=== PATIENT | male | born 1950 | race Caucasian/White ===

== ENCOUNTER 2017-02-17 12:59 | Emergency (ER) | payer OTHER, MEDICARE ==
[~2017-02-17] VITALS: Ht 195.6 cm; Wt 158.8 kg
[~2017-02-17 12:59] MED LIST: AMLODIPINE BESYL5 M1 PO; ATIVAN0.5 MG PO; CILOSTAZOL100 M1 PO; DICLOFENAC SOD75 MG PO; FLOMAX(MONOGRA0.4 MG PO; FLOMAX0.4 M1 PO; LISINOPRIL10 MG PO; LISINOPRIL30 M1 PO; LISINOPRIL40 M1 PO; LORAZEPAM1 M1 PO; LOSARTAN POTASS50 M1 PO; METOPROLOL TART50 M1 PO; MULTIPLE VITAM1 EAC2 PO; NEURONTIN300 M1 PO; PREDNISONE20 M1 PO; VENLAFAXINE HC225 MG PO; VENLAFAXINE HY150 MG PO
--- NOTE | 2017-02-17 13:38 | ED GI/GU/ABDOMINAL COMPLAINT ---
History of Present Illness General Chief Complaint: General Adult Stated Complaint: ?KIDNEY STONE Source: patient Exam Limitations: no limitations Allergies Coded Allergies: Penicillins (Severe, TONGUE SWELLING 02/17/17) Reconcile Medications Cilostazol 100 MG TAB 1 TAB PO BID intermittent cluadication (Reported) Clotrimazole (Lotrimin AF) 1 % CREAM..G. 1 FRACISCO TOP BID TINEA CRURIS apply to affected area(s) Gabapentin (Neurontin) 300 MG CAP 1 CAP PO TID LEG PAIN (Reported) Lorazepam 1 MG TAB 1 TAB PO BID ANXIETY (Reported) Losartan Potassium 50 MG TABLET 50 MG PO DAILY HIGH BP Metoprolol Tartrate 50 MG TABLET 50 MG PO BID HIGH BP, HEART HEALTH Multivitamin (Multiple Vitamins) 1 TAB TAB 1 TAB PO DAILY supplement ( Reported) Prednisone 20 MG TABLET 2 TAB PO DAILY LUNG INFLAMMATION Tamsulosin HCl (Flomax) 0.4 MG CAP.ER.24H 1 CAP PO BID PROSTATE (Reported) VENLAFAXINE HCL (Venlafaxine HCl ER) [address] 1 TAB PO DAILY MENTAL HEALTH (Reported) Triage Note: PT C/O PAIN IN LEFT FLANK AND PAIN IN LEFT GROIN OFF AND ON SINCE YESTERDAY. TODAY UNABLE TO HAVE BM AND ONLY URINATING A LITTLE. DENIES BLOOD IN URINE Triage Nurses Notes Reviewed? yes Onset: Gradual Duration: getting worse Timing: recent history Quality/Severity: fullness, moderate Severity Numbers: 5 Location: scrotal, urethral Radiation: no radiation HPI: Patient is a 67-year-old male with a past medical history of hypertension who presents emergency room stating that the last day he has been complaining of worsening scant urination production when last 2 hours he's been unable to urinate. Patient does complain of suprapubic abdominal fullness and pain. Patient has never had similar symptoms in the past. Denies any nausea vomiting back pain Last bowel movement was today no blood no melena noted (GABBY DING) Vital Signs & Intake/Output Vital Signs & Intake/Output Vital Signs Date Time Temp Pulse Resp B/P Pulse O2 O2 Flow FiO2 Ox Delivery Rate 02/17 1715 158/96 02/17 1655 105 18 178/101 95 02/17 1544 99.3 95 20 158/96 96 Room Air 02/17 1330 96 Nasal 4.0L Cannula 02/17 1305 97.0 130 20 131/90 Past History Travel History Traveled to [place] past 21 day No Medical History Any Pertinent Medical History? see below for history Neurological: NONE EENT: NONE Cardiovascular: hypertension Respiratory: pneumonia Gastrointestinal: NONE Hepatic: NONE Renal: benign prost hyperplasia Musculoskeletal: NONE Psychiatric: anxiety Endocrine: NONE Blood Disorders: NONE Cancer(s): NONE PEST LOCATOR/Reproductive: NONE Other Medical Hx: OBESITY History of MRSA: No History of VRE: No History of CDIFF: No Surgical History Surgical History: non-contributory, varicocoele Psychosocial History Who do you live with Patient/Self Services at Home None What is your primary language Turkish Tobacco Use: Never used ETOH Use: denies use Illicit Drug Use: denies illicit drug use Family History Family History, If Any: SISTER (esophageal cancer). BROTHER (esophageal and colon cancer). FATHER (hypertension, ?esophageal aneurysm). Hx Contributory? No (GABBY DING) Review of Systems Review of Systems Constitutional: Reports: no symptoms. EENTM: Reports: no symptoms. Respiratory: Reports: no symptoms. Cardiovascular: Reports: no symptoms. GI: Reports: see HPI, abdominal pain. Genitourinary: Reports: see HPI. Musculoskeletal: Reports: no symptoms. Skin: Reports: no symptoms. Neurological/Psychological: Reports: no symptoms. Hematologic/Endocrine: Reports: no symptoms. Immunologic/Allergic: Reports: no symptoms. All Other Systems: Reviewed and Negative (GABBY DING) Physical Exam Physical Exam General Appearance: mild distress Gastrointestinal: normal bowel sounds, soft, MILD SUPRAPUBIC POINT TENDERNESS NO REBOUND TENDERNESS NO PERITONEAL SIGNS Skin: nOTED BILATERAL INGUINAL BEEFY ERYTHEMATOUS CONTINUOUS RASH Comments: HEENT: Normal EENT exam, Neck: Supple, no lymphadenopathy, normal range of motion without pain or tenderness Back: Nontender, no CVA tenderness. Cardiovascular: Regular rate and rhythms no murmurs rubs or gallops, normal JVP Respiratory: Chest nontender. No respiratory distress.breath sounds clear to auscultation bilaterally Extremity: No edema, no calf tenderness to palpation, normal and equal pulses. Neuro: Alert oriented x3, motor sensory normal, Psych: Mood and affect is normal, memory and judgment is normal. Core Measures ACS in differential dx? No Severe Sepsis Present: No Septic Shock Present: No (GABBY DING) Progress Differential Diagnosis: AAA, AMI, appendicitis, biliary colic, bowel obstruction , colon cancer, cholecystitis, diverticulitis, epididymitis, esophageal varices, gastritis, hepatitis, hernia, hemorrhoids, ischemic bowel, inflamm bowel dis, Marjorie-Jasmyne tear, orchitis, pancreatitis, prostatitis, peptic ulcer, PUD/GERD, perforated viscous, pyelonephritis, SBO, STD, testicular torsion, ureterolithiasis, urinary retention, urethritis, UTI/pyelo Diagnostic Imaging: Viewed by Me: CT Scan, Ultrasound. Radiology Impression: SEE COMMENTS Initial ED EKG: none Comments: PATIENT: GABBY SERRANO PRESENT AGE: 67 PATIENT ACCOUNT NO: [id number] : 50 LOCATION: ER ORDERING PHYSICIAN: GABBY BOLAÑOS SERVICE DATE: 02/17/17 EXAM TYPE: US - US-TESTICULAR EXAMINATION: US TESTICULAR CLINICAL INFORMATION: Testicular pain. Rule out testicular torsion. COMPARISON: None TECHNIQUE: High-resolution linear transducer grayscale, color Doppler and spectral Doppler evaluation of the scrotum was performed. FINDINGS: RIGHT TESTICLE: 4.9 x 2.7 x 3.0 cm with a volume of 28 mL. The testicle is normal in size, shape and echotexture. No focal intratesticular lesion. Normal symmetrical appearing intratesticular blood flow is documented. There is a 1.2 x 1.1 x 1.0 cm right epididymal head cyst. No evidence of varicocele or hydrocele. LEFT TESTICLE: 4.7 x 2.5 x 3.3 cm with a volume of 28 mL. The testicle is normal in size, shape and echotexture. No focal intratesticular lesion. Incidental note is made of small appendix of the testicle. Normal symmetrical appearing intratesticular blood flow is documented. There are 2 left epididymal head cysts measuring 0.8 cm and 0.4 cm. No varicocele. A small left hydrocele, probably physiologic. IMPRESSION: 1. No evidence of testicular torsion. Normal sonographic appearance of the testicles. 2. Bilateral epididymal head simple cysts. 3. Small left hydrocele is probably physiologic. 4. No varicocele. PATIENT: GABBY SERRANO PRESENT AGE: 67 PATIENT ACCOUNT NO: [id number] : 50 LOCATION: ER ORDERING PHYSICIAN: GABBY BOLAÑOS SERVICE DATE: 02/17/17134 EXAM TYPE: CAT - CT ABD & PELVIS W/O IV CONTRAS EXAMINATION: CT ABDOMEN AND PELVIS WITHOUT CONTRAST CLINICAL INFORMATION: Suprapubic pain. COMPARISON: None TECHNIQUE: Multidetector volumetric imaging was performed from the superior aspect of the liver through the pubic symphysis. Sagittal and coronal reformatted images were obtained on the technologist's workstation. DLP: 1908 mGy-cm FINDINGS: BURLAP BAG SEWER: Obese body habitus. LUNG BASES: Platelike atelectasis within the lingula. Right diaphragm is elevated and compressive atelectasis is present within the overlying middle lobe and lower lobe. The visualized ascending thoracic aorta is 4.3 cm transverse and 4.4 cm AP diameter at the level of the right pulmonary artery. LIVER, GALLBLADDER, AND BILIARY TREE: There is a small, 0.7 cm subcapsular hepatic cyst (image 20, series 2). Gallbladder is moderately distended and without evidence of cholelithiasis or wall edema. No intrahepatic or extrahepatic bile duct dilatation. PANCREAS: There is atrophy and partial fatty replacement of the pancreas. No pancreatic ductal dilatation. SPLEEN: Prominent spleen measures 14.5 cm craniocaudal dimension. ADRENAL GLANDS: Unremarkable. KIDNEYS AND URETERS: Mild bilateral renal cortical atrophy. No nephrolithiasis, hydronephrosis or perinephric edema. 2.8 x 3.5 cm cyst at the upper pole the right kidney has a simple appearance on these noncontrast images. The ureters are normal in caliber. BLADDER: Urinary bladder is decompressed by a Morejon catheter. GASTROINTESTINAL TRACT: Bowel loops are normal in size. Diverticulosis of the sigmoid colon without diverticulitis. No evidence of inflammation or obstruction along the gastrointestinal tract. No ascites or pneumoperitoneum. ABDOMINAL WALL: Small, fat-containing umbilical hernia measures 1.8 cm wide. There is a fat-containing left inguinal hernia; the hernia sac measures approximately 4.9 x 2.9 x 6.2 cm. LYMPH NODES: No pathologic sized lymph nodes within the abdomen or pelvis. VASCULAR: Mild atherosclerotic calcification of the abdominal aorta without aneurysm. PELVIC VISCERA: Large prostate gland measures 7 cm transverse, 6 cm AP and 7.8 cm craniocaudal. No pelvic free fluid. OSSEOUS STRUCTURES: There is bulky paraspinal osteophyte formation of the thoracolumbar spine. Multilevel disc degeneration of the thoracolumbar spine as manifest by disc space narrowing, osteophyte formation and vacuum disc phenomenon. Lumbar spinal canal stenosis is most pronounced at L3-L4. At L3-L4, there is disc bulge, facet arthropathy and ligamentum flavum hypertrophy resulting in multifactorial, at least moderate central canal stenosis, severe left foraminal stenosis and moderate right foraminal stenosis. Small bone islands of the left femoral neck. No suspicious osseous lesions. IMPRESSION: 1. Large prostate gland (7 x 6 x 7.8 cm) could cause a bladder outlet obstruction. The urinary bladder is completely decompressed by the Morejon catheter. There is no evidence of urolithiasis or urinary urinary tract obstruction. 2. Diverticulosis of sigmoid colon without diverticulitis. 3. Small, fat-containing umbilical hernia. Also, there is a fat-containing left inguinal hernia. 4. The visualized descending thoracic aorta is dilated (4.4 cm diameter). 5. Patient has a large body habitus. Splenomegaly is noted. 6. Multilevel disc degeneration of the thoracolumbar spine. Within the lumbar spine, spinal canal stenosis appears [id number] at L3-L4. (CLAUDIA BOLAÑOS,GABBY) Plan of Care: Orders Procedure Date/time Status Morejon, Insertion/Removal/Asses 02/17 1343 Active CULTURE,URINE 02/17 1343 Active COMPREHENSIVE METABOLIC PANEL 02/17 1343 Complete CBC WITHOUT DIFFERENTIAL 02/17 1343 Complete URINALYSIS 02/17 1306 Complete Laboratory Tests 02/17/17 1521: Anion Gap 10, Estimated GFR 55 L, BUN/Creatinine Ratio 11.5, Glucose 133 H, Calcium 9.7, Total Bilirubin 1.6 H, AST 26, ALT 33, Alkaline Phosphatase 64, Total Protein 6.5, Albumin 3.8, Globulin 2.7, Albumin/Globulin Ratio 1.4 02/17/17 1425: Urine Color KAREN, Urine Clarity CLEAR, Urine pH 8.0, Ur Specific [place] 1.020, Urine Protein 30 H, Urine Ketones 15 H, Urine Nitrite NEG, Urine Bilirubin NEG @ICTO, Urine Urobilinogen 4.0 H, Ur Leukocyte Esterase NEG, Ur Microscopic SEDIMENT EXAMINED, Urine RBC 25-50 H, Urine WBC RARE, Ur Epithelial Cells RARE, Urine Bacteria RARE H, Hyaline Casts 10-15 H, Urine Mucus RARE, Urine Hemoglobin MOD H, Urine Glucose NEG 02/17/17 1412: CBC w Diff NO MAN DIFF REQ, RBC 5.73, MCV 84.7, MCH 29.2, RDW 13.6, MPV 8.1, Gran % 85.1 H, Lymphocytes % 7.9 L, Monocytes % 6.8, Eosinophils % 0.1, Basophils % 0.1, Absolute Granulocytes 7.7 H, Absolute Lymphocytes 0.7 L, Absolute Monocytes 0.6, Absolute Eosinophils 0, Absolute Basophils 0, PUBS MCHC 34.5 Microbiology 02/17 1425 URINE ROUT: Urine Culture - RECD Nursing staff does note that after Morejon catheter was placed 5R cc of straw- colored urine was produced and patient has significant resolution of his abdominal suprapubic pain Patient currently resting comfortably and has nontender abdomen after exam. Patient had CT scan results concerns for enlarged prostate and most likely this is causing patient's urine retention. Patient was strongly advised to establish urologist Dr. ARGUETA for further evaluation treatment. Upon discharge patient looks well no apparent distress and will comply with discharge and shocks in's and had no questions. MOREJON leg bag was applied and patient was strongly advised to follow up with urology. Discussed patient with Dr. Donovan who agrees with disposition plan. (GABBY DNIG) Departure Departure Disposition: HOME OR SELF CARE Condition: Stable Clinical Impression Primary Impression: Urine retention Secondary Impressions: Enlarged prostate, Tinea cruris Referrals: RADHA ABURTO (PCP/Family) AMY RICHTER MD Additional Instructions: As discussed please continue to leave the Morejon catheter leg bag has been placed on you in the emergency room at all times. Tomorrow please follow-up and established urologist for further evaluation treatment. Begin the prescription of Lotrimin and apply to your inguinal region If symptoms worsen return to emergency room. Prescriptions are waiting at your pharmacy Departure Forms: Customer Survey General Discharge Information Prescriptions: Current Visit Scripts Clotrimazole (Lotrimin AF) 1 FRACISCO TOP BID #24 GM apply to affected area(s) (GABBY DING) PA/COTTONSEED MEAT PRESSER Co-Sign Statement Statement: ED Attending supervision documentation- [X] I saw and evaluated the patient. I have also reviewed all the pertinent lab results and diagnostic results. I agree with the findings and the plan of care as documented in the PA's/COTTONSEED MEAT PRESSER's documentation. [] I have reviewed the ED Record and agree with the PA's/COTTONSEED MEAT PRESSER's documentation. [] Additions or exceptions (if any) to the PAs/COTTONSEED MEAT PRESSER's note and plan are summarized below: [] ([place],CHIVO Etienne)
[2017-02-17 14:22] LABS: ABSOLUTE BASOPHIL COUNT 0 /CUMM (0.0-0.2); ABSOLUTE EOSINOPHIL COUNT 0 /CUMM (0.0-0.7); ABSOLUTE GRANULOCYTE CT 7.7 /CUMM (1.4-6.5); ABSOLUTE LYMPH COUNT 0.7 /CUMM (1.2-3.4); ABSOLUTE MONOCYTE COUNT 0.6 /CUMM (0.10-0.60); BASOPHIL % 0.1 % (0.0-2.0); EOSINOPHIL % 0.1 % (0-5); GRANULOCYTE % 85.1 % (42.2-75.2); HEMATOCRIT 48.5 % (42-52); MEAN CORPUSCULAR HGB 29.2 PG (27.0-31.0); MEAN CORPUSCULAR HGB CONC 34.5 G/DL (33.0-37.0); MEAN CORPUSCULAR VOLUME 84.7 FL (80.0-94.0); MEAN PLATELET VOLUME 8.1 FL (7.4-10.4); PLATELET COUNT 161 /CUMM (130-400); RBC DISTRIBUTION WIDTH 13.6 % (11.5-14.5); RED BLOOD CELL CT 5.73 /CUMM (4.70-6.10)
--- NOTE | 2017-02-17 15:10 | CT SCAN REPORT ---
EXAMINATION: CT ABDOMEN AND PELVIS WITHOUT CONTRAST CLINICAL INFORMATION: Suprapubic pain. COMPARISON: None TECHNIQUE: Multidetector volumetric imaging was performed from the superior aspect of the liver through the pubic symphysis. Sagittal and coronal reformatted images were obtained on the technologist's workstation. DLP: 1908 mGy-cm FINDINGS: LEARNING COORDINATOR: Obese body habitus. LUNG BASES: Platelike atelectasis within the lingula. Right diaphragm is elevated and compressive atelectasis is present within the overlying middle lobe and lower lobe. The visualized ascending thoracic aorta is 4.3 cm transverse and 4.4 cm AP diameter at the level of the right pulmonary artery. LIVER, GALLBLADDER, AND BILIARY TREE: There is a small, 0.7 cm subcapsular hepatic cyst (image 20, series 2). Gallbladder is moderately distended and without evidence of cholelithiasis or wall edema. No intrahepatic or extrahepatic bile duct dilatation. PANCREAS: There is atrophy and partial fatty replacement of the pancreas. No pancreatic ductal dilatation. SPLEEN: Prominent spleen measures 14.5 cm craniocaudal dimension. ADRENAL GLANDS: Unremarkable. KIDNEYS AND URETERS: Mild bilateral renal cortical atrophy. No nephrolithiasis, hydronephrosis or perinephric edema. 2.8 x 3.5 cm cyst at the upper pole the right kidney has a simple appearance on these noncontrast images. The ureters are normal in caliber. BLADDER: Urinary bladder is decompressed by a Shultz catheter. GASTROINTESTINAL TRACT: Bowel loops are normal in size. Diverticulosis of the sigmoid colon without diverticulitis. No evidence of inflammation or obstruction along the gastrointestinal tract. No ascites or pneumoperitoneum. ABDOMINAL WALL: Small, fat-containing umbilical hernia measures 1.8 cm wide. There is a fat-containing left inguinal hernia; the hernia sac measures approximately 4.9 x 2.9 x 6.2 cm. LYMPH NODES: No pathologic sized lymph nodes within the abdomen or pelvis. VASCULAR: Mild atherosclerotic calcification of the abdominal aorta without aneurysm. PELVIC VISCERA: Large prostate gland measures 7 cm transverse, 6 cm AP and 7.8 cm craniocaudal. No pelvic free fluid. OSSEOUS STRUCTURES: There is bulky paraspinal osteophyte formation of the thoracolumbar spine. Multilevel disc degeneration of the thoracolumbar spine as manifest by disc space narrowing, osteophyte formation and vacuum disc phenomenon. Lumbar spinal canal stenosis is most pronounced at L3-L4. At L3-L4, there is disc bulge, facet arthropathy and ligamentum flavum hypertrophy resulting in multifactorial, at least moderate central canal stenosis, severe left foraminal stenosis and moderate right foraminal stenosis. Small bone islands of the left femoral neck. No suspicious osseous lesions. IMPRESSION: 1. Large prostate gland (7 x 6 x 7.8 cm) could cause a bladder outlet obstruction. The urinary bladder is completely decompressed by the Shultz catheter. There is no evidence of urolithiasis or urinary urinary tract obstruction. 2. Diverticulosis of sigmoid colon without diverticulitis. 3. Small, fat-containing umbilical hernia. Also, there is a fat-containing left inguinal hernia. 4. The visualized descending thoracic aorta is dilated (4.4 cm diameter). 5. Patient has a large body habitus. Splenomegaly is noted. 6. Multilevel disc degeneration of the thoracolumbar spine. Within the lumbar spine, spinal canal stenosis appears [id number] at L3-L4.
--- NOTE | 2017-02-17 15:48 | ULTRASOUND REPORT ---
EXAMINATION: US TESTICULAR CLINICAL INFORMATION: Testicular pain. Rule out testicular torsion. COMPARISON: None TECHNIQUE: High-resolution linear transducer grayscale, color Doppler and spectral Doppler evaluation of the scrotum was performed. FINDINGS: RIGHT TESTICLE: 4.9 x 2.7 x 3.0 cm with a volume of 28 mL. The testicle is normal in size, shape and echotexture. No focal intratesticular lesion. Normal symmetrical appearing intratesticular blood flow is documented. There is a 1.2 x 1.1 x 1.0 cm right epididymal head cyst. No evidence of varicocele or hydrocele. LEFT TESTICLE: 4.7 x 2.5 x 3.3 cm with a volume of 28 mL. The testicle is normal in size, shape and echotexture. No focal intratesticular lesion. Incidental note is made of small appendix of the testicle. Normal symmetrical appearing intratesticular blood flow is documented. There are 2 left epididymal head cysts measuring 0.8 cm and 0.4 cm. No varicocele. A small left hydrocele, probably physiologic. IMPRESSION: 1. No evidence of testicular torsion. Normal sonographic appearance of the testicles. 2. Bilateral epididymal head simple cysts. 3. Small left hydrocele is probably physiologic. 4. No varicocele.
[2017-02-17] MEDS ORDERED: LOTRIMIN AF12 GM TOP (16:21)
[2017-02-17 17:15] VITALS: BP 158/96
== END 2017-02-17 17:37 ==
LOC: ERH 12:59
PROVIDERS: Physician Assistant
DX: R33.9 Retention of urine, unspecified (principal); N40.1 Benign prostatic hyperplasia with lower urinary tract symptoms; B35.6 Tinea cruris
CPT/HCPCS: 36415; 74176; 81001; 87086

== ENCOUNTER 2017-02-21 20:22 | Emergency (ER) | payer OTHER, MEDICARE ==
[~2017-02-21 20:22] MED LIST changes: +LOTRIMIN AF12 GM TOP
--- NOTE | 2017-02-21 21:06 | ED CARDIAC/CP/PALPITATIONS ---
History of Present Illness General Chief Complaint: Male Genitourinary Problems Stated Complaint: PROSTATE Source: patient, old records Exam Limitations: no limitations Vital Signs & Intake/Output Vital Signs & Intake/Output Vital Signs Date Time Temp Pulse Resp B/P Pulse O2 O2 Flow FiO2 Ox Delivery Rate 02/22 0229 98.2 65 18 130/69 96 02/22 0004 98.0 66 20 148/90 94 Room Air 02/21 2204 69 20 116/74 96 02/21 2040 97.2 120 26 99/62 93 Room Air ED Intake and Output 02/22 0000 02/21 1200 Intake Total Output Total 100 Balance -100 Output, Urine 100 Allergies Coded Allergies: Penicillins (Severe, TONGUE SWELLING 02/17/17) Reconcile Medications Cilostazol 100 MG TABLET 1 TAB PO BID INTERMITTENT CLAUDICATION (Reported) Ciprofloxacin HCl (Cipro) 250 MG TABLET 1 TAB PO BID URINE INFECTION Clotrimazole (Lotrimin AF) 1 % CREAM..G. 1 FRACISCO TOP BID TINEA CRURIS apply to affected area(s) Gabapentin (Neurontin) 300 MG CAPSULE 1 CAP PO TID NERVE PAIN (Reported) Lorazepam 1 MG TABLET 1 TAB PO TID PRN ANXIETY (Reported) Losartan Potassium 50 MG TABLET 50 MG PO DAILY HIGH BP Metoprolol Tartrate 50 MG TABLET 50 MG PO BID HIGH BP, HEART HEALTH Multivitamin (Multiple Vitamins) 1 EACH TABLET 1 TAB PO DAILY SUPPLEMENT ( Reported) Tamsulosin HCl (Flomax) 0.4 MG CAP.ER.24H 1 CAP PO BID PROSTATE (Reported) Venlafaxine HCl (Venlafaxine HCl ER) 225 MG TAB.ER.24 1 TAB PO DAILY MENTAL HEALTH (Reported) Triage Note: PER PT HAD CATHETER PLACED ON TUESDAY AND IT FELL OUT LOSING ALOT OF BLOOD AND FEELING SOB. PT REPORTS WAS TOLD IT WAS FROM ENLARGED PROSTATE Triage Nurses Notes Reviewed? yes HPI: Patient had a Shultz catheter placed over the weekend for urinary retention. Patient states that the catheter keeps moving in and out and he is now getting just blood in the Shultz bag. Patient feels a pressure sensation in his suprapubic area. The pressure sensation escalates and then started to decrease. Patient states when the pain does decrease that he notices that he has left- sided chest aching pain that radiates to left shoulder. The chest pain is constant and tell the pain in the suprapubic area escalates again and then he does not notice the chest pain. Patient is not sure how long the chest pain has been there. Patient denies any shortness of breath. There are no fevers or chills. Patient states the Shultz catheter is still draining. He pressure sensation in his suprapubic area escalates to as high as 10 out of 10 and then will decrease to 0 out of 10. There is no radiation of the pain. There are no aggravating or mitigating factors. The pain in his chest is 6 out of 10 and decreases when the pain in the suprapubic area increases. Past History Travel History Traveled to [place] past 21 day No Medical History Any Pertinent Medical History? see below for history Neurological: NONE EENT: NONE Cardiovascular: hypertension Respiratory: pneumonia Gastrointestinal: NONE Hepatic: NONE Renal: benign prost hyperplasia Musculoskeletal: NONE Psychiatric: anxiety Endocrine: NONE Blood Disorders: NONE Cancer(s): NONE RN HEMO DIALYSIS/Reproductive: NONE Other Medical Hx: OBESITY History of MRSA: No History of VRE: No History of CDIFF: No Surgical History Surgical History: non-contributory, varicocoele Psychosocial History Who do you live with Patient/Self Services at Home None What is your primary language Nigerian Tobacco Use: Current Daily Use Daily Tobacco Use Amount/Type: => 5 Cigarettes daily ETOH Use: denies use Illicit Drug Use: denies illicit drug use Family History Family History, If Any: SISTER (esophageal cancer). BROTHER (esophageal and colon cancer). FATHER (hypertension, ?esophageal aneurysm). Hx Contributory? No Review of Systems Review of Systems Constitutional: Reports: no symptoms. EENTM: Reports: no symptoms. Respiratory: Reports: no symptoms. Cardiovascular: Reports: see HPI, chest pain. GI: Reports: no symptoms. Genitourinary: Reports: see HPI, hematuria. Musculoskeletal: Reports: no symptoms. Skin: Reports: no symptoms. Neurological/Psychological: Reports: no symptoms. Hematologic/Endocrine: Reports: no symptoms. Immunologic/Allergic: Reports: no symptoms. All Other Systems: Reviewed and Negative Physical Exam Physical Exam General Appearance: well developed/nourished, alert, awake, anxious, mild distress Head: atraumatic, normal appearance Eyes: Bilateral: PERRL, EOMI. Ears, Nose, Throat: normal pharynx, normal ENT inspection, hearing grossly normal Neck: normal inspection, supple, full range of motion Respiratory: normal breath sounds, chest non-tender, no respiratory distress, lungs clear Cardiovascular: regular rate/rhythm, normal peripheral pulses Gastrointestinal: normal bowel sounds, soft, non-tender, no organomegaly Back: normal inspection, normal range of motion, NO CVA TENDERNESS Extremities: normal inspection, normal capillary refill, normal range of motion Neurologic/Psych: no motor/sensory deficits, awake, alert, oriented x 3, normal gait, normal mood/affect Skin: intact, normal color, warm/dry Lymphatic: no anterior cervical elmer Core Measures ACS in differential dx? Yes ASA ordered for poss ACS? No-ACS ruled out Severe Sepsis Present: No Septic Shock Present: No Progress Differential Diagnosis: AMI, cholecystitis, costochondritis, musculoskeletal pain, myocarditis, pericarditis, pneumonia, pneumothorax, UTI, URINARY RETENTION Plan of Care: Orders Procedure Date/time Status Shultz, Insertion/Removal/Asses 02/22 0334 Active TROPONIN LEVEL 02/22 226 Complete Telemetry/Size Worker 02/21 2106 Active TROPONIN LEVEL 02/21 2106 Complete COMPREHENSIVE METABOLIC PANEL 02/21 2106 Complete CBC WITHOUT DIFFERENTIAL 02/21 2106 Complete EKG 02/21 2106 Active URINALYSIS 02/21 2031 Complete Laboratory Tests 02/22/17 0230: Troponin I < 0.01 02/21/17 2205: Urine Color BLDY H, Urine Clarity TURBD H, Urine pH 8.0, Ur Specific Stites 1.015, Urine Protein >=300 H, Urine Ketones 40 H, Urine Nitrite POS H, Urine Bilirubin NEG, Urine Urobilinogen >=8.0 H, Ur Leukocyte Esterase LARGE H, Ur Microscopic SEDIMENT EXAMINED, Urine RBC PACKD H, Urine WBC 15-25 H, Urine Hemoglobin LARGE H, Urine Glucose 100 H 02/21/17 2147: Anion Gap 10, Estimated GFR > 60, BUN/Creatinine Ratio 16.0, Glucose 118 H, Calcium 9.4, Total Bilirubin 1.2, AST 21, ALT 31, Alkaline Phosphatase 59, Troponin I 0.02, Total Protein 6.4, Albumin 3.8, Globulin 2.6, Albumin/Globulin Ratio 1.5, CBC w Diff NO MAN DIFF REQ, RBC 5.16, MCV 86.0, MCH 28.7, RDW 13.4, MPV 8.5, Gran % 73.3, Lymphocytes % 16.0 L, Monocytes % 7.9, Eosinophils % 2.5, Basophils % 0.3, Absolute Granulocytes 3.9, Absolute Lymphocytes 0.9 L, Absolute Monocytes 0.4, Absolute Eosinophils 0.1, Absolute Basophils 0, PUBS MCHC 33.4 Diagnostic Imaging: Viewed by Me: Radiology Read. Discussed w/RAD: Radiology Read. CXR Impression: PATIENT: GABBY SERRANO PRESENT AGE: 67 PATIENT ACCOUNT NO: [id number] : 50 LOCATION: [facility] ORDERING PHYSICIAN: LEILA OSCAR MD SERVICE DATE: 02/21/17 EXAM TYPE: RAD - XRY- PORTABLE CHEST XRAY EXAMINATION: XR PORTABLE CHEST CLINICAL INFORMATION: Chest pain. COMPARISON: Chest x-ray done 04/12/2016 TECHNIQUE: Portable AP semierect portable view of the chest was obtained. FINDINGS: This exam is limited by the patient's body habitus. Lung volumes appear to be low on this lordotic projection. The visualized lungs are clear showing no active disease. IMPRESSION : No active disease. DICTATED BY: DEBBIE CONTEH MD DATE/TIME DICTATED:2225 INVESTIGATION OFFICER:SHARIF DATE/TIME TRANSCRIBED:02/21/172225 CONFIDENTIAL, DO NOT COPY WITHOUT APPROPRIATE AUTHORIZATION. <Electronically signed in Other Vendor System> SIGNED BY: DEBBIE CONTEH MD 02/21/172230 Initial ED EKG: NSR, RBBB, nonspecific ST T wave chg Prior EKG: unchanged Rhythm Strip: normal sinus rhythm Comments: Unable to flush Shultz. The Shultz was removed. Patient urinated approximately 200 mL of bloody urine. Patient wants to attempt to urinate again to see if the Shultz can stay out. Patient was unable to void again so the Shultz was reinserted and it is draining. It is bloody but there are no clots. Departure Departure Disposition: HOME OR SELF CARE Condition: Stable Clinical Impression Primary Impression: Chest pain, unspecified Secondary Impressions: Shultz catheter problem, UTI (urinary tract infection) Referrals: ELLIE LEE,RADHA WANG (PCP/Family) Additional Instructions: RETURN IF SYMPTOMS WORSEN OR FOR ANY CONCERNS Departure Forms: Customer Survey General Discharge Information Prescriptions: Current Visit Scripts Ciprofloxacin HCl (Cipro) 1 TAB PO BID #14 TAB Critical Care Note Critical Care Note Critical Care Time: non-applicable
[2017-02-21 21:56] LABS: ABSOLUTE BASOPHIL COUNT 0 /CUMM (0.0-0.2); ABSOLUTE EOSINOPHIL COUNT 0.1 /CUMM (0.0-0.7); ABSOLUTE GRANULOCYTE CT 3.9 /CUMM (1.4-6.5); ABSOLUTE LYMPH COUNT 0.9 /CUMM (1.2-3.4); ABSOLUTE MONOCYTE COUNT 0.4 /CUMM (0.10-0.60); BASOPHIL % 0.3 % (0.0-2.0); EOSINOPHIL % 2.5 % (0-5); GRANULOCYTE % 73.3 % (42.2-75.2); HEMATOCRIT 44.4 % (42-52); MEAN CORPUSCULAR HGB 28.7 PG (27.0-31.0); MEAN CORPUSCULAR HGB CONC 33.4 G/DL (33.0-37.0); MEAN PLATELET VOLUME 8.5 FL (7.4-10.4); PLATELET COUNT 175 /CUMM (130-400); RBC DISTRIBUTION WIDTH 13.4 % (11.5-14.5); RED BLOOD CELL CT 5.16 /CUMM (4.70-6.10); WHITE BLOOD CELL COUNT 5.4 /CUMM (4.8-10.8)
--- NOTE | 2017-02-21 22:31 | RADIOLOGY REPORT ---
EXAMINATION: XR PORTABLE CHEST CLINICAL INFORMATION: Chest pain. COMPARISON: Chest x-ray done 04/12/2016 TECHNIQUE: Portable AP semierect portable view of the chest was obtained. FINDINGS: This exam is limited by the patient's body habitus. Lung volumes appear to be low on this lordotic projection. The visualized lungs are clear showing no active disease. IMPRESSION: No active disease.
[2017-02-22] MEDS ORDERED: CIPRO250 M1 PO (03:12)
[2017-02-22 04:04] VITALS: BP 128/74
== END 2017-02-22 04:05 ==
LOC: ERH 20:22
PROVIDERS: Emergency Medicine
DX: N39.0 Urinary tract infection, site not specified (principal); R07.9 Chest pain, unspecified; T83.098A Other mechanical complication of other urinary catheter, initial encounter
CPT/HCPCS: 81001; 93005; 93010

== ENCOUNTER 2017-02-23 15:19 | Emergency (ER) | payer OTHER, MEDICARE ==
[~2017-02-23] VITALS: Ht 195.6 cm; Wt 158.8 kg
[~2017-02-23 15:19] MED LIST changes: +CIPRO250 M1 PO
[2017-02-23 16:09] LABS: ABSOLUTE BASOPHIL COUNT 0 /CUMM (0.0-0.2); ABSOLUTE EOSINOPHIL COUNT 0 /CUMM (0.0-0.7); ABSOLUTE GRANULOCYTE CT 6.3 /CUMM (1.4-6.5); ABSOLUTE LYMPH COUNT 0.7 /CUMM (1.2-3.4); ABSOLUTE MONOCYTE COUNT 0.6 /CUMM (0.10-0.60); BASOPHIL % 0.2 % (0.0-2.0); EOSINOPHIL % 0.5 % (0-5); GRANULOCYTE % 82.4 % (42.2-75.2); HEMATOCRIT 45.5 % (42-52); MEAN CORPUSCULAR HGB 28.7 PG (27.0-31.0); MEAN CORPUSCULAR HGB CONC 33.9 G/DL (33.0-37.0); MEAN CORPUSCULAR VOLUME 84.9 FL (80.0-94.0); MEAN PLATELET VOLUME 8.6 FL (7.4-10.4); PLATELET COUNT 150 /CUMM (130-400); RBC DISTRIBUTION WIDTH 13.7 % (11.5-14.5); RED BLOOD CELL CT 5.36 /CUMM (4.70-6.10); WHITE BLOOD CELL COUNT 7.7 /CUMM (4.8-10.8)
--- NOTE | 2017-02-23 18:14 | CT SCAN REPORT ---
EXAMINATION: CT ABDOMEN AND PELVIS WITHOUT CONTRAST CLINICAL INFORMATION: Lower abdominal pain. COMPARISON: Prior examinations most recent CT of the abdomen January 2017. TECHNIQUE: Multidetector volumetric imaging was performed from the superior aspect of the liver through the pubic symphysis. Sagittal and coronal reformatted images were obtained on the technologist's workstation. DLP: 1874 mGy-cm FINDINGS: LUNG BASES: Minimal bibasilar scarring or discoid atelectasis similar to prior. LIVER, GALLBLADDER, AND BILIARY TREE: Again noted is a small anterior subcapsular cyst seen on image 23/121, unchanged. The gallbladder is unremarkable with no evidence of radiopaque gallstones, gallbladder wall thickening, or obvious pericholecystic inflammatory changes. PANCREAS: Unremarkable. SPLEEN: Spleen intact. There are mild splenic varices present, unchanged. ADRENAL GLANDS: Unremarkable. KIDNEYS AND URETERS: There is slight fullness of the collecting systems bilaterally, new compared to prior. There are no stones. There is a 2.9 cm cyst in the posterior cortex of the upper pole of the right kidney, unchanged. BLADDER: The bladder is distended containing some air. A Shultz catheter is noted with the balloon within the prosthetic urethra. GASTROINTESTINAL TRACT: The appendix is normal. There is scattered diverticulosis in the descending and sigmoid colon without diverticulitis, overall unchanged. The small bowel is normal. The stomach is normal. ABDOMINAL WALL: There is a small fat-containing umbilical hernia, unchanged, measuring 1.5 cm transverse. LYMPH NODES: Normal. VASCULAR: There is mild arterial calcification throughout. PELVIC VISCERA: The prostate is enlarged but unchanged. As noted, the Shultz catheter appears to be within the prosthetic urethra location. OSSEOUS STRUCTURES: Multilevel spondylosis of the lumbosacral spine, unchanged. IMPRESSION: Shultz catheter noted with the distal end of the catheter and balloon within the prosthetic urethra. Therefore, this should be repositioned. The bladder is distended, possibly related to the malpositioned catheter. Diverticulosis without diverticulitis. Stable small umbilical hernia. A small cyst in the liver and stable cyst in the right kidney. Spondylosis of lumbosacral spine. Mild arterial calcification. This critical result was discussed with Dr. Aquiles Mesa at approximately 5:50 PM on 02/23/2017 and it was ascertained that the content and urgency of the report was understood at the time of direct communication.
--- NOTE | 2017-02-23 18:34 | ED GI/GU/ABDOMINAL COMPLAINT ---
History of Present Illness General Chief Complaint: Male Genitourinary Problems Stated Complaint: MOREJON CATHETER CAUSING PAIN Source: patient Exam Limitations: no limitations Vital Signs & Intake/Output Vital Signs & Intake/Output Vital Signs Date Time Temp Pulse Resp B/P Pulse O2 O2 Flow FiO2 Ox Delivery Rate 02/23 2003 96.5 69 20 141/79 95 Room Air 02/23 1804 98.9 84 20 178/79 96 Room Air 02/23 1710 98.9 100 20 159/77 96 Room Air 02/23 1608 98.7 98 20 198/104 94 Room Air 02/23 1525 96.9 104 18 174/117 98 Room Air Allergies Coded Allergies: Penicillins (Severe, TONGUE SWELLING 02/17/17) Reconcile Medications Cilostazol 100 MG TABLET 1 TAB PO BID INTERMITTENT CLAUDICATION (Reported) Ciprofloxacin HCl (Cipro) 250 MG TABLET 1 TAB PO BID URINE INFECTION Clotrimazole (Lotrimin AF) 1 % CREAM..G. 1 FRACISCO TOP BID TINEA CRURIS apply to affected area(s) Gabapentin (Neurontin) 300 MG CAPSULE 1 CAP PO TID NERVE PAIN (Reported) Lorazepam 1 MG TABLET 1 TAB PO TID PRN ANXIETY (Reported) Losartan Potassium 50 MG TABLET 50 MG PO DAILY HIGH BP Metoprolol Tartrate 50 MG TABLET 50 MG PO BID HIGH BP, HEART HEALTH Multivitamin (Multiple Vitamins) 1 EACH TABLET 1 TAB PO DAILY SUPPLEMENT ( Reported) Tamsulosin HCl (Flomax) 0.4 MG CAP.ER.24H 1 CAP PO BID PROSTATE (Reported) Venlafaxine HCl (Venlafaxine HCl ER) 225 MG TAB.ER.24 1 TAB PO DAILY MENTAL HEALTH (Reported) Triage Note: STATES HIS MOREJON CATHETER IS NOT DRAINING WELL. MOREJON WAS INSERTED ON 02/20. C/O GROIN AND LOWER ABDOMEN PAIN. Triage Nurses Notes Reviewed? yes Onset: Abrupt Duration: day(s):, constant Timing: recent history Quality/Severity: moderate, sharpness, severe Location: urethral Radiation: no radiation Activities at Onset: none No Modifying Factors: none HPI: 67-year-old male comes into emergency room with lower abdominal pain/suprapubic. Patient currently has a catheter in place. This is the patient's third visit back for catheter issues. Patient reports there has been some blood in the bag. He denies any fever chills vomiting. Decreases in bowel movement. Patient openly reported that sometimes he has some left-sided chest pain intermittently but currently not having any chest pain. Patient is here primarily for his abdomen pain. Denies any other associated symptoms. (SHANTEL REYNA) Past History Travel History Traveled to [place] past 21 day No Medical History Any Pertinent Medical History? 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 BROTHER (esophageal and colon cancer). FATHER (hypertension, ?esophageal aneurysm). Hx Contributory? No (SHANTEL REYNA) Review of Systems Review of Systems Constitutional: Reports: no symptoms. EENTM: Reports: no symptoms. Respiratory: Reports: no symptoms. Cardiovascular: Reports: see HPI. GI: Reports: see HPI. Genitourinary: Reports: see HPI. Musculoskeletal: Reports: no symptoms. Skin: Reports: no symptoms. Neurological/Psychological: Reports: no symptoms. Hematologic/Endocrine: Reports: no symptoms. Immunologic/Allergic: Reports: no symptoms. All Other Systems: Reviewed and Negative (SHANTEL REYNA) Physical Exam Physical Exam General Appearance: well developed/nourished, mild distress Head: atraumatic Eyes: Bilateral: normal appearance. Ears, Nose, Throat, Mouth: hearing grossly normal, moist mucous membrane Neck: normal inspection Respiratory: normal breath sounds, no respiratory distress Cardiovascular: regular rate/rhythm Gastrointestinal: soft Back: normal inspection, normal range of motion Extremities: normal range of motion Neurologic/Psych: awake, alert, oriented x 3, normal gait, normal mood/affect Skin: intact, normal color Core Measures ACS in differential dx? No Severe Sepsis Present: No Septic Shock Present: No (SHANTEL REYNA) Progress Differential Diagnosis: appendicitis, biliary colic, perforated viscous, pyelonephritis, STD, testicular torsion, ureterolithiasis, urinary retention, urethritis, UTI/pyelo, mi Plan of Care: Orders Procedure Date/time Status TROPONIN LEVEL 02/24 2000 Complete EKG 02/24 2000 Active TROPONIN LEVEL 02/23 155 Complete COMPREHENSIVE METABOLIC PANEL 02/23 155 Complete CBC WITHOUT DIFFERENTIAL 02/23 155 Complete EKG 02/23 1552 Active Laboratory Tests 02/23/17 2003: Troponin I 0.02 02/23/17 1600: Anion Gap 9, Estimated GFR > 60, BUN/Creatinine Ratio 13.3, Glucose 134 H, Calcium 9.1, Total Bilirubin 1.3, AST 18, ALT 29, Alkaline Phosphatase 65, Troponin I 0.02, Total Protein 6.3, Albumin 3.8, Globulin 2.5, Albumin/Globulin Ratio 1.5, CBC w Diff NO MAN DIFF REQ, RBC 5.36, MCV 84.9, MCH 28.7, RDW 13.7, MPV 8.6, Gran % 82.4 H, Lymphocytes % 8.5 L, Monocytes % 8.4, Eosinophils % 0.5, Basophils % 0.2, Absolute Granulocytes 6.3, Absolute Lymphocytes 0.7 L, Absolute Monocytes 0.6, Absolute Eosinophils 0, Absolute Basophils 0, PUBS MCHC 33.9 Diagnostic Imaging: Viewed by Me: CT Scan. Discussed w/RAD: CT Scan. Initial ED EKG: normal intervals, rate (98), RBBB, nonspecific ST T wave chg Hand-Off Endorsed To: JACK GONZALEZ DO ([facility]) Pending: EKG, labs Comments: SERVICE DATE: 02/23/17 EXAM TYPE: CAT - CT ABD & PELVIS W/O IV CONTRAS EXAMINATION: CT ABDOMEN AND PELVIS WITHOUT CONTRAST CLINICAL INFORMATION: Lower abdominal pain. COMPARISON: Prior examinations most recent CT of the abdomen January 2017. TECHNIQUE: Multidetector volumetric imaging was performed from the superior aspect of the liver through the pubic symphysis. Sagittal and coronal reformatted images were obtained on the technologist's workstation. DLP: 1874 mGy-cm FINDINGS: LUNG BASES: Minimal bibasilar scarring or discoid atelectasis similar to prior. LIVER, GALLBLADDER, AND BILIARY TREE: Again noted is a small anterior subcapsular cyst seen on image 23/121, unchanged. The gallbladder is unremarkable with no evidence of radiopaque gallstones, gallbladder wall thickening, or obvious pericholecystic inflammatory changes. PANCREAS: Unremarkable. SPLEEN: Spleen intact. There are mild splenic varices present, unchanged. ADRENAL GLANDS: Unremarkable. KIDNEYS AND URETERS: There is slight fullness of the collecting systems bilaterally, new compared to prior. There are no stones. There is a 2.9 cm cyst in the posterior cortex of the upper pole of the right kidney, unchanged. BLADDER: The bladder is distended containing some air. A Morejon catheter is noted with the balloon within the prosthetic urethra. GASTROINTESTINAL TRACT: The appendix is normal. There is scattered diverticulosis in the descending and sigmoid colon without diverticulitis, overall unchanged. The small bowel is normal. The stomach is normal. ABDOMINAL WALL: There is a small fat-containing umbilical hernia, unchanged, measuring 1.5 cm transverse. LYMPH NODES: Normal. VASCULAR: There is mild arterial calcification throughout. PELVIC VISCERA: The prostate is enlarged but unchanged. As noted, the Morejon catheter appears to be within the prosthetic urethra location. OSSEOUS STRUCTURES: Multilevel spondylosis of the lumbosacral spine, unchanged. IMPRESSION: Morejon catheter noted with the distal end of the catheter and balloon within the prosthetic urethra. Therefore, this should be repositioned. The bladder is distended, possibly related to the malpositioned catheter. Diverticulosis without diverticulitis. Stable small umbilical hernia. A small cyst in the liver and stable cyst in the right kidney. Spondylosis of lumbosacral spine. Mild arterial calcification. This critical result was discussed with Dr. Shantel Mesa at approximately 5:50 PM on 02/23/2017 and it was ascertained that the content and urgency of the report was understood at the time of direct communication. DICTATED BY: PATRICIA BARBOZA MD DATE/TIME DICTATED:02/23/171730 IMPLANT POLISHER:SHARIF DATE/TIME TRANSCRIBED:02/23/171730 (SHANTEL REYNA) Comments: 02/23/2017 8:59:13 PM patient signed out to me by Dr. Gonzalez at shift private branch exchange service advisor. Repeat troponin is unchanged and repeat EKG shows resolution of mild ST segment depressions in V2 and V3. Patient states he hasn't had chest pain in the weeks. The patient does have a history of right bundle branch pattern as commented on by Dr. Gustafson's consult in March of last year during a hospitalization for dyspnea. The patient presented with a complaint of a Morejon catheter dysfunction. Given the stable troponin, lack of chest pain recently and the patient's apparently unrelated chief complaint, I do not feel that the patient's EKG changes reflect an acute coronary syndrome. I feel he is stable for follow- up with a jewel bearing turner. In regards to the patient's Morejon catheter dysfunction he should follow up with a urologist. (SOUTH LEE,JACK Etienne) Departure Departure Condition: Stable Referrals: RADHA ABURTO (PCP/Family) Departure Forms: Customer Survey General Discharge Information Comments 02/23/2017 6:51:38 PM Patient does not have any primary cardiac complaints right now but has an abnormal EKG. Due to abnormal EKG patient will stay for a second EKG and second troponin. Patient signout to Dr. Gonzalez. Catheter is draining. Flushed multiple times. After catheter was readjusted over 1 L of fluid came out on patient had immediate relief. (SHANTEL REYNA) Departure Comments 8 PM The patient was signed out to Dr. Donovan at 8 PM. Pending repeat EKG and troponin. PA/SPANISH MOSS PICKER Co-Sign Statement Statement: ED Attending supervision documentation- [X] I saw and evaluated the patient. I have also reviewed all the pertinent lab results and diagnostic results. I agree with the findings and the plan of care as documented in the PA's/SPANISH MOSS PICKER's documentation. [] I have reviewed the ED Record and agree with the PA's/SPANISH MOSS PICKER's documentation. [] Additions or exceptions (if any) to the PAs/SPANISH MOSS PICKER's note and plan are summarized below: [] (JACK GONZALEZ DO) Departure Disposition: HOME OR SELF CARE Clinical Impression Primary Impression: Urine retention Secondary Impressions: Atypical chest pain Complication of Morejon catheter Qualifiers: Encounter type: initial encounter Qualified Code: T83.9XXA - Unspecified complication of genitourinary prosthetic device, implant and graft, initial encounter Additional Instructions: Follow-up with your urologist regarding your Morejon catheter issues. Follow-up with Dr. Gustafson, a jewel bearing turner, regarding your episodes of chest pain. Notify your primary care doctor of this emergency department visit and treatment plan. Return if any concerns or sudden worsening. Please note that there might be incidental findings in your evaluation that are unrelated to the current emergency department visit. Please notify your primary care doctor about this emergency department visit in order to obtain and review all of the testing performed so that these incidental findings can be monitored as needed. If you had an x-ray performed, please understand that some fractures may not be seen on the initial set of x-rays. If your symptoms persist you might need a repeat set of x-rays to check for such a fracture. If you had a laceration evaluated, please understand that foreign bodies such as glass or wood may not be visible to the naked eye or on plain x-rays. If the wound becomes red, swollen, increasingly more painful or if there is any drainage from the wound, please have it reevaluated by a physician for the possibility of a retained foreign body. Thank you for choosing the [facility] Emergency Department for your care. It was a pleasure to serve you today. Jack Donovan M.D. [facility] (SOUTH LEE,JACK Etienne)
[2017-02-23 21:30] VITALS: BP 144/83
== END 2017-02-23 21:31 ==
LOC: ERH 15:19
PROVIDERS: Physician Assistant Medical
DX: R33.9 Retention of urine, unspecified (principal); T83.098A Other mechanical complication of other urinary catheter, initial encounter; R07.89 Other chest pain
CPT/HCPCS: 74176; 93005; 93010; 96374

== ENCOUNTER 2017-02-25 15:34 | Emergency (ER) | payer OTHER, MEDICARE ==
[~2017-02-25] VITALS: Ht 195.6 cm; Wt 145.2 kg
[2017-02-25 15:42] VITALS: BP 153/98
--- NOTE | 2017-02-25 16:50 | ED GI/GU/ABDOMINAL COMPLAINT ---
History of Present Illness General Chief Complaint: Male Genitourinary Problems Stated Complaint: ?CLOGGED CATHETER, SEEN LAST PM NO RELIEF Source: patient, old records Exam Limitations: no limitations Vital Signs & Intake/Output Vital Signs & Intake/Output Vital Signs Date Time Temp Pulse Resp B/P Pulse O2 O2 Flow FiO2 Ox Delivery Rate 02/25 1542 95.7 69 20 153/98 94 Room Air Allergies Coded Allergies: Penicillins (Severe, TONGUE SWELLING 02/25/17) Reconcile Medications Cilostazol 100 MG TABLET 1 TAB PO BID INTERMITTENT CLAUDICATION (Reported) Ciprofloxacin HCl (Cipro) 250 MG TABLET 1 TAB PO BID URINE INFECTION Clotrimazole (Lotrimin AF) 1 % CREAM..G. 1 FRACISCO TOP BID TINEA CRURIS apply to affected area(s) Gabapentin (Neurontin) 300 MG CAPSULE 1 CAP PO TID NERVE PAIN (Reported) Lorazepam 1 MG TABLET 1 TAB PO TID PRN ANXIETY (Reported) Losartan Potassium 50 MG TABLET 50 MG PO DAILY HIGH BP Metoprolol Tartrate 50 MG TABLET 50 MG PO BID HIGH BP, HEART HEALTH Multivitamin (Multiple Vitamins) 1 EACH TABLET 1 TAB PO DAILY SUPPLEMENT ( Reported) Oxycodone HCl/Acetaminophen (Percocet 5-325 MG Tablet) 5 MG-325 MG TABLET 1 TAB PO BID PRN PAIN Tamsulosin HCl (Flomax) 0.4 MG CAP.ER.24H 1 CAP PO BID PROSTATE (Reported) Venlafaxine HCl (Venlafaxine HCl ER) 225 MG TAB.ER.24 1 TAB PO DAILY MENTAL HEALTH (Reported) Triage Note: TRIAGE: PT TO ER C/C PAIN TO BILATERAL GROIN AND PENIS. MOREJON HAS BEEN EMPTY SINCE EMPTYING THIS MORNING AROUND 8 AM. WAS SEEN HERE YESTERDAY FOR SAME AND HAD THE CATHETER FLUSHED. Triage Nurses Notes Reviewed? yes Onset: Gradual Duration: getting worse Timing: recent history Quality/Severity: fullness, moderate Severity Numbers: 5 Location: suprapubic Radiation: groin Prior Abdominal Problems: similar symptoms HPI: Patient is a 67-year-old male who presents emergency room with abdominal pain going pain and urine Morejon catheter discomfort. Patient was initially evaluated here at [place] emergency room by myself on February 17 for urine retention and which patient received CT scan showing enlarged prostate. Patient did have a Morejon catheter leg bag placed patient has been seen on February 21 for concerns of Morejon malfunction and UTI and atypical chest pain patient was safely discharged Morejon was appropriately functioning however patient then returned on February 23 for similar complaints and which the Morejon was near the prostatic urethra where it was malpositioned the positioning was repositioned in which she had roughly 1 L of urine produced and patient was safely discharged. Patient states that he's been emptying his bag regularly in which she was producing however since 8 AM no urinary has been produced where he is developing worsening suprapubic pain and groin pain. No vomiting has occurred. Patient has been compliant with previously prescribed Flomax and ciprofloxacin. Patient denies any chest pain shortness of breath cough back pain palpitations nausea vomiting diaphoresis (GABBY DING) Past History Travel History Traveled to [place] past 21 day No Medical History Any Pertinent Medical History? see below for history Neurological: NONE EENT: NONE Cardiovascular: hypertension Respiratory: pneumonia, (PT DENIES) Gastrointestinal: NONE Hepatic: NONE Renal: benign prost hyperplasia Musculoskeletal: NONE Psychiatric: anxiety Endocrine: NONE Blood Disorders: NONE Cancer(s): NONE DEFLECTOR OPERATOR/Reproductive: NONE Other Medical Hx: OBESITY History of MRSA: No History of VRE: No History of CDIFF: No Surgical History Surgical History: non-contributory, varicocoele Psychosocial History Who do you live with Patient/Self Services at Home None What is your primary language Marshallese Tobacco Use: Never used ETOH Use: occasional use Illicit Drug Use: denies illicit drug use Family History Family History, If Any: SISTER (esophageal cancer). BROTHER (esophageal and colon cancer). FATHER (hypertension, ?esophageal aneurysm). Hx Contributory? No (GABBY DING) Review of Systems Review of Systems Constitutional: Reports: no symptoms. EENTM: Reports: no symptoms. Respiratory: Reports: no symptoms. Cardiovascular: Reports: no symptoms. GI: Reports: see HPI, abdominal pain. Genitourinary: Reports: see HPI. Musculoskeletal: Reports: no symptoms. Skin: Reports: no symptoms. Neurological/Psychological: Reports: no symptoms. Hematologic/Endocrine: Reports: no symptoms. Immunologic/Allergic: Reports: no symptoms. All Other Systems: Reviewed and Negative (GABBY DING) Physical Exam Physical Exam General Appearance: no apparent distress, obese Gastrointestinal: normal bowel sounds, soft, MILD SUPRAPUBIC POINT TENDERNESS Comments: HEENT: Normal EENT exam, Neck: Supple, no lymphadenopathy, normal range of motion without pain or tenderness Back: no CVA tenderness. Cardiovascular: Regular rate and rhythms no murmurs rubs or gallops, normal JVP Respiratory: Chest nontender. No respiratory distress.breath sounds clear to auscultation bilaterally Extremity: No edema, no calf tenderness to palpation, normal and equal pulses. Neuro: Alert oriented x3, motor sensory normal, Skin: No appreciable rash on exposed skin, skin is warm and dry. Psych: Mood and affect is normal, memory and judgment is normal. Core Measures ACS in differential dx? No Severe Sepsis Present: No Septic Shock Present: No (GABBY DING) Progress Differential Diagnosis: AAA, AMI, appendicitis, biliary colic, bowel obstruction , colon cancer, cholecystitis, diverticulitis, epididymitis, esophageal varices, gastritis, hepatitis, hernia, hemorrhoids, ischemic bowel, inflamm bowel dis, Marjorie-Jasmyne tear, orchitis, pancreatitis, prostatitis, peptic ulcer, PUD/GERD, perforated viscous, pyelonephritis, SBO, testicular torsion, ureterolithiasis, urinary retention, urethritis, UTI/pyelo, Morejon CATHETER MALFUNCTION Plan of Care: Patient currently is in no apparent distress patient is currently compliant with this ciprofloxacin Nursing staff deflated the catheter advanced the catheter and reinflated it and state that immediately after advancing it patient produced 750 mL of blood- tinged urine patient had significant resolution of his pain. Patient was strongly advised to follow up with urology Upon discharge patient looks well no apparent distress and will comply with discharge instructions and had no questions Discussed disposition and plan with DR. DOWNEY WHO AGREES Initial ED EKG: none (GABBY DING) Departure Departure Disposition: HOME OR SELF CARE Condition: Stable Clinical Impression Primary Impression: Malfunction of Morejon catheter Referrals: ELLIE LEE,RADHA WANG (PCP/Family) Additional Instructions: As discussed leave the Morejon catheter in place until you follow up with urology. Call urology DR ARGUETA ON Tuesday to make an appointment to be seen for further evaluation treatment, begin the prescription of Percocet for pain if symptoms worsen return to the emergency room. Continue your previously prescribed ciprofloxacin Departure Forms: Customer Survey General Discharge Information Prescriptions: Current Visit Scripts Oxycodone HCl/Acetaminophen (Percocet 5-325 MG Tablet) 1 TAB PO BID PRN PAIN #10 TAB (GABBY DING) PA/ARC WELDING MACHINE OPERATOR Co-Sign Statement Statement: ED Attending supervision documentation- [X] I saw and evaluated the patient. I have also reviewed all the pertinent lab results and diagnostic results. I agree with the findings and the plan of care as documented in the PA's/ARC WELDING MACHINE OPERATOR's documentation. [X] I have reviewed the ED Record and agree with the PA's/ARC WELDING MACHINE OPERATOR's documentation. [] Additions or exceptions (if any) to the PAs/ARC WELDING MACHINE OPERATOR's note and plan are summarized below: [] (NASREEN LEE,MARILU)
[2017-02-25] MEDS ORDERED: PERCOCET 5-3251 EACH PO (17:31)
== END 2017-02-25 17:47 ==
LOC: ERH 15:34
DX: T83.098A Other mechanical complication of other urinary catheter, initial encounter (principal)

== ENCOUNTER 2017-03-03 16:35 | Observation (INO) | payer OTHER, MEDICARE ==
[~2017-03-03] VITALS: Ht 195.6 cm; Wt 145.1 kg
[~2017-03-03 16:35] MED LIST changes: +PERCOCET 5-3251 EACH PO
--- NOTE | 2017-03-03 17:12 | ED GENERAL ADULT ---
History of Present Illness General Chief Complaint: Male Genitourinary Problems Stated Complaint: NO URINE IN MOREJON BAG FOR 18 HRS Source: patient, old records Exam Limitations: no limitations Vital Signs & Intake/Output Vital Signs & Intake/Output Vital Signs Date Time Temp Pulse Resp B/P Pulse O2 O2 Flow FiO2 Ox Delivery Rate 03/05 0751 68 140/90 03/05 0715 98.4 68 20 140/90 93 Room Air 03/04 2206 98.0 68 20 154/90 93 Room Air 03/04 2102 68 154/90 ED Intake and Output 03/05 0000 03/04 1200 Intake Total 2460 800 Output Total 650 180 Balance 1810 620 Intake, IV 1500 800 Intake, Oral 960 Output, Urine 650 180 Allergies Coded Allergies: Penicillins (Severe, TONGUE SWELLING 02/25/17) Triage Note: PT TO ED WITH C/O " I ONLY HAD 200 IN MY BAG THIS MORNING AROUND 9AM, NO URINE SINCE THEN". Triage Nurses Notes Reviewed? yes HPI: Patient is a 67-year-old male presents for evaluation of clogged Morejon catheter. Patient reports that he woke with 200 mL of urine in his Morejon bag this morning , has not had any other output since then. Patient has an appointment on March [address] Maciel but has not seen a urologist recently. Patient reports lightheadedness onset when he presented to the emergency department. Pain is 0 out of 10. Denies abdominal pain, vomiting, diarrhea, chest pain, dyspnea (BELKYS RODRIGUEZ) Reconcile Medications Cilostazol 100 MG TABLET 1 TAB PO BID INTERMITTENT CLAUDICATION (Reported) Clotrimazole (Lotrimin AF) 1 % CREAM..G. 1 FRACISCO TOP BID TINEA CRURIS apply to affected area(s) Gabapentin (Neurontin) 300 MG CAPSULE 1 CAP PO TID NERVE PAIN (Reported) Hydrocodone/Acetaminophen (Hydrocodon-Acetaminophen 5-325) 5 MG-325 MG TABLET 1 TAB PO Q6P PRN PAIN SCALE 4-6 (MODERATE) Lorazepam 1 MG TABLET 1 TAB PO TID PRN ANXIETY (Reported) Losartan Potassium 50 MG TABLET 50 MG PO DAILY HIGH BP Metoprolol Tartrate 50 MG TABLET 50 MG PO BID HIGH BP, HEART HEALTH Multivitamin (Multiple Vitamins) 1 EACH TABLET 1 TAB PO DAILY SUPPLEMENT ( Reported) Tamsulosin HCl (Flomax) 0.4 MG CAP.ER.24H 1 CAP PO BID PROSTATE (Reported) Venlafaxine HCl (Venlafaxine HCl ER) 225 MG TAB.ER.24 1 TAB PO DAILY MENTAL HEALTH (Reported) (CHIVO GONZALEZ DO) Past History Travel History Traveled to [place] past 21 day No Medical History Any Pertinent Medical History? 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 BROTHER (esophageal and colon cancer). FATHER (hypertension, ?esophageal aneurysm). Hx Contributory? No (BELKYS RODRIGUEZ) Review of Systems Review of Systems Constitutional: Reports: malaise, weakness. Denies: chills, fever. EENTM: Reports: no symptoms. Respiratory: Denies: cough, short of breath. Cardiovascular: Denies: chest pain. GI: Denies: abdominal pain. Genitourinary: Reports: see HPI, hematuria. Musculoskeletal: Reports: no symptoms. Skin: Reports: no symptoms. Neurological/Psychological: Reports: weakness. Denies: headache. Hematologic/Endocrine: Denies: bruising, bleeding. Immunologic/Allergic: Denies: splenectomy. (BELKYS RODRIGUEZ) Physical Exam Physical Exam General Appearance: alert, awake, lethargic (mild) Head: atraumatic, normal appearance Eyes: Bilateral: normal appearance, PERRL, EOMI. Ears, Nose, Throat: normal pharynx, normal ENT inspection, hearing grossly normal Neck: normal inspection, supple, full range of motion Respiratory: normal breath sounds, chest non-tender, no respiratory distress, lungs clear Cardiovascular: regular rate/rhythm Gastrointestinal: normal bowel sounds, soft, non-tender Back: normal inspection, normal range of motion Extremities: normal inspection, normal capillary refill, normal range of motion, no edema Neurologic/Psych: awake, alert, mild lethargy. full range of motion of all 4 extremities. No focal unilateral weakness Skin: intact, normal color, warm/dry Lymphatic: no anterior cervical elmer Core Measures ACS in differential dx? No CVA/TIA Diagnosis: No Severe Sepsis Present: No Septic Shock Present: No (BELKYS RODRIGUEZ) Progress Differential Diagnoses I considered the following diagnoses in my evaluation of the patient: sepsis, hypovolemia, UTI, pneumonia, MANJIT, anemia Plan of Care: Orders Procedure Date/time Status Morejon, Insertion/Removal/Asses 03/05 0955 Active CBC WITHOUT DIFFERENTIAL 03/05 0600 Complete Discharge Patient 03/05 UNK Active MISSING MEDICATION FORM 03/05 UNK Active Laboratory Tests 03/05/17 0810: CBC w Diff NO MAN DIFF REQ, RBC 4.42 L, MCV 87.0, MCH 29.2, RDW 13.9, MPV 8.9, Gran % 62.6, Lymphocytes % 27.4, Monocytes % 6.1, Eosinophils % 3.2, Basophils % 0.7, Absolute Granulocytes 3.3, Absolute Lymphocytes 1.4, Absolute Monocytes 0.3 , Absolute Eosinophils 0.2, Absolute Basophils 0, PUBS MCHC 33.5 03/03/2017 5:25:50 PM: Discussed with and seen by Dr. Gonzalez. 03/03/2017 5:31:55 PM: Patient reevaluated, mentating normal, nontoxic appearing. Patient has 2 peripheral IVs functioning well, second liter of normal saline infusing. 03/03/2017 5:51:34 PM: Blood pressure improved to 88 systolic. Hemoglobin and hematocrit normal. White blood cell count normal. Awaiting chemistries 03/03/2017 7:19:31 PM: Patient responded well to IV fluid boluses, normotensive. Results of labs and imaging discussed with patient. Labs at patient's baseline, patient afebrile, not tachycardic. Empiric antibiotics deferred. (BELKYS RODRIGUEZ) Diagnostic Imaging: Viewed by Me: CT Scan. Discussed w/RAD: CT Scan. Radiology Impression: PATIENT: GABBY SERRANO PRESENT AGE: 67 PATIENT ACCOUNT NO: [id number] : 50 LOCATION: [facility] ORDERING PHYSICIAN: BELKYS BOLAÑOS SERVICE DATE: 03/03/17 EXAM TYPE: CAT - CT ABD & PELVIS W/O IV CONTRAS EXAMINATION: CT ABDOMEN AND PELVIS WITHOUT CONTRAST CLINICAL INFORMATION: Decreased urine output. Hypertension. COMPARISON: CT abdomen pelvis 02/23/2017 TECHNIQUE: Multidetector volumetric imaging was performed from the superior aspect of the liver through the pubic symphysis. Sagittal and coronal reformatted images were obtained on the technologist's workstation. DLP: 1966.04 mGy-cm FINDINGS: LUNG BASES: The visualized lung bases are unremarkable. LIVER, GALLBLADDER, AND BILIARY TREE: The liver is normal in size, shape, and attenuation. No focal hepatic lesion or biliary ductal dilatation is present. The gallbladder is unremarkable with no evidence of radiopaque gallstones, gallbladder wall thickening, or obvious pericholecystic inflammatory changes. PANCREAS: Unremarkable. SPLEEN: Spleen is prominent measuring 15 cm AP. ADRENAL GLANDS: Unremarkable. KIDNEYS AND URETERS: Parapelvic cyst at the upper pole of the right kidney measuring 3 cm. Duplicated collecting system of the left kidney. The ureters merge in the pelvis with a single ureter entering the bladder. BLADDER: Morejon catheter within the bladder. Bladder is empty. GASTROINTESTINAL TRACT: There is diverticulosis of the colon. Diverticula seen throughout the colon but are most numerous in the sigmoid. There is no evidence of diverticulitis. No bowel wall thickening or edema. The sigmoid colon is redundant. Moderate to large volume of stool throughout the colon. The appendix is normal. Small bowel loops are normal. ABDOMINAL WALL: Fat -containing left inguinal hernia. Small fat-containing umbilical hernia. LYMPH NODES: Normal. VASCULAR: Unremarkable. PELVIC VISCERA: Prostate enlarged impressing into the bladder base OSSEOUS STRUCTURES: Multilevel degenerative spondylosis with disc height narrowing and endplate spurs and facet joint arthrosis IMPRESSION: Enlarged prostate. Morejon catheter within the bladder. No hydronephrosis. No acute change of kidneys. Mild splenomegaly. Diverticulosis of colon without diverticulitis. No acute change of bowel. DICTATED BY: BRITTNEY FRIED MD DATE/TIME DICTATED:03/03/171843 BEHAVIORAL THERAPIST:SHARIF DATE/TIME TRANSCRIBED:03/03/171843 CONFIDENTIAL, DO NOT COPY WITHOUT APPROPRIATE AUTHORIZATION. <Electronically signed in Other Vendor System> SIGNED BY: BRITTNEY FRIED MD 03/03/17 1855 Initial ED EKG: sinus bradycardia at the 5 bpm right bundle branch block, no acute ST/T-wave changes compared to previous EKG Prior EKG: unchanged (BELKYS RODRIGUEZ) Departure Departure Time of Disposition: 1938 Disposition: STILL A PATIENT Condition: Stable Clinical Impression Primary Impression: Hypotension Qualifiers: Hypotension type: unspecified hypotension type Qualified Code: I95.9 - Hypotension, unspecified Secondary Impressions: Elevated lactic acid level, Hypovolemia Referrals: RADHA ABURTO (PCP/Family) Departure Forms: Customer Survey General Discharge Information Observation Note Spoke With: ALFONSO LEE,PASHA Physician Advisor Notified: QAMAR LEE,JANETT Reaves Place Patient In: Non-ED OBS Care Area Rationale for Observation: My rational for observation is as follows: Patient with significant hypotension. Monitor for developing of fever, recurrent hypotension, change in renal function tests or White blood cell count. (BELKYS RODRIGUEZ) Departure Prescriptions: Current Visit Scripts Hydrocodone/Acetaminophen (Hydrocodon-Acetaminophen 5-325) 1 TAB PO Q6P PRN PAIN SCALE 4-6 (MODERATE) #10 TAB PA/TIMBER TRIMMER Co-Sign Statement Statement: ED Attending supervision documentation- [X] I saw and evaluated the patient. I have also reviewed all the pertinent lab results and diagnostic results. I agree with the findings and the plan of care as documented in the PA's/TIMBER TRIMMER's documentation. [] I have reviewed the ED Record and agree with the PA's/TIMBER TRIMMER's documentation. [] Additions or exceptions (if any) to the PAs/TIMBER TRIMMER's note and plan are summarized below: [] (CHIVO GONZALEZ DO) Critical Care Note Critical Care Note Critical Care Time: 30-74 min (BELKYS RODRIGUEZ) PROTHROMBIN TIME 03/03 1938 Complete CULTURE,URINE 03/03 1711 Active BLOOD CULTURE 03/03 1711 Active URINALYSIS 03/03 171 Complete LACTIC ACID 03/03 171 Complete COMPREHENSIVE METABOLIC PANEL 03/03 171 Complete CBC WITHOUT DIFFERENTIAL 03/03 171 Complete EKG 03/03 1711 Active TYPE & SCREEN (NOT X-MATCH) 03/03 171 Complete FingerStick- Glucose 03/03 1707 Active OXYGEN 03/03 UNK Complete OXYGEN DAILY CHARGE 03/03 UNK Complete VTE Mechanical Prophylaxis 03/03 UNK Active Vital Signs 03/03 UNK Complete MISTAKE 03/03 UNK Complete Intake & Output 03/03 UNK Active Current Medications Sig/Jared Start time Last Medication Dose Stop Time Status Admin Losartan Potassium 50 MG DAILY 03/04 1000 CAN (Cozaar) Metoprolol Tartrate 50 MG BID 03/04 1000 CAN (Lopressor) Acetaminophen 650 MG Q6P PRN 03/03 2045 AC (Tylenol) Acetaminophen/ 1 TAB Q6P PRN 03/03 2045 AC Hydrocodone Bitart (Vicodin) Laboratory Tests 03/04/17 0646: Anion Gap 8, Estimated GFR > 60, BUN/Creatinine Ratio 13.6, TSH 1.960, Free T4 1.12, Cortisol AM Sample 4.0 L 03/03/171945: Lactic Acid 0.9, PT 14.2 H, INR 1.36 H, APTT 31 03/03/171939: Urine Color BLDY H, Urine Clarity CLDY H, Urine pH 5.5, Ur Specific [place] 1.025, Urine Protein 100 H, Urine Ketones TRACE H, Urine Nitrite POS H, Urine Bilirubin NEG@ICTO, Urine Urobilinogen 2.0 H, Ur Leukocyte Esterase MOD H, Ur Microscopic SEDIMENT EXAMINED, Urine RBC PACKD H, Urine WBC 10-15 H, Ur Epithelial Cells FEW, Urine Bacteria FEW H, Urine Hemoglobin LARGE H, Urine Glucose NEG 03/03/171716: Anion Gap 11, Estimated GFR 55 L, BUN/Creatinine Ratio 11.5, Glucose 106 H, Lactic Acid 2.4 H, Calcium 9.0, Total Bilirubin 0.9, AST 21, ALT 33, Alkaline Phosphatase 58, Total Protein 6.0 L, Albumin 3.5, Globulin 2.5, Albumin/ Globulin Ratio 1.4, CBC w Diff NO MAN DIFF REQ, RBC 4.98, MCV 84.2, MCH 29.4, RDW 13.5, MPV 8.8, Gran % 71.4, Lymphocytes % 18.1 L, Monocytes % 8.3, Eosinophils % 1.9, Basophils % 0.3, Absolute Granulocytes 4.5, Absolute Lymphocytes 1.1 L, Absolute Monocytes 0.5, Absolute Eosinophils 0.1, Absolute Basophils 0, PUBS MCHC 34.9 03/03/171710: PT Cancelled, INR Cancelled Microbiology 03/03 1941 URINE ROUT: Urine Culture - CAN Cancelled: Cancelled via OE: Duplicate Order 03/03 1940 URINE ROUT: Urine Culture - RES 03/03 1745 BLOOD: Blood Culture - RES 03/03 1711 BLOOD: Blood Culture - RES 03/03/2017 5:25:50 PM: Discussed with and seen by Dr. Gonzalez. 03/03/2017 5:31:55 PM: Patient reevaluated, mentating normal, nontoxic appearing. Patient has 2 peripheral IVs functioning well, second liter of normal saline infusing. 03/03/2017 5:51:34 PM: Blood pressure improved to 88 systolic. Hemoglobin and hematocrit normal. White blood cell count normal. Awaiting chemistries 03/03/2017 7:19:31 PM: Patient responded well to IV fluid boluses, normotensive. Results of labs and imaging discussed with patient. Labs at patient's baseline, patient afebrile, not tachycardic. Empiric antibiotics deferred. (BELKYS RODRIGUEZ) Departure Departure Time of Disposition: 1938 Disposition: STILL A PATIENT Condition: Stable Clinical Impression Primary Impression: Hypotension Qualifiers: Hypotension type: unspecified hypotension type Qualified Code: I95.9 - Hypotension, unspecified Secondary Impressions: Elevated lactic acid level, Hypovolemia Referrals: RADHA ABURTO (PCP/Family) Departure Forms: Customer Survey General Discharge Information Observation Note Spoke With: ALFONSO LEE,MARYAdrian Physician Advisor Notified: QAMAR LEE,JANETT Reaves Place Patient In: Non-ED OBS Care Area Rationale for Observation: My rational for observation is as follows: Patient with significant hypotension. Monitor for developing of fever, recurrent hypotension, change in renal function tests or White blood cell count. (BELKYS RODRIGUEZ) PA/TIMBER TRIMMER Co-Sign Statement Statement: ED Attending supervision documentation- [X] I saw and evaluated the patient. I have also reviewed all the pertinent lab results and diagnostic results. I agree with the findings and the plan of care as documented in the PA's/TIMBER TRIMMER's documentation. [] I have reviewed the ED Record and agree with the PA's/TIMBER TRIMMER's documentation. [] Additions or exceptions (if any) to the PAs/TIMBER TRIMMER's note and plan are summarized below: [] (LISA DO,CHIVO L.) Critical Care Note Critical Care Note Critical Care Time: 30-74 min (WILFRIDO BOLAÑOS,BELKYS)
[2017-03-03 17:33] LABS: ABSOLUTE BASOPHIL COUNT 0 /CUMM (0.0-0.2); ABSOLUTE EOSINOPHIL COUNT 0.1 /CUMM (0.0-0.7); ABSOLUTE GRANULOCYTE CT 4.5 /CUMM (1.4-6.5); ABSOLUTE LYMPH COUNT 1.1 /CUMM (1.2-3.4); ABSOLUTE MONOCYTE COUNT 0.5 /CUMM (0.10-0.60); BASOPHIL % 0.3 % (0.0-2.0); EOSINOPHIL % 1.9 % (0-5); GRANULOCYTE % 71.4 % (42.2-75.2); MEAN CORPUSCULAR HGB 29.4 PG (27.0-31.0); MEAN CORPUSCULAR HGB CONC 34.9 G/DL (33.0-37.0); MEAN CORPUSCULAR VOLUME 84.2 FL (80.0-94.0); MEAN PLATELET VOLUME 8.8 FL (7.4-10.4); PLATELET COUNT 250 /CUMM (130-400); RBC DISTRIBUTION WIDTH 13.5 % (11.5-14.5); RED BLOOD CELL CT 4.98 /CUMM (4.70-6.10); WHITE BLOOD CELL COUNT 6.3 /CUMM (4.8-10.8)
--- NOTE | 2017-03-03 18:56 | CT SCAN REPORT ---
EXAMINATION: CT ABDOMEN AND PELVIS WITHOUT CONTRAST CLINICAL INFORMATION: Decreased urine output. Hypertension. COMPARISON: CT abdomen pelvis 02/23/2017 TECHNIQUE: Multidetector volumetric imaging was performed from the superior aspect of the liver through the pubic symphysis. Sagittal and coronal reformatted images were obtained on the technologist's workstation. DLP: 1966.04 mGy-cm FINDINGS: LUNG BASES: The visualized lung bases are unremarkable. LIVER, GALLBLADDER, AND BILIARY TREE: The liver is normal in size, shape, and attenuation. No focal hepatic lesion or biliary ductal dilatation is present. The gallbladder is unremarkable with no evidence of radiopaque gallstones, gallbladder wall thickening, or obvious pericholecystic inflammatory changes. PANCREAS: Unremarkable. SPLEEN: Spleen is prominent measuring 15 cm AP. ADRENAL GLANDS: Unremarkable. KIDNEYS AND URETERS: Parapelvic cyst at the upper pole of the right kidney measuring 3 cm. Duplicated collecting system of the left kidney. The ureters merge in the pelvis with a single ureter entering the bladder. BLADDER: Shultz catheter within the bladder. Bladder is empty. GASTROINTESTINAL TRACT: There is diverticulosis of the colon. Diverticula seen throughout the colon but are most numerous in the sigmoid. There is no evidence of diverticulitis. No bowel wall thickening or edema. The sigmoid colon is redundant. Moderate to large volume of stool throughout the colon. The appendix is normal. Small bowel loops are normal. ABDOMINAL WALL: Fat-containing left inguinal hernia. Small fat-containing umbilical hernia. LYMPH NODES: Normal. VASCULAR: Unremarkable. PELVIC VISCERA: Prostate enlarged impressing into the bladder base OSSEOUS STRUCTURES: Multilevel degenerative spondylosis with disc height narrowing and endplate spurs and facet joint arthrosis IMPRESSION: Enlarged prostate. Shultz catheter within the bladder. No hydronephrosis. No acute change of kidneys. Mild splenomegaly. Diverticulosis of colon without diverticulitis. No acute change of bowel.
--- NOTE | 2017-03-03 20:03 | History & Physical ---
MISHA LEE,STEPHANIE 03/03/172002: General Information and HPI History of Present Illness: Mr. Madrigal is a 57 year old gentleman with a PMH significant for MOIRA, ?COPD not on home oxygen, HOCM, HTN, morbid obesity, restless leg syndrome, and anxiety, last admitted to [place] in March 2016 for acute hypxoic resp failure, who is admitted for evaluation of hypotension and oliguria with clogged Jimenez catheter. Patient initially presented to [place] ED on February 17 with urinary retention for which a jimenez cath was placed. At that time he was found to have an elarged prostate on CT scan. Patient was sent home on jimenez with a plan to follow up with a urologist Dr. Burch. Since then he has returned to ED 3-4 times for issues with the jimenez including suprapubic/groin discomfort/pain, clogged cath and hematuria. He was placed on Cipro about 10 days ago for UTI. Patient has not had a chance to follow up with a urologist yet. At the time of interview patient denies any dyspnea, angina, palpitations, abdominal/ pain, n/v/c/d. He endorses dizziness and lightheadedness for the past few days. Of note, patient was discharged on home oxygen (2 liters) after the admission last year but he has not been complaint with it as he does not like using the oxygen. In ED patient was found to hypotensive with BP of 68/46. He received 3 liters of IVF with improvement of BP to 140/60s. On he lives alone at [facility]. 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 He has no family. Denies any tobacco/EtOH/illicit drug use. PCP - Dr. Oliva Urologist - Dr. Burch/Raheem DNR/I./ Allergies/Medications Allergies: Coded Allergies: Penicillins (Severe, TONGUE SWELLING 02/25/17) Home Med list Cilostazol 100 MG TABLET 1 TAB PO BID INTERMITTENT CLAUDICATION (Reported) Ciprofloxacin HCl (Cipro) 250 MG TABLET 1 TAB PO BID URINE INFECTION Clotrimazole (Lotrimin AF) 1 % CREAM..G. 1 FRACISCO TOP BID TINEA CRURIS apply to affected area(s) Gabapentin (Neurontin) 300 MG CAPSULE 1 CAP PO TID NERVE PAIN (Reported) Lorazepam 1 MG TABLET 1 TAB PO TID PRN ANXIETY (Reported) Losartan Potassium 50 MG TABLET 50 MG PO DAILY HIGH BP Metoprolol Tartrate 50 MG TABLET 50 MG PO BID HIGH BP, HEART HEALTH Multivitamin (Multiple Vitamins) 1 EACH TABLET 1 TAB PO DAILY SUPPLEMENT ( Reported) Tamsulosin HCl (Flomax) 0.4 MG CAP.ER.24H 1 CAP PO BID PROSTATE (Reported) Venlafaxine HCl (Venlafaxine HCl ER) 225 MG TAB.ER.24 1 TAB PO DAILY MENTAL HEALTH (Reported) Past History Travel History Traveled to [place] past 21 day No Medical History Neurological: NONE EENT: NONE Cardiovascular: hypertension Respiratory: pneumonia, (PT DENIES) Gastrointestinal: NONE Hepatic: NONE Renal: benign prost hyperplasia Musculoskeletal: NONE Psychiatric: anxiety Endocrine: NONE Blood Disorders: NONE Cancer(s): NONE VOLUNTEER ASSISTANT/Reproductive: NONE Other Medical Hx: OBESITY History of MRSA: No History of VRE: No History of CDIFF: No Surgical History Surgical History: varicocoele Past Family/Social History Family History Relations & Conditions if any SISTER (esophageal cancer). BROTHER (esophageal and colon cancer). FATHER (hypertension, ?esophageal aneurysm). Psychosocial History Services at Home: None ETOH Use: denies use Illicit Drug Use: denies illicit drug use Functional Ability ADLs Independent: dressing, eating, toileting, bathing. Ambulation: independent IADLs Independent: shopping, housework, finances, food prep, telephone, transportation , medication admin. Review of Systems Review of Systems Constitutional: Reports: see HPI. Exam & Diagnostic Data Last 24 Hrs of Vital Signs/I&O Vital Signs Date Time Temp Pulse Resp B/P Pulse O2 O2 Flow FiO2 Ox Delivery Rate 03/03 2020 97.9 58 22 139/67 100 Nasal 4.0L Cannula 03/03 1904 97.6 55 15 112/68 100 Nasal 4.0L Cannula 03/03 1842 60 20 102/68 99 Nasal 4.0L Cannula 03/03 1750 99 Nasal 4.0L Cannula 03/03 1747 97.6 56 15 88/44 96 Room Air Room Air 03/03 1706 60 15 68/48 03/03 1647 96.9 72 20 68/46 94 Room Air Room Air Physical Exam General Appearance Alert, Oriented X3, Cooperative, No Acute Distress Skin No Rashes, No Breakdown, No Significant Lesion HEENT Atraumatic, PERRLA, EOMI, Dry MM Neck Supple, No JVD, No LAD Cardiovascular Regular Rate, Normal S1, Normal S2, No Murmurs, Gallops, Rubs Lungs Clear to Auscultation, Normal Air Movement Abdomen Normal Bowel Sounds, Soft, No Tenderness Extremities No Clubbing, No Cyanosis, No Edema, Normal Pulses, No Tenderness/ Swelling Vascular Normal Pulses, Pulses Symmetrical Last 24 Hrs of Labs/[place]: Laboratory Tests 03/03/171945: Lactic Acid 0.9, PT 14.2 H, INR 1.36 H, APTT 31 03/03/171939: Urine Color BLDY H, Urine Clarity CLDY H, Urine pH 5.5, Ur Specific [place] 1.025, Urine Protein 100 H, Urine Ketones TRACE H, Urine Nitrite POS H, Urine Bilirubin NEG@ICTO, Urine Urobilinogen 2.0 H, Ur Leukocyte Esterase MOD H, Ur Microscopic SEDIMENT EXAMINED, Urine RBC PACKD H, Urine WBC 10-15 H, Ur Epithelial Cells FEW, Urine Bacteria FEW H, Urine Hemoglobin LARGE H, Urine Glucose NEG 03/03/171716: Anion Gap 11, Estimated GFR 55 L, BUN/Creatinine Ratio 11.5, Glucose 106 H, Lactic Acid 2.4 H, Calcium 9.0, Total Bilirubin 0.9, AST 21, ALT 33, Alkaline Phosphatase 58, Total Protein 6.0 L, Albumin 3.5, Globulin 2.5, Albumin/ Globulin Ratio 1.4, CBC w Diff NO MAN DIFF REQ, RBC 4.98, MCV 84.2, MCH 29.4, RDW 13.5, MPV 8.8, Gran % 71.4, Lymphocytes % 18.1 L, Monocytes % 8.3, Eosinophils % 1.9, Basophils % 0.3, Absolute Granulocytes 4.5, Absolute Lymphocytes 1.1 L, Absolute Monocytes 0.5, Absolute Eosinophils 0.1, Absolute Basophils 0, PUBS MCHC 34.9 03/03/171710: PT Cancelled, INR Cancelled Microbiology 03/03 1941 URINE ROUT: Urine Culture - CAN Cancelled: Cancelled via OE: Duplicate Order 03/03 1940 URINE ROUT: Urine Culture - RECD 03/03 1745 BLOOD: Blood Culture - RECD 03/03 1711 BLOOD: Blood Culture - RECD Assessment/Plan Assessment: Mr. Madrigal is a 57 year old gentleman with a PMH significant for MOIRA, ?COPD on home oxygen, HOCM, HTN, morbid obesity, restless leg syndrome, and anxiety, who is admitted for evaluation of hypotension and oliguria with clogged Jimenez catheter. # Hypotension 2/2 dehydration In ED patient was found to hypotensive with BP of 68/46. He received 3 liters of IVF with improvement of BP to 140/60s. * Admit to for observation * Vitals per protocol * Check orthostats * Gentle IV hydration as patient has a h/o HOCM # MANJIT with oliguria and clogged jimenez Cr on admission 1.3, most likely prerenal 2/2 dehydration. * Consult urology, follow recs * Cont IVF * Check BEP daily, trend Cr # ? UTI UA likely indicative of UTI. In the setting of lactic acidosis on admission and oliguria, we will treat for UTI for now. Afebrile thus far. * Start IV CTX * Monitor for signs of infection # HTN * Hold home antihypertensives for now. * Resume tmrw morning if BP remains stable or pt becomes persistently hypertensive - Hear healthy diet - Mild pain pathway - DVT prophylaxis: lovenox. - DNR/DNI As Ranked By This Provider Problem List: 1. Elevated lactic acid level 2. Hypovolemia 3. Hypotension Qualifiers Hypotension type: unspecified hypotension type Qualified Code: I95.9 - Hypotension, unspecified 4. Malfunction of Jimenez catheter Core Measures/Miscellaneous Acute Coronary Syndrome ACS Diagnosis: No Cerebrovascular Accident CVA/TIA Diagnosis: No Congestive Heart Failure CHF Diagnosis: No Venous Thromboembolism VTE Risk Factors: Age > 40 No [facility] VTE prophylaxis d/t: No contraindications No VTE Pharm Prophylaxis d/t: No contraindications VTE Diagnosis: No VTE Type: NONE VTE Confirmed by (Test): NONE Severe Sepsis Severe Sepsis Present: No Septic Shock Septic Shock Present: No Miscellaneous Documentation Attending Case Discussed With: [facility] Primary Care Physician: RADHA OLIVA Patient sees these Specialists See HPI Level of Patient Care: General Medicine GUCCI LEE,CHETNA 03/03/172037: Resident Review Statement Resident Statement: examined this patient, discussed with pharmacy graduate intern Other Findings: Mr. Madrigal is a 67-year-old gentleman with a medical history significant for HOCM followed by Dr. Gustafson, COPD, depression and anxiety, recent multiple admissions at [facility] ER for urinary retention an incidentally found to have an enlarged prostate and Jimenez catheter placement. The initial event was on February 17, since then he has had 4 other visits to the ER because of hematuria in the Jimenez catheter not draining appropriately. He had been discharge each time after replacing the Jimenez catheter. He was set to see Dr. Barriga's at the end of this month however has been unable to do so. He presented to the emergency room today after noticing that his urine bag was dry, he last drained yesterday evening. He also felt dizzy. No chest pain. Presented to the emergency room was found to be hypotensive. IV fluids were given and currently he is normotensive and states that his dizziness has alleviated. CBC is benign, BEP shows a creatinine of 1.3 which is elevated from his baseline of 1.0, and a lactic acid of 2.4, urinalysis is pending CAT scan of the abdomen pelvis again common son the enlarged prostate. Assessment- 1. Urinary retention secondary to enlarged prostate 2. MANJIT secondary to hypotension 3. Hypotension likely secondary to decreased by mouth intake 4. History of ? HOCM 5. COPD 6. HTN 7. Depression 8. Blood clot noted in Jimenez catheter 9. U/A suggestive of UTI Plan- - IV fluid recussitation - Orthostats q shift - Uro consult in AM - Changed jimenez per ER staff - U/A and culture - Start Ceftriaxone - Continue all home meds -Alps for DVT prophylaxis for now, if no further hematuria and blood clot, can start pharmacological DVT prophylaxis -Heart healthy diet -Pain pathway -DNR/I ALFONSO LEE, [facility] 03/03/17 9963: Attending MD Review Statement Attending Statement Attending MD Statement: examined this patient, discuss w/resident/PA/ELIGIBILITY CONSULTANT, agreed w/resident/PA/ELIGIBILITY CONSULTANT Attending Assessment/Plan: 67 yo morbidly obese M, lives at the [facility], has a h/o HTN, claudication/ PAD, dizziness, restless leg syndrome, anxiety/ depression, ?HOCM, MOIRA noncompliant with APAP, last admitted to [place] (March 2016) for hypoxia of multifactorial etiology and was asked to continue to use 2L O2, is here today for c/o minimal to nil urine output ofr over 8 hours and lightheadedness. Reports poor PO intake Patient was seen in ER on February 17 for hematuria, diagnosed with BPH, jimenez placed and he was asked to follow up with Urology. He has been seen in the ER 4 times since for a clogged jimenez and hematuria. He was placed on Ciprofloxacin on February 22 for a UTI. He is scheduled to see Dr. Maciel on March 14. Patient has no h/o kidney stones or prior procedures. Vitals: afebrile, HR 60-70's, BP 68/46 --> 88/44 --> 112/68 after 3 L NS, sats 99% on 4L. Labs: H/H 14.7/42, INR 1.36, creat 1.3 (Baseline 0.9-1.0), lactic acid 2.4, UA bloody, cloudy, nitrite +, LE mod, packed RBC, WBC 10-15. CT abd/ pelvis: enlarged prostate, no hydronephrosis, mild splenomegaly. EKG: SR, RBBB, Qtc 471. PFT (2016): restrictive ventilatory defect with resting desaturation. Nuclear stress test (2017): negative. 1. Hypotension and elevated lactic acid in the setting of poor PO intake/ dehydration that responded to IV fluids. Need to rule out sepsis. GM 23 Obs, panculture, check TSH, free T4, AM cortisol. Continue IV fluid hydration, monitor to avoid fluid overload. Trend lactic acid. Check orthostats. Hold losartan and metoprolol. 2. MANJIT likely prerenal. IV hydration, trend renal functions. 3. Urinary retention 2/2 BPH with UTI. Jimenez changed in the ER, consult Urology in AM. Continue flomax, add finasteride. Patient was being treated with Ciprofloxacin since February 22 (Day 09/03), will cover empirically with IV ceftriaxone. Follow urine culture. Plan for eventual cystostcopy and ?TURP. 4. h/o sleep apnea/?HOCM/ restrictive lung disease. Outpatient follow up with Dr. Salazar and Dr. Gustafson. DVT ppx Hep SC. DNR/I.
[2017-03-03 20:16] LABS: PT 14.2 SEC (9.4-12.5); PTT 31 SEC (25-37)
[2017-03-03 22:53] VITALS: BP 96/60
[2017-03-04 07:46] VITALS: BP 122/64
--- NOTE | 2017-03-04 11:27 | PN- Housestaff ---
JHON LEE,THIAGO 03/04/17 1127: Subjective Follow-up For: Hypotension AK I Subjective: Saw patient at bedside this a.m. He said he felt much better. Prior to admission he stated he had some dizziness and a "whooshing sensation in his ears." Denies other sensation this AM. Endorses good by mouth intake food and liquid. However, he does notice a decreased output from catheter. No acute overnight events. Review of Systems Constitutional: Denies: chills, malaise. EENTM: Reports: no symptoms. Cardiovascular: Denies: chest pain, palpitations. Respiratory: Reports: no symptoms. Gastrointestinal: Reports: no symptoms. Genitourinary: Denies: dysuria, frequency, hematuria, hesitation, nocturia, pain, urgency. Musculoskeletal: Reports: no symptoms. Objective Last 24 Hrs of Vital Signs/I&O Vital Signs Date Time Temp Pulse Resp B/P Pulse O2 O2 Flow FiO2 Ox Delivery Rate 03/04 1429 98.0 60 20 120/80 96 03/04 0746 97.9 52 20 122/64 97 Nasal 4.0L Cannula 03/04 0000 Nasal 4.0L Cannula 03/03 2304 60 128/68 03/03 2253 97.8 57 19 96/60 99 Nasal Cannula 03/03 2141 97.4 59 20 138/68 99 Nasal 4.0L Cannula 03/03 2020 97.9 58 22 139/67 100 Nasal 4.0L Cannula 03/03 1904 97.6 55 15 112/68 100 Nasal 4.0L Cannula 03/03 1842 60 20 102/68 99 Nasal 4.0L Cannula Intake & Output 03/04 1600 03/04 0800 03/04 0000 Intake Total 8067 387 5482 Output Total 100 180 360 Balance 7427 757 6259 Intake, IV 703 795 8442 Intake, Oral 600 Output, Urine 100 180 360 Patient 145.15 kg Weight Physical Exam General Appearance: Alert, Oriented X3, Cooperative, No Acute Distress Skin: No Significant Lesion Neck: Supple Cardiovascular: Regular Rate, Normal S1, Normal S2, No Murmurs Lungs: Normal Air Movement Abdomen: Soft, No Tenderness Extremities: No Clubbing, No Edema Current Medications: Current Medications Sig/Jared Start time Last Medication Dose Route Stop Time Status Admin Acetaminophen 650 MG Q6P PRN 03/03 2045 AC PO Acetaminophen/ 1 TAB Q6P PRN 03/03 2045 AC Hydrocodone Bitart PO Ceftriaxone Sodium 1,000 MG DAILY 03/03 220 DC 03/04 IV 0822 Ceftriaxone Sodium 0 .STK-MED ONE 03/03 2152 DC .ROUTE Cilostazol 100 MG BID 03/04 1000 AC 03/04 PO 0821 Gabapentin 300 MG TID 03/030 AC 03/04 PO 1603 Gabapentin 0 .STK-MED ONE 03/03 2159 DC PO Lorazepam 1 MG TID PRN 03/03 2045 AC 03/04 PO 1512 Losartan Potassium 50 MG DAILY 03/04 1000 CAN PO Metoprolol Tartrate 50 MG BID 03/04 1000 CAN PO Oxycodone/ 2 TAB Q6P PRN 03/03 2045 AC 03/03 Acetaminophen PO 2257 Senna/Docusate Sodium 1 TAB BID PRN 03/04 0500 AC 03/04 PO 0820 Sodium Chloride 1,000 ML Q13H 03/04 0900 AC 03/04 IV 0916 Sodium Chloride 1,000 ML ONCE ONE 03/03 2045 DC 03/03 IV 03/04 0644 2300 Sodium Chloride 1,000 ML BOLUS ONE 03/03 1800 DC 03/03 IV 03/03 1859 1800 Tamsulosin HCl 0.4 MG BID 03/03 220 AC 03/04 PO 0821 Venlafaxine HCl 225 MG 0800 03/04 0800 AC 03/04 PO 0821 Last 24 Hrs of Lab/[place] Results Last 24 Hrs of Labs/[place]: Laboratory Tests 03/04/17 0646: Anion Gap 8, Estimated GFR > 60, BUN/Creatinine Ratio 13.6, TSH 1.960, Free T4 1.12, Cortisol AM Sample 4.0 L 03/03/171945: Lactic Acid 0.9, PT 14.2 H, INR 1.36 H, APTT 31 03/03/171939: Urine Color BLDY H, Urine Clarity CLDY H, Urine pH 5.5, Ur Specific [place] 1.025, Urine Protein 100 H, Urine Ketones TRACE H, Urine Nitrite POS H, Urine Bilirubin NEG@ICTO, Urine Urobilinogen 2.0 H, Ur Leukocyte Esterase MOD H, Ur Microscopic SEDIMENT EXAMINED, Urine RBC PACKD H, Urine WBC 10-15 H, Ur Epithelial Cells FEW, Urine Bacteria FEW H, Urine Hemoglobin LARGE H, Urine Glucose NEG Microbiology 03/03 1941 URINE ROUT: Urine Culture - CAN Cancelled: Cancelled via OE: Duplicate Order 03/03 1940 URINE ROUT: Urine Culture - RES Assessment/Plan Assessment: This is a 67-year-old male with past medical history significant for MOIRA, COPD on 4 L O2 at home, hypertension, morbid obesity, RLS, anxiety, and questionable cardiomyopathy, who comes in for chief complaint of decreased urine output through his chronic Jimenez catheter. Plan 1. Hypotension: Patient came in with a BP of 68/48, was given 3 L and respond adequately and his blood pressure this a.m. is at 122/64. Patient denies any dizziness and reports good by mouth intake. Initially a lactic acid of 2.3, this a.m. trended down to 0. There was concern initially for sepsis. Patient did have lactic acid and hypotension in addition to a dirty UA. However he remained afebrile and all his vitals are stable. At this time he does not have a white count and his urinalysis is thought to be secondary to chronic indwelling Jimenez. Not treating for sepsis at this time. * Continue to monitor blood pressure * Continue to monitor urine output 2. Obstructed Jimenez catheter: Patient was noted have a blood clot obstructing is fully, he was unsure whether the decreased output was secondary to mechanical Jimenez problem or a physiologic medical problem. Note that he was seen in the ED on February 21, February 23, February 25 4 Jimenez-related issues. On February 17 a chronic Jimenez was placed for BPH and urinary obstruction. He was directed to follow-up with Dr. Maciel/lakshmi on the outpatient basis, however prior to appointment he can return in to ED. Note that his UA is positive for nitrites, large protein, moderate leukocyte esterase, 15 white blood cell, and packed RBC. * Hold off antibiotics * Monitor creatinine * Monitor urine output 3. Acute renal failure: At present it is currently unclear whether his ARF is secondary to prerenal or postrenal etiology. Patient was hypotensive with systolic 68 which would suggest a prerenal etiology. However his Jimenez was clogged which could suggest postrenal etiology as well. * No Jimenez catheter in place on 03/03/2017. Functioning well * Patient hydrated; flow was decreased from 100 mL per hour to 75 at this time. * Continue to monitor creatinine * Urology f/u Note that patient has possible discharge on 03/04/2017 if he has adequate urine output and if urologist gives clearance. Problem List: 1. Elevated lactic acid level 2. Hypovolemia 3. Jimenez catheter problem Pain Ratin Pain Location: none Pain Goal: Remain pain free Pain Plan: none Tomorrow's Labs & Rationales: cbc bep LÓPEZ ALICEA 03/04/17 1410: Attending MD Review Statement Attending Statement Attending MD Statement: examined this patient, discuss w/resident/PA/METHODS ANALYST DATA PROCESSING, agreed w/resident/PA/METHODS ANALYST DATA PROCESSING, discussed with family, reviewed EMR data (avail), discussed with nursing, discussed with case mgmt, reviewed images Attending Assessment/Plan: ASSESSMENT 1. Lactic acidosis 2. hypotension 3. MANJIT 2/2 IVVD/hypotension 4. BPH , urinary retention s/p jimenez 5. h/o sleep apnea. PLAN 1. Lactic acidosis improved with hydration 2. Hypotension improved with fluids 3. Urinary retention 2/2 BPH, Jimenez changed in the ER. Continue flomax, add finasteride. d/c today o/p urology f/u. 4. h/o sleep apnea/?HOCM/ restrictive lung disease. Outpatient follow up with Dr. Salazar and Dr. Gustafson. DVT ppx Hep SC. DNR/I. plan of care d/wed patient, d/c today.
--- NOTE | 2017-03-04 13:19 | Patient Discharge Instructions ---
Discharge Instructions General Discharge Information You were seen/treated for: low Blood pressure and hypotension Special Instructions: please f/u with your pcp in 1 week please f/u with Dr Maddox to reveluate the jimenez catheter need Acute Coronary Syndrome Inclusion Criteria At DC or during hospital stay patient has or had the following: ACS DIAGNOSIS No Discharge Core Measures Meds if any: Prescribed or Continued at Discharge Meds if any: NOT Prescribed or Continued at Discharge Congestive Heart Failure Inclusion Criteria At DC or during hospital stay patient has or had the following: CHF DIAGNOSIS No Discharge Core Measures Meds if any: Prescribed or Continued at Discharge Meds if any: NOT Prescribed or Continued at Discharge Cerebrovascular accident Inclusion Criteria At DC or during hospital stay patient has or had the following: CVA/TIA Diagnosis No Discharge Core Measures Meds if any: Prescribed or Continued at Discharge Meds if any: NOT Prescribed or Continued at Discharge Venous thromboembolism Inclusion Criteria VTE Diagnosis No VTE Type NONE VTE Confirmed by (Test) NONE Discharge Core Measures - Per Current guidelines, there needs to be overlap - treatment for the first 5 days of Warfarin therapy. - If discharged on Warfarin prior to 5 days of - overlap therapy, the patient will need to be - assessed for post discharge needs including - *Post discharge parental anticoagulation - *Warfarin and/or parental anticoagulation education - *Follow up date to check INR post discharge At least 5 days overlap therapy as Inpatient No Meds if any: Prescribed or Continued at Discharge Note: Overlap Therapy is Warfarin and Anticoagulant Meds if any: NOT Prescribed or Continued at Discharge
[2017-03-04 14:29] VITALS: BP 120/80
--- NOTE | 2017-03-04 14:59 | PN- Student ---
Subjective Subjective: CC: "Only had 200 in my bag this morning around 9AM. No urine since then" HPI: Mr. Madrigal is a 67 year old man with a past medical history significant for obstructive sleep apnea, COPD on home oxygen, hypertrophic obstructive cardiomyopathy, hypertension, morbid obesity, restless leg syndrome, and anxiety who is admitted for evaluation of low urine production and lightheadedness. Patient first presented to [place]'s emergency department on February 17 with urinary retention, at which time a Shultz catheter was placed. At that time, CT scan also demonstrated an enlarged prostate. Patient was sent home on Shultz and was informed to follow up with a urologist Dr. Burch. Since then he has returned to the emergency department 3-4 times for issues with his Shultz catheter, including suprapubic/groin discomfort/pain, clogged catheter, and blood in urine. Patient was placed on Ciprofloxacin about 10 days ago for urinary tract infection. Patient currently denies any abdominal pain/discomfort, nausea/vomiting. However, patient does endorse recent change in stool color over the last month, describing them as cari colored, as well as urethral pain on urination. He endorses dizziness and lightheadedness for the past few days. Past Medical History: Neurological: NONE EENT: NONE Cardiovascular: Hypertension Respiratory: Pneumonia (PT DENIES) Gastrointestinal: NONE Hepatic: NONE Renal: Benign prostatic hyperplasia Musculoskeletal: Herniated disc Psychiatric: Anxiety Endocrine: NONE Blood Disorders: NONE Cancer(s): NONE EDGE FINISHER/Reproductive: NONE Other Medical Hx: Obesity History of MRSA: No History of VRE: No History of CDIFF: No Surgical History: Varicocele Family History: Patient has a total of 3 brothers and 1 sister. Two of his brothers are , both of which had a history of cancer (No specified by patient). His sister has a history of esophageal cancer. Social History: Patient is retired and denies history smoking, and illicit drug use. He endorses drinking socially. Home Medication List Cilostazol 100 MG TABLET 1 TAB PO BID INTERMITTENT CLAUDICATION (Reported) Ciprofloxacin HCl (Cipro) 250 MG TABLET 1 TAB PO BID URINE INFECTION Clotrimazole (Lotrimin AF) 1 % CREAM..G. 1 FRACISCO TOP BID TINEA CRURIS apply to affected area(s) Gabapentin (Neurontin) 300 MG CAPSULE 1 CAP PO TID NERVE PAIN (Reported) Lorazepam 1 MG TABLET 1 TAB PO TID PRN ANXIETY (Reported) Losartan Potassium 50 MG TABLET 50 MG PO DAILY HIGH BP Metoprolol Tartrate 50 MG TABLET 50 MG PO BID HIGH BP, HEART HEALTH Multivitamin (Multiple Vitamins) 1 EACH TABLET 1 TAB PO DAILY SUPPLEMENT ( Reported) Tamsulosin HCl (Flomax) 0.4 MG CAP.ER.24H 1 CAP PO BID PROSTATE (Reported) Venlafaxine HCl (Venlafaxine HCl ER) 225 MG TAB.ER.24 1 TAB PO DAILY MENTAL HEALTH (Reported) Allergies: Coded Allergies: Penicillins (Severe, TONGUE SWELLING 02/25/17) Review of Systems: Constitutional: Reports: Fatigue EENTM: Reports: No symptoms Cardiovascular: Reports: No symptoms Respiratory: Reports: No symptoms GI: Reports: No symptoms Genitourinary: Reports: Dysuria. Musculoskeletal: Reports: Arthritis (No specified), back pain (Due to herniated disc) Skin: Reports: No symptoms Neurological/Psychological: Reports: Anxiety Hematologic/Endocrine: Reports: No symptoms Immunologic/Allergic: Reports: No symptoms All Other Systems: Reviewed and Negative Objective Objective: Vital Signs Date Time Temp Pulse Resp B/P Pulse O2 O2 Flow FiO2 Ox Delivery Rate 03/04 0746 97.9 52 20 122/64 97 Nasal 4.0L Cannula 03/04 0000 Nasal 4.0L Cannula 03/03 2304 60 128/68 03/03 2253 97.8 57 19 96/60 99 Nasal Cannula 03/03 2141 97.4 59 20 138/68 99 Nasal 4.0L Cannula 03/03 2020 97.9 58 22 139/67 100 Nasal 4.0L Cannula 03/03 1904 97.6 55 15 112/68 100 Nasal 4.0L Cannula 03/03 1842 60 20 102/68 99 Nasal 4.0L Cannula 03/03 1750 99 Nasal 4.0L Cannula 03/03 1747 97.6 56 15 88/44 96 Room Air Room Air 03/03 1706 60 15 68/48 03/03 1647 96.9 72 20 68/46 94 Room Air Room Air Intake & Output 03/04 1600 03/04 0800 03/04 0000 Intake Total 800 2100 Output Total 180 360 Balance 620 1740 Intake, IV 800 2100 Output, Urine 180 360 Patient 320 lb Weight Physical Exam General Appearance Alert, Oriented X3, Cooperative, No Acute Distress Skin No Rashes, No Breakdown, No Significant Lesion HEENT Atraumatic, PERRLA, EOMI, Dry MM Neck Supple, No JVD, No LAD Cardiovascular Regular Rate, Normal S1, Normal S2, No Murmurs, Gallops, Rubs Lungs Clear to Auscultation, Normal Air Movement Abdomen Normal Bowel Sounds, Soft, No Tenderness Extremities No Clubbing, No Cyanosis, No Edema, Normal Pulses, No Tenderness/ Swelling Vascular Normal Pulses, Pulses Symmetrical Current Medications Sig/Jared Start time Last Medication Dose Route Stop Time Status Admin Acetaminophen 650 MG Q6P PRN 03/03 2045 AC PO Acetaminophen/ 1 TAB Q6P PRN 03/03 2045 AC Hydrocodone Bitart PO Ceftriaxone Sodium 1,000 MG DAILY 03/03 2200 DC 03/04 IV 08 Ceftriaxone Sodium 0 .STK-MED ONE 03/03 2152 DC .ROUTE Cilostazol 100 MG BID 03/04 1000 AC 03/04 PO 0821 Gabapentin 300 MG TID 03/03 2200 AC 03/04 PO 0821 Gabapentin 0 .STK-MED ONE 03/03 2159 DC PO Lorazepam 1 MG TID PRN 03/03 2045 AC 03/04 PO 1512 Losartan Potassium 50 MG DAILY 03/04 1000 CAN PO Metoprolol Tartrate 50 MG BID 03/04 1000 CAN PO Oxycodone/ 2 TAB Q6P PRN 03/03 2045 AC 03/03 Acetaminophen PO 2257 Senna/Docusate Sodium 1 TAB BID PRN 03/04 0500 AC 03/04 PO 0820 Sodium Chloride 1,000 ML Q13H 03/04 0900 AC 03/04 IV 0916 Sodium Chloride 1,000 ML ONCE ONE 03/03 2045 DC 03/03 IV 03/04 0644 2300 Sodium Chloride 1,000 ML BOLUS ONE 03/03 1800 DC 03/03 IV 03/03 1859 1800 Sodium Chloride 1,000 ML BOLUS ONE 03/03 171 DC 03/03 IV 03/03 1814 1722 Sodium Chloride 1,000 ML BOLUS ONE 03/03 171 DC 03/03 IV 03/03 1814 1722 Tamsulosin HCl 0.4 MG BID 03/03 2200 AC 03/04 PO 0821 Venlafaxine HCl 225 MG 0800 03/04 0800 AC 03/04 PO 0821 Assessment/Plan Assessment: Mr. Madrigal is a 67 year-old man with a past medical history significant for obstructive sleep apnea, COPD on home oxygen, hypertrophic obstructive cardiomyopathy, hypertension, morbid obesity, restless leg syndrome, and anxiety , who is admitted for evaluation of oliguria and hypotension. 1 - Urinary retention * Continue with Flomax, and add Finasteride * Most likely due to BPH 2 - Hypotension * Monitory vitals per protocol * Check orthostats * Overall improvement seen with fluids 3 - Lactic acidosis * Improvement with fluids 4 - Obstructive sleep apnea & Hypertrophic obstructive cardiomyopathy * Outpatient follow-up with Dr. Salazar and Dr. Gustafson - Hear healthy diet - Mild pain pathway - DVT prophylaxis - DNR/DNI * Monitor for signs of infection 4 - HTN * - Hear healthy diet - Mild pain pathway - DVT prophylaxis: lovenox. - DNR/DNI
--- NOTE | 2017-03-04 19:34 | Cons- Urology ---
General Information and HPI Consulting Request Date of Consult: 03/04/17 Requested By: Cristi Monzon MD,PASHA Reason for Consult: urinary retention Source of Information: patient, old records Exam Limitations: no limitations History of Present Illness: This patient presented to the ER about 2 weeks ago with urinary retention. He had a jimenez placed and was discharged home. He came back to the ER a couple of times with problems with the jimenez. He returned again yesterday with no output from the jimenez. He was found to be hypotensive and dehydrated. He was managed with fluid challenges and his blood pressure responded. His lactic acid was elevated but this also responded to hydration. A CT scan showed a large prostate with a jimenez in place in the bladder which was decompressed. He had been of flomax, 0.8 mg per day prior to his episode of retention Allergies/Medications Allergies: Coded Allergies: Penicillins (Severe, TONGUE SWELLING 02/25/17) Home Med List: Cilostazol 100 MG TABLET 1 TAB PO BID INTERMITTENT CLAUDICATION (Reported) Ciprofloxacin HCl (Cipro) 250 MG TABLET 1 TAB PO BID URINE INFECTION Clotrimazole (Lotrimin AF) 1 % CREAM..G. 1 FRACISCO TOP BID TINEA CRURIS apply to affected area(s) Gabapentin (Neurontin) 300 MG CAPSULE 1 CAP PO TID NERVE PAIN (Reported) Lorazepam 1 MG TABLET 1 TAB PO TID PRN ANXIETY (Reported) Losartan Potassium 50 MG TABLET 50 MG PO DAILY HIGH BP Metoprolol Tartrate 50 MG TABLET 50 MG PO BID HIGH BP, HEART HEALTH Multivitamin (Multiple Vitamins) 1 EACH TABLET 1 TAB PO DAILY SUPPLEMENT ( Reported) Tamsulosin HCl (Flomax) 0.4 MG CAP.ER.24H 1 CAP PO BID PROSTATE (Reported) Venlafaxine HCl (Venlafaxine HCl ER) 225 MG TAB.ER.24 1 TAB PO DAILY MENTAL HEALTH (Reported) Current Medications: Current Medications Sig/Jared Start time Last Medication Dose Route Stop Time Status Admin Acetaminophen 650 MG Q6P PRN 03/03 2045 AC PO Acetaminophen/ 1 TAB Q6P PRN 03/03 2045 AC Hydrocodone Bitart PO Ceftriaxone Sodium 1,000 MG DAILY 03/03 2200 DC 03/04 IV 0822 Ceftriaxone Sodium 0 .STK-MED ONE 03/03 2152 DC .ROUTE Cilostazol 100 MG BID 03/04 1000 AC 03/04 PO 0821 Gabapentin 300 MG TID 03/03 2200 AC 03/04 PO 1603 Gabapentin 0 .STK-MED ONE 03/03 2159 DC PO Lorazepam 1 MG TID PRN 03/03 204 AC 03/04 PO 1512 Losartan Potassium 50 MG DAILY 03/04 1000 CAN PO Metoprolol Tartrate 50 MG BID 03/04 1000 CAN PO Oxycodone/ 2 TAB Q6P PRN 03/03 2045 AC 03/03 Acetaminophen PO 2257 Senna/Docusate Sodium 1 TAB BID PRN 03/04 0500 AC 03/04 PO 0820 Sodium Chloride 1,000 ML Q13H 03/04 0900 AC 03/04 IV 0916 Sodium Chloride 1,000 ML ONCE ONE 03/03 2045 DC 03/03 IV 03/04 0644 2300 Tamsulosin HCl 0.4 MG BID 03/03 2200 AC 03/04 PO 0821 Venlafaxine HCl 225 MG 0800 03/04 0800 AC 03/04 PO 0821 Past History Medical History Blood Transfusion Hx: No Neurological: NONE EENT: NONE Cardiovascular: hypertension Respiratory: pneumonia, (PT DENIES) Gastrointestinal: NONE Hepatic: NONE Renal: benign prost hyperplasia Musculoskeletal: NONE Psychiatric: anxiety Endocrine: NONE Blood Disorders: NONE Cancer(s): NONE LAWYER CRIMINAL/Reproductive: NONE Other Medical Hx: OBESITY Surgical History Pertinent Surgical History: varicocoele Family History Relations & Conditions If Any: SISTER (esophageal cancer). BROTHER (esophageal and colon cancer). FATHER (hypertension, ?esophageal aneurysm). Psychosocial History Services at Home: None Smoking Status: Former Smoker ETOH Use: denies use Illicit Drug Use: denies illicit drug use Functional Ability ADLs Independent: dressing, eating, toileting, bathing. Ambulation: independent IADLs Independent: shopping, housework, finances, food prep, telephone, transportation , medication admin. Exam & Diagnostic Data Vital Signs and I&O Vital Signs Date Time Temp Pulse Resp B/P Pulse O2 O2 Flow FiO2 Ox Delivery Rate 03/04 1429 98.0 60 20 120/80 96 03/04 0746 97.9 52 20 122/64 97 Nasal 4.0L Cannula 03/04 0000 Nasal 4.0L Cannula 03/03 2304 60 128/68 03/03 2253 97.8 57 19 96/60 99 Nasal Cannula 03/03 2141 97.4 59 20 138/68 99 Nasal 4.0L Cannula 03/03 2020 97.9 58 22 139/67 100 Nasal 4.0L Cannula Intake & Output 03/04 0803/04 0000 03/03 0803/03 0000 Intake Total 9124 004 1560 Output Total 100 180 360 Balance 6090 003 4778 Intake, IV 367 759 2137 Intake, Oral 600 Output, Urine 100 180 360 Patient 320 lb Weight No acute distress Back: no CVA tenderness Abd: obese, soft, non tender Genitalia: normal male. jimenez in place draining clear urine ANDRADE: prostate 35 grams. No definite nodules Laboratory Tests 03/04 03/03 03/03 0646 194 1940 Chemistry Sodium (137 - 145 mmol/L) 142 Potassium (3.5 - 5.1 mmol/L) 4.1 Chloride (98 - 107 mmol/L) 108 H Carbon Dioxide (22 - 30 mmol/L) 26 Anion Gap (5 - 16) 8 BUN (9 - 20 mg/dL) 15 Creatinine (0.7 - 1.2 mg/dL) 1.1 Estimated GFR (>60 ml/min) > 60 BUN/Creatinine Ratio (7 - 25 %) 13.6 Lactic Acid (0.7 - 2.1 mmol/L) 0.9 TSH (0.270 - 4.200 uIU/mL) 1.960 Free T4 (0.78 - 2.44 ng/dL) 1.12 Cortisol AM Sample (4.46 - 22.7 ug/dL) 4.0 L Coagulation PT (9.4 - 12.5 SEC) 14.2 H INR (0.90 - 1.17) 1.36 H APTT (25 - 37 SEC) 31 Urines Urine Color (YEL,AMB,STR) BLDY H Urine Clarity (CLEAR) CLDY H Urine pH (5.0 - 8.0) 5.5 Ur Specific [place] (1.001 - 1.035) 1.025 Urine Protein (NEG,<30 MG/DL) 100 H Urine Ketones (NEG) TRACE H Urine Nitrite (NEG) POS H Urine Bilirubin (NEG) NEG@ICTO Urine Urobilinogen (0.1 - 1.0 EU/dl) 2.0 H Ur Leukocyte Esterase (NEG) MOD H Ur Microscopic SEDIMENT EXAMINED Urine RBC (0 - 5 /HPF) PACKD H Urine WBC (0 - 2 /HPF) 10-15 H Ur Epithelial Cells (NONE,FEW) FEW Urine Bacteria (NEG/NONE) FEW H Urine Hemoglobin (NEG) LARGE H Urine Glucose (N MG/DL) NEG Assessment/Plan Assessment/Plan Imp: urinary retention likely due to prostatic hypertrophy multiple comorbidities Plan: Continue jimenez drainage. From urology point of view he could be discharged tomorrow and f/u in our office. He already has an appointment he should keep Would continue flomax for now Consult Acknowledgment - Thank you for your consult request.
[2017-03-04 22:06] VITALS: BP 154/90
[2017-03-05 07:15] VITALS: BP 140/90
[2017-03-05 07:51] VITALS: BP 140/90
--- NOTE | 2017-03-05 08:33 | PN- Housestaff ---
MARIN LEE,ISVTIL 03/05/17 0832: Subjective Follow-up For: Hypotension AK I Subjective: Afebrile, hemodynamically stable, no acute overnight events reported. Patient laying on bed looks relaxed and comfortable. Patient was cleared for discharge by urology yesterday. He is stable and will most likely be discharged later today. He denies any current complaint. Review of Systems Constitutional: Reports: see HPI. Objective Last 24 Hrs of Vital Signs/I&O Vital Signs Date Time Temp Pulse Resp B/P Pulse O2 O2 Flow FiO2 Ox Delivery Rate 03/05 0751 68 140/90 03/05 0715 98.4 68 20 140/90 93 Room Air 03/04 2206 98.0 68 20 154/90 93 Room Air 03/04 2102 68 154/90 Intake & Output 03/05 1600 03/05 0800 03/05 0000 Intake Total 900 1260 Output Total 500 550 Balance 400 710 Intake, IV 600 900 Intake, Oral 300 360 Output, Urine 500 550 Physical Exam General Appearance: Alert, Oriented X3, Cooperative, No Acute Distress HEENT: Atraumatic, PERRLA, EOMI, Mucous Membr. moist/pink Cardiovascular: Regular Rate, Normal S1, Normal S2, No Murmurs Lungs: decreased air entry over both lungs Abdomen: Normal Bowel Sounds, Soft, No Tenderness Neurological: Normal Speech Extremities: No Edema Current Medications: Current Medications Sig/Jared Start time Last Medication Dose Route Stop Time Status Admin Acetaminophen 650 MG Q6P PRN 03/03 2045 DCD PO Acetaminophen/ 1 TAB Q6P PRN 03/03 2045 DCD 03/05 Hydrocodone Bitart PO 1211 Cilostazol 100 MG BID 03/04 1000 DCD 03/05 PO 0751 Gabapentin 300 MG TID 03/03 2200 DCD 03/05 PO 0751 Lorazepam 1 MG TID PRN 03/03 2045 DCD 03/05 PO 1324 Multivitamins 1 TAB DAILY 03/05 1000 DCD 03/05 PO 1212 Oxycodone/ 2 TAB Q6P PRN 03/03 2045 DCD 03/05 Acetaminophen PO 1324 Senna/Docusate Sodium 1 TAB BID PRN 03/04 0500 DCD 03/05 PO 0916 Sodium Chloride 1,000 ML Q13H 03/04 0900 DCD 03/05 IV 1212 Tamsulosin HCl 0.4 MG BID 03/03 2200 DCD 03/05 PO 0751 Venlafaxine HCl 225 MG 0800 03/04 0800 DCD 03/05 PO 0751 Last 24 Hrs of Lab/[place] Results Last 24 Hrs of Labs/Mics: Laboratory Tests 03/05/17 0810: CBC w Diff NO MAN DIFF REQ, RBC 4.42 L, MCV 87.0, MCH 29.2, RDW 13.9, MPV 8.9, Gran % 62.6, Lymphocytes % 27.4, Monocytes % 6.1, Eosinophils % 3.2, Basophils % 0.7, Absolute Granulocytes 3.3, Absolute Lymphocytes 1.4, Absolute Monocytes 0.3 , Absolute Eosinophils 0.2, Absolute Basophils 0, PUBS MCHC 33.5 Assessment/Plan Assessment: This is a 67-year-old male with past medical history significant for MOIRA, COPD on 4 L O2 at home, hypertension, morbid obesity, RLS, anxiety, and questionable cardiomyopathy, who comes in for chief complaint of decreased urine output through his chronic Jimenez catheter. Plan 1. Hypotension: Patient came in with a BP of 68/48, was given 3 L and respond adequately and his blood pressure this a.m. is at 122/64. Patient denies any dizziness and reports good by mouth intake. Initially a lactic acid of 2.3, this a.m. trended down to 0. There was concern initially for sepsis. Patient did have lactic acid and hypotension in addition to a dirty UA. However he remained afebrile and all his vitals are stable. At this time he does not have a white count and his urinalysis is thought to be secondary to chronic indwelling Jimenez. Not treating for sepsis at this time. She lactic acid and blood pressure improved significantly with IV fluids. * Continue to monitor blood pressure * Continue to monitor urine output 2. Obstructed Jimenez catheter: Patient was noted have a blood clot obstructing is fully, he was unsure whether the decreased output was secondary to mechanical Jimenez problem or a physiologic medical problem. Note that he was seen in the ED on February 21, February 23, February 25 4 Jimenez-related issues. On February 17 a chronic Jimenez was placed for BPH and urinary obstruction. He was directed to follow-up with Dr. Maciel/lakshmi on the outpatient basis, however prior to appointment he can return in to ED. Note that his UA is positive for nitrites, large protein, moderate leukocyte esterase, 15 white blood cell, and packed RBC. A CT scan showed a large prostate with a jimenez in place in the bladder which was decompressed. * Continue Flomax * Patient will be discharged later today * To to follow with urology as an outpatient 3. Acute renal failure: At present it is currently unclear whether his ARF is secondary to prerenal or postrenal etiology. Patient was hypotensive with systolic 68 which would suggest a prerenal etiology. However his Jimenez was clogged which could suggest postrenal etiology as well. Jimenez catheter in place on 03/03/2017, functioning well, creatinine is back to NL * Follow-up with urology as an outpatient DNR/DNI Problem List: 1. Jimenez catheter problem Pain Ratin Pain Location: none Pain Goal: Remain pain free Pain Plan: See assessment and plan Tomorrow's Labs & Rationales: None as patient most likely discharged later today DEANNELÓPEZ 03/05/17 1049: Attending MD Review Statement Attending Statement Attending MD Statement: examined this patient, discuss w/resident/PA/WOMEN'S SWIM COACH, agreed w/resident/PA/WOMEN'S SWIM COACH, discussed with family, reviewed EMR data (avail), discussed with nursing, discussed with case mgmt, reviewed images Attending Assessment/Plan: ASSESSMENT 1. Lactic acidosis 2. hypotension 3. MANJIT 2/2 IVVD/hypotension 4. BPH , urinary retention s/p jimenez 5. h/o sleep apnea. PLAN 1. Lactic acidosis improved with hydration 2. Hypotension improved with fluids 3. Urinary retention 2/2 BPH, Jimenez changed in the ER. Continue flomax, urology cleared. d/c today o/p urology f/u. 4. h/o sleep apnea/?HOCM/ restrictive lung disease. Outpatient follow up with Dr. Salazar and Dr. Gustafson. plan of care d/wed patient, d/c today.
[2017-03-05 08:37] LABS: ABSOLUTE BASOPHIL COUNT 0 /CUMM (0.0-0.2); ABSOLUTE EOSINOPHIL COUNT 0.2 /CUMM (0.0-0.7); ABSOLUTE GRANULOCYTE CT 3.3 /CUMM (1.4-6.5); ABSOLUTE LYMPH COUNT 1.4 /CUMM (1.2-3.4); ABSOLUTE MONOCYTE COUNT 0.3 /CUMM (0.10-0.60); BASOPHIL % 0.7 % (0.0-2.0); EOSINOPHIL % 3.2 % (0-5); GRANULOCYTE % 62.6 % (42.2-75.2); HEMATOCRIT 38.5 % (42-52); MEAN CORPUSCULAR HGB 29.2 PG (27.0-31.0); MEAN CORPUSCULAR HGB CONC 33.5 G/DL (33.0-37.0); MEAN PLATELET VOLUME 8.9 FL (7.4-10.4); PLATELET COUNT 167 /CUMM (130-400); RBC DISTRIBUTION WIDTH 13.9 % (11.5-14.5); RED BLOOD CELL CT 4.42 /CUMM (4.70-6.10); WHITE BLOOD CELL COUNT 5.2 /CUMM (4.8-10.8)
[2017-03-05] MEDS ORDERED: HYDROCODON-ACE1 EAC2 PO (13:04)
--- NOTE | 2017-03-14 13:55 | Discharge Summary ---
Visit Information Visit Dates Admission Date: 03/03/17 Discharge Date: 03/05/17 Hospital Course Course Attending Physician: LÓPEZ ALICEA MD Primary Care Physician: RADHA ABURTO Consulting Request: Consulting Specialty: Urology Hospital Course: This is a 67-year-old male with past medical history significant for MOIRA, COPD on 4 L O2 at home, hypertension, morbid obesity, RLS, anxiety, and questionable cardiomyopathy, who comes in for chief complaint of decreased urine output through his chronic Jimenez catheter. Pt was seen for following problems in patient: 1. Hypotension: Patient came in with a BP of 68/48, was given 3 L and responded adequately. Initially a lactic acid of 2.3, trended down to 0. Initially, there was concern for sepsis as patient did have lactic acid and hypotension in addition to a dirty UA. However, he remained afebrile and all his vitals are stable. Additionally, he did not have a white count and his urinalysis is thought to be secondary to chronic indwelling Jimenez. Not treating for sepsis at this time. * Continue to monitor blood pressure * Continue to monitor urine output on out pt basis 2. Obstructed Jimenez catheter: Note that he was seen in the ED on February 21, February 23, February 25 4 Jimenez-related issues. On February 17 a chronic Jimenez was placed for BPH and urinary obstruction. He was directed to follow-up with Dr. Maciel/ lakshmi on the outpatient basis, however prior to appointment he returned to ED. Note that his UA is positive for nitrites, large protein, moderate leukocyte esterase, 15 white blood cell, and packed RBC. A CT scan showed a large prostate with a jimenez in place in the bladder which was decompressed. New jimenez placed during this admission * Continue Flomax * To follow with urology as an outpatient 3. Acute renal failure: At present it is currently unclear whether his ARF is secondary to prerenal or postrenal etiology. Patient was hypotensive with systolic 68 which would suggest a prerenal etiology. However his Jimenez was clogged which could suggest postrenal etiology as well. Jimenez catheter in place on 03/03/2017, functioning well, creatinine is back to NL * Follow-up with urology as an outpatient Allergies: Coded Allergies: Penicillins (Severe, TONGUE SWELLING 02/25/17) Disposition Summary Disposition Principal Diagnosis: hypotension Additional Diagnosis: obstructed jimenez Discharge Disposition: home or self care Discharge Instructions General Discharge Information Code Status: Full Code Patient's Diet: as tolerated Patient's Activity: as tolerated Follow-Up Instructions/Appts: see above Medications at Discharge Discharge Medications: Stop taking the following medications: Ciprofloxacin HCl (Cipro) 250 MG TABLET ORAL TWICE DAILY Qty = 14 Continue taking these medications: Venlafaxine HCl (Venlafaxine HCl ER) 225 MG TAB.ER.24 1 Tablet ORAL DAILY Comments: Last Taken: 03/15/17 Time: 7:45 AM Lorazepam (Lorazepam) 1 MG TABLET 1 Tablet ORAL THREE TIMES DAILY as needed for ANXIETY Comments: Last Taken: 03/15/17 Time: 6:40 AM Gabapentin (Neurontin) 300 MG CAPSULE 1 Capsule ORAL THREE TIMES DAILY Comments: Last Taken: 03/15/17 Time: 2:15 PM Multivitamin (Multiple Vitamins) 1 EACH TABLET 1 Tablet ORAL DAILY Comments: Last Taken: NOT GIVEN IN HOSPITAL Time: Cilostazol (Cilostazol) 100 MG TABLET 1 Tablet ORAL TWICE DAILY Comments: Last Taken: 03/15/17 Time: 9:45 AM Tamsulosin HCl (Flomax) 0.4 MG CAP.ER.24H 1 Capsule ORAL TWICE DAILY Comments: Last Taken: 03/15/17 Time: 9:45 AM Metoprolol Tartrate (Metoprolol Tartrate) 50 MG TABLET 50 Milligram ORAL TWICE DAILY Days = 30 Comments: Last Taken: 03/15/17 Time: 9:45 AM Losartan Potassium (Losartan Potassium) 50 MG TABLET 50 Milligram ORAL DAILY Days = 30 Comments: Last Taken: 03/15/17 Time: 9:45 AM Clotrimazole (Lotrimin AF) 1 % CREAM..G. 1 Application On the skin TWICE DAILY Qty = 24 Instructions: apply to affected area(s) Comments: Last Taken: 03/15/17 Time: 12:45 PM Copies To: RADHA ABURTO
== END 2017-03-05 14:02 ==
LOC: ENRESERVDT → ENRESERVTM → ERH 16:35 → 2NA 19:52 → ENPENDDIS 19:52 → ERHI 19:52 → 2NA 19:52
PROVIDERS: Physician Assistant; Student in an Organized Health Care Education/Training Program; ADMIT Student in an Organized Health Care Education/Training Program
DX: N17.9 Acute kidney failure, unspecified (principal); I95.9 Hypotension, unspecified; E87.2 Acidosis; R33.9 Retention of urine, unspecified; E86.0 Dehydration; N40.0 Benign prostatic hyperplasia without lower urinary tract symptoms; G47.33 Obstructive sleep apnea (adult) (pediatric); I10 Essential (primary) hypertension; E66.01 Morbid (severe) obesity due to excess calories; G25.81 Restless legs syndrome; F41.9 Anxiety disorder, unspecified; R34 Anuria and oliguria
CPT/HCPCS: 1328; 1530; 36415; 74176; 81001; 82436; 87040; 87086; 93005; 93010; 96360; 96361; 96374; 99291; G0378; J0696

== ENCOUNTER 2017-03-12 13:13 | Inpatient (IN) | payer OTHER, MEDICARE ==
[~2017-03-12] VITALS: Ht 195.6 cm; Wt 158.0 kg
[~2017-03-12 13:13] MED LIST changes: +HYDROCODON-ACE1 EAC2 PO
--- NOTE | 2017-03-12 13:40 | NUR ---
PT TO ED COMPLAINING OF "NOTHING COMING OUT OF [facility]." MOREJON PLACED 3 WEEKS AGO. PT REPORTS NO URINE OUTPUT TODAY. HX BPH. PT NOTED TO BE DIAPHORETIC IN TRIAGE. DENIES CP/SOB/DIZZINESS. +SOB ON EXERTION. PT AWAKE/ALERT. MANUAL BP 68/40 IN TRIAGE
--- NOTE | 2017-03-12 13:47 | NUR ---
PT BOUGHT TO ROOM # 6 IMMEDIATELY FOR EVALUATION AND TREATMENT PT ENDORSED TO RN
--- NOTE | 2017-03-12 13:50 | NUR ---
PT TO ROOM 6, CHANGED INTO GOWN. PLACED ON MONITOR. IV ANNE. MAMI STUDENT IN FOR EVAL.
--- NOTE | 2017-03-12 14:31 | ED GENERAL ADULT ---
History of Present Illness General Chief Complaint: Male Genitourinary Problems Stated Complaint: CLOGGED MOREJON Source: patient, old records Exam Limitations: no limitations Allergies Coded Allergies: Penicillins (Severe, TONGUE SWELLING 02/25/17) Triage Note: PT TO ED COMPLAINING OF "NOTHING COMING OUT OF [facility]." MOREJON PLACED 3 WEEKS AGO. PT REPORTS NO URINE OUTPUT TODAY. HX BPH. PT NOTED TO BE DIAPHORETIC IN TRIAGE. DENIES CP/SOB/DIZZINESS. +SOB ON EXERTION. PT AWAKE/ALERT. MANUAL BP 68/40 IN TRIAGE Triage Nurses Notes Reviewed? yes Onset: Abrupt Duration: day(s):, intermittent Timing: recent history Injury Environment: home No Modifying Factors: none HPI: 67-year-old male comes into the emergency room with complaints of burning with urination. Patient currently has a Morejon catheter in and reports some pain in that area. He also reports some intermittent back pain and felt lightheaded and dizzy with some associated mild shortness of breath and chest pain prior to arrival. Pain is on the right flank. It occurs with urination. Denies any vomiting or fever. Nothing seems to make the symptoms better or worse. (PIERRE BOLAÑOS,SHANTEL) Vital Signs & Intake/Output Vital Signs & Intake/Output Vital Signs Date Time Temp Pulse Resp B/P B/P Pulse O2 O2 Flow FiO2 Mean Ox Delivery Rate 03/12 1955 97.2 56 22 88/58 100 Nasal 4.0L Cannula 03/12 1756 97.1 50 16 70/48 96 Nasal 4.0L Cannula 03/12 1706 97.2 51 20 78/48 97 Nasal 2.0L Cannula 03/12 1641 58 68/46 03/12 1608 50 78/48 100 Nasal 4.0L Cannula 03/12 1537 62 80/60 03/12 1520 99 Nasal 4.0L Cannula 03/12 1451 54 20 60/40 95 Nasal 4.0L Cannula 03/12 1334 9837.0 70 20 68/40 94 Nasal 4.0L Cannula Reconcile Medications Buprenorphine (Butrans) 20 MCG/HOUR PATCH.TDWK 1 PAT TOP ONCEAWEEK PAIN ( Reported) Cilostazol 100 MG TABLET 1 TAB PO BID INTERMITTENT CLAUDICATION (Reported) Clotrimazole (Lotrimin AF) 1 % CREAM..G. 1 FRACISCO TOP BID TINEA CRURIS apply to affected area(s) Gabapentin (Neurontin) 300 MG CAPSULE 1 CAP PO TID NERVE PAIN (Reported) Lorazepam 1 MG TABLET 1 TAB PO TID PRN ANXIETY (Reported) Losartan Potassium 50 MG TABLET 50 MG PO DAILY HIGH BP Metoprolol Tartrate 50 MG TABLET 50 MG PO BID HIGH BP, HEART HEALTH Multivitamin (Multiple Vitamins) 1 EACH TABLET 1 TAB PO DAILY SUPPLEMENT ( Reported) Oxycodone HCl/Acetaminophen (Percocet 5-325 MG Tablet) 5 MG-325 MG TABLET 1 TAB PO Q8H PRN CHRONIC PAIN (Reported) Tamsulosin HCl (Flomax) 0.4 MG CAP.ER.24H 1 CAP PO BID PROSTATE (Reported) Venlafaxine HCl (Venlafaxine HCl ER) 225 MG TAB.ER.24 1 TAB PO DAILY MENTAL HEALTH (Reported) (SOUTH LEE,CHIVO Etienne) Past History Travel History Traveled to [place] past 21 day No Medical History Any Pertinent Medical History? 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 BROTHER (esophageal and colon cancer). FATHER (hypertension, ?esophageal aneurysm). Hx Contributory? No (SHANTEL REYNA) Review of Systems Review of Systems Constitutional: Reports: no symptoms. EENTM: Reports: no symptoms. Respiratory: Reports: no symptoms. Cardiovascular: Reports: no symptoms. GI: Reports: see HPI. Genitourinary: Reports: see HPI. Musculoskeletal: Reports: see HPI. Skin: Reports: no symptoms. Neurological/Psychological: Reports: no symptoms. Hematologic/Endocrine: Reports: no symptoms. Immunologic/Allergic: Reports: no symptoms. All Other Systems: Reviewed and Negative (SHANTEL REYNA) Physical Exam Physical Exam General Appearance: well developed/nourished, alert, awake Head: atraumatic Eyes: Bilateral: normal appearance, EOMI. Ears, Nose, Throat: normal pharynx, normal ENT inspection, hearing grossly normal Neck: normal inspection, full range of motion Respiratory: normal breath sounds, no respiratory distress Cardiovascular: regular rate/rhythm Gastrointestinal: soft, non-tender Back: normal inspection Extremities: normal inspection, normal range of motion, no edema Neurologic/Psych: awake, alert, oriented x 3, normal gait Skin: intact, normal color Core Measures ACS in differential dx? Yes CVA/TIA Diagnosis: No Severe Sepsis Present: No Septic Shock Present: No (SHANTEL REYNA) Progress Differential Diagnoses I considered the following diagnoses in my evaluation of the patient: UTI, pyelonephritis, sepsis, NH, non-STEMI, cardiac arrhythmia, Initial ED EKG: normal intervals, normal p-waves, normal sinus rhythm, RBBB Prior EKG: unchanged (SHANTEL REYNA) Plan of Care: Orders Procedure Date/time Status Regular Diet 03/13 B Active LACTIC ACID 03/123 Active LACTIC ACID 03/12 1943 Active Weight 03/12 193 Active Vital Signs 03/12 193 Active Turn and Reposition 03/12 1930 Active Teach/Educate 03/12 1930 Active Skin Integrity Protocol 03/12 193 Active Skin/Pressure Ulcer Assess (Sk 03/12 1930 Active Precautions 03/12 193 Active Pain Treatment and Response 03/12 193 Active Nutritional Intake, Monitor 03/12 193 Active Isolation 03/12 193 Active Patient Care Conference 03/12 193 Active Activity/Ambulation 03/12 1930 Active Admit to inpatient 03/12 1906 Active Pathway - chart 03/12 1854 Active House Staff 03/12 1854 Active Patient Data 03/12 1854 Active Code Status 03/12 1854 Active ECHOCARDIOGRAM 03/12 1854 Active Patient Data 03/12 1822 Active LACTIC ACID 03/12 1711 Complete Morejon, Insertion/Removal/Asses 03/12 1545 Active TROPONIN LEVEL 03/12 1425 Complete CULTURE,URINE 03/12 1413 Active URINALYSIS 03/12 1413 Complete BLOOD CULTURE 03/12 1411 Active LACTIC ACID 03/12 1411 Complete COMPREHENSIVE METABOLIC PANEL 03/12 1411 Complete CBC WITHOUT DIFFERENTIAL 03/12 1411 Complete Intake & Output 03/12 1359 Active EKG 03/12 1347 Active VTE Mechanical Prophylaxis 03/12 UNK Active Current Medications Sig/Jared Start time Last Medication Dose Stop Time Status Admin Cilostazol 100 MG BID 03/13 1000 CAN (Pletal) Gabapentin 300 MG TID 03/13 1000 CAN (Neurontin) Tamsulosin HCl 0.4 MG BID 03/13 1000 CAN (Flomax) Sodium Chloride 1,000 ML Q5H 03/12 1915 AC (Normal Saline 0.9%) Acetaminophen 650 MG Q6 PRN 03/12 1900 AC (Tylenol) Acetaminophen 1,000 MG Q6P PRN 03/12 1900 AC (Ofirmev) Laboratory Tests 03/12/17 1725: Lactic Acid 0.9 03/12/17 1536: Urine Color YEL, Urine Clarity HAZY H, Urine pH 6.0, Ur Specific Felton 1.025, Urine Protein 30 H, Urine Ketones NEG, Urine Nitrite NEG, Urine Bilirubin NEG@ ICTO, Urine Urobilinogen 0.2, Ur Leukocyte Esterase NEG, Ur Microscopic SEDIMENT EXAMINED, Urine RBC >75 H, Urine WBC 1-3 H, Ur Epithelial Cells RARE, Hyaline Casts RARE H, Urine Mucus FEW, Urine Hemoglobin LARGE H, Urine Glucose NEG 03/12/17 1425: Anion Gap 12, Estimated GFR 55 L, BUN/Creatinine Ratio 19.2, Glucose 96, Lactic Acid 3.5 H, Calcium 8.6, Total Bilirubin 0.8, AST 20, ALT 30, Alkaline Phosphatase 45, Troponin I < 0.01, Total Protein 6.2 L, Albumin 3.7, Globulin 2.5, Albumin/Globulin Ratio 1.5, CBC w Diff NO MAN DIFF REQ, RBC 5.20, MCV 87.2, MCH 28.9, RDW 14.1, MPV 8.8, Gran % 71.0, Lymphocytes % 18.5 L, Monocytes % 6.5 , Eosinophils % 3.6, Basophils % 0.4, Absolute Granulocytes 5.0, Absolute Lymphocytes 1.3, Absolute Monocytes 0.5, Absolute Eosinophils 0.3, Absolute Basophils 0, PUBS MCHC 33.2 03/12/17 1414: Troponin I Cancelled Microbiology 03/12 1545 URINE ROUT: Urine Culture - CAN Cancelled: DUPLICATE REQUEST - SEE [id number] 03/12 1536 URINE ROUT: Urine Culture - RECD 03/12 1425 BLOOD: Blood Culture - RECD 03/12 1411 BLOOD: Blood Culture - RECD Departure Departure Disposition: HOME OR SELF CARE Condition: Stable Clinical Impression Primary Impression: Hypotension Secondary Impressions: Lactic acidosis Referrals: RADHA ABURTO (PCP/Family) Departure Forms: Customer Survey General Discharge Information Admission Note Spoke With: REID MCCOY MD Documentation of Exam: Documentation of any treatments & extenuating circumstances including Concerns Regarding Discharge (functional status, medication knowledge or non-compliance, living conditions, etc.) that warrant an admission rather than observation: Patient has had persistent hypotension here in the emergency room. Declined central line. Patient will require aggressive IV fluids and may require pressors. He'll require repeat labs. Cardiac telemetry. Critical care. Serial troponins. High risk. Persistent hypotension after 5 L of fluid. (SHANTEL REYNA) PA/FISHING ACCESSORIES MAKER Co-Sign Statement Statement: ED Attending supervision documentation- [X] I saw and evaluated the patient. I have also reviewed all the pertinent lab results and diagnostic results. I agree with the findings and the plan of care as documented in the PA's/FISHING ACCESSORIES MAKER's documentation. Patient appears clinically well with good color, good extremity warmth and normal mentation. The cause of this patient's low blood pressures somewhat unclear at this point. We will continue to bolus fluids and monitor. [] I have reviewed the ED Record and agree with the PA's/FISHING ACCESSORIES MAKER's documentation. [] Additions or exceptions (if any) to the PAs/FISHING ACCESSORIES MAKER's note and plan are summarized below: [] (SOUTH LEE,CHIVO Etienne) Critical Care Note Critical Care Note Critical Care Time: non-applicable (SHANTEL REYNA)
[2017-03-12 14:43] LABS: ABSOLUTE BASOPHIL COUNT 0 /CUMM (0.0-0.2); ABSOLUTE EOSINOPHIL COUNT 0.3 /CUMM (0.0-0.7); ABSOLUTE LYMPH COUNT 1.3 /CUMM (1.2-3.4); ABSOLUTE MONOCYTE COUNT 0.5 /CUMM (0.10-0.60); BASOPHIL % 0.4 % (0.0-2.0); EOSINOPHIL % 3.6 % (0-5); HEMATOCRIT 45.3 % (42-52); MEAN CORPUSCULAR HGB 28.9 PG (27.0-31.0); MEAN CORPUSCULAR HGB CONC 33.2 G/DL (33.0-37.0); MEAN CORPUSCULAR VOLUME 87.2 FL (80.0-94.0); MEAN PLATELET VOLUME 8.8 FL (7.4-10.4); PLATELET COUNT 204 /CUMM (130-400); RBC DISTRIBUTION WIDTH 14.1 % (11.5-14.5); WHITE BLOOD CELL COUNT 7.1 /CUMM (4.8-10.8)
--- NOTE | 2017-03-12 15:02 | NUR ---
CRITICAL TEST RESULTS [id number] GABBY SERRANO 67 M TESTS AND RESULTS: LACTIC ACID 3.5 Results received and read back by: MARSHALL ARTEAGA Results received date and time: 03/12/17 1502 The following provider was notified of the results, and read the results back: SHANTEL JAY Notified date and time: 03/12/17 at 1502
--- NOTE | 2017-03-12 15:15 | NUR ---
REPORT HANDED OFF TO DORIAN RODRÍGUEZ.
--- NOTE | 2017-03-12 15:42 | NUR ---
KRAIG KIM UNABLE TO IRRIGATE MOREJON. NEW MOREJON PLACED ORDERED. 600CC'S DARK URINE NOTED IN MOREJON DRAINAGE BAG. MANUAL BP 80/60. PROVIDER AWARE. ADDITIONAL NS BOLUS INFUSING.
--- NOTE | 2017-03-12 16:08 | NUR ---
MANUAL BP 78/48, HR 50
--- NOTE | 2017-03-12 16:39 | NUR ---
MANUAL BP 68/46. HR 58 ON CM. PT PLACED IN TRANDELENBERG. PT REMAINS AWAKE/ALERT WITH EASY WOB. DENIES PAIN. MAMI FUNES AWARE.
[2017-03-12] MEDS ORDERED: BUTRANS1 EAC2 TOP (17:00)
[2017-03-12] MEDS ORDERED: PERCOCET 5-3251 EACH PO (17:01)
--- NOTE | 2017-03-12 17:11 | NUR ---
PT REMAINS AWAKE/ALERT WITH EASY WOB. CXR AT BEDSIDE.
--- NOTE | 2017-03-12 17:26 | RADIOLOGY REPORT ---
EXAMINATION: XR PORTABLE CHEST CLINICAL INFORMATION: Dizziness and hypotension. COMPARISON: CXR from 02/21/2017. TECHNIQUE: Portable AP view of the chest was obtained. FINDINGS: Large body habitus. Lungs are hypoinflated and right diaphragm elevated, unchanged compared to 02/21/2017. There is linear opacity of minimal atelectasis in the inferior lingula. No acute pulmonary consolidation, edema or pleural effusion. Cardiac silhouette is considered normal in size given the patient body habitus, radiographic technique and degree of pulmonary hypoinflation. The visualized bones are intact. IMPRESSION: No acute cardiopulmonary abnormality compared to 02/21/2017.
--- NOTE | 2017-03-12 17:28 | NUR ---
repeat lactic drawn and sent by this mst.
--- NOTE | 2017-03-12 18:15 | NUR ---
HOUSE STAFF AT BEDSIDE FOR EVAL
--- NOTE | 2017-03-12 18:51 | History & Physical ---
CHRISTIN LEE,[facility] 03/12/17 8330: General Information and HPI MD Statement: I have seen and personally examined GABBY MADRIGAL and documented this H&P. The patient is a 67 year old M who presented with a patient stated chief complaint of [pain at the tip of penis from the Jimenez catheter, decreased urine output]. Source of Information: patient, old records Exam Limitations: poor historian History of Present Illness: Mr. Madrigal is 57 year old male with past medical history significant for MOIRA, questionable COPD not on home oxygen, HOCM follow with Dr. Gustafson, HTN, morbid obesity, restless leg syndrome, and anxiety, was recently discharged 03/05/17 for urinary retention likely due to prostatic hypertrophy. Patient was discharged with chronic Jimenez catheter to follow-up as an outpatient with urology Dr. Burch. Patient presented to ED today complaining of pain at the tip of penis and decreased urine output through Jimenez catheter, patient denied fever, chills, abdominal pain, nausea or vomiting. Patient reported 1 episode of watery yellow stool after he ate "some stuff from [employer]" denied blood or mucus. In the ED patient found to be hypotensive 68/40, pulse 94 sinus rhythm, patient denied any lightheadedness, unsteadiness, visual changes. He did report bilateral tinnitus. Patient has history of hypertension on last admission that responded well to fluid resuscitation. Patient reported retro-orbital pain that responded well to Tylenol. He denied any chest pain, shortness of breath, palpitation. Allergies/Medications Allergies: Coded Allergies: Penicillins (Severe, TONGUE SWELLING 02/25/17) Home Med list Buprenorphine (Butrans) 20 MCG/HOUR PATCH.TDWK 1 PAT TOP ONCEAWEEK PAIN ( Reported) Cilostazol 100 MG TABLET 1 TAB PO BID INTERMITTENT CLAUDICATION (Reported) Clotrimazole (Lotrimin AF) 1 % CREAM..G. 1 FRACISCO TOP BID TINEA CRURIS apply to affected area(s) Gabapentin (Neurontin) 300 MG CAPSULE 1 CAP PO TID NERVE PAIN (Reported) Lorazepam 1 MG TABLET 1 TAB PO TID PRN ANXIETY (Reported) Losartan Potassium 50 MG TABLET 50 MG PO DAILY HIGH BP Metoprolol Tartrate 50 MG TABLET 50 MG PO BID HIGH BP, HEART HEALTH Multivitamin (Multiple Vitamins) 1 EACH TABLET 1 TAB PO DAILY SUPPLEMENT ( Reported) Oxycodone HCl/Acetaminophen (Percocet 5-325 MG Tablet) 5 MG-325 MG TABLET 1 TAB PO Q8H PRN CHRONIC PAIN (Reported) Tamsulosin HCl (Flomax) 0.4 MG CAP.ER.24H 1 CAP PO BID PROSTATE (Reported) Venlafaxine HCl (Venlafaxine HCl ER) 225 MG TAB.ER.24 1 TAB PO DAILY MENTAL HEALTH (Reported) Past History Travel History Traveled to [place] past 21 day No Medical History Neurological: NONE EENT: NONE Cardiovascular: hypertension Respiratory: pneumonia, (PT DENIES) Gastrointestinal: NONE Hepatic: NONE Renal: benign prost hyperplasia Musculoskeletal: NONE Psychiatric: anxiety Endocrine: NONE Blood Disorders: NONE Cancer(s): NONE FRONT WORKER/Reproductive: NONE Other Medical Hx: OBESITY History of MRSA: No History of VRE: No History of CDIFF: No Surgical History Surgical History: varicocoele Past Family/Social History Family History Relations & Conditions if any SISTER (esophageal cancer). BROTHER (esophageal and colon cancer). FATHER (hypertension, ?esophageal aneurysm). Psychosocial History Services at Home: None Functional Ability ADLs Independent: dressing, eating, toileting, bathing. Ambulation: independent IADLs Independent: shopping, housework, finances, food prep, telephone, transportation , medication admin. Review of Systems Review of Systems Constitutional: Reports: see HPI. Exam & Diagnostic Data Last 24 Hrs of Vital Signs/I&O Vital Signs Date Time Temp Pulse Resp B/P B/P Pulse O2 O2 Flow FiO2 Mean Ox Delivery Rate 03/125 97.2 56 22 88/58 100 Nasal 4.0L Cannula 03/12 1756 97.1 50 16 70/48 96 Nasal 4.0L Cannula 03/12 1706 97.2 51 20 78/48 97 Nasal 2.0L Cannula 03/12 1641 58 68/46 03/12 1608 50 78/48 100 Nasal 4.0L Cannula 03/12 1537 62 80/60 03/12 1520 99 Nasal 4.0L Cannula 03/12 1451 54 20 60/40 95 Nasal 4.0L Cannula 03/12 1334 9837.0 70 20 68/40 94 Nasal 4.0L Cannula Intake & Output 03/12 1600 03/12 0800 03/12 0000 Intake Total 1000 Output Total Balance 1000 Intake, IV 1000 Patient 149.685 kg Weight Weight Reported by Patient Measurement Method Physical Exam General Appearance Alert, Oriented X3, Cooperative, No Acute Distress Skin No Rashes, No Breakdown, No Significant Lesion Skin Temp/Moisture Exam: Warm/Dry Sepsis Skin Exam (color): normal capillary refill HEENT Atraumatic, PERRLA, EOMI, Mucous Membr. moist/pink Neck Supple, No JVD Lymphatic no cervical lymphadenopathy Cardiovascular Regular Rate, Normal S1, Normal S2, No Murmurs Lungs Clear to Auscultation, Normal Air Movement Abdomen Normal Bowel Sounds, Soft, No Tenderness Neurological Normal Speech, Strength at 5/5 X4 Ext, Normal Tone, Sensation Intact, Cranial Nerves 3-12 NL, Reflexes 2+ Extremities No Clubbing, No Cyanosis, No Edema, Normal Pulses Vascular Normal Pulses Sepsis Peripheral Pulse Location: Dorsalis Pedis Sepsis Cap Refill Exam: >2 sec Assessment/Plan Assessment: Mr. Madrigal is 57 year old male with past medical history significant for MOIRA, questionable COPD not on home oxygen, HOCM follow with Dr. Gustafson, HTN, morbid obesity, restless leg syndrome, and anxiety, was recently discharged 03/05/17 for urinary retention likely due to prostatic hypertrophy. Patient was discharged with chronic Jimenez catheter to follow-up as an outpatient with urology Dr. Burch. Patient presented to ED today complaining of pain at the tip of penis and decreased urine output through Jimenez catheter. On admission blood pressure 68/40, pulse 94, respiratory rate 20 on nasal cannula 4 L saturation 94%, temperature 97.2 Labs CBC within normal, lactic acid 3.5, sodium 142, potassium 4, BUN 25, creatinine 1.[address] abdomen and pelvis IMPRESSION: 1. Limited noncontrast study. 2. No CT evidence for acute renal obstruction. This noncontrast study cannot exclude underlying pyelonephritis. Clinical correlation is required. 3. Splenomegaly with probable adjacent varices. The combination of findings suggests possible underlying portal hypertension. Clinical correlation recommended. 4. Numerous pelvic lymph nodes with enlarged left side wall pelvic lymph node of uncertain etiology. Clinical correlation is recommended. 5. Diverticulosis without CT evidence for acute diverticulitis. Chest x-ray IMPRESSION: No acute cardiopulmonary abnormality compared to 02/21/2017. Problem list -Severe hypotension due to Hypothalamic shock -Urinary retention due to enlargement prostate status chronic Jimenez catheter -HOCM -COPD not on home oxygen -Acute kidney injury Plan -Admit to ICU -Continue normal saline fluid resuscitation -Obtain central line for possible pressor demonstration, MAP should be 60 -Obtain cardiology consultation, was placed -Monitor lactic acid every 3 hours -Monitor electrolytes, kidney function -Patient has eyes or symptoms of infection, negative CT abdomen and pelvis and chest x-ray -Continue oxygen augmentation, titrate as tolerated and keep saturation more than 92% -Jimenez catheter in place, monitor ins and outs -Consider obtaining urology consultation in a.m. -DVT prophylaxis -Code full -Diet heart healthy As Ranked By This Provider Problem List: 1. Elevated lactic acid level 2. Hypovolemia 3. Hypotension Core Measures/Miscellaneous Acute Coronary Syndrome ACS Diagnosis: No Cerebrovascular Accident CVA/TIA Diagnosis: No Congestive Heart Failure CHF Diagnosis: No Venous Thromboembolism VTE Risk Factors: Age > 40 [facility] d/t: No contraindications No VTE Pharm Prophylaxis d/t: Active bleeding VTE Diagnosis: No VTE Type: NONE VTE Confirmed by (Test): NONE Severe Sepsis Severe Sepsis Present: No Septic Shock Septic Shock Present: No Miscellaneous Documentation Attending Case Discussed With: REID MCCOY MD Primary Care Physician: RADHA ABURTO Patient sees these Specialists Cardiology, urology Level of Patient Care: Critical Care (CRI) JANENE LOZANO 03/12/171916: Resident Review Statement Resident Statement: examined this patient, discussed with mechanical engineering intern, agreed with mechanical engineering intern Other Findings: Pt is a 67 yr man with PMH significant for MOIRA, ?COPD not on home oxygen, HOCM, HTN, morbid obesity, restless leg syndrome, and anxiety , recently admitted to [facility] in February 2017 due to hypotension, MANJIT and urinary retention, discharged with a Jimenez catheter presented to the ED for the evaluation of low blood pressure with urinary complaints. Patient reported right flank pain associated with burning micturition .reported night sweats without any fever. His oral intake was poor for the last couple of days. Also reported lightheadedness and dizziness with intermittent back pain symptoms were associated with shortness of breath and chest pain prior to the arrival to the ED. Jimenez catheter was changed in the ED. Evidence of bloody urine through the Jimenez catheter. Blood pressure upon arrival to the ED was 68/40, patient received almost 5 L boluses of normal saline in the ED minimal improvement in his blood pressure. Femoral line was placed and the ED and patient was started on a maintenance of 200 mL per hour. Vitals on admission temperature 98.3, pulse 70, respiratory rate 20, pulse 68/40 saturating more than 92% on 4 L. General Appearance: Obese Alert, moderate distress Skin: Grossly normal HEENT: PEERLA Neck: Supple, No JVD Cardiovascular: Regular Rate, Normal S1, Normal S2, No Murmurs Lungs: Clear to Auscultation, Normal Air Movement Abdomen: Normal Bowel Sounds, left upper quadrant tenderness Neurological: Normal Speech, Strength at 5/5 X4 Ext, Cranial Nerves 3-12 NL, Reflexes 2+ Extremities: No lower extreme edema Vascular: Normal Pulses. suggests possible underlying portal hypertension. Clinical correlation recommended. 4. Numerous pelvic lymph nodes with enlarged left side wall pelvic lymph node of uncertain etiology. Clinical correlation is recommended. 5. Diverticulosis without CT evidence for acute diverticulitis. Assessment and plan: Pt is a 67 yr man with PMH significant for MOIRA, ?COPD not on home oxygen, HOCM, HTN, morbid obesity, restless leg syndrome, and anxiety , recently admitted to [facility] in February 2017 due to hypotension, MANJIT and urinary retention, discharged with a Jimenez catheter presented to the ED for the evaluation of severe hypotension with hematuria MANJIT received multiple boluses in the ED with a minimal improvement in the blood pressure, without any focus of infection. Severe hypotension due to hypovolemic shock: * We'll admit the patient to ICU * Femoral line has been placed in the ED, will hold off any pressors for now continue aggressive hydration with 200 mL per hr, to keep MAP around 60. * Trend lactic acid levels, justice cultures have been sent. * If patient remains hypotensive will start the patient on pressors. * Hold off any medications for now * Watch for any hemodynamic instability * Continue oxygen to keep saturations above 92%. Acute kidney injury with hematuria and clogged jimenez(creatinine 1.3, probably due to prerenal azotemia /dehydration * Jimenez catheter was changed in the ED. * Continue to monitor ins and outs * Continue with IV hydration * Obtain urolology consult in the morning [id number] been controlled with Tylenol DVT prophylaxis Alps(due to hematuria) Patient is full code DARIUSREID VERAS 03/13/17 0122: Attending MD Review Statement Attending Statement Attending MD Statement: examined this patient, discuss w/resident/PA/STEAM PRESSURE CHAMBER OPERATOR, agreed w/resident/PA/STEAM PRESSURE CHAMBER OPERATOR, reviewed EMR data (avail), reviewed images, amended to note Attending Assessment/Plan: CC: Blocked Jimenez's catheter PMHX: HTN, PAD, RLS, anxiety/ depression, MOIRA, HFpEF, chronic back pain Patient came to ER with complaints of burning and pain at urethral site and no urine output in bag overnight. The Jimenez catheter was placed February 17 and was suggested to follow up with Urologist. Since then patient has been coming to ER recurrently for blocked Jimenez, pain in the urethral site. Most recent ER visit was on March 03 when patient was admitted for hypotension and decreased Jimenez output, Jimenez was changed and hypotension was considered secondary to decreased by mouth intake. He was discharged on March 05 to be followed up with urology outpatient. Patient was doing fine until yesterday, but when he woke up this morning low urine output in bag so he came to ER. He complains of some pain at urethral meatus, otherwise no fever, chills, cough, shortness of breath, abdominal pain, , loss of consciousness. He endorses intermittent back pain and dyspnea on excision which is chronic to him and felt lightheaded and dizzy. He had one episode of watery stool after eating outside, which resolved with Imodium. He's been compliant with his medications at home including metoprolol and losartan. Vitals: Afebrile, pulse in 70s, RR 20s, blood pressure at presentation 68/40 improved up to 80/60 with 5 L NS bolus, saturating well on 4 L O2 by NC. On exam: A O 3, cooperative, no acute distress, neck supple, JVD could not be appreciated, no lymphadenopathy, mucosa dry, no focal neurological deficit, no dependent edema, no obvious skin rashes or inflammation, feet are cold to touch, peripheral pulses normal. CVS: S1-S2, RRR. RS: Clear to auscultate bilaterally. Abdomen: Soft, NT, ND, bowel sounds present. : Blood at meatus, otherwise no signs of inflammation or infection. Labs: CBC unremarkable, bicarbonate 31, BUN 25, creatinine 1.3, lactate 3.5, LFT unremarkable. UA more than 75 RBC, no leukocyte esterase, nitrites CXR: No acute cardiopulmonary abnormality compared to 02/21/2017. CT ABD & PELVIS W/O IV CONTRAST: 1. Limited noncontrast study. 2. No CT evidence for acute renal obstruction. This noncontrast study cannot exclude underlying pyelonephritis. Clinical correlation is required. 3. Splenomegaly with probable adjacent varices. The combination of findings suggests possible underlying portal hypertension. Clinical correlation recommended. 4. Numerous pelvic lymph nodes with enlarged left side wall pelvic lymph node of uncertain etiology. Clinical correlation is recommended. 5. Diverticulosis without CT evidence for acute diverticulitis. A and P Patient came with blocked Jimenez catheter, which was changed in ER. Patient was persistently hypotensive to systolic blood pressure in 80s, map below 60. Patient did not have appropriate tachycardia because of beta areli. Complete ROS is unremarkable for any infection. Patient had one episode of diarrhea which may have contradicted to dehydration along with losartan and metoprolol causing hypotension. Lactic acid was elevated in ER which trended down with hydration. # Hypotension: Unclear etiology ?Hypovolemia (only one watery stool), ? Antihypertensives, patient has been presenting with hypotension recurrently # Renal insufficiency # Lactic acidosis # Urinary obstruction secondary to prostatomegaly # History of HTN, HFpEF # MOIRA - Admit to ICU - Blood culture 2 sets, UA urine culture, U tox - 2 wide bore peripheral lines - Continue IV fluids after fifth bag, NS 200 mL per hour is maintaining blood pressure map above 60, if systolic blood pressure improved further, decreased IV fluid 200 mL per hour - Monitor I's and O's - Watch off antibiotics - If blood pressure persistently low, or fever spike, start with ceftazidime - Consider decreasing dose of antihypertensives upon discharge, - Consult cardiology in a.m. - Hold all his medications, resume in a.m. once blood pressure is stable. - Because of his persistent hypotension even with 5 L bolus, option of central line and pressor was discussed with patient, who suggested to hold off for the central line now, "I usually get better with fluids", start pressor if not responding. So central line was not placed in ER. Close monitor blood pressure, start Levophed or Adalberto-Synephrine if persistently low - Critical care consult in a.m. - CBC BMP in a.m. - Continue CPAP if patient uses at home - Patient recently changed his CODE STATUS from DNR to full code (he thinks that not saying yes to CPR is suicide) TTS 30 min
--- NOTE | 2017-03-12 19:39 | NUR ---
PT TO CT, PT AWAKE ALERT MENTATING WELL, PT IS REFUSING CENTRAL LINE, PT REPORTS THAT HIS BP WILL GO LOW FROM TIME TO TIME. MAMI DE LA PAZ AWARE OF SAME. HOUSESTAFF AWARE. ASKED TO COME AND SEE PT FOR SAME.
--- NOTE | 2017-03-12 20:02 | CT SCAN REPORT ---
EXAMINATION: CT ABDOMEN AND PELVIS WITHOUT CONTRAST CLINICAL INFORMATION: Pain, hypotensive, question pyelonephritis COMPARISON: CT abdomen and pelvis 03/03/2017 TECHNIQUE: Multidetector volumetric imaging was performed from the superior aspect of the liver through the pubic symphysis. Sagittal and coronal reformatted images were obtained on the technologist's workstation. DLP: 1809.9 mGy-cm FINDINGS: LUNG BASES: There is bibasilar atelectasis, right greater than left. LIVER, GALLBLADDER, AND BILIARY TREE: The liver is grossly unremarkable on this noncontrast study. The gallbladder is unremarkable with no evidence of radiopaque gallstones, gallbladder wall thickening, or obvious pericholecystic inflammatory changes. PANCREAS: Unremarkable. SPLEEN: Spleen is enlarged in size measuring nearly 16 cm in length. A relatively dilated vessels along the medial margin of the spleen suggesting varices. ADRENAL GLANDS: Unremarkable. KIDNEYS AND URETERS: The left kidney is relatively atrophic in size. There is no left renal hydronephrosis. There is mild left perinephric stranding. No radiodense stones. 2 the gated system redemonstrated. Parapelvic cyst of the upper pole of the right kidney is redemonstrated. There is no right renal hydronephrosis. Mild symmetric perinephric stranding. BLADDER: Shultz catheter is present within the bladder which is relatively decompressed. GASTROINTESTINAL TRACT: The small and large bowel are unremarkable. The appendix is unremarkable. ABDOMINAL WALL: There is a small fat-containing periumbilical hernia. The transverse defect within the fascia measures 1.6 cm. There is a fat-containing left inguinal hernia measuring 5.0 cm. LYMPH NODES: There are scattered mesenteric and retroperitoneal lymph nodes. See below for discussion of pelvic lymph nodes. VASCULAR: Grossly unremarkable on this noncontrast exam. PELVIC VISCERA: The prostate measures approximately 7.1 cm in transverse diameter. The seminal vesicles are symmetric and unremarkable. A left pelvic sidewall lymph node is mildly prominent and asymmetric measuring up to 1.1 cm (image 99, series 3). Overall, there are additional scattered subcentimeter lymph nodes within the pelvis. These are relatively increased in number. OSSEOUS STRUCTURES: There are diffuse degenerative changes of the lower thoracic and lumbar spine. No acute fracture. No spondylolisthesis. IMPRESSION: 1. Limited noncontrast study. 2. No CT evidence for acute renal obstruction. This noncontrast study cannot exclude underlying pyelonephritis. Clinical correlation is required. 3. Splenomegaly with probable adjacent varices. The combination of findings suggests possible underlying portal hypertension. Clinical correlation recommended. 4. Numerous pelvic lymph nodes with enlarged left side wall pelvic lymph node of uncertain etiology. Clinical correlation is recommended. 5. Diverticulosis without CT evidence for acute diverticulitis.
--- NOTE | 2017-03-12 20:18 | NUR ---
PT STILL AWAITING ICU BED CHARGE NURSE AWARE,SUPERVISIOR CONTACTED.
--- NOTE | 2017-03-12 20:34 | NUR ---
DR. MOREIRA AT BEDSIDE.ASKED TO PLACE CODE STATUS ORDER FOR ICU,. PT REMAINS AWAKE ALERT MENTATING WELL. BP 86/58 P52
--- NOTE | 2017-03-12 20:58 | NUR ---
REPORT TO ICU.
--- NOTE | 2017-03-12 21:55 | NUR ---
RECEIVED PT FROM ER VIA STRETCHER AT 2120-EKG MONITORING, 02 AT 4LNC, MOREJON IN PLACE, NS INFUSING. PT PLACED IN BED AND ATTACHED TO BEDSIDE MONITOR. PT WITH CHRONIC MOREJON FOR BPH-PRESENTED TO ER WITH C/O MOREJON NOT DRAINING. MOREJON CHANGED IN ER, PT HYPOTENSIVE IN ER-5L NS GIVEN. PT A/0X3, FOLLOWS COMMANDS. DENIES ANY PAIN AT PRESENT. BREATH SOUNDS CLEAR WITH DIMINISHED BREATH SOUNDS AT BASES BILATERALLY. NO COUGH, SOB OR RESP DISTRESS NOTED AT PRESENT. 02 DECREASED TO 2LNC AT 2150 BY RESP THERAPIST. SEE FLOW SHEET FOR VS, 02 SATS, I/O'S. MONITOR SHOWS SB, NO ECTOPY NOTED AT PRESENT. BP IN 80'S AT PRESENT. ABD SOFT, NONTENDER, NONDISTENDED, POSITIVE BOWEL SOUNDS. MOREJON IN PLACE-DRAINING BLOODY URINE. SKIN INTACT. ORIENTATION TO UNIT DONE
[2017-03-13] VITALS: BP 120/70
--- NOTE | 2017-03-13 01:25 | Admission Certification ---
Admission Certification Certification Statement - As attending physician, I certify that at the time of - admission, based on clinical presentation, severity of - symptoms, need for further diagnostic testing and - therapeutic interventions, and risk of adverse outcomes - without in-hospital treatment, in my clinical assessment, - this patient requires an acute hospital stay for a minimum - of two nights or longer. I have also considered psychsocial - factors such as support system, advanced age, financial - issues, cognitive issues, and failed out-patient treatments, - past re-admission history, safety of patient, and lack of - compliance as applicable. Specific rationale supporting this admission is: hypotension, lactic acidosis
[2017-03-13 06:43] LABS: ABSOLUTE BASOPHIL COUNT 0 /CUMM (0.0-0.2); ABSOLUTE EOSINOPHIL COUNT 0.2 /CUMM (0.0-0.7); ABSOLUTE GRANULOCYTE CT 3.1 /CUMM (1.4-6.5); ABSOLUTE LYMPH COUNT 0.7 /CUMM (1.2-3.4); ABSOLUTE MONOCYTE COUNT 0.3 /CUMM (0.10-0.60); BASOPHIL % 0.3 % (0.0-2.0); EOSINOPHIL % 4.4 % (0-5); GRANULOCYTE % 71.7 % (42.2-75.2); MEAN CORPUSCULAR HGB 29.1 PG (27.0-31.0); MEAN CORPUSCULAR HGB CONC 33.3 G/DL (33.0-37.0); MEAN CORPUSCULAR VOLUME 87.6 FL (80.0-94.0); MEAN PLATELET VOLUME 8.5 FL (7.4-10.4); PLATELET COUNT 122 /CUMM (130-400); RBC DISTRIBUTION WIDTH 14.1 % (11.5-14.5); RED BLOOD CELL CT 4.29 /CUMM (4.70-6.10); WHITE BLOOD CELL COUNT 4.3 /CUMM (4.8-10.8)
[2017-03-13 06:51] LABS: PT 12.3 SEC (9.4-12.5)
--- NOTE | 2017-03-13 07:03 | Cons- CRCU ---
MICHELE LEE,[employer] 03/13/17 0703: General Information and HPI Consulting Request Date of Consult: 03/13/17 Requested By: Dr Silva Source of Information: patient, family, old records Exam Limitations: no limitations History of Present Illness: Mr Madrigal is a 67 yr man with PMH significant for MOIRA, ?COPD on home oxygen, HOCM , HTN, morbid obesity, restless leg syndrome, and anxiety who was recently seen at [facility] in February 2017 due to hypotension, MANJIT and urinary retention , and discharged with a Jimenez catheter who subsequently presented to the ED on with complaints of abdominal discomfort and blockage of his jimenez. Patients symptoms began in January 2017 when the patient began experiencing a weak urinary stream. Following this, the patient noticed that he was unable to void completely. He subsequently needed a jimenez tube placed and was given a referral to follow up as an outpatient with a urologist. Twenty four hours prior to admission, Mr Madrigal found his abdomen became distended and presented to the emergency department for symptomatic relief. He had also noted that his jimenez began draining minimum amounts of what looked like "fish jelly" colored output. Mr Madrigal also felt an 8 out of 10 pain in his abdomen. He also endorsed some dysuria and mild pain on the tip of his penis. He denies any fever, chills, nausea or vomiting, however did endorse some lightheadedness. Patient lives at the [facility] Allergies/Medications Allergies: Coded Allergies: Penicillins (Severe, TONGUE SWELLING 02/25/17) Home Med List: Buprenorphine (Butrans) 20 MCG/HOUR PATCH.TDWK 1 PAT TOP ONCEAWEEK PAIN ( Reported) Cilostazol 100 MG TABLET 1 TAB PO BID INTERMITTENT CLAUDICATION (Reported) Clotrimazole (Lotrimin AF) 1 % CREAM..G. 1 FRACISCO TOP BID TINEA CRURIS apply to affected area(s) Gabapentin (Neurontin) 300 MG CAPSULE 1 CAP PO TID NERVE PAIN (Reported) Lorazepam 1 MG TABLET 1 TAB PO TID PRN ANXIETY (Reported) Losartan Potassium 50 MG TABLET 50 MG PO DAILY HIGH BP Metoprolol Tartrate 50 MG TABLET 50 MG PO BID HIGH BP, HEART HEALTH Multivitamin (Multiple Vitamins) 1 EACH TABLET 1 TAB PO DAILY SUPPLEMENT ( Reported) Oxycodone HCl/Acetaminophen (Percocet 5-325 MG Tablet) 5 MG-325 MG TABLET 1 TAB PO Q8H PRN CHRONIC PAIN (Reported) Tamsulosin HCl (Flomax) 0.4 MG CAP.ER.24H 1 CAP PO BID PROSTATE (Reported) Venlafaxine HCl (Venlafaxine HCl ER) 225 MG TAB.ER.24 1 TAB PO DAILY MENTAL HEALTH (Reported) Current Medications: Current Medications Sig/Jared Start time Last Medication Dose Route Stop Time Status Admin Acetaminophen 1,000 MG .STK-MED ONE 03/13 0540 DC IV 03/13 0541 Acetaminophen 650 MG Q6 PRN 03/12 1900 AC PO Acetaminophen 1,000 MG Q6P PRN 03/12 1900 AC 03/13 IV 0541 Ceftriaxone Sodium 0 .STK-MED ONE 03/12 1646 DC .ROUTE Ceftriaxone Sodium 1,000 MG ONCE ONE 03/12 1645 DC 03/12 IV 03/12 1646 1649 Cilostazol 100 MG BID 03/13 1000 CAN PO Clotrimazole 1 FRACISCO BID 03/13 1116 AC TOP Gabapentin 300 MG TID 03/13 1000 CAN PO Influenza Virus 0.5 ML 1000 03/13 1000 DC Vaccine IM 03/13 1001 Lorazepam 1 MG TID PRN 03/12 1900 DC PO Losartan Potassium 50 MG DAILY 03/13 1116 AC 03/13 PO 1235 Metoprolol Tartrate 50 MG BID 03/13 1115 AC 03/13 PO 1234 Sodium Chloride 1,000 ML Q5H 03/12 1915 DC 03/12 IV 2349 Sodium Chloride 1,000 ML BOLUS ONE 03/12 1815 DC 03/12 IV 03/12 1914 1823 Sodium Chloride 1,000 ML BOLUS ONE 03/12 1700 DC 03/12 IV 03/12 1759 1542 Sodium Chloride 1,000 ML BOLUS ONE 03/12 1645 DC 03/12 IV 03/12 1744 1642 Sodium Chloride 1,000 ML BOLUS ONE 03/12 1515 DC 03/12 IV 03/12 1614 1500 Sodium Chloride 1,000 ML BOLUS ONE 03/12 1415 DC 03/12 IV 03/12 1514 1415 Tamsulosin HCl 0.4 MG BID 03/13 1000 CAN PO Venlafaxine HCl 225 MG 0800 03/14 0800 DC PO Venlafaxine HCl 225 MG 0800 03/13 1245 AC 03/13 PO 1356 Venlafaxine HCl 225 MG ONCE ONE 03/13 1130 CAN PO 03/13 1131 Review of Systems Review of Systems Constitutional: Reports: see HPI, chills, diaphoresis, weakness. Denies: fever, malaise. Cardiovascular: Denies: chest pain, edema, orthopena, palpitations. Respiratory: Denies: cough, hemoptysis, orthopnea, short of breath. GI: Reports: abdominal pain. Denies: bloating, constipation, diarrhea, distention, nausea, vomiting. Genitourinary: Reports: dysuria, pain. Denies: discharge, frequency, hematuria, hesitation, nocturia. Musculoskeletal: Denies: see HPI, back pain, gout, joint pain, joint swelling. Past History Travel History Traveled to [place] past 21 day No Medical History Blood Transfusion Hx: No Neurological: NONE EENT: NONE Cardiovascular: hypertension Respiratory: pneumonia, (PT DENIES) Gastrointestinal: NONE Hepatic: NONE Renal: benign prost hyperplasia Musculoskeletal: NONE Psychiatric: anxiety Endocrine: NONE Blood Disorders: NONE Cancer(s): NONE PRODUCTION CLERK/Reproductive: NONE Other Medical Hx: OBESITY Surgical History Surgical History: varicocoele Family History Relations & Conditions If Any: SISTER (esophageal cancer). BROTHER (esophageal and colon cancer). FATHER (hypertension, ?esophageal aneurysm). Psychosocial History Where Do You Live? Home Services at Home: None Smoking Status: Never Smoked ETOH Use: occasional use Functional Ability ADLs Independent: dressing, eating, toileting, bathing. Ambulation: independent IADLs Independent: shopping, housework, finances, food prep, telephone, transportation , medication admin. Exam & Diagnostic Data Last 24 Hrs of Vital Signs/I&O Vital Signs Date Time Temp Pulse Resp B/P B/P Pulse O2 O2 Flow FiO2 Mean Ox Delivery Rate 03/13 0800 99 Nasal 2.0L Cannula 03/13 0800 96.9 54 20 134/82 99 Nasal 2.0L Cannula 03/13 0400 95 Nasal 2.0L Cannula 03/13 0000 95 Nasal 2.0L Cannula 03/13 0000 96.2 70 26 120/70 95 Nasal 2.0L Cannula 03/120 100 Nasal 4.0L Cannula 03/12 1955 97.2 56 22 88/58 100 Nasal 4.0L Cannula 03/126 97.1 50 16 70/48 96 Nasal 4.0L Cannula 03/12 1706 97.2 51 20 78/48 97 Nasal 2.0L Cannula 03/12 1641 58 68/46 03/12 1608 50 78/48 100 Nasal 4.0L Cannula 03/12 1537 62 80/60 03/12 1520 99 Nasal 4.0L Cannula 03/12 1451 54 20 60/40 95 Nasal 4.0L Cannula 03/12 1334 9837.0 70 20 68/40 94 Nasal 4.0L Cannula Intake & Output 03/13 1600 03/13 0800 03/13 0000 Intake Total 1174 320 Output Total 380 140 Balance 794 180 Intake, IV 934 200 Intake, Oral 240 120 Number 0 0 Bowel Movements Output, Urine 380 140 Patient 158.502 kg Weight Weight Bed scale Measurement Method Physical Exam General Appearance: well developed/nourished, no apparent distress, alert, awake , anxious, comfortable Head: atraumatic, normal appearance Eyes: Bilateral: normal appearance, PERRL, EOMI. Ears, Nose, Throat: normal ENT inspection Respiratory: normal breath sounds, chest non-tender, no respiratory distress Cardiovascular: regular rate/rhythm Gastrointestinal: normal bowel sounds, soft, non-tender Back: normal inspection, normal range of motion Extremities: normal inspection, normal capillary refill, normal range of motion, no edema Last 48 Hrs of Labs/[place]: Laboratory Tests 03/13/17 0633: Anion Gap 6, Estimated GFR > 60, Glucose 129 H, Calcium 7.9 L, Phosphorus 3.8, Magnesium 2.3, Total Bilirubin 0.6, AST 13 L, ALT 31, Albumin 2.9 L, PT 12.3, INR 1.17, CBC w Diff NO MAN DIFF REQ, RBC 4.29 L, MCV 87.6, MCH 29.1, RDW 14.1, MPV 8.5, Gran % 71.7, Lymphocytes % 16.3 L, Monocytes % 7.3, Eosinophils % 4.4, Basophils % 0.3, Absolute Granulocytes 3.1, Absolute Lymphocytes 0.7 L, Absolute Monocytes 0.3, Absolute Eosinophils 0.2, Absolute Basophils 0, PUBS MCHC 33.3 03/12/17 2243: Lactic Acid Cancelled 03/12/173: Lactic Acid Cancelled 03/12/17 1725: Lactic Acid 0.9 03/12/17 1536: Urine Opiates Screen 742.00, Methadone Screen 54, Barbiturate Screen < 60, Ur Phencyclidine Scrn 7.70, Amphetamines Screen < 100, U Benzodiazepines Scrn < 85, Urine Cocaine Screen < 50, Urine Cannabis Screen < 5.00, Urine Color YEL, Urine Clarity HAZY H, Urine pH 6.0, Ur Specific [place] 1.025, Urine Protein 30 H, Urine Ketones NEG, Urine Nitrite NEG, Urine Bilirubin NEG@ICTO, Urine Urobilinogen 0.2, Ur Leukocyte Esterase NEG, Ur Microscopic SEDIMENT EXAMINED, Urine RBC >75 H, Urine WBC 1-3 H, Ur Epithelial Cells RARE, Hyaline Casts RARE H, Urine Mucus FEW, Urine Hemoglobin LARGE H, Urine Glucose NEG 03/12/17 1425: Anion Gap 12, Estimated GFR 55 L, BUN/Creatinine Ratio 19.2, Glucose 96, Lactic Acid 3.5 H, Calcium 8.6, Total Bilirubin 0.8, AST 20, ALT 30, Alkaline Phosphatase 45, Troponin I < 0.01, Total Protein 6.2 L, Albumin 3.7, Globulin 2.5, Albumin/Globulin Ratio 1.5, CBC w Diff NO MAN DIFF REQ, RBC 5.20, MCV 87.2, MCH 28.9, RDW 14.1, MPV 8.8, Gran % 71.0, Lymphocytes % 18.5 L, Monocytes % 6.5 , Eosinophils % 3.6, Basophils % 0.4, Absolute Granulocytes 5.0, Absolute Lymphocytes 1.3, Absolute Monocytes 0.5, Absolute Eosinophils 0.3, Absolute Basophils 0, PUBS MCHC 33.2 03/12/17 1414: Troponin I Cancelled Diagnostic Data CXR Results SERVICE DATE: 03/12/17 EXAM TYPE: RAD - XRY-PORTABLE CHEST XRAY EXAMINATION: XR PORTABLE CHEST CLINICAL INFORMATION: Dizziness and hypotension. COMPARISON: CXR from 02/21/2017. TECHNIQUE: Portable AP view of the chest was obtained. FINDINGS: Large body habitus. Lungs are hypoinflated and right diaphragm elevated, unchanged compared to 02/21/2017. There is linear opacity of minimal atelectasis in the inferior lingula. No acute pulmonary consolidation, edema or pleural effusion. Cardiac silhouette is considered normal in size given the patient body habitus, radiographic technique and degree of pulmonary hypoinflation. The visualized bones are intact. IMPRESSION: No acute cardiopulmonary abnormality compared to 02/21/2017. DICTATED BY: MANA DOS SANTOS MD Other Results SERVICE DATE: 03/12/17 EXAM TYPE: CAT - CT ABD & PELVIS W/O IV CONTRAST EXAMINATION: CT ABDOMEN AND PELVIS WITHOUT CONTRAST CLINICAL INFORMATION: Pain, hypotensive, question pyelonephritis COMPARISON: CT abdomen and pelvis 03/03/2017 TECHNIQUE: Multidetector volumetric imaging was performed from the superior aspect of the liver through the pubic symphysis. Sagittal and coronal reformatted images were obtained on the technologist's workstation. DLP: 1809.9 mGy-cm FINDINGS: LUNG BASES: There is bibasilar atelectasis, right greater than left. LIVER, GALLBLADDER, AND BILIARY TREE: The liver is grossly unremarkable on this noncontrast study. The gallbladder is unremarkable with no evidence of radiopaque gallstones, gallbladder wall thickening, or obvious pericholecystic inflammatory changes. PANCREAS: Unremarkable. SPLEEN: Spleen is enlarged in size measuring nearly 16 cm in length. A relatively dilated vessels along the medial margin of the spleen suggesting varices. ADRENAL GLANDS: Unremarkable. KIDNEYS AND URETERS: The left kidney is relatively atrophic in size. There is no left renal hydronephrosis. There is mild left perinephric stranding. No radiodense stones. 2 the gated system redemonstrated. Parapelvic cyst of the upper pole of the right kidney is redemonstrated. There is no right renal hydronephrosis. Mild symmetric perinephric stranding. BLADDER: Jimenez catheter is present within the bladder which is relatively decompressed. GASTROINTESTINAL TRACT: The small and large bowel are unremarkable. The appendix is unremarkable. ABDOMINAL WALL: There is a small fat-containing periumbilical hernia. The transverse defect within the fascia measures 1.6 cm. There is a fat-containing left inguinal hernia measuring 5.0 cm. LYMPH NODES: There are scattered mesenteric and retroperitoneal lymph nodes. See below for discussion of pelvic lymph nodes. VASCULAR: Grossly unremarkable on this noncontrast exam. PELVIC VISCERA: The prostate measures approximately 7.1 cm in transverse diameter. The seminal vesicles are symmetric and unremarkable. A left pelvic sidewall lymph node is mildly prominent and asymmetric measuring up to 1.1 cm (image 99, series 3). Overall, there are additional scattered subcentimeter lymph nodes within the pelvis. These are relatively increased in number. OSSEOUS STRUCTURES: There are diffuse degenerative changes of the lower thoracic and lumbar spine. No acute fracture. No spondylolisthesis. IMPRESSION: 1. Limited noncontrast study. 2. No CT evidence for acute renal obstruction. This noncontrast study cannot exclude underlying pyelonephritis. Clinical correlation is required. 3. Splenomegaly with probable adjacent varices. The combination of findings suggests possible underlying portal hypertension. Clinical correlation recommended. 4. Numerous pelvic lymph nodes with enlarged left side wall pelvic lymph node of uncertain etiology. Clinical correlation is recommended. 5. Diverticulosis without CT evidence for acute diverticulitis. 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 The patient received multiple boluses of fluids and has responded well. Severe hypotension likely due to hypovolemia, #Resolved * Likely the result of decreased PO intake and antihypertensives. * Lactic Acid: 0.9. * Robert cultures have been sent. * Watch for any hemodynamic instability * Continue oxygen to keep saturations above 92%. History of HOCM, LVH * Cardilogy consultation obtained this am. * Home medications resumed:Losartan 50 mg, Metoprolol 60 * Will inform Dr Janay LEE about the patients admission. * Echocardiogram, pending. Acute kidney injury with hematuria and clogged jimenez(creatinine 1.3, probably due to prerenal azotemia /dehydration * Jimenez in place due to prostatic enlargement. * Jimenez catheter was changed in the ED. * Catheter currently draining well. * Continue to monitor ins and outs * Discontinue V hydration * Obtain urolology consult in the morning, called service of Dr Burch, have requested for a patient visit in AM: 03/14/2017 History of depression * Continue Venlafaxine 225 mg. DVT prophylaxis Alps Patient is full code Consult Acknowledgment - Thank you for your consult request. DARYN GOLDMAN MD 03/13/17 0829: Assessment/Plan Other Findings/Comments: Daryn Campbell M.D. have examined this patient, reviewed available EMR data, personally reviewed images, discussed with resident/PA/HIGH SCHOOL FOOTBALL COACH, discussed management plan with housestaff and nursing staff, discussed managment plan all of healthcare providers, discussed management plan with patient and/or family, agreed with resident/PA/HIGH SCHOOL FOOTBALL COACH. The past history and parts of the chart have been autopopulated. Impression 67-year-old man * Resolved hypotension likely hypovolemia in the setting of antihypertensive use * History of hypertrophic cardiomyopathy, hypertension * MOIRA/OHS * chronic jimenez due to prostatic enlargement Plan - Patient appears to be well-hydrated - Given history of hypertrophic cardiomyopathy with alert cardiology of the admission given the need to hold antihypertensives until blood pressure is restored - Monitor ins and outs - would get ECHO given change in bp - has not been compliant with AutoPAP - maintain o2 sat >92% - qualified previously for o2, on 3LNC at home - routine urology call to let the service know pt admitted as he was to have an appointment 03/14 for routine follow up DVT prophylaxis at all times TTS 40 min Tele downgrade Consult Acknowledgment - Thank you for your consult request.
[2017-03-13 07:06] LABS: HEMATOCRIT 37.6 % (42-52)
--- NOTE | 2017-03-13 07:20 | NUR ---
PT SLEPT THOUGHOUT NIGHT. C/O HEADACHE-IV TYLENOL GIVEN-SEE EMAR-RATED 8 TO 10 PRIOR TO TYLENOL-DESCIBES PRESSURE BEHIND EYES-5-6 OUT OF 10 AFTER TYLENOL. BREATH SOUNDS CLEAR WITH DIMINISHED BREATH SOUNDS AT BASES BILATERALLY. NO COUGH, SOB OR RESP DISTRESS NOTED THOUGHOUT SHIFT. MONITOR 1ST DEGREE AVB WITH BBB THOUGHOUT SHIFT, NO ECTOPY NOTED THOUGHOUT SHIFT. BP 90-160'S FOR SHIFT. MOREJON WITH ADEQUATE AMT OF CLEAR YELLOW URINE FOR SHIFT. SKIN REMAINS INTACT.
[2017-03-13 08:00] VITALS: BP 134/82
--- NOTE | 2017-03-13 09:30 | NUR ---
PT HAD A BEDSIDE ECHO PERFORMED
--- NOTE | 2017-03-13 11:06 | Cons- Cardiology ---
General Information and HPI Consulting Request Date of Consult: 03/13/17 Requested By: REID MCCOY MD Reason for Consult: Hypotension, LVH Source of Information: patient, old records Exam Limitations: no limitations History of Present Illness: The patient is a 67-year-old gentleman with a past medical history of COPD, mild LVH with a minimal LV outflow tract gradient (proximally 6 mmHg), hypertension, morbid obesity and anxiety. He was recently discharged from our hospital secondary to urinary retention due to prostatic hypertrophy, and has a indwelling Shultz catheter. He presented to our hospital with discomfort from the Shultz entry site as well as diarrhea. He was found to be hypotensive with a blood pressure of 68/40. Upon arrival, the patient complained of mild lightheadedness; however, without chest pain nor dyspnea. He was found to have an elevated lactic acid level (3.5 ), and with a normal WBC. He was afebrile. Fluid resuscitation was initiated in the emergency room, the patient remained asymptomatic. Of note, the patient had undergone a nuclear stress test in 2016 for atypical chest pain symptoms which was negative for ischemia or infarct. An echocardiogram which was performed in March 2016 demonstrated a preserved LV systolic function with LVH and diastolic dysfunction. There was a flow tract gradient (proximally 6). The patient's lactic acidosis improved rapidly with fluid administration. Allergies/Medications Allergies: Coded Allergies: Penicillins (Severe, TONGUE SWELLING 02/25/17) Home Med List: Buprenorphine (Butrans) 20 MCG/HOUR PATCH.TDWK 1 PAT TOP ONCEAWEEK PAIN ( Reported) Cilostazol 100 MG TABLET 1 TAB PO BID INTERMITTENT CLAUDICATION (Reported) Clotrimazole (Lotrimin AF) 1 % CREAM..G. 1 FRACISCO TOP BID TINEA CRURIS apply to affected area(s) Gabapentin (Neurontin) 300 MG CAPSULE 1 CAP PO TID NERVE PAIN (Reported) Lorazepam 1 MG TABLET 1 TAB PO TID PRN ANXIETY (Reported) Losartan Potassium 50 MG TABLET 50 MG PO DAILY HIGH BP Metoprolol Tartrate 50 MG TABLET 50 MG PO BID HIGH BP, HEART HEALTH Multivitamin (Multiple Vitamins) 1 EACH TABLET 1 TAB PO DAILY SUPPLEMENT ( Reported) Oxycodone HCl/Acetaminophen (Percocet 5-325 MG Tablet) 5 MG-325 MG TABLET 1 TAB PO Q8H PRN CHRONIC PAIN (Reported) Tamsulosin HCl (Flomax) 0.4 MG CAP.ER.24H 1 CAP PO BID PROSTATE (Reported) Venlafaxine HCl (Venlafaxine HCl ER) 225 MG TAB.ER.24 1 TAB PO DAILY MENTAL HEALTH (Reported) Current Medications: Current Medications Sig/Jared Start time Last Medication Dose Route Stop Time Status Admin Acetaminophen 650 MG Q6 PRN 03/12 1900 AC PO Acetaminophen 1,000 MG Q6P PRN 03/12 1900 AC 03/13 IV 0541 Ceftriaxone Sodium 0 .STK-MED ONE 03/12 1646 DC .ROUTE Ceftriaxone Sodium 1,000 MG ONCE ONE 03/12 1645 DC 03/12 IV 03/12 1646 1649 Cilostazol 100 MG BID 03/13 1000 CAN PO Gabapentin 300 MG TID 03/13 1000 CAN PO Influenza Virus 0.5 ML 1000 03/13 1000 DC Vaccine IM 03/13 1001 Lorazepam 1 MG TID PRN 03/12 1900 DC PO Sodium Chloride 1,000 ML Q5H 03/12 1915 DC 03/12 IV 2349 Sodium Chloride 1,000 ML BOLUS ONE 03/12 1815 DC 03/12 IV 03/12 1914 1823 Sodium Chloride 1,000 ML BOLUS ONE 03/12 1700 DC 03/12 IV 03/12 1759 1542 Sodium Chloride 1,000 ML BOLUS ONE 03/12 1645 DC 03/12 IV 03/12 1744 1642 Sodium Chloride 1,000 ML BOLUS ONE 03/12 1515 DC 03/12 IV 03/12 1614 1500 Sodium Chloride 1,000 ML BOLUS ONE 03/12 1415 DC 03/12 IV 03/12 1514 1415 Tamsulosin HCl 0.4 MG BID 03/13 1000 CAN PO Review of Systems Review of Systems: The review of systems is negative for chest pains, palpitations nor lightheadedness. The remainder of the 14 point review of systems is noncontributory with the exception of above. 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 BROTHER (esophageal and colon cancer). FATHER (hypertension, ?esophageal aneurysm). Psychosocial History Where Do You Live? Home Services at Home: None Smoking Status: Never Smoked Functional Ability ADLs Independent: dressing, eating, toileting, bathing. Ambulation: independent IADLs Independent: shopping, housework, finances, food prep, telephone, transportation , medication admin. Exam & Diagnostic Data Vital Signs and I&O Vital Signs Date Time Temp Pulse Resp B/P B/P Pulse O2 O2 Flow FiO2 Mean Ox Delivery Rate 03/13 0800 99 Nasal 2.0L Cannula 03/13 0800 96.9 54 20 134/82 99 Nasal 2.0L Cannula 03/13 0400 95 Nasal 2.0L Cannula 03/13 0000 95 Nasal 2.0L Cannula 03/13 0000 96.2 70 26 120/70 95 Nasal 2.0L Cannula 03/12 2130 100 Nasal 4.0L Cannula 03/12 1955 97.2 56 22 88/58 100 Nasal 4.0L Cannula 03/12 1756 97.1 50 16 70/48 96 Nasal 4.0L Cannula 03/12 1706 97.2 51 20 78/48 97 Nasal 2.0L Cannula 03/12 1641 58 68/46 03/12 1608 50 78/48 100 Nasal 4.0L Cannula 03/12 1537 62 80/60 03/12 1520 99 Nasal 4.0L Cannula 03/12 1451 54 20 60/40 95 Nasal 4.0L Cannula 03/12 1334 9837.0 70 20 68/40 94 Nasal 4.0L Cannula Intake & Output 03/13 1600 03/13 0800 03/13 0000 03/12 1600 03/12 0800 03/12 0000 Intake Total 5456 610 6870 Output Total 380 140 Balance 184 724 6472 Intake, IV 880 781 8378 Intake, Oral 240 120 Number 0 0 Bowel Movements Output, Urine 380 140 Patient 349 lb 330 lb Weight Weight Bed scale Reported by Patient Measurement Method Physical Exam: General: Nontoxic, no apparent distress. HEENT: Sclera and conjunctiva within normal limits, without xanthelasmas. Neck: Carotids 2+ without bruits. Respiratory: Clear to auscultation, air movement is good, without accessory respiratory muscle use. Heart: Regular rate and rhythm, 2/6 systolic ejection murmur at left sternal border, without JVD. Abdomen: Soft, nontender, no masses, normoactive bowel sounds. Extremities: Without clubbing, cyanosis, without edema. Neuro: Nonfocal exam, strength, 5 out of 5 Skin: Within normal limits without lesions. Psych: Mood and affect: Normal Labs/[place] Results: Laboratory Tests 03/13 03/12 03/12 0633 2243 1725 Chemistry Sodium (137 - 145 mmol/L) 144 Potassium (3.5 - 5.1 mmol/L) 4.8 Chloride (98 - 107 mmol/L) 109 H Carbon Dioxide (22 - 30 mmol/L) 30 Anion Gap (5 - 16) 6 BUN (9 - 20 mg/dL) 21 H Creatinine (0.7 - 1.2 mg/dL) 1.1 Estimated GFR (>60 ml/min) > 60 Glucose (65 - 99 mg/dL) 129 H Lactic Acid (0.7 - 2.1 mmol/L) Cancelled 0.9 Calcium (8.4 - 10.2 mg/dL) 7.9 L Phosphorus (2.5 - 4.5 mg/dL) 3.8 Magnesium (1.6 - 2.3 mg/dL) 2.3 Total Bilirubin (0.2 - 1.3 mg/dL) 0.6 AST (17 - 59 U/L) 13 L ALT (21 - 72 U/L) 31 Albumin (3.5 - 5.0 g/dL) 2.9 L Coagulation PT (9.4 - 12.5 SEC) 12.3 INR (0.90 - 1.17) 1.17 Hematology CBC w Diff NO MAN DIFF REQ WBC (4.8 - 10.8 /CUMM) 4.3 L RBC (4.70 - 6.10 /CUMM) 4.29 L Hgb (14.0 - 18.0 G/DL) 12.5 L Hct (42 - 52 %) 37.6 L MCV (80.0 - 94.0 FL) 87.6 MCH (27.0 - 31.0 PG) 29.1 RDW (11.5 - 14.5 %) 14.1 Plt Count (130 - 400 /CUMM) 122 L MPV (7.4 - 10.4 FL) 8.5 Gran % (42.2 - 75.2 %) 71.7 Lymphocytes % (20.5 - 51.1 %) 16.3 L Monocytes % (1.7 - 9.3 %) 7.3 Eosinophils % (0 - 5 %) 4.4 Basophils % (0.0 - 2.0 %) 0.3 Absolute Granulocytes (1.4 - 6.5 /CUMM) 3.1 Absolute Lymphocytes (1.2 - 3.4 /CUMM) 0.7 L Absolute Monocytes (0.10 - 0.60 /CUMM) 0.3 Absolute Eosinophils (0.0 - 0.7 /CUMM) 0.2 Absolute Basophils (0.0 - 0.2 /CUMM) 0 PUBS MCHC (33.0 - 37.0 G/DL) 33.3 03/12 03/12 1536 1425 Chemistry Sodium (137 - 145 mmol/L) 142 Potassium (3.5 - 5.1 mmol/L) 4.1 Chloride (98 - 107 mmol/L) 100 Carbon Dioxide (22 - 30 mmol/L) 31 H Anion Gap (5 - 16) 12 BUN (9 - 20 mg/dL) 25 H Creatinine (0.7 - 1.2 mg/dL) 1.3 H Estimated GFR (>60 ml/min) 55 L BUN/Creatinine Ratio (7 - 25 %) 19.2 Glucose (65 - 99 mg/dL) 96 Lactic Acid (0.7 - 2.1 mmol/L) 3.5 H Calcium (8.4 - 10.2 mg/dL) 8.6 Total Bilirubin (0.2 - 1.3 mg/dL) 0.8 AST (17 - 59 U/L) 20 ALT (21 - 72 U/L) 30 Alkaline Phosphatase (< 127 U/L) 45 Troponin I (<0.11 ng/ml) < 0.01 Total Protein (6.3 - 8.2 g/dL) 6.2 L Albumin (3.5 - 5.0 g/dL) 3.7 Globulin (1.9 - 4.2 gm/dL) 2.5 Albumin/Globulin Ratio (1.1 - 2.2 %) 1.5 Hematology CBC w Diff NO MAN DIFF REQ WBC (4.8 - 10.8 /CUMM) 7.1 RBC (4.70 - 6.10 /CUMM) 5.20 Hgb (14.0 - 18.0 G/DL) 15.0 Hct (42 - 52 %) 45.3 MCV (80.0 - 94.0 FL) 87.2 MCH (27.0 - 31.0 PG) 28.9 RDW (11.5 - 14.5 %) 14.1 Plt Count (130 - 400 /CUMM) 204 MPV (7.4 - 10.4 FL) 8.8 Gran % (42.2 - 75.2 %) 71.0 Lymphocytes % (20.5 - 51.1 %) 18.5 L Monocytes % (1.7 - 9.3 %) 6.5 Eosinophils % (0 - 5 %) 3.6 Basophils % (0.0 - 2.0 %) 0.4 Absolute Granulocytes (1.4 - 6.5 /CUMM) 5.0 Absolute Lymphocytes (1.2 - 3.4 /CUMM) 1.3 Absolute Monocytes (0.10 - 0.60 /CUMM) 0.5 Absolute Eosinophils (0.0 - 0.7 /CUMM) 0.3 Absolute Basophils (0.0 - 0.2 /CUMM) 0 PUBS MCHC (33.0 - 37.0 G/DL) 33.2 Toxicology Urine Opiates Screen (>2000 NG/ML) 742.00 Methadone Screen (>300 NG/ML) 54 Barbiturate Screen (>200 NG/ML) < 60 Ur Phencyclidine Scrn (>25 NG/ML) 7.70 Amphetamines Screen (>1000 NG/ML) < 100 U Benzodiazepines Scrn (>200 NG/ML) < 85 Urine Cocaine Screen (>300 NG/ML) < 50 Urine Cannabis Screen (>50 NG/ML) < 5.00 Urines Urine Color (YEL,AMB,STR) YEL Urine Clarity (CLEAR) HAZY H Urine pH (5.0 - 8.0) 6.0 Ur Specific [place] (1.001 - 1.035) 1.025 Urine Protein (NEG,<30 MG/DL) 30 H Urine Ketones (NEG) NEG Urine Nitrite (NEG) NEG Urine Bilirubin (NEG) NEG@ICTO Urine Urobilinogen (0.1 - 1.0 EU/dl) 0.2 Ur Leukocyte Esterase (NEG) NEG Ur Microscopic SEDIMENT EXAMINED Urine RBC (0 - 5 /HPF) >75 H Urine WBC (0 - 2 /HPF) 1-3 H Ur Epithelial Cells (NONE,FEW) RARE Hyaline Casts (0/LPF) RARE H Urine Mucus (FEW,NONE) FEW Urine Hemoglobin (NEG) LARGE H Urine Glucose (N MG/DL) NEG 03/12 1414 Chemistry Troponin I Cancelled Assessment/Plan Assessment/Plan 67-year-old gentleman with a past medical history of COPD, mild LVH with a minimal LV outflow tract gradient (proximally 6 mmHg), hypertension, morbid obesity and anxiety. He was recently discharged from our hospital secondary to urinary retention due to prostatic hypertrophy, and has a indwelling Shultz catheter. He presented to our hospital with discomfort from the Shultz entry site as well as diarrhea. He was found to be hypotensive with a blood pressure of 68/40. Hypotension: Likely due to a multifactorial etiology including hypovolemia, antihypertensive regimen as well as early SIRS. He has had a rapid improvement following volume resuscitation. At this point, I would restart his outpatient cardiac regimen given improvement in his blood pressure. Hypertension, LVH, minimal left ventricular outflow tract obstruction: The patient is stable from a cardiac standpoint. His left ventricular outflow tract gradient is minimal; however, they worsen with hypovolemia and underfilling of his LV. this point, as his pressure has improved, we will restart his outpatient regimen. 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 Thank you for allowing us to participate in the care of your patient. Please do not hesitate to contact us further with any questions. Sincerely, Tonio Busch MD [facility] Consult Acknowledgment - Thank you for your consult request.
[2017-03-13 16:00] VITALS: BP 150/88
[2017-03-14] VITALS (9 sets, daily range): BP systolic 100–162; BP diastolic 52–90
[2017-03-14 05:48] LABS: ABSOLUTE BASOPHIL COUNT 0 /CUMM (0.0-0.2); ABSOLUTE EOSINOPHIL COUNT 0.2 /CUMM (0.0-0.7); ABSOLUTE GRANULOCYTE CT 2.4 /CUMM (1.4-6.5); ABSOLUTE LYMPH COUNT 1.1 /CUMM (1.2-3.4); ABSOLUTE MONOCYTE COUNT 0.4 /CUMM (0.10-0.60); BASOPHIL % 0.2 % (0.0-2.0); EOSINOPHIL % 5.7 % (0-5); GRANULOCYTE % 58.1 % (42.2-75.2); HEMATOCRIT 38.3 % (42-52); MEAN CORPUSCULAR HGB 28.8 PG (27.0-31.0); MEAN CORPUSCULAR HGB CONC 33.1 G/DL (33.0-37.0); MEAN CORPUSCULAR VOLUME 87.1 FL (80.0-94.0); MEAN PLATELET VOLUME 8.1 FL (7.4-10.4); RBC DISTRIBUTION WIDTH 14.2 % (11.5-14.5); WHITE BLOOD CELL COUNT 4.1 /CUMM (4.8-10.8)
[2017-03-14 05:49] LABS: PLATELET COUNT 115 /CUMM (130-400)
--- NOTE | 2017-03-14 06:22 | PN- Resident CRCU ---
Subjective HPI/CRCU Issues: Mr Madrigal was seen and examined this morning. He is resting comfortably in bed. Reports no issues overnight. He states that his Jimenez is remaining in place and has continued to drain well. He denies any fever, chills, nausea, vomiting. He denies any symptoms of lightheadedness or any visiton changes. Patient endorses dysuria and pain at the penile area every time he tries to void. Patient is currently awaiting follow-up with the urologist later today. 24 Hour Events: No Events Reported Objective Vital Signs & I&O Last 8 Hrs of Vitals and I&O: Intake & Output 03/14 0800 Intake Total 800 Output Total 650 Balance 150 Intake, Oral 800 Output, Urine 650 Exam General Appearance: well developed/nourished, no apparent distress, alert, awake , comfortable Respiratory: normal breath sounds, chest non-tender, no respiratory distress Cardiovascular: regular rate/rhythm Gastrointestinal: normal bowel sounds, soft, non-tender Extremities: normal inspection, normal capillary refill Cranial Nerves: normal hearing, normal speech, PERRL Skin: intact, normal color Skin Temp/Moisture Exam: Warm/Dry Current Medications: Current Medications Sig/Jared Start time Last Medication Dose Route Stop Time Status Admin Acetaminophen 650 MG .STK-MED ONE 03/13 2150 DC PO 03/13 2151 Acetaminophen 650 MG Q6 PRN 03/12 1900 AC 03/13 PO 2149 Acetaminophen 1,000 MG Q6P PRN 03/12 1900 AC 03/13 IV 0541 Clotrimazole 1 FRACISCO BID 03/13 1116 AC TOP Gabapentin 300 MG Q8 03/13 1749 AC 03/14 PO 0509 Influenza Virus 0.5 ML 1000 03/13 1000 DC Vaccine IM 03/13 1001 Losartan Potassium 50 MG DAILY 03/13 1116 AC 03/13 PO 1235 Metoprolol Tartrate 50 MG BID 03/13 1115 AC 03/13 PO 2153 Sodium Chloride 1,000 ML Q5H 03/12 1915 DC 03/12 IV 2349 Venlafaxine HCl 225 MG 0800 03/14 0800 DC PO Venlafaxine HCl 225 MG 0800 03/13 1245 AC 03/13 PO 1356 Venlafaxine HCl 225 MG ONCE ONE 03/13 1130 CAN PO 03/13 1131 Impression/Plan Impression/Problem List Impression: Mr Madrigal is a 67 yr man with PMH significant for MOIRA, ?COPD on 3.0L of Home Oxygen, HOCM, HTN, morbid obesity, restless leg syndrome, and anxiety , recently admitted to 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 The patient received multiple boluses of fluids and has responded well. Jimenez in Place: Day three Severe hypotension likely due to hypovolemia, #Resolved. BP this am: 152/82. * Likely the result of decreased PO intake and antihypertensives. * Lactic Acid: 0.9. * Robert cultures have been sent. * Watch for any hemodynamic instability * Continue oxygen to keep saturations above 92%. History of HOCM, LVH * Cardilogy consultation obtained this am. * Continue medications resumed:Losartan 50 mg, Metoprolol 50 mg BID * Have informed Dr Janay LEE about the patients admission. * Echocardiogram, pending. Acute kidney injury with hematuria and clogged jimenez(creatinine 1.3, probably due to prerenal azotemia /dehydration * Jimenez in place due to prostatic enlargement. * Jimenez catheter was changed in the ED. * Catheter currently draining well, no discharge, no hematuria. * Continue to monitor ins and outs * Discontinue IV hydration * Obtain urolology consult in the morning, awaiting Urology recomendations. Patient will likely need to be discharged home with a jimenez. Possible cystoscopy as an outpatient. History of depression * Continue Venlafaxine 225 mg. DVT prophylaxis Alps Patient is full code Problem List: 1. Hypovolemia 2. Hypotension 3. Malfunction of Jimenez catheter 4. Restless leg syndrome 5. Full code status Pain Ratin Tomorrow's Labs & Rationales: CBC ICU Bundle Plan DVT/Prophylaxis: mechanical
--- NOTE | 2017-03-14 10:13 | PN- Pulmonary ---
Subjective HPI/Critical Care Issues: Patient seen and examined this morning. She is saturating well 93% on room air. He is afebrile his hypertension has been stabilized with his home medication readjustment. He has a telemetry downgrade hold. Objective Current Medications: Current Medications Sig/Jared Start time Last Medication Dose Route Stop Time Status Admin Acetaminophen 650 MG .STK-MED ONE 03/13 2150 DC PO 03/13 2151 Acetaminophen 650 MG Q6 PRN 03/12 1900 AC 03/13 PO 2149 Acetaminophen 1,000 MG Q6P PRN 03/12 1900 AC 03/13 IV 0541 Clotrimazole 1 FRACISCO BID 03/13 1116 AC TOP Gabapentin 300 MG Q8 03/13 1749 AC 03/14 PO 0509 Losartan Potassium 50 MG DAILY 03/13 1116 AC 03/13 PO 1235 Metoprolol Tartrate 50 MG BID 03/13 1115 AC 03/13 PO 2153 Venlafaxine HCl 225 MG 0800 03/14 0800 DC PO Venlafaxine HCl 225 MG 0800 03/13 1245 AC 03/13 PO 1356 Venlafaxine HCl 225 MG ONCE ONE 03/13 1130 CAN PO 03/13 1131 Vital Signs & I&O Last 24 Hrs of Vitals and I&O: Vital Signs Date Time Temp Pulse Resp B/P B/P Pulse O2 O2 Flow FiO2 Mean Ox Delivery Rate 03/14 0800 Room Air 03/14 0800 96.7 52 18 114/70 93 Room Air 03/14 0000 98.1 60 22 138/74 97 Room Air 03/13 2153 84 164/80 03/13 1600 99 Room Air Room Air 03/13 1600 97.4 69 20 150/88 99 Room Air Room Air 03/13 1235 96.9 63 20 151/90 03/13 1234 96.9 63 20 151/90 Intake & Output 03/14 1600 03/14 0800 03/14 0000 Intake Total 800 720 Output Total 650 700 Balance 150 20 Intake, Oral 800 720 Output, Urine 650 700 Exam Other Physical Findings: Gen - alert and awake HEENT - NCAT CVS - S1, S2, systolic murmur Lungs - clear to auscultation bilaterally Abdomen - soft, non-tender, bs+ Ext - no edema, no cyanosis Results Last 24 Hrs of Lab Results: Laboratory Tests 03/14/17 0530: CBC w Diff NO MAN DIFF REQ, RBC 4.40 L, MCV 87.1, MCH 28.8, RDW 14.2, MPV 8.1, Gran % 58.1, Lymphocytes % 26.9, Monocytes % 9.1, Eosinophils % 5.7 H, Basophils % 0.2, Absolute Granulocytes 2.4, Absolute Lymphocytes 1.1 L, Absolute Monocytes 0.4, Absolute Eosinophils 0.2, Absolute Basophils 0, PUBS MCHC 33.1 Impression/Plan Impression/Plan Impression/Plan: Impression 67-year-old man * Resolved hypotension likely hypovolemia in the setting of antihypertensive use * History of hypertrophic cardiomyopathy, hypertension * MOIRA/OHS * chronic jimenez due to prostatic enlargement Plan - Patient appears to be well-hydrated - cardiology follow up with Dr. Gustafson - Monitor ins and outs - has not been compliant with AutoPAP - maintain o2 sat >92% - qualified previously for o2, on 3LNC at home - routine urology call to let the service know pt admitted as he was to have an appointment 03/14 for routine follow up DVT prophylaxis at all times Tele downgrade, please inquire with cardiology if stable for dc, then will plan for dc vs gm dg
--- NOTE | 2017-03-14 10:28 | ECHOCARDIOGRAM REPORT ---
GABBY SERRANO Age: 67 : 1950 Gender: M Exam Date: 03/13/2017 09:13 Exam Location: [facility] Ht (in): 77 Wt (lb): 349 BSA: 2.99 BP: 120 / 70 Ordering Physician: JANENE LOZANO MD Referring Physician: Mauricio Gustafson MD Technologist: Meeta Parnell [facility] Room Number: 104 Indications: CARDIOMYOPATHY Rhythm: Sinus Technical Quality: Fair FINDINGS Left Ventricle Normal size left ventricle. Moderate to severe concentric left ventricular hypertrophy. No obvious regional wall motion abnormalities. Normal left ventricular ejection fraction visually estimated at >65%. Abnormal relaxation filling pattern of the left ventricle for age (stage 1 diastolic dysfunction). Increased left ventricular outflow tract velocity (1.9 m/s). Right Ventricle Normal right ventricular size and function. Right Atrium Normal right atrial size. Left Atrium Mild left atrial dilatation. Mitral Valve Mildly thickened mitral valve. Mild mitral regurgitation. Aortic Valve Trileaflet aortic valve. Mild aortic sclerosis. Very mild aortic stenosis. No aortic regurgitation. Tricuspid Valve Structurally normal tricuspid valve. Trace tricuspid regurgitation. No evidence of pulmonary hypertension. Right ventricular systolic pressure estimated at 29 mmHg. Pulmonic Valve Pulmonic valve not well visualized, grossly normal. Mild pulmonic regurgitation. Pericardium No pericardial effusion. Great Vessels Normal size aortic root. Mildly dilated ascending aorta. CONCLUSIONS Normal size left ventricle. Moderate to severe concentric left ventricular hypertrophy. Normal left ventricular ejection fraction visually estimated at > 65%. Abnormal relaxation filling pattern of the left ventricle for age (stage 1 diastolic dysfunction). Increased left ventricular outflow tract velocity (1.9 m/s). Normal right ventricular size and function. Normal right atrial size. Mild left atrial dilatation. Mild mitral regurgitation. Very mild aortic stenosis. Trace tricuspid regurgitation. No evidence of pulmonary hypertension. Mild pulmonic regurgitation. Mildly dilated ascending aorta. Mauricio Gustafson M.D. (Electronically Signed) Final Date: 14 March 2017 10:27 MEASUREMENTS (Male / Female) Normal Values 2D ECHO LV Diastolic Diameter PLAX 4.1 cm 4.2 - 5.9 / 3.9 - 5.3 cm LV Systolic Diameter PLAX 2.1 cm 2.1 - 4.0 cm LV Fractional Shortening PLAX 48.8 % 25 - 46 % LV Ejection Fraction 2D Teich 80.6 % IVS Diastolic Thickness 1.8 cm LVPW Diastolic Thickness 1.6 cm LV Relative Wall Thickness 0.8 RV Internal Dim ED PLAX 2.9 cm 1.9 - 3.8 cm LVOT Diameter 2.3 cm Aortic Root Diameter 3.5 cm LA Systolic Diameter LX 5.4 cm 3.0 - 4.0 / 2.7 - 3.8 cm LA Volume 60.0 cm 18 - 58 / 22 - 52 cm Ascending Aorta Diameter 3.7 cm DOPPLER AV Peak Velocity 185.0 cm/s AV Peak Gradient 13.7 mmHg AV Mean Velocity 140.0 cm/s AV Mean Gradient 9.0 mmHg AV Velocity Time Integral 44.8 cm LVOT Peak Velocity 190.0 cm/s LVOT Peak Gradient 14.4 mmHg LVOT Mean Velocity 145.0 cm/s LVOT Mean Gradient 9.0 mmHg LVOT Velocity Time Integral 45.5 cm LVOT Stroke Volume 189.0 cm AV Area Cont Eq vti 4.2 cm AV Area Cont Eq pk 4.3 cm MV Peak Velocity 91.0 cm/s MV Peak Gradient 3.3 mmHg MV Mean Velocity 49.3 cm/s MV Mean Gradient 1.0 mmHg Mitral E Point Velocity 68.1 cm/s Mitral A Point Velocity 83.9 cm/s Mitral E to A Ratio 0.8 MV PHT Velocity 85.7 cm/s MV Deceleration [place] 355.0 cm/s MV Pressure Half Time 72.4 ms MV Area PHT 3.0 cm MV Deceleration Time 324.0 ms TR Peak Velocity 246.0 cm/s TR Peak Gradient 24.2 mmHg Right Atrial Pressure 5.0 mmHg Pulmonary Artery Systolic Pressu 29.2 mmHg Right Ventricular Systolic Press 29.2 mmHg PV Peak Velocity 192.0 cm/s PV Peak Gradient 14.7 mmHg PV Mean Velocity 137.0 cm/s PV Mean Gradient 8.0 mmHg PV Velocity Time Integral 41.0 cm LV E' Lateral Velocity 8.8 cm/s Mitral E to LV E' Lateral Ratio 7.7 LV E' Septal Velocity 3.2 cm/s Mitral E to LV E' Septal Ratio 21.1
--- NOTE | 2017-03-14 13:14 | Cons- Urology ---
General Information and HPI Consulting Request Date of Consult: 03/14/17 Requested By: REID Iglesias MD Reason for Consult: Urinary retention. Admitted with hypotension Source of Information: patient, old records Exam Limitations: Patient seated in chair History of Present Illness: This patient presented with urinary retention about 4 weeks ago. He was admitted about 10 days ago with hypotension. He improved with IV hydration. Urine culture at the time was negative. He was readmitted a coupled of days ago. He presented to the ER with pain at the tip of the penis and low output from the jimenez. Again urine culture was negative. He has responded to IV hydration. CT of the abd and pelvis shows the jimenez appropriately in the bladder and some enlarged pelvic lymph nodes. ANDRADE on last admission did not reveal any prostate nodules. Allergies/Medications Allergies: Coded Allergies: Penicillins (Severe, TONGUE SWELLING 02/25/17) Home Med List: Buprenorphine (Butrans) 20 MCG/HOUR PATCH.TDWK 1 PAT TOP ONCEAWEEK PAIN ( Reported) Cilostazol 100 MG TABLET 1 TAB PO BID INTERMITTENT CLAUDICATION (Reported) Clotrimazole (Lotrimin AF) 1 % CREAM..G. 1 FRACISCO TOP BID TINEA CRURIS apply to affected area(s) Gabapentin (Neurontin) 300 MG CAPSULE 1 CAP PO TID NERVE PAIN (Reported) Lorazepam 1 MG TABLET 1 TAB PO TID PRN ANXIETY (Reported) Losartan Potassium 50 MG TABLET 50 MG PO DAILY HIGH BP Metoprolol Tartrate 50 MG TABLET 50 MG PO BID HIGH BP, HEART HEALTH Multivitamin (Multiple Vitamins) 1 EACH TABLET 1 TAB PO DAILY SUPPLEMENT ( Reported) Oxycodone HCl/Acetaminophen (Percocet 5-325 MG Tablet) 5 MG-325 MG TABLET 1 TAB PO Q8H PRN CHRONIC PAIN (Reported) Tamsulosin HCl (Flomax) 0.4 MG CAP.ER.24H 1 CAP PO BID PROSTATE (Reported) Venlafaxine HCl (Venlafaxine HCl ER) 225 MG TAB.ER.24 1 TAB PO DAILY MENTAL HEALTH (Reported) Current Medications: Current Medications Sig/Jared Start time Last Medication Dose Route Stop Time Status Admin Acetaminophen 650 MG .STK-MED ONE 03/13 2150 DC PO 03/13 2151 Acetaminophen 650 MG Q6 PRN 03/120 AC 03/13 PO 2148 Acetaminophen 1,000 MG Q6P PRN 03/12 1900 AC 03/13 IV 0541 Cilostazol 100 MG BID 03/14 1215 AC PO Clotrimazole 1 FRACISCO BID 03/13 1116 AC 03/14 TOP 1055 Gabapentin 300 MG Q8 03/13 1749 AC 03/14 PO 0509 Lorazepam 1 MG BID PRN 03/14 1200 AC PO Losartan Potassium 50 MG DAILY 03/13 1116 AC 03/14 PO 1148 Metoprolol Tartrate 50 MG BID 03/13 1115 AC 03/13 PO 2153 Oxycodone/ 1 TAB Q8H PRN 03/14 1200 AC Acetaminophen PO Tamsulosin HCl 0.4 MG BID 03/14 1215 AC PO Venlafaxine HCl 225 MG 0800 03/13 1245 AC 03/14 PO 1055 Past History Medical History Blood Transfusion Hx: No Neurological: NONE EENT: NONE Cardiovascular: hypertension Respiratory: pneumonia, (PT DENIES) Gastrointestinal: NONE Hepatic: NONE Renal: benign prost hyperplasia Musculoskeletal: NONE Psychiatric: anxiety Endocrine: NONE Blood Disorders: NONE Cancer(s): NONE RN STARS/Reproductive: NONE Other Medical Hx: OBESITY Surgical History Pertinent Surgical History: varicocoele Family History Relations & Conditions If Any: SISTER (esophageal cancer). BROTHER (esophageal and colon cancer). FATHER (hypertension, ?esophageal aneurysm). Psychosocial History Where Do You Live? Home Services at Home: None Smoking Status: Never Smoked ETOH Use: occasional use Functional Ability ADLs Independent: dressing, eating, toileting, bathing. Ambulation: independent IADLs Independent: shopping, housework, finances, food prep, telephone, transportation , medication admin. Exam & Diagnostic Data Vital Signs and I&O Vital Signs Date Time Temp Pulse Resp B/P B/P Pulse O2 O2 Flow FiO2 Mean Ox Delivery Rate 03/14 1148 54 152/82 03/14 1045 54 152/82 03/14 0800 Room Air 03/14 0800 96.7 52 18 114/70 93 Room Air 03/14 0000 98.1 60 22 138/74 97 Room Air 03/13 2153 84 164/80 03/13 1600 99 Room Air Room Air 03/13 1600 97.4 69 20 150/88 99 Room Air Room Air Intake & Output 03/14 1600 03/14 0800 03/14 0000 03/13 1600 03/13 0803/13 0000 Intake Total 800 118 887 4630 320 Output Total 650 700 350 380 140 Balance 150 20 50 794 180 Intake, IV 934 200 Intake, Oral 800 720 400 240 120 Number 0 0 Bowel Movements Output, Urine 650 700 350 380 140 Patient 349 lb Weight Weight Bed scale Measurement Method Pt seated in chair. No distres Back: No CVA tenderness Abd: Obese, soft and non tender Genitalia: jimenez in place Laboratory Tests 03/14 0530 Hematology CBC w Diff NO MAN DIFF REQ WBC (4.8 - 10.8 /CUMM) 4.1 L RBC (4.70 - 6.10 /CUMM) 4.40 L Hgb (14.0 - 18.0 G/DL) 12.7 L Hct (42 - 52 %) 38.3 L MCV (80.0 - 94.0 FL) 87.1 MCH (27.0 - 31.0 PG) 28.8 RDW (11.5 - 14.5 %) 14.2 Plt Count (130 - 400 /CUMM) 115 L MPV (7.4 - 10.4 FL) 8.1 Gran % (42.2 - 75.2 %) 58.1 Lymphocytes % (20.5 - 51.1 %) 26.9 Monocytes % (1.7 - 9.3 %) 9.1 Eosinophils % (0 - 5 %) 5.7 H Basophils % (0.0 - 2.0 %) 0.2 Absolute Granulocytes (1.4 - 6.5 /CUMM) 2.4 Absolute Lymphocytes (1.2 - 3.4 /CUMM) 1.1 L Absolute Monocytes (0.10 - 0.60 /CUMM) 0.4 Absolute Eosinophils (0.0 - 0.7 /CUMM) 0.2 Absolute Basophils (0.0 - 0.2 /CUMM) 0 PUBS MCHC (33.0 - 37.0 G/DL) 33.1 Assessment/Plan Assessment/Plan Imp: 1. Urinary retention 2. Hypotension does not appear related to sepsis, ? due to hypovolemia 3. Pelvic adenopathy of unclear etiology Plan: 1. Continue jimenez 2. Order PSA. Could be done as in or out patient 3. f/u in our office for cystoscopy to determine if patient is candidate for TURP for his urinary retention. 4. Would set patient up with [facility] at time of discharge to have jimenez irrigated twice per week Consult Acknowledgment - Thank you for your consult request.
--- NOTE | 2017-03-14 14:00 | NUR ---
PER [employer]OR DR WRIGHT, NOTIFIED OF BP 162/90, P 58; MAY GIVE FLOMAX, PERCOCET AND ATIVAN FOR NOW AND RECHECK BP IN AN HOUR, HOLD LOPRESSOR FOR NOW. WILL CONTINUE TO MONITOR.
--- NOTE | 2017-03-14 15:55 | NUR ---
SITTING IN CHAIR AAO AND INTRODUCED MYSELF TO PT AND PROCEDURES FOR TODAY. PT WATING TV. ROOM AIR, ALITTLE TACTILE WITH SKIN ITCHY,LUNGS CLEAR A LITTLE COUGH PRESENT DURING ASSESSMENT,MONITOR 1AVB SB,REG DIET FOEY DRAINING YELLOW URINE,2 IV SITES LA. BACK TO BED INDEPENDENTLY.
--- NOTE | 2017-03-14 20:20 | PN- Cardiology ---
Subjective Subjective: Events of the weekend reviewed. No complaints and specifically denies any chest discomfort, palpitations, or shortness of breath. Objective Vital Signs and I&Os Vital Signs Date Time Temp Pulse Resp B/P B/P Pulse O2 O2 Flow FiO2 Mean Ox Delivery Rate 03/14 1833 162/70 03/14 1600 96.8 60 23 102/52 94 Room Air 03/14 1357 58 162/90 03/14 1330 58 162/90 03/14 1148 54 152/82 03/14 1045 54 152/82 03/14 0800 Room Air 03/14 0800 96.7 52 18 114/70 93 Room Air 03/14 0000 98.1 60 22 138/74 97 Room Air 03/13 2153 84 164/80 Intake & Output 03/14 1600 03/14 0800 03/14 0000 03/13 1600 03/13 0800 03/13 0000 Intake Total 800 800 549 149 9761 320 Output Total 450 650 700 350 380 140 Balance 350 150 20 50 794 180 Intake, IV 934 200 Intake, Oral 800 800 720 400 240 120 Number 0 0 Bowel Movements Output, Urine 450 650 700 350 380 140 Patient 349 lb Weight Weight Bed scale Measurement Method Physical Exam: Well-developed, obese male in no acute distress. Vital signs: See above. Neck: No JVD, no bruits. Lungs: Clear to auscultation bilaterally. Heart: S1, S2 with grade 2/6 systolic ejection murmur at left sternal border. Abdomen: Soft, nontender, positive bowel sounds. Extremities: No cyanosis clubbing, or edema. Current Medications: Current Medications Sig/Jared Start time Last Medication Dose Route Stop Time Status Admin Acetaminophen 650 MG .STK-MED ONE 03/13 2150 DC PO 03/13 2151 Acetaminophen 650 MG Q6 PRN 03/12 1900 AC 03/13 PO 2149 Acetaminophen 1,000 MG Q6P PRN 03/12 1900 AC 03/13 IV 0541 Cilostazol 100 MG BID 03/14 1215 AC 03/14 PO 1357 Clotrimazole 1 FRACISCO BID 03/13 1116 AC 03/14 TOP 1055 Gabapentin 300 MG Q8 03/13 1749 AC 03/14 PO 1357 Lorazepam 1 MG BID PRN 03/14 1200 AC 03/14 PO 1357 Losartan Potassium 50 MG DAILY 03/13 1116 AC 03/14 PO 1148 Metoprolol Tartrate 50 MG BID 03/13 1115 AC 03/13 PO 2153 Oxycodone/ 1 TAB Q8H PRN 03/14 1200 AC 03/14 Acetaminophen PO 1357 Tamsulosin HCl 0.4 MG BID 03/14 1215 AC 03/14 PO 1357 Venlafaxine HCl 225 MG 0800 03/13 1245 AC 03/14 PO 1055 Results Last 48 Hrs of Labs/Mics: Laboratory Tests 03/14/17 0530: CBC w Diff NO MAN DIFF REQ, RBC 4.40 L, MCV 87.1, MCH 28.8, RDW 14.2, MPV 8.1, Gran % 58.1, Lymphocytes % 26.9, Monocytes % 9.1, Eosinophils % 5.7 H, Basophils % 0.2, Absolute Granulocytes 2.4, Absolute Lymphocytes 1.1 L, Absolute Monocytes 0.4, Absolute Eosinophils 0.2, Absolute Basophils 0, PUBS MCHC 33.1 03/13/17 0633: Anion Gap 6, Estimated GFR > 60, Glucose 129 H, Calcium 7.9 L, Phosphorus 3.8, Magnesium 2.3, Total Bilirubin 0.6, AST 13 L, ALT 31, Albumin 2.9 L, Total PSA 4.79 H, PT 12.3, INR 1.17, CBC w Diff NO MAN DIFF REQ, RBC 4.29 L, MCV 87.6, MCH 29.1, RDW 14.1, MPV 8.5, Gran % 71.7, Lymphocytes % 16.3 L, Monocytes % 7.3 , Eosinophils % 4.4, Basophils % 0.3, Absolute Granulocytes 3.1, Absolute Lymphocytes 0.7 L, Absolute Monocytes 0.3, Absolute Eosinophils 0.2, Absolute Basophils 0, PUBS MCHC 33.3 03/12/17 2243: Lactic Acid Cancelled Microbiology 03/12 2130 UPPER RESP: Surveillance Culture - COMP 03/12 2130 GI: Surveillance Culture - COMP Recent Imaging Studies: Echocardiogram (03/13/2017): Normal size left ventricle. Moderate to severe concentric left ventricular hypertrophy. Normal left ventricular ejection fraction visually estimated at > 65%. Abnormal relaxation filling pattern of the left ventricle for age (stage 1 diastolic dysfunction). Increased left ventricular outflow tract velocity (1.9 m/s). Normal right ventricular size and function. Normal right atrial size. Mild left atrial dilatation. Mild mitral regurgitation. Very mild aortic stenosis. Trace tricuspid regurgitation. No evidence of pulmonary hypertension. Mild pulmonic regurgitation. Mildly dilated ascending aorta. 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 He was found to be hypotensive with a blood pressure of 68/40 mmHg that improved with fluid resuscitation and was ultimately felt to be secondary to intravascular depletion exacerbated by his medications. He was seen by urology for his urinary retention and will be followed up on an outpatient basis. Recommendations: * Restart outpatient antihypertensive regimen (ARB and beta areli). Continue telemetry? Yes
--- NOTE | 2017-03-15 07:39 | PN- Housestaff ---
JERI LEE,[facility] 03/15/17 0738: Subjective Follow-up For: 1. Hypotension secondary to hypovolemia 2. Manjit 3. History of Hypertrophic cardiomyopathy Tele-Events Since Last Visit: NSR, 60-77 Subjective: The patient feels well, no chest pain, shortness of breath, fever, chills, lightheadeness. He concerned about being discharged with a jimenez catheter though but agreed to visiting nurses. Review of Systems Constitutional: Reports: no symptoms. Cardiovascular: Reports: no symptoms. Respiratory: Reports: no symptoms. Gastrointestinal: Reports: no symptoms. Genitourinary: Reports: see HPI. Objective Last 24 Hrs of Vital Signs/I&O Vital Signs Date Time Temp Pulse Resp B/P B/P Pulse O2 O2 Flow FiO2 Mean Ox Delivery Rate 03/15 0945 64 130/70 03/15 0945 64 130/70 03/15 0944 68 130/70 03/15 0800 98.4 60 20 130/70 92 Room Air 03/14 2358 98.7 61 20 142/72 92 Room Air 03/14 2157 77 140/68 03/14 2156 77 140/68 03/14 2142 97.6 56 20 140/68 92 Room Air 03/14 1833 162/70 03/14 1600 96.8 60 23 102/52 94 Room Air 03/14 1357 58 162/90 03/14 1330 58 162/90 Intake & Output 03/15 1600 03/15 0800 03/15 0000 Intake Total 200 250 Output Total 450 575 Balance -250 -325 Intake, Oral 200 250 Output, Urine 450 575 Patient 348 lb Weight Weight Chair scale Measurement Method Physical Exam General Appearance: Alert, Oriented X3, Cooperative, No Acute Distress Cardiovascular: Regular Rate, Normal S1, Normal S2, 2/6 ejection systolic murmur at left sternal border Lungs: Clear to Auscultation, Normal Air Movement Current Medications: Current Medications Sig/Jared Start time Last Medication Dose Route Stop Time Status Admin Acetaminophen 650 MG Q6 PRN 03/12 1900 AC 03/13 PO 2149 Acetaminophen 1,000 MG Q6P PRN 03/120 03/13 IV 0541 Cilostazol 100 MG BID 03/14 1215 AC 03/15 PO 0945 Clotrimazole 1 FRACISCO BID 03/13 1116 AC 03/15 TOP 1248 Docusate Sodium 100 MG DAILY 03/15 1103 AC 03/15 PO 1248 Gabapentin 300 MG Q8 03/13 1749 AC 03/15 PO 0642 Lorazepam 1 MG BID PRN 03/14 1200 AC 03/15 PO 0642 Losartan Potassium 50 MG DAILY 03/13 1116 AC 03/15 PO 0945 Metoprolol Tartrate 50 MG BID 03/13 1115 AC 03/15 PO 0945 Oxycodone/ 1 TAB Q8H PRN 03/14 1200 AC 03/15 Acetaminophen PO 0642 Tamsulosin HCl 0.4 MG BID 03/14 1215 AC 03/15 PO 0944 Venlafaxine HCl 225 MG 0800 03/13 1245 AC 03/15 PO 0745 Assessment/Plan Assessment: Mr Madrigal is a 67 yr man with PMH significant for MOIRA, ?COPD on 3.0L of Home Oxygen, HOCM, HTN, morbid obesity, restless leg syndrome, and anxiety , recently admitted to [facility] in February 2017 due to hypotension, MANJIT and urinary retention, discharged with a Jimenez catheter presented to the ED for the evaluation of severe hypotension, hematuria, and decreased output of his jimenez for 24 hours prior to admission 1. Severe hypotension likely due to hypovolemia: Likely the result of decreased PO intake and antihypertensives. Lactic Acid: 0.9. - Cultures negative - Resolved with fluid rescusitation, BP 130/70 - Antihypertensives have been restarted 2. History of HOCM, LVH - Meds were held initially due to hypotension - Restarted o Losartan 50 mg, Metoprolol 50 mg BID, doing well, BP stable 3. BPH/Acute kidney injury with hematuria and clogged jimenez: - creatinine 1.3 on admission likely due to prerenal azotemia /dehydration) - Jimenez in place due to prostatic enlargement, was clogged and changed in the ED on admission as it was not draining - Cr 1.1 now, resolved with hydration - Urology evaluated the patient and recommended jimenez flushed 2 x per week and possible TURP/cystoscopy as an outpatient - Will be discharged today with jimenez 4. History of depression - Continue Venlafaxine 225 mg. DVT prophylaxis Alps Problem List: 1. Hypovolemia 2. Hypotension 3. Malfunction of Jimenez catheter 4. Hypertrophic cardiomyopathy Pain Ratin Pain Location: None Pain Goal: Remain pain free Pain Plan: PRN Tylenol Tomorrow's Labs & Rationales: not needed DVT/Prophylaxis: pharmacological Consulting Request: 1 Consulting Specialty: Cardiology Consulting Physician: Dr. Gustafson Reason for Consult: HOCM, Hypotension Consulting Request: 2 Consulting Specialty: Critical Care Consulting Physician: Dr. Salazar Reason for Consult: hypotension Discharge Plan Discharge Disposition: home ([facility]) Stable for Discharge? Yes Anticipated Discharge (Day): today DANA CALZADA MD 03/15/176: Attending MD Review Statement Attending Statement Attending MD Statement: examined this patient, discuss w/resident/PA/HELPDESK TECHNICIAN, agreed w/resident/PA/HELPDESK TECHNICIAN, reviewed EMR data (avail) Attending Assessment/Plan: Agree with resident assessment and plan. Patient is back to baseline and hemodynamically stable. He will be discharged home with Jimenez catheter in place and visiting nurse services with outpatient cardiology and urology follow up.
[2017-03-15 08:00] VITALS: BP 130/70
[2017-03-15 09:45] VITALS: BP 130/70
--- NOTE | 2017-03-15 10:04 | PN- Pulmonary ---
Subjective HPI/Critical Care Issues: Patient seen and examined this morning. He is transferred out of the ICU and he is hemodynamically stable. He seen by cardiology and his medications have been resumed. Overall he is doing well and declines any Pap therapy at night at this point. Objective Current Medications: Current Medications Sig/Jared Start time Last Medication Dose Route Stop Time Status Admin Acetaminophen 650 MG Q6 PRN 03/12 1900 AC 03/13 PO 2149 Acetaminophen 1,000 MG Q6P PRN 03/12 1900 AC 03/13 IV 0541 Cilostazol 100 MG BID 03/14 1215 AC 03/15 PO 0945 Clotrimazole 1 FRACISCO BID 03/13 1116 AC 03/14 TOP 1055 Gabapentin 300 MG Q8 03/13 1749 AC 03/15 PO 0642 Lorazepam 1 MG BID PRN 03/14 1200 AC 03/15 PO 0642 Losartan Potassium 50 MG DAILY 03/13 1116 AC 03/15 PO 0945 Metoprolol Tartrate 50 MG BID 03/13 1115 AC 03/15 PO 0945 Oxycodone/ 1 TAB Q8H PRN 03/14 1200 AC 03/15 Acetaminophen PO 0642 Tamsulosin HCl 0.4 MG BID 03/14 1215 AC 03/15 PO 0944 Venlafaxine HCl 225 MG 0800 03/13 1245 AC 03/15 PO 0745 Vital Signs & I&O Last 24 Hrs of Vitals and I&O: Vital Signs Date Time Temp Pulse Resp B/P B/P Pulse O2 O2 Flow FiO2 Mean Ox Delivery Rate 03/15 0945 64 130/70 03/15 0945 64 130/70 03/15 0944 68 130/70 03/15 0800 98.4 60 20 130/70 92 Room Air 03/14 2358 98.7 61 20 142/72 92 Room Air 03/14 2157 77 140/68 03/14 2156 77 140/68 03/14 2142 97.6 56 20 140/68 92 Room Air 03/14 1833 162/70 03/14 1600 96.8 60 23 102/52 94 Room Air 03/14 1357 58 162/90 03/14 1330 58 162/90 03/14 1148 54 152/82 03/14 1045 54 152/82 Intake & Output 03/15 1600 03/15 0800 03/15 0000 Intake Total 200 250 Output Total 450 575 Balance -250 -325 Intake, Oral 200 250 Output, Urine 450 575 Patient 348 lb Weight Weight Chair scale Measurement Method Exam Other Physical Findings: HEENT - NCAT CVS - S1, S2, systolic murmur Lungs - clear to auscultation bilaterally Abdomen - soft, non-tender, bs+ Ext - no edema, no cyanosis Impression/Plan Impression/Plan Impression/Plan: Impression 67-year-old man * Resolved hypotension likely hypovolemia in the setting of antihypertensive use * History of hypertrophic cardiomyopathy, hypertension * MOIRA/OHS * chronic jimenez due to prostatic enlargement Plan - cardiology follow up with Dr. Gustafson - Monitor ins and outs - has not been compliant with AutoPAP - maintain o2 sat >92% - qualified previously for o2, on 3LNC at home - Follow up urology recommendations DVT prophylaxis at all times Okay for discharge from the pulmonary perspective, patient declines Pap therapy at this point, will continue to have these discussions on an outpatient basis
--- NOTE | 2017-03-15 10:59 | Patient Discharge Instructions ---
Discharge Instructions General Discharge Information You were seen/treated for: 1. Hypotension 2. Mal functioning Shultz 3. Special Instructions: 1. Please follow up with Dr. Gustafson after discharge 2. Please follow up with Dr. Whitmore after discharge, for possible cystoscopy and possible TURP 3. Shultz catherter irrigation 2 times per week Diet Continue normal diet: Yes Activity Full Activity/No Limits: Yes Acute Coronary Syndrome Inclusion Criteria At DC or during hospital stay patient has or had the following: ACS DIAGNOSIS No Discharge Core Measures Meds if any: Prescribed or Continued at Discharge Meds if any: NOT Prescribed or Continued at Discharge Congestive Heart Failure Inclusion Criteria At DC or during hospital stay patient has or had the following: CHF DIAGNOSIS No Discharge Core Measures Meds if any: Prescribed or Continued at Discharge Meds if any: NOT Prescribed or Continued at Discharge Cerebrovascular accident Inclusion Criteria At DC or during hospital stay patient has or had the following: CVA/TIA Diagnosis No Discharge Core Measures Meds if any: Prescribed or Continued at Discharge Meds if any: NOT Prescribed or Continued at Discharge Venous thromboembolism Inclusion Criteria VTE Diagnosis No VTE Type NONE VTE Confirmed by (Test) NONE Discharge Core Measures - Per Current guidelines, there needs to be overlap - treatment for the first 5 days of Warfarin therapy. - If discharged on Warfarin prior to 5 days of - overlap therapy, the patient will need to be - assessed for post discharge needs including - *Post discharge parental anticoagulation - *Warfarin and/or parental anticoagulation education - *Follow up date to check INR post discharge At least 5 days overlap therapy as Inpatient No Meds if any: Prescribed or Continued at Discharge Note: Overlap Therapy is Warfarin and Anticoagulant Meds if any: NOT Prescribed or Continued at Discharge
== END 2017-03-15 16:15 | disposition home health service (06) | DRG 314 ==
LOC: ERH 13:13 → CRI 19:06 → ERHI 19:06 → ENRESERV 19:50 → CRI 21:18 → 1NO 03-14 21:15 → ENPENDDIS 03-15 15:09 → 1NO 03-15 16:15
PROVIDERS: Internal Medicine Infectious Disease; Physician Assistant Medical; ADMIT Internal Medicine
DX: I95.89 Other hypotension (principal); R57.1 Hypovolemic shock; N17.9 Acute kidney failure, unspecified; E87.2 Acidosis; Z68.41 Body mass index [BMI] 40.0-44.9, adult; I42.1 Obstructive hypertrophic cardiomyopathy; I11.0 Hypertensive heart disease with heart failure; I50.32 Chronic diastolic (congestive) heart failure; E66.01 Morbid (severe) obesity due to excess calories; T46.5X5A Adverse effect of other antihypertensive drugs, initial encounter; J44.9 Chronic obstructive pulmonary disease, unspecified; G47.33 Obstructive sleep apnea (adult) (pediatric); G25.81 Restless legs syndrome; N40.1 Benign prostatic hyperplasia with lower urinary tract symptoms; F41.9 Anxiety disorder, unspecified; R33.8 Other retention of urine
CPT/HCPCS: 1NSP; CCU; 74176; 80307; 81001; 82436; 87040; 87086; 90662; 93005; 93010; 93306; 96374; J0131; J0696

== ENCOUNTER 2017-03-15 23:10 | Emergency (ER) | payer OTHER, MEDICARE ==
[~2017-03-15] VITALS: Ht 195.6 cm; Wt 158.8 kg
[~2017-03-15 23:10] MED LIST changes: +BUTRANS1 EAC2 TOP
--- NOTE | 2017-03-15 23:40 | ED GENERAL ADULT ---
History of Present Illness General Chief Complaint: General Adult Stated Complaint: "MY MOREJON IS COMING OUT" PER PT Source: patient, old records Exam Limitations: no limitations Vital Signs & Intake/Output Vital Signs & Intake/Output Vital Signs Date Time Temp Pulse Resp B/P B/P Pulse O2 O2 Flow FiO2 Mean Ox Delivery Rate 03/15 2330 97.4 98 22 194/90 91 Room Air Allergies Coded Allergies: Penicillins (Severe, TONGUE SWELLING 02/25/17) Reconcile Medications Buprenorphine (Butrans) 20 MCG/HOUR PATCH.TDWK 1 PAT TOP ONCEAWEEK PAIN ( Reported) Cilostazol 100 MG TABLET 1 TAB PO BID INTERMITTENT CLAUDICATION (Reported) Clotrimazole (Lotrimin AF) 1 % CREAM..G. 1 FRACISCO TOP BID TINEA CRURIS apply to affected area(s) Gabapentin (Neurontin) 300 MG CAPSULE 1 CAP PO TID NERVE PAIN (Reported) Lorazepam 1 MG TABLET 1 TAB PO TID PRN ANXIETY (Reported) Losartan Potassium 50 MG TABLET 50 MG PO DAILY HIGH BP Metoprolol Tartrate 50 MG TABLET 50 MG PO BID HIGH BP, HEART HEALTH Multivitamin (Multiple Vitamins) 1 EACH TABLET 1 TAB PO DAILY SUPPLEMENT ( Reported) Oxycodone HCl/Acetaminophen (Percocet 5-325 MG Tablet) 5 MG-325 MG TABLET 1 TAB PO Q8H PRN CHRONIC PAIN (Reported) Tamsulosin HCl (Flomax) 0.4 MG CAP.ER.24H 1 CAP PO BID PROSTATE (Reported) Venlafaxine HCl (Venlafaxine HCl ER) 225 MG TAB.ER.24 1 TAB PO DAILY MENTAL HEALTH (Reported) Triage Note: PT TO ED COMPLAINING OF "PAIN FROM MOREJON, IT'S OUT TOO FAR AND THERE'S ONLY BLOOD IN THE DRAINAGE BAG." DRAINAGE BAG NOT VISUALIZED BY THIS RN IN TRIAGE PT KEEPS DRAINAGE BAG UNDER HIS SHIRT. PT NOTED OT BE DIAPHORETIC IN TRIAGE. PAIN 8/10. Triage Nurses Notes Reviewed? yes HPI: Patient was discharged from the hospital earlier this afternoon. Patient states the Morejon stopped draining and he is down any pain at the tip of his penis. Similar symptoms in the past from the Morejon has been mispositioned. Patient denies any fevers or chills. The pain is moderate on the scale. There is no radiation of the pain. The pain is burning in nature. There are no aggravating or mitigating factors. Past History Travel History Traveled to [place] past 21 day No Medical History Any Pertinent Medical History? 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 BROTHER (esophageal and colon cancer). FATHER (hypertension, ?esophageal aneurysm). Hx Contributory? No Review of Systems Review of Systems Constitutional: Reports: no symptoms. Respiratory: Reports: no symptoms. Cardiovascular: Reports: no symptoms. Genitourinary: Reports: see HPI. Neurological/Psychological: Reports: no symptoms. Immunologic/Allergic: Reports: no symptoms. Physical Exam Physical Exam General Appearance: well developed/nourished, alert, awake, anxious, moderate distress Eyes: Bilateral: PERRL, EOMI. Ears, Nose, Throat: normal pharynx, normal ENT inspection Gastrointestinal: normal bowel sounds, soft, non-tender, no organomegaly Neurologic/Psych: no motor/sensory deficits, awake, alert, oriented x 3, normal mood/affect Core Measures ACS in differential dx? No CVA/TIA Diagnosis: No Severe Sepsis Present: No Septic Shock Present: No Progress Differential Diagnoses I considered the following diagnoses in my evaluation of the patient: [Morejon catheter problem] Plan of Care: Reposition Initial ED EKG: none Comments: Full catheter repositioned with good drainage of urine. The pain to the tip of the penis has resolved. Departure Departure Disposition: HOME OR SELF CARE Condition: Stable Clinical Impression Primary Impression: Morejon catheter problem Referrals: ELLIE LEE,RADHA WANG (PCP/Family) Additional Instructions: Return if symptoms worsen or for any concerns. Departure Forms: Customer Survey General Discharge Information Critical Care Note Critical Care Note Critical Care Time: non-applicable
[2017-03-16 01:15] VITALS: BP 136/78
== END 2017-03-16 01:16 ==
LOC: ERH 23:10
DX: T83.84XA Pain due to genitourinary prosthetic devices, implants and grafts, initial encounter (principal)

== ENCOUNTER 2017-04-01 21:41 | Emergency (ER) | payer OTHER, MEDICARE ==
[~2017-04-01] VITALS: Ht 182.9 cm; Wt 113.4 kg
--- NOTE | 2017-04-02 00:58 | ED GI/GU/ABDOMINAL COMPLAINT ---
History of Present Illness General Chief Complaint: Male Genitourinary Problems Stated Complaint: BIBA WITH MALE GEINTOURINARY Source: patient Exam Limitations: no limitations Vital Signs & Intake/Output Vital Signs & Intake/Output Vital Signs Date Time Temp Pulse Resp B/P B/P Pulse O2 O2 Flow FiO2 Mean Ox Delivery Rate 04/02 0116 Nasal 3.0L Cannula 04/02 011 97.0 70 19 142/64 91 Room Air 04/01 2146 97.4 78 22 150/67 90 Nasal 3.0L Cannula ED Intake and Output 04/02 0000 04/01 1200 Intake Total Output Total Balance Patient 250 lb Weight Weight Estimated Measurement Method Allergies Coded Allergies: Penicillins (Severe, TONGUE SWELLING 02/25/17) Reconcile Medications Buprenorphine (Butrans) 20 MCG/HOUR PATCH.TDWK 1 PAT TOP ONCEAWEEK PAIN ( Reported) Cephalexin (Keflex) 500 MG CAPSULE 1 CAP PO TID urinary retention Cilostazol 100 MG TABLET 1 TAB PO BID INTERMITTENT CLAUDICATION (Reported) Clotrimazole (Lotrimin AF) 1 % CREAM..G. 1 FRACISCO TOP BID TINEA CRURIS apply to affected area(s) Gabapentin (Neurontin) 300 MG CAPSULE 1 CAP PO TID NERVE PAIN (Reported) Lorazepam 1 MG TABLET 1 TAB PO TID PRN ANXIETY (Reported) Losartan Potassium 50 MG TABLET 50 MG PO DAILY HIGH BP Metoprolol Tartrate 50 MG TABLET 50 MG PO BID HIGH BP, HEART HEALTH Multivitamin (Multiple Vitamins) 1 EACH TABLET 1 TAB PO DAILY SUPPLEMENT ( Reported) Oxycodone HCl/Acetaminophen (Percocet 5-325 MG Tablet) 5 MG-325 MG TABLET 1 TAB PO Q8H PRN CHRONIC PAIN (Reported) Tamsulosin HCl (Flomax) 0.4 MG CAP.ER.24H 1 CAP PO BID PROSTATE (Reported) Venlafaxine HCl (Venlafaxine HCl ER) 225 MG TAB.ER.24 1 TAB PO DAILY MENTAL HEALTH (Reported) Triage Note: PT TO ED C/O FEELING LIKE URINE IS BLOCKED. PT WAS SEEN HERE FOR MOREJON PLACEMENT BEFORE. PT STATES HE HAS A PSYCHOLOGIST EDUCATIONAL THAT COMES TO PLACE MOREJON IN. TODAY AIDE CAME TO CHECK MOREJON, NO DRAINAGE. PT AIDE REMOVED MOREJON CATHETER. PT NOW HAS NO MOREJON, 10/10 PAIN IN LOWER ABDOMEN, PT WEARS OCCASSIONAL 3L NC. Triage Nurses Notes Reviewed? yes HPI: Mr. Madrigal is a 67 yo m w/ PMH hypertension, BPH, anxiety and obesity presenting to the emergency department for lower abdominal pain and urinary retention. Patient states that he had a Morejon catheter placed for urinary retention approximately 3 weeks ago. Patient had a clinical nursing intern visit today and despite the Morejon draining appropriately, the nurses aide told him that the Morejon had been in for 5 to line. Morejon was then removed and the patient was unable to urinate. Then a new Morejon was placed by the nurses aide and it was initially draining but then stopped draining at around 8 PM. Patient states that the nurses aide attempted to reflux but was unable to do so. Patient did not see any urine for several hours and started drinking water to see if he could flush it out. However, his bladder became increasingly distended causing pain and discomfort and that's when he decided to present to the emergency department. Patient states he's had multiple Morejon's place over the past few years. He denies subjective fever and chills. Patient denies any back pain or CVA tenderness. She denies any chest pain, shortness of breath, nausea, vomiting, diarrhea. Past History Travel History Traveled to [place] past 21 day No Medical History Any Pertinent Medical History? 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 BROTHER (esophageal and colon cancer). FATHER (hypertension, ?esophageal aneurysm). Hx Contributory? No Review of Systems Review of Systems Constitutional: Reports: see HPI. Comments Review of systems: See HPI, All other systems negative. Constitutional: no chills no fever, no malaise no weight loss HEENT: No visual changes, no sore throat, no congestion, no ear pain Cardiovascular: No chest pain , no palpitations, no orthopnea Skin: no rashes, no change in skin Respiratory: No dyspnea no cough no sputum no hemoptysis GI: No nausea, no vomiting, no diarrhea, no bloating/constipation : + urinary retention. No dysuria No hematuria, no frequency, no discharge Musculoskeletal: No joint pain, no joint swelling, no back pain, no neck pain, Neurologic: No numbness no confusion, no headache Psych: No stress, no depression. Heme/endocrine: No bruising no bleeding Immunology: No lymphadenopathy Physical Exam Physical Exam General Appearance: well developed/nourished, no apparent distress, alert, awake , comfortable Head: atraumatic, normal appearance Eyes: Bilateral: normal appearance, PERRL, EOMI, normal inspection. Ears, Nose, Throat, Mouth: hearing grossly normal Neck: normal inspection, supple, full range of motion Respiratory: normal breath sounds, chest non-tender, no respiratory distress Cardiovascular: regular rate/rhythm Gastrointestinal: limited exam secondary to morbid obesity Rectal: deferred Male Genitals: partially retracted penis. Morejon in place. No gross discharge at meatus. Urine clear yellow in color Back: normal inspection, normal range of motion Extremities: normal range of motion Skin: intact, normal color, warm/dry Core Measures ACS in differential dx? No Severe Sepsis Present: No Septic Shock Present: No Progress Differential Diagnosis: prostatitis, pyelonephritis, ureterolithiasis, urinary retention, UTI/pyelo Plan of Care: Orders Procedure Date/time Status CULTURE,URINE 04/02 44 Active URINALYSIS 04/02 44 Complete Laboratory Tests 04/02/17 0048: Urine Color STRAW, Urine Clarity HAZY H, Urine pH 7.0, Ur Specific [place] 1.010, Urine Protein 30 H, Urine Ketones NEG, Urine Nitrite NEG, Urine Bilirubin NEG, Urine Urobilinogen 4.0 H, Ur Leukocyte Esterase SMALL H, Ur Microscopic SEDIMENT EXAMINED, Urine RBC >75 H, Urine WBC 5-10 H, Urine Hemoglobin LARGE H, Urine Glucose NEG Microbiology 04/02 48 URINE ROUT: Urine Culture - RECD 67-year-old male with BPH and recurrent episodes of urinary retention requiring Morejon placement. Patient had a Morejon earlier today which was then removed and was placed however this did not continue to drain and became obstructed. Patient then developed urinary distention. Likely related to a possible to UTI. We'll obtain UA and urine culture to assess however clinically the patient is well-appearing with normal vitals. Patient denies any pain with defecation to suggest prostatitis. He denies any back pain, CVA tenderness or generalized systemic symptoms such as fever or chills that might all suggest pyelonephritis. UA shows hazy urine with some bacteria and white blood cells. Plan to treat as urinary tract infection with Keflex for 7 days. Patient given his first dose here today. He is also told to follow-up with urology for UTI given the multiple recurrences and need for placement of catheters. Urine culture also sent. Previous cultures did not have any antibiotic resistance noted as there is no no growth on multiple urine cultures. (MARIA C LEE,RITESH) Initial ED EKG: none Departure Departure Time of Disposition: 123 Disposition: STILL A PATIENT Condition: Stable Clinical Impression Primary Impression: Urinary retention due to benign prostatic hyperplasia Secondary Impressions: UTI (urinary tract infection) Qualifiers: Urinary tract infection type: catheter-associated UTI Indwelling urinary catheter type: unspecified Encounter type: subsequent encounter Qualified Codes: T83.511D - Infection and inflammatory reaction due to indwelling urethral catheter, subsequent encounter; N39.0 - Urinary tract infection, site not specified Referrals: RADHA ABURTO (PCP/Family) Additional Instructions: Please make sure you take the full course of antibiotics. Do not skip any doses. You need to see your urologist as soon as possible for follow-up about these recurrent UTIs and increasing need for Morejon placement. If you have worsening pain with urination, develop a fever, unable to urinate or any other concerning symptoms, please return to the emergency department for further evaluation. Departure Forms: Customer Survey General Discharge Information Prescriptions: Current Visit Scripts Cephalexin (Keflex) 1 CAP PO TID #21 CAP
[2017-04-02 01:14] VITALS: BP 142/64
[2017-04-02] MEDS ORDERED: KEFLEX500 M1 PO (01:27)
== END 2017-04-02 01:39 ==
LOC: ERH 21:41
DX: N40.1 Benign prostatic hyperplasia with lower urinary tract symptoms (principal); R33.8 Other retention of urine; N39.0 Urinary tract infection, site not specified
CPT/HCPCS: 81001; 87086

== ENCOUNTER 2017-04-03 19:36 | Emergency (ER) | payer OTHER, MEDICARE ==
[~2017-04-03] VITALS: Ht 182.9 cm; Wt 112.5 kg
[~2017-04-03 19:36] MED LIST changes: +KEFLEX500 M1 PO
[2017-04-03 20:01] VITALS: BP 121/72
--- NOTE | 2017-04-03 22:22 | ED GI/GU/ABDOMINAL COMPLAINT ---
History of Present Illness General Chief Complaint: Male Genitourinary Problems Stated Complaint: BIBA FOR MOREJON CATHETER PROBLEM/ABD. PAIN Source: patient Exam Limitations: no limitations Vital Signs & Intake/Output Vital Signs & Intake/Output Vital Signs Date Time Temp Pulse Resp B/P B/P Pulse O2 O2 Flow FiO2 Mean Ox Delivery Rate 04/03 2001 96.0 87 18 121/72 95 Room Air ED Intake and Output 04/04 0000 04/03 1200 Intake Total Output Total 600 Balance -600 Output, Urine 600 Patient 248 lb Weight Weight Reported by Patient Measurement Method Allergies Coded Allergies: Penicillins (Severe, TONGUE SWELLING 02/25/17) Reconcile Medications Buprenorphine (Butrans) 20 MCG/HOUR PATCH.TDWK 1 PAT TOP ONCEAWEEK PAIN ( Reported) Cephalexin (Keflex) 500 MG CAPSULE 1 CAP PO TID urinary retention Cilostazol 100 MG TABLET 1 TAB PO BID INTERMITTENT CLAUDICATION (Reported) Clotrimazole (Lotrimin AF) 1 % CREAM..G. 1 FRACISCO TOP BID TINEA CRURIS apply to affected area(s) Gabapentin (Neurontin) 300 MG CAPSULE 1 CAP PO TID NERVE PAIN (Reported) Lorazepam 1 MG TABLET 1 TAB PO TID PRN ANXIETY (Reported) Losartan Potassium 50 MG TABLET 50 MG PO DAILY HIGH BP Metoprolol Tartrate 50 MG TABLET 50 MG PO BID HIGH BP, HEART HEALTH Multivitamin (Multiple Vitamins) 1 EACH TABLET 1 TAB PO DAILY SUPPLEMENT ( Reported) Oxycodone HCl/Acetaminophen (Percocet 5-325 MG Tablet) 5 MG-325 MG TABLET 1 TAB PO Q8H PRN CHRONIC PAIN (Reported) Tamsulosin HCl (Flomax) 0.4 MG CAP.ER.24H 1 CAP PO BID PROSTATE (Reported) Venlafaxine HCl (Venlafaxine HCl ER) 225 MG TAB.ER.24 1 TAB PO DAILY MENTAL HEALTH (Reported) Triage Note: PT TO TRIAGE BIBA FROM HOME WITH C/O MOREJON CATH IS NOT DRAINING.PT GOT MOREJON ON TUESDAY HERE IN ER FOR URINARY RETANTION, AND HAD TO COME BACK ON TUESDAY TO REPLACE IT BECAUSE IT WAS NOT WORKING. URINE OUTPUT TODAY 50ML, PT C/O LOWER ABD PAIN ON/OFF 08/30 AND TESTICULAR PAIN 08/30. VSS. Triage Nurses Notes Reviewed? yes HPI: Mr. Madrigal is a 67 yo m w/ past medical history of hypertension BPH and anxiety BIBA for Morejon problem. Patient states the Morejon was working just fine earlier today until about a hour or 2 ago when it stopped draining. He noticed he started having increased abdominal distention and increasing urgency urinate. At that point in time patient called 911 and was brought into the emergency department. He denies fever, chills, chest pain, abdominal pain, nausea, vomiting, diarrhea. He does not have any urinary incontinence or dysuria. (RITESH LOMBARDI MD) Past History Travel History Traveled to [place] past 21 day No Medical History Any Pertinent Medical History? 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 BROTHER (esophageal and colon cancer). FATHER (hypertension, ?esophageal aneurysm). Hx Contributory? No (RITESH LOMBARDI MD) Review of Systems Review of Systems Constitutional: Reports: see HPI. Comments Review of systems: See HPI, All other systems negative. Constitutional: no chills no fever, no malaise no weight loss HEENT: No visual changes, no sore throat, no congestion, no ear pain Cardiovascular: No chest pain, no palpitation, no orthopnea Skin: no rashes, no change in skin Respiratory: No dyspnea no cough no sputum no hemoptysis GI: No nausea no vomiting, no diarrhea, no bloating/constipation : No dysuria No hematuria, no frequency, no discharge Muscle skeletal: No joint pain, no joint swelling, no back pain, no neck pain Neurologic: No numbness no confusion, no headache Psych: No depression Heme/endocrine: No bruising, no bleeding Immunology: No lymphadenopathy (RITESH LOMBARDI MD) Physical Exam Physical Exam Gastrointestinal: normal bowel sounds, soft, non-tender Comments: Well-developed well-nourished patient in no apparent distress. HEENT: Atraumatic, extraocular motion intact Neck: Supple, FROM Back: FROM Cardiovascular: Regular rate and rhythms no murmurs rubs or gallops, Respiratory: Chest nontender.There were no bony deformities, no asymmetry. No respiratory distress. Patient speaking in full complete sentences. Breath sounds clear to auscultation bilaterally: NO W/R/R Extremities: full range of motion : Morejon in place. No genital rashes noted, no pus actively coming from penis. Neuro: awake, alert, and oriented to person, place and time. There were no obvious focal neurologic abnormalities. Skin: Warm & dry;No appreciable rash on exposed skin Psych: Mood affect normal, normal memory normal judgment. Core Measures ACS in differential dx? No Severe Sepsis Present: No Septic Shock Present: No (RITESH LOMBARDI MD) Progress Differential Diagnosis: PUD/GERD, pyelonephritis, ureterolithiasis, urinary retention, urethritis, UTI/pyelo Plan of Care: Orders Procedure Date/time Status CULTURE,URINE 04/03 2122 Active URINALYSIS 04/03 2122 Complete Laboratory Tests 04/03/172122: Urinalysis LIGHT H, Urine Color YEL, Urine Clarity HAZY H, Urine pH 6.5, Ur Specific [place] <= 1.005, Urine Protein 30 H, Urine Ketones NEG, Urine Nitrite NEG, Urine Bilirubin NEG, Urine Urobilinogen 4.0 H, Ur Leukocyte Esterase SMALL H, Ur Microscopic SEDIMENT EXAMINED, Urine RBC 25-50 H, Urine WBC 1-3 H, Urine Bacteria FEW H, Urine Hemoglobin LARGE H, Urine Glucose NEG Microbiology 04/03 2123 URINE ROUT: Urine Culture - RECD Patient is otherwise well-appearing. Does not have any physical complaints except for the Morejon not draining. One of the ED nurses was able to flush the Morejon and once she flushed it she was able to get urine return. Plan to send a UA to assess for possible infection as the patient has been seen multiple times previously for UTIs. No CVA tenderness or systemic symptoms such as fever to suggest pyelonephritis. Patient is comfortable and the Morejon continues to drain. Will discharge home with follow-up with his urologist. (RITESH LOMBARDI MD) Initial ED EKG: none (RITESH LOMBARDI MD) Departure Departure Time of Disposition: 2223 Disposition: HOME OR SELF CARE Condition: Stable Clinical Impression Primary Impression: Morejon catheter problem Qualifiers: Encounter type: initial encounter Qualified Code: T83.9XXA - Unspecified complication of genitourinary prosthetic device, implant and graft, initial encounter Referrals: RADHA ABURTO (PCP/Family) Additional Instructions: Please make sure you keep the consumer analyst your thigh to keep the Morejon tube in appropriate place. We don't want the Morejon tube to be hanging. This could cause the tube to sit at the bottom of the bladder, collect sediment and possibly get clogged. These follow-up with your urologist as needed. If you develop fever, pelvic pain, back pain, or any others concerning symptoms, please return to the emergency department for further evaluation. Departure Forms: Customer Survey General Discharge Information (MARIA C LEE,RITESH) PA/INSTRUMENT REPAIR TECHNICIAN Co-Sign Statement Statement: ED Attending supervision documentation- [] I saw and evaluated the patient. I have also reviewed all the pertinent lab results and diagnostic results. I agree with the findings and the plan of care as documented in the PA's/INSTRUMENT REPAIR TECHNICIAN's documentation. [x] I have reviewed the ED Record and agree with the PA's/INSTRUMENT REPAIR TECHNICIAN's documentation. [] Additions or exceptions (if any) to the PAs/INSTRUMENT REPAIR TECHNICIAN's note and plan are summarized below: [] (BRIANNA LEE,LIZBETH Judd)
== END 2017-04-03 23:18 ==
LOC: ERH 19:36
DX: T83.091A Other mechanical complication of indwelling urethral catheter, initial encounter (principal)
CPT/HCPCS: 81001; 87086

== ENCOUNTER 2017-04-04 13:47 | Observation (INO) | payer OTHER, MEDICARE ==
[~2017-04-04] VITALS: Ht 195.6 cm; Wt 157.9 kg
--- NOTE | 2017-04-04 13:57 | NUR ---
67 Y/O MALE C/O CLOGGED MOREJON CATHETER; WAS EVAL'D IN ED FOR SAME LAST NIGHT AND STATES BAG CONTINUES TO HAVE NO DRAINAGE. PT PROFOUNDELY DIAPHORETIC. STATES HE "JUST DOESNT FEEL WELL". B/P 76/53. TAKEN TO ROOM FOR EVAL.
--- NOTE | 2017-04-04 14:10 | ED GENERAL ADULT ---
History of Present Illness General Chief Complaint: Male Genitourinary Problems Stated Complaint: "MOREJON CATHETER CLOGGED" Source: patient Exam Limitations: poor historian Vital Signs & Intake/Output Vital Signs & Intake/Output Vital Signs Date Time Temp Pulse Resp B/P B/P Pulse O2 O2 Flow FiO2 Mean Ox Delivery Rate 04/04 1846 96.3 54 22 117/71 98 Nasal 4.0L Cannula 04/04 1702 96.5 56 20 140/72 98 Nasal 4.0L Cannula 04/04 1604 54 118/62 04/04 1520 96.5 54 15 98/50 97 Nasal 4.0L Cannula 04/04 1456 95 Nasal 4.0L Cannula 04/04 1452 57 98/52 04/04 1428 58 20 92/50 95 Nasal 4.0L Cannula 04/04 1355 97.0 69 14 76/53 94 Room Air Allergies Coded Allergies: Penicillins (Severe, TONGUE SWELLING 02/25/17) Reconcile Medications Buprenorphine (Butrans) 20 MCG/HOUR PATCH.TDWK 1 PAT TOP ONCEAWEEK PAIN ( Reported) Cephalexin (Keflex) 500 MG CAPSULE 1 CAP PO TID urinary retention Cilostazol 100 MG TABLET 1 TAB PO BID INTERMITTENT CLAUDICATION (Reported) Clotrimazole (Lotrimin AF) 1 % CREAM..G. 1 FRACISCO TOP BID TINEA CRURIS apply to affected area(s) Gabapentin (Neurontin) 300 MG CAPSULE 1 CAP PO TID NERVE PAIN (Reported) Lorazepam 1 MG TABLET 1 TAB PO TID PRN ANXIETY (Reported) Losartan Potassium 50 MG TABLET 50 MG PO DAILY HIGH BP Metoprolol Tartrate 50 MG TABLET 50 MG PO BID HIGH BP, HEART HEALTH Multivitamin (Multiple Vitamins) 1 EACH TABLET 1 TAB PO DAILY SUPPLEMENT ( Reported) Oxycodone HCl/Acetaminophen (Percocet 5-325 MG Tablet) 5 MG-325 MG TABLET 1 TAB PO Q8H PRN CHRONIC PAIN (Reported) Tamsulosin HCl (Flomax) 0.4 MG CAP.ER.24H 1 CAP PO BID PROSTATE (Reported) Venlafaxine HCl (Venlafaxine HCl ER) 225 MG TAB.ER.24 1 TAB PO DAILY MENTAL HEALTH (Reported) Triage Note: 67 Y/O MALE C/O CLOGGED MOREJON CATHETER; WAS EVAL'D IN ED FOR SAME LAST NIGHT AND STATES BAG CONTINUES TO HAVE NO DRAINAGE. PT PROFOUNDELY DIAPHORETIC. STATES HE "JUST DOESNT FEEL WELL". B/P 76/53. TAKEN TO ROOM FOR EVAL. Triage Nurses Notes Reviewed? yes Onset: Abrupt Duration: day(s): Timing: recent history No Modifying Factors: none HPI: 67-year-old male that was seen here yesterday comes in for body aches fever chills sweatiness and pain when he urinates and his Morejon catheter he reports. He currently has a Morejon catheter in place. Denies any chest pain shortness of breath. Patient is a very poor historian and does not offer a lot of information. He was found to be diaphoretic and hypotensive in the waiting room. He was brought back immediately. (SHANTEL REYNA) Past History Travel History Traveled to [place] past 21 day No Medical History Any Pertinent Medical History? see below for history Neurological: NONE EENT: NONE Cardiovascular: hypertension Respiratory: pneumonia, (PT DENIES) Gastrointestinal: NONE Hepatic: NONE Renal: benign prost hyperplasia Musculoskeletal: NONE Psychiatric: anxiety Endocrine: NONE Blood Disorders: NONE Cancer(s): NONE MILL SET UP/Reproductive: NONE Other Medical Hx: OBESITY History of MRSA: No History of VRE: No History of CDIFF: No Surgical History Surgical History: varicocoele Psychosocial History Who do you live with Patient/Self Services at Home None What is your primary language French Tobacco Use: Never used Family History Family History, If Any: SISTER (esophageal cancer). BROTHER (esophageal and colon cancer). FATHER (hypertension, ?esophageal aneurysm). Hx Contributory? No (SHANTEL REYNA) Review of Systems Review of Systems Constitutional: Reports: see HPI. EENTM: Reports: no symptoms. Respiratory: Reports: no symptoms. Cardiovascular: Reports: no symptoms. GI: Reports: no symptoms. Genitourinary: Reports: no symptoms. Musculoskeletal: Reports: no symptoms. Skin: Reports: no symptoms. Neurological/Psychological: Reports: no symptoms. Hematologic/Endocrine: Reports: no symptoms. Immunologic/Allergic: Reports: no symptoms. All Other Systems: Reviewed and Negative (SHANTEL REYNA) Physical Exam Physical Exam General Appearance: alert, awake, moderate distress Head: atraumatic Eyes: Bilateral: normal appearance. Ears, Nose, Throat: normal ENT inspection, hearing grossly normal Neck: normal inspection Respiratory: normal breath sounds, no respiratory distress Cardiovascular: regular rate/rhythm Gastrointestinal: soft, non-tender Back: normal range of motion Extremities: normal inspection, normal range of motion Neurologic/Psych: awake, alert Skin: diaphoresis Core Measures ACS in differential dx? No CVA/TIA Diagnosis: No Severe Sepsis Present: No Septic Shock Present: No (PIERRE BOLAÑOS,SHANTEL) Progress Differential Diagnoses I considered the following diagnoses in my evaluation of the patient: UTI, sepsis, pneumonia, appendicitis, diverticulitis, Plan of Care: Orders Procedure Date/time Status LACTIC ACID 04/04 1707 Complete CULTURE,URINE 04/04 143 Active URINALYSIS 04/04 143 Complete BLOOD CULTURE 04/04 140 Active TROPONIN LEVEL 04/04 140 Complete LACTIC ACID 04/04 140 Complete COMPREHENSIVE METABOLIC PANEL 04/04 140 Complete CBC WITHOUT DIFFERENTIAL 04/04 1407 Complete EKG 04/04 140 Active Current Medications Sig/Jared Start time Last Medication Dose Stop Time Status Admin Ceftriaxone Sodium 1,000 MG ONCE ONE 04/04 183 UNVr 04/04 (Rocephin) 04/04 1831 1915 Laboratory Tests 04/04/17 1734: Lactic Acid 0.7 04/04/17 1430: Urinalysis MOD H, Urine Color YEL, Urine Clarity HAZY H, Urine pH 6.0, Ur Specific [place] 1.020, Urine Protein 100 H, Urine Ketones NEG, Urine Nitrite NEG, Urine Bilirubin NEG@ICTO, Urine Urobilinogen 4.0 H, Ur Leukocyte Esterase MOD H, Ur Microscopic SEDIMENT EXAMINED, Urine RBC >75 H, Urine WBC 15-25 H, Urine Bacteria RARE H, Urine Hemoglobin LARGE H, Urine Glucose NEG 04/04/17 1410: Anion Gap 13, Estimated GFR 51 L, BUN/Creatinine Ratio 12.9, Glucose 104 H, Lactic Acid 2.2 H, Calcium 9.6, Total Bilirubin 1.5 H, AST 18, ALT 27, Alkaline Phosphatase 62, Troponin I 0.03, Total Protein 6.6, Albumin 4.0, Globulin 2.6, Albumin/Globulin Ratio 1.5, CBC w Diff NO MAN DIFF REQ, RBC 5.17, MCV 86.2, MCH 29.1, RDW 13.7, MPV 8.8, Gran % 81.1 H, Lymphocytes % 8.5 L, Monocytes % 9.5 H, Eosinophils % 0.9, Basophils % 0 L, Absolute Granulocytes 10.0 H, Absolute Lymphocytes 1.0 L, Absolute Monocytes 1.2 H, Absolute Eosinophils 0.1, Absolute Basophils 0, PUBS MCHC 33.7 Microbiology 04/04 1430 URINE ROUT: Urine Culture - RECD 04/04 1412 BLOOD: Blood Culture - RECD 04/04 1410 BLOOD: Blood Culture - RECD Initial ED EKG: normal intervals, normal sinus rhythm, rate (60) (SHANTEL REYNA) Departure Departure Disposition: STILL A PATIENT Condition: Stable Clinical Impression Primary Impression: Lactic acidosis Secondary Impressions: Hypotension, SIRS (systemic inflammatory response syndrome) Referrals: RADHA ABURTO (PCP/Family) Departure Forms: Customer Survey General Discharge Information Observation Note Spoke With: GEN MEYER MD Physician Advisor Notified: QAMAR LEE,JANETT Reaves Place Patient In: Non-ED OBS Care Area Rationale for Observation: My rational for observation is as follows . Patient will require serial vital sign checks. IV fluids. Repeat labs. Patient was hypotensive and diaphoretic when he came in. Patient is unsafe to be discharged tonight. No focal source of infection. 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 (SHANTEL REYNA) PA/POWDER MONKEY Co-Sign Statement Statement: ED Attending supervision documentation- [x] I saw and evaluated the patient. I have also reviewed all the pertinent lab results and diagnostic results. I agree with the findings and the plan of care as documented in the PA's/POWDER MONKEY's documentation. [] I have reviewed the ED Record and agree with the PA's/POWDER MONKEY's documentation. [] Additions or exceptions (if any) to the PAs/POWDER MONKEY's note and plan are summarized below: [] (CHIVO GONZALEZ DO) Critical Care Note Critical Care Note Critical Care Time: non-applicable (SHANTEL REYNA)
--- NOTE | 2017-04-04 14:21 | NUR ---
PT IMMEDIATELY TO ROOM 4, TWO IV'S ESTABLISHED TO BILATERAL AC'S. 2 LITERS OF NS BOLUSES INFUSING. PT A/O X 3, REPORTS +ABD PRESSURE, PAIN IN TESTICLES, ANUS AND ABD UP TO THE BELLY BUTTON. PRE-HOSPITAL MOREJON FLUSHED AND REPOSITIONED WITH IMPROVEMENT IN URINARY DRAINAGE. PT REPORTS DECREASED PRESSURE IN ABD AFTER DRAINAGE. APPROX DRAINAGE: 900 ML.
--- NOTE | 2017-04-04 14:25 | NUR ---
PT PLACED ON 4L NC OXYGEN WHICH IS WHAT PT IS SUPPOSED TO BE ON AT HOME.
[2017-04-04 14:26] LABS: ABSOLUTE BASOPHIL COUNT 0 /CUMM (0.0-0.2); ABSOLUTE EOSINOPHIL COUNT 0.1 /CUMM (0.0-0.7); ABSOLUTE MONOCYTE COUNT 1.2 /CUMM (0.10-0.60); BASOPHIL % 0 % (0.0-2.0); EOSINOPHIL % 0.9 % (0-5); GRANULOCYTE % 81.1 % (42.2-75.2); HEMATOCRIT 44.5 % (42-52); MEAN CORPUSCULAR HGB 29.1 PG (27.0-31.0); MEAN CORPUSCULAR HGB CONC 33.7 G/DL (33.0-37.0); MEAN CORPUSCULAR VOLUME 86.2 FL (80.0-94.0); MEAN PLATELET VOLUME 8.8 FL (7.4-10.4); PLATELET COUNT 183 /CUMM (130-400); RBC DISTRIBUTION WIDTH 13.7 % (11.5-14.5); RED BLOOD CELL CT 5.17 /CUMM (4.70-6.10); WHITE BLOOD CELL COUNT 12.3 /CUMM (4.8-10.8)
--- NOTE | 2017-04-04 16:25 | NUR ---
PT RESTING ON STRETCHER, AROUSABLE TO VERBAL STIMULI. VSS.
--- NOTE | 2017-04-04 17:03 | NUR ---
PT RESTING ON STRETCHER, OFFERS NO COMPLAINTS. REGULAR RESP RATE NOTED. VSS.
--- NOTE | 2017-04-04 17:28 | NUR ---
UNSUCCESSFUL ATTEMPT TO DRAW LABS X 2, RN AWARE
--- NOTE | 2017-04-04 17:35 | NUR ---
REPEAT LACTIC ACID SENT TO LAB NOW.
--- NOTE | 2017-04-04 19:16 | NUR ---
PT MEDICATED WITH ROCEPHIN PER EMAR. PT AWAITING OBS ADMISSION.
--- NOTE | 2017-04-04 20:09 | NUR ---
HOUSE STAFF AT BEDSIDE
--- NOTE | 2017-04-04 20:56 | History & Physical ---
KYLE LEE,[facility] 04/04/172055: General Information and HPI MD Statement: I have seen and personally examined GABBY SERRANO and documented this H&P. The patient is a 67 year old M who presented with a patient stated chief complaint of [pain at the jimenez site, fever, chills, dizziness]. Source of Information: patient History of Present Illness: Patient is a 67-year-old male with PMH of COPD on 4L oxygen, BPH with chronic jimenez catheter (since a month ago), MOIRA, morbid obesity, RLS, anxiety, admitted twice in February 2017 once for urinary retention and BPH and most recently for hypotension and decreased urine output. Patient has had 2 ED visits during the past two days because of consistent pain and discomfort at the site of the jimenez as well as groin pain, he also complained of fever and chills. Patient was sent home yesterday on cephalexin but never got any dose because he did not manage to get it from a pharmacy. Today he comes back again, reporting similar symptoms, he is hoping that Dr. Burch could see him in the hospital (he is supposed to see the patient on in the office) . In addition patient reports that he has been feeling weak, dizzy, forgetful and also experiencing fever and chills for the past 2 days. He also reports decreased appetite and decreased fluid intake. Patient also reported decreased urine production did not make any urine overnight. Of note, jimenez catheter was inserted almost a month ago due to urinary retention , frequency and urgency. He stated that he has been on Flomax since 8 years ago. When asked about any changes in the color of the urine, patient states that he had blood in the urine 3-4 days ago when he came to the ED, currently denies any bloody urine. Denies N/V, abdominal pain, flank pain. Reports constipation. Patient denies coughing, sore throat, sputum production. Denies any chest pain, palpitation, headaches, difficulty breathing or leg swelling. Allergies/Medications Allergies: Coded Allergies: Penicillins (Severe, TONGUE SWELLING 02/25/17) Past History Travel History Traveled to [place] past 21 day No Medical History Neurological: NONE EENT: NONE Cardiovascular: hypertension Respiratory: COPD Gastrointestinal: NONE Hepatic: NONE Renal: benign prost hyperplasia Musculoskeletal: NONE Psychiatric: anxiety Endocrine: NONE Blood Disorders: NONE Cancer(s): NONE OFFENDER JOB RETENTION SPECIALIST/Reproductive: NONE Other Medical Hx: OBESITY History of MRSA: No History of VRE: No History of CDIFF: No Surgical History Surgical History: varicocoele Past Family/Social History Family History Relations & Conditions if any SISTER (esophageal cancer). BROTHER (esophageal and colon cancer). FATHER (hypertension, ?esophageal aneurysm). Psychosocial History Services at Home: None Functional Ability ADLs Independent: dressing, eating, toileting, bathing. Ambulation: independent IADLs Independent: shopping, housework, finances, food prep, telephone, transportation , medication admin. Review of Systems Review of Systems Constitutional: Reports: chills, fever, weakness. EENTM: Reports: no symptoms. Cardiovascular: Denies: chest pain, palpitations, peripheral edema, syncope. Respiratory: Denies: cough, short of breath, sputum production. GI: Denies: abdominal pain, nausea, bloody stool, changes in stool, vomiting. Genitourinary: Reports: dysuria, hematuria, pain. Musculoskeletal: Reports: no symptoms. Skin: Reports: no symptoms. Neurological/Psychological: Reports: no symptoms. Hematologic/Endocrine: Reports: no symptoms. Exam & Diagnostic Data Last 24 Hrs of Vital Signs/I&O Vital Signs Date Time Temp Pulse Resp B/P B/P Pulse O2 O2 Flow FiO2 Mean Ox Delivery Rate 04/04 2233 97.6 60 20 128/80 97 Nasal Cannula 04/04 2145 54 04/04 2042 96.0 50 18 110/65 98 Nasal 3.5L Cannula 04/04 1846 96.3 54 22 117/71 98 Nasal 4.0L Cannula 04/04 1702 96.5 56 20 140/72 98 Nasal 4.0L Cannula 04/04 1604 54 118/62 04/04 1520 96.5 54 15 98/50 97 Nasal 4.0L Cannula 04/04 1456 95 Nasal 4.0L Cannula 04/04 1452 57 98/52 04/04 1428 58 20 92/50 95 Nasal 4.0L Cannula 04/04 1355 97.0 69 14 76/53 94 Room Air Intake & Output 04/04 1600 04/04 0800 04/04 0000 Intake Total 2000 Output Total 900 Balance 1100 Intake, IV 2000 Output, Urine 900 Patient 157.85 kg Weight Weight Reported by Patient Measurement Method Physical Exam General Appearance Alert, Oriented X3, Cooperative, No Acute Distress Skin erythema and tenderness in the groins, more prominent on the right side, also there is purulent discharge at the tip of the penis. Skin Temp/Moisture Exam: Warm/Dry Sepsis Skin Exam (color): Normal for Ethnicity HEENT Atraumatic, EOMI, Mucous Membr. moist/pink, pupils round and reactive to light Neck Supple Cardiovascular Regular Rate, Normal S1, Normal S2, No Murmurs Lungs Clear to Auscultation, Normal Air Movement Abdomen Soft, No Tenderness, increased bowel sounds Neurological Normal Speech, Strength at 5/5 X4 Ext, Normal Tone, Sensation Intact, Cranial Nerves 3-12 NL Extremities No Edema, Normal Pulses, dry skin no the lower extremities, scalings in the skin in btw toes. Vascular Pulses Symmetrical Last 24 Hrs of Labs/[place]: Laboratory Tests 04/04/17 2105: Urine Total Volume Cancelled, Ur Total Protein 24 Hr Cancelled 04/04/17 1734: Lactic Acid 0.7 04/04/17 1430: Urinalysis MOD H, Urine Color YEL, Urine Clarity HAZY H, Urine pH 6.0, Ur Specific [place] 1.020, Urine Protein 100 H, Urine Ketones NEG, Urine Nitrite NEG, Urine Bilirubin NEG@ICTO, Urine Urobilinogen 4.0 H, Ur Leukocyte Esterase MOD H, Ur Microscopic SEDIMENT EXAMINED, Urine RBC >75 H, Urine WBC 15-25 H, Urine Bacteria RARE H, Urine Hemoglobin LARGE H, Urine Glucose NEG 04/04/17 1430: Ur Random Creatinine 132.3, U Random Total Protein 113 H, Ur Random Sodium 32, Ur Random Potassium 19.9, Fraction Sodium Excret 0.2 04/04/17 1410: Anion Gap 13, Estimated GFR 51 L, BUN/Creatinine Ratio 12.9, Glucose 104 H, Lactic Acid 2.2 H, Calcium 9.6, Phosphorus 3.8, Magnesium 2.1, Total Bilirubin 1.5 H, AST 18, ALT 27, Alkaline Phosphatase 62, Troponin I 0.03, Total Protein 6.6, Albumin 4.0, Globulin 2.6, Albumin/Globulin Ratio 1.5, CBC w Diff NO MAN DIFF REQ, RBC 5.17, MCV 86.2, MCH 29.1, RDW 13.7, MPV 8.8, Gran % 81.1 H, Lymphocytes % 8.5 L, Monocytes % 9.5 H, Eosinophils % 0.9, Basophils % 0 L, Absolute Granulocytes 10.0 H, Absolute Lymphocytes 1.0 L, Absolute Monocytes 1.2 H, Absolute Eosinophils 0.1, Absolute Basophils 0, PUBS MCHC 33.7 Microbiology 04/04 1430 URINE ROUT: Urine Culture - RECD 04/04 1412 BLOOD: Blood Culture - RECD 04/04 1410 BLOOD: Blood Culture - RECD Diagnostic Data EKG Results sinus rhythm, rate 61, right bundle branch block, no ST-T changes. Other Results SERVICE DATE: 04/04/17 EXAM TYPE: US - US-RENAL/KIDNEY EXAMINATION: US RETROPERITONEAL COMPLETE (RENAL) CLINICAL INFORMATION: Acute renal failure. COMPARISON: CT scan the abdomen and pelvis 03/12/2017 TECHNIQUE: Real-time imaging of the kidneys and bladder. FINDINGS: RIGHT KIDNEY: 3 cm cyst in the upper pole of the right kidney unchanged. The kidney measures 10.8 x 4.6 x 5.7 cm (SAG x AP x TRV). The kidney is normal in size, contour, and echogenicity. Renal cortical thickness is normal. No calculi or focal parenchymal lesions. No hydronephrosis. LEFT KIDNEY: The kidney measures 12.1 x 6.2 x 4.5 cm cm (SAG x AP x TRV). The kidney is normal in size, contour, and echogenicity. Renal cortical thickness is normal. No calculi or focal parenchymal lesions. No hydronephrosis. BLADDER: Catheter in place. Bladder decompressed.. IMPRESSION: Benign simple cyst right kidney unchanged.. Parenchyma appears within normal limits. No hydronephrosis DICTATED BY: PATRICIA BARBOZA MD DATE/TIME DICTATED:04/04/172145 HELP DESK TECHNICIAN:SHARIF DATE/TIME TRANSCRIBED:04/04/172145 Assessment/Plan Assessment: Patient is a 67-year-old male with PMH of COPD on 4L oxygen, BPH with chronic jimenez catheter, MOIRA, morbid obesity, RLS, anxiety, who came to the ED due to persistent pain at the jimenez site, urinary retention, hematuria, and 2 days of fever and chills, decreased appetite, weakness and forgetfulness. He also reports intermittent episodes of dizziness since about a month ago. Patient is found to be hypotensive 76/53, received 3L NS, BP came up to 140/72. Pertinent labs: WBC 12.3, Cr 1.4, lactic acid of 2.2 which can come down 0.7 after fluid resuscitation. UA: hazy, high in Pr, Urobil, mod high LE, high RBC and WBC, rare bacteria and hyaline casts Patient is transferred to for 24 hour observation and Urologic evaluation. Problem list and plan: Possible sepsis and UTI In the setting of chronic indwelling catheter, elevated leukocytosis, hematuria. Reported decreased PO fluid intake, fever, chills, decreased urine output. Scores 2 per SOFA scoring system, for low BP on arrival and elevated Cr. (SOFA>= 2 risk of sepsis 10%). Patient also had elevated lactic acid of 2.2 that came down to 0.7 after receiving IV fluids. Patient's low BP resolved after 3 L of NS IV boluses. Also received one dose of Ceftriaxone 1000 mg. * Continue IV NS at 75 cc/hour * Urine culture and blood culture ordered, will follow * Continue Ceftriaxone * Repeat CBC in am * Urology called in am MANJIT Elevated Cr (but BUN/Cr <20), FeNa<1 (0.2) - possible etiologies is a mixture of pre-renal and post-renal (clogged jimenez catheter). * Continue IV hydration * Repeat BEP in am BPH On tamsulocin since 8 years ago, has indwelling cath. since a month ago due to frequency and urgency. He has been having constant discomfort at the jimenez site, had episode of hematuria since 3-4 days ago, there is purulent discharge at the tip of the penis. He was was supposed to see Dr. Burch in the office on April 13. * continue flomax * called urology to see the patient in the am COPD stable - on 4L oxygen, reports his SO2 is >92% most of the time without oxygen. Does not report any history of smoking. Was admitted in March 2016 for SOB, and COPD plus MOIRA was in the differentials, he was told to follow up with Dr. Salazar for TFTs and sleep study. PVD Intermittent claudication * continue cilostazol Skin rash erythematous rash in groins, in the creases between the abdomen and thigh, most likely fungal infection. * continued clotrimazole Pain control: tylenol, IV acetaminophen, percocet Diet regular Full code As Ranked By This Provider Problem List: 1. Urinary retention due to benign prostatic hyperplasia 2. Lactic acidosis 3. Hypotension 4. Restless leg syndrome 5. Dizziness 6. UTI (urinary tract infection) Core Measures/Miscellaneous Acute Coronary Syndrome ACS Diagnosis: No Cerebrovascular Accident CVA/TIA Diagnosis: No Congestive Heart Failure CHF Diagnosis: No Venous Thromboembolism VTE Risk Factors: Acute medical illness, Age > 40 No [facility] VTE prophylaxis d/t: VTE low risk, No contraindications No VTE Pharm Prophylaxis d/t: VTE low risk, No contraindications VTE Diagnosis: No VTE Type: NONE VTE Confirmed by (Test): NONE Severe Sepsis Severe Sepsis Present: No Septic Shock Septic Shock Present: No Miscellaneous Documentation Attending Case [facility] Primary Care Physician: RADHA ABURTO Level of Patient Care: General Medicine BRADLEY NUNES 04/04/17 6773: General Information and HPI MD Statement: I have seen and personally examined GABBY SERRANO and documented this H&P. The patient is a 67 year old M who presented with a patient stated chief complaint of [urinary complaints and dizziness]. Source of Information: patient, old records Exam Limitations: no limitations Allergies/Medications Home Med list Buprenorphine (Butrans) 20 MCG/HOUR PATCH.TDWK 1 PAT TOP ONCEAWEEK PAIN ( Reported) Cilostazol 100 MG TABLET 1 TAB PO BID INTERMITTENT CLAUDICATION (Reported) Clotrimazole (Lotrimin AF) 1 % CREAM..G. 1 FRACISCO TOP BID TINEA CRURIS apply to affected area(s) Finasteride 5 MG TABLET 1 TAB PO DAILY bph Gabapentin (Neurontin) 300 MG CAPSULE 1 CAP PO TID NERVE PAIN (Reported) Lorazepam 1 MG TABLET 1 TAB PO TID PRN ANXIETY (Reported) Losartan Potassium 50 MG TABLET 50 MG PO DAILY HIGH BP Metoprolol Tartrate 50 MG TABLET 50 MG PO BID HIGH BP, HEART HEALTH Multivitamin (Multiple Vitamins) 1 EACH TABLET 1 TAB PO DAILY SUPPLEMENT ( Reported) Oxycodone HCl/Acetaminophen (Percocet 5-325 MG Tablet) 5 MG-325 MG TABLET 1 TAB PO Q8H PRN CHRONIC PAIN (Reported) Sulfamethoxazole/Trimethoprim (Bactrim Ds Tablet) 800 MG-160 MG TABLET 1 TAB PO BID urine infection Tamsulosin HCl (Flomax) 0.4 MG CAP.ER.24H 1 CAP PO BID PROSTATE (Reported) Venlafaxine HCl (Venlafaxine HCl ER) 225 MG TAB.ER.24 1 TAB PO DAILY MENTAL HEALTH (Reported) Compliance With Home Meds: FAIR Past Family/Social History Psychosocial History Where do you live? Home Who Do You Live With? self Primary Language: Bruneian Smoking Status: Never Smoked ETOH Use: denies use Illicit Drug Use: denies illicit drug use Core Measures/Miscellaneous Acute Coronary Syndrome ACS Diagnosis: No Congestive Heart Failure CHF Diagnosis: No Venous Thromboembolism VTE Risk Factors: Age > 40 No [facility] VTE prophylaxis d/t: No contraindications No VTE Pharm Prophylaxis d/t: No contraindications VTE Diagnosis: No VTE Type: NONE VTE Confirmed by (Test): NONE Miscellaneous Documentation Attending Case Discussed With: RUDDY MEYER MDHAMMAD Primary Care Physician: RADHA ABURTO Patient sees these Specialists Dr veloz Level of Patient Care: General Medicine Resident Review Statement Resident Statement: examined this patient, discussed with audit intern, agreed with audit intern Other Findings: This is a 67-year-old male with past medical history of COPD on 4 L of home oxygen, BPH with chronic Jimenez's placement one month ago , obstructive sleep apnea, morbid obesity, restless leg syndrome, anxiety, recently discharged from [facility] 03/05/2017 after being treated for low urine output, obstructed urinary catheter with plan to follow-up with Dr. Burch. Apparently after the discharge on 03/05/2017 when he was not treated with antibiotics he presented to the ED again in 03/15/2017 with chief complain of jimenez coming out, his Ijmenez was replaced again after confirming good drainage of the urine and he was discharged from the ED itself. He was seen again on March 2017 with chief complain of trouble with the urethral catheter insertion area. A UA and urine culture was done which did not grow anything. It was found that his UA was dirty and he was treated for UTI with 7 days of Keflex 1 by mouth 3 times a day. He was asked to follow up with Dr. Burch. He came in again on 04/03/2017 again reporting problem with Jimenez catheter abdominal pain. The Jimenez was placed again, with proper attachment of the Jimenez tube so that it would not get displaced, however he comes back again today 04/05 with chief complain of decreased urine output, pain and discomfort in the penile area along with mild dizziness and lightheadedness. Initially on presentation he was noted to have a MAXIMUM TEMPERATURE of 97.0, pulse of 69, respiration of 14, blood pressure 76/53, he was 94% saturating on room air. He received 3 L of total of normal saline bolus and received one time of IV ceftriaxone. His blood pressure improved to 140/72 and he was placed on 4 L of nasal cannula which he normally is at home. He was saturating 98%. Urine and blood cultures were sent from the emergency department,Prior to giving antibiotics. Physical exam he was alert oriented to time place and person, he was in mild distress. HEENT pupils equal and reactive to light. No lumps and bumps noted, no lymphadenopathy. CVS S1 and S2 present, no murmurs. RS entry bilaterally equal, no adventitious sounds. Abdomen obese abdomen, bowel sounds present, soft nontender. Neurological exam essentially nonfocal. Red rash present in the groin area which was erythematous, no blood noted at the insertion of the site of Jimenez's catheter, however the rash was pretty extensive in the flank area and red. Bilateral lower extremity no edema noted. Pulses pulses palpable bilaterally, pedal and radial. Relevant labs white count of 12.3, no bands, H/H 15.0/44.5, platelets 183. Lytes within normal limits, sodium 143, potassium 3.7, creatinine elevated 1.4 ( baseline 1.0), a GFR reduced to 51, glucose of 104. Initial lactic acid elevated at 2.2, repeat lactic acid low at 0.7. Calcium 9.6, phosphorus 3.8, magnesium 2.1, total bilirubin elevated at 1.5, direct bilirubin 0.4. Liver function tests within normal limit, initial set of troponin 0.03. UA showed more than 75 RBC, 15-25 WBC, urine protein to creatinine ratio around 12, most likely a combination of prerenal as well as postrenal. Kidney ultrasound did not show any hydronephrosis/obstruction. EKG showed normal sinus rhythm, rate of 61, right bundle branch block which was present on the previous EKG, no acute ST-T wave changes. Mr. Dela Cruz scores 2 points on SoFa's criteria with hypotension on initial presentation, lactic acidosis, slight white count however no bands and positive UA. Even though patient had dirty urine on previous occasion however due to hypotension, white count which improved with on normal saline, lactic acidosis, we will treat the patient with IV ceftriaxone for sepsis secondary to UTI. He also has acute kidney injury which could also be secondary to sepsis versus dehydration. We will continue IV normal saline at the rate of 100 mL per hour for maintenance fluid. He already received 3 L of normal saline bolus at the emergency department. Problem list along with assessment and plan. Problem #1 urinary tract infection with positive sofa's criteria. Continue monitor vitals, continue monitoring intake and output, continue to maintain Foleys and watch for urine output. Patient is one time of IV ceftriaxone, continue IV ceftriaxone, continue to follow blood cultures and urine cultures. Kidney ultrasound did not show any obstruction. Urology consult with Dr. Burch for management of chronic problem of Jimenez obstruction. #2 Acute kidney injury. Creatinine noted to be 1.4, baseline 1.0. Continue IV hydration. Continue to monitor renal functions. Most likely prerenal versus post renal. Avoid nephrotoxic medications. #3 history of hypertension. The patient presented hypotensive, we will hold the lisinopril and metoprolol for now. Resume as needed. Problem #4 history of benign prostatic hypertrophy. Continue Flomax. Urology consult for obstructed Jimenez catheter and possible evaluation for TURP, initially the troponin was planned as outpatient and patient was to see Dr. Burch 04/14/2017 however no pain urology consult as the patient is admitted. #5 history of intermittent claudication. Continue cilostazol. FC DVt px : alps ( hematuria) PP - tylenol, iv tylenol, percocet Regular diet. MITCH LEE,BLEVINS 04/05/17 0031: Attending MD Review Statement Attending Statement Attending MD Statement: examined this patient, discuss w/resident/PA/Z OS MAINFRAME SYSTEMS PROGRAMMER, agreed w/resident/PA/Z OS MAINFRAME SYSTEMS PROGRAMMER, reviewed EMR data (avail), discussed with nursing, discussed with case mgmt, reviewed images, amended to note Attending Assessment/Plan: [id number] obese male with past medical history significant for COPD on 4L of home oxygen, BPH with chronic in [place] for his catheter, sleep apnea, restless leg syndrome, HTN, LVH, resing LVOT gradient and anxiety/depression comes into the ER with low pressure and decreased urinary output. Patient had a recent admission in February for the same issues. Patient also had 2 more ED visits recently for pain and discomfort at the site of his Jimenez catheter for which patient was sent back to home with antibiotics which the patient did not take. Patient has been scheduled twice with Dr. Burch but has been unable to get in touch. Patient also reported constitutional symptoms of fever, chills , and decreased oral intake along with decreased urinary output. In the ED he was found to be hypotensive but he was successfully resuscitated with IV fluids. His labs show leukocytosis of 12.3, creatinine of 1.4, lactate is 2.2 which dropped down to 0.7 with fluid resuscitation, UA was hazy, high in protein, urobilinogen, mid to high LE, high RBC and WBC, rare bacteria and hyaline costs. Pt received one gram of IV ceftrixone in the ER Assessment and plan: Patient admitted to [facility] med floor for hypotension, acute renal failure( more so prerenal and less likely post renal) suspected UTI/sepsis , continue with IV fluids, will treat with IV ceftrixone, pt recevied one dose in ER, will send urine and blood for cultures ( no gworth of any specific organism in the past from his urine and blood samples), urology consult in the a.m., pain control, hold on his antihypertensive meds for now which can be started gradually when BP allows, DVT prophylaxis and Full code
--- NOTE | 2017-04-04 21:10 | NUR ---
PT TO ULTRASOUND AT THIS TIME
--- NOTE | 2017-04-04 21:16 | NUR ---
PT GOING TO ROOM 235-2
--- NOTE | 2017-04-04 21:34 | NUR ---
PT BACK FROM ULTRASOUND
--- NOTE | 2017-04-04 21:48 | NUR ---
REPORT GIVEN TO KRAIG GRANDE TRANSPORT BOOKED
--- NOTE | 2017-04-04 21:50 | NUR ---
HOUSE STAFF AT BEDSIDE
--- NOTE | 2017-04-04 21:52 | ULTRASOUND REPORT ---
EXAMINATION: US RETROPERITONEAL COMPLETE (RENAL) CLINICAL INFORMATION: Acute renal failure. COMPARISON: CT scan the abdomen and pelvis 03/12/2017 TECHNIQUE: Real-time imaging of the kidneys and bladder. FINDINGS: RIGHT KIDNEY: 3 cm cyst in the upper pole of the right kidney unchanged. The kidney measures 10.8 x 4.6 x 5.7 cm (SAG x AP x TRV). The kidney is normal in size, contour, and echogenicity. Renal cortical thickness is normal. No calculi or focal parenchymal lesions. No hydronephrosis. LEFT KIDNEY: The kidney measures 12.1 x 6.2 x 4.5 cm cm (SAG x AP x TRV). The kidney is normal in size, contour, and echogenicity. Renal cortical thickness is normal. No calculi or focal parenchymal lesions. No hydronephrosis. BLADDER: Catheter in place. Bladder decompressed.. IMPRESSION: Benign simple cyst right kidney unchanged.. Parenchyma appears within normal limits. No hydronephrosis
--- NOTE | 2017-04-04 22:15 | NUR ---
REPORT RECIEVED FROM KRAIG PAYNE IN ED. PT ARRIVED TO ROOM VIA DISTRIBUTION. MOREJON IS IN PLACE, DRAINING CLEAR KAREN URINE. PT OFFERS NO COMPLAINTS AT THIS TIME. ON 4L O2 VIA NC WHICH IS PATIENT'S BASELINE. BUTRANS PATCH IS IN PLACE TO L SHOULDER WHICH PT STATES HE WEARS FOR CHRONIC BACK PAIN AND HE PLACED IT ON 04/02, AND IT IS CHANGED EVERY 7 DAYS. VSS. NPO AT THIS TIME. ORIENTED TO ROOM AND CALL BUTTON. WILL CONTINUE TO MONITOR.
[2017-04-04 22:33] VITALS: BP 128/80
[2017-04-05 06:34] VITALS: BP 130/76
--- NOTE | 2017-04-05 07:14 | PN- Housestaff ---
NONI MARTINS 04/05/17 0714: Subjective Follow-up For: Sepsis possibly from catheter Associated Urinary Tract Infection Hypotension resolved- Chronic Foleys due to prostate enlargement Complaints: pain scale (0-10) Subjective: Patient was seen and examined this morning. He is alert, awake and oriented to time place and person. No acute events noticed overnight. Patient denies any fever, chills. However reports burning sensation on urination. Denies any frequency, urgency. He reports pain at the site of Foleys catheter. He denies any abdominal pain, flank pain. His Foleys catheter was changed in the emergency room yesterday. Vitals were stable. Blood pressure improved Review of Systems Constitutional: Reports: see HPI. Objective Last 24 Hrs of Vital Signs/I&O Vital Signs Date Time Temp Pulse Resp B/P B/P Pulse O2 O2 Flow FiO2 Mean Ox Delivery Rate 04/05 1432 98.2 88 18 122/70 98 04/05 0916 62 130/76 04/05 0634 97.9 62 20 130/76 98 Nasal Cannula 04/05 0000 Nasal 4.0L Cannula 04/04 2233 97.6 60 20 128/80 97 Nasal Cannula 04/04 2145 54 04/04 2042 96.0 50 18 110/65 98 Nasal 3.5L Cannula 04/04 1846 96.3 54 22 117/71 98 Nasal 4.0L Cannula 04/04 1702 96.5 56 20 140/72 98 Nasal 4.0L Cannula 04/04 1604 54 118/62 Intake & Output 04/05 1600 04/05 0800 04/05 0000 Intake Total 700 Output Total 100 350 900 Balance -100 350 -900 Intake, IV 600 Intake, Oral 100 Output, Urine 100 350 900 Patient 157.85 kg Weight Physical Exam General Appearance: Alert, Oriented X3, Cooperative, No Acute Distress Skin: No Rashes, No Breakdown HEENT: Atraumatic, PERRLA, EOMI Neck: Supple, No JVD Lymphatic: Cervical nl Cardiovascular: Normal S1, Normal S2 Lungs: Normal Air Movement Abdomen: Normal Bowel Sounds, Soft, No Tenderness Extremities: No Clubbing, No Cyanosis, No Edema Vascular: Pulses Symmetrical Current Medications: Current Medications Sig/Jared Start time Last Medication Dose Route Stop Time Status Admin Acetaminophen 650 MG Q6P PRN 04/04 2100 AC PO Acetaminophen 1,000 MG Q6P PRN 04/04 2100 AC IV Ceftriaxone Sodium 1,000 MG ONCE ONE 04/05 1000 DC 04/05 IV 04/05 1001 0917 Ceftriaxone Sodium 0 .STK-MED ONE 04/04 191 DC .ROUTE Ceftriaxone Sodium 1,000 MG ONCE ONE 04/04 1830 DC 04/04 IV 04/04 1831 1915 Cilostazol 100 MG BID 04/05 1000 04/05 PO 0917 Clotrimazole 1 FRACISCO BID 04/05 0223 AC 04/05 TOP 0917 Finasteride 5 MG DAILY 04/05 1000 AC 04/05 PO 0915 Gabapentin 300 MG TID 04/05 1000 AC 04/05 PO 0915 Lidocaine 1 FRACISCO Q1P PRN 04/05 0800 AC TOP Oxycodone/ 1 TAB Q8H PRN 04/05 1115 AC Acetaminophen PO Oxycodone/ 2 TAB Q6P PRN 04/04 2100 AC 04/05 Acetaminophen PO 0915 Patient Medication 1 ED .STK-MED ONE 04/05 1354 DC Teaching ED 04/05 1355 Sodium Chloride 1,000 ML Q13H 04/04 2315 AC 04/05 IV 1527 Sodium Chloride 1,000 ML BOLUS ONE 04/04 1530 DC 04/04 IV 04/04 1629 1520 Tamsulosin HCl 0.4 MG BID 04/05 1000 AC 04/05 PO 0916 Venlafaxine HCl 225 MG 0800 04/05 0800 AC 04/05 PO 0916 Last 24 Hrs of Lab/[place] Results Last 24 Hrs of Labs/Mics: Laboratory Tests 04/04/17 2105: Urine Total Volume Cancelled, Ur Total Protein 24 Hr Cancelled 04/04/17 1734: Lactic Acid 0.7 Microbiology 04/05 0635 URINE ROUT: Urine Culture - RECD Assessment/Plan Assessment: Patient is a 67-year-old male with PMH of COPD on 4L oxygen, BPH with chronic jimenez catheter, hypertension, MOIRA, morbid obesity, RLS, anxiety, who came to the ED due to persistent pain at the jimenez site, urinary retention, hematuria, and 2 days of fever and chills, decreased appetite, weakness. He also reports intermittent episodes of dizziness since about a month ago. He was admitted twice in February 2017 once for urinary retention and BPH and most recently for hypotension and decreased urine output. Patient has had 2 ED visits during the past two days because of consistent pain and discomfort at the site of the jimenez as well as groin pain, he also complained of fever and chills.Patient was sent home 04/03/17 on cephalexin but never got any dose because he did not manage to get it from a pharmacy. Vitals on admission -afebrile, heart rate 69, respiratory rate 14, blood pressure 76/53, saturating at 94% on room air Patient is found to be hypotensive 76/53, received 3L NS, BP came up to 140/72. Pertinent labs: WBC 12.3, Cr 1.4, lactic acid of 2.2 which can come down 0.7 after fluid resuscitation. UA: hazy, high in Pr, Urobil, mod high LE, high RBC and WBC, rare bacteria and hyaline casts Renal ultrasound Benign simple cyst right kidney unchanged.. Parenchyma appears within normal limits. No hydronephrosis Possible sepsis and CAUTI Patient presented with fever, chills, decreased oral intake and decreased urine output. Also reported pain at the site of catheter. He was on chronic indwelling catheter for benign prostate hypertrophy. Scores 2 per SOFA scoring system, for low BP on arrival and elevated Cr. (SOFA>= 2 risk of sepsis 10%). Patient also had elevated lactic acid of 2.2 that came down to 0.7 after receiving IV fluids. Patient's low BP resolved after 3 L of NS IV boluses. Also received one dose of Ceftriaxone 1000 mg in the ER. * Gent med observation * Continue IV NS at 75 cc/hour * Urine analysis showed leukocyte esterase, RBC, WBC, bacteria, hemoglobin * Urine culture and blood culture ordered, will follow * Continue Ceftriaxone pending cultures reports * Repeat CBC in am * Urology CONSULTED * Foleys was changed in the emergency room, plan was to continue Foleys catheter for now as per urology recommendations * He has follow-up appointment with urologist Dr. Burch on 04/13/2017 * We'll monitor for fever, leukocytosis, dysuria MANJIT Elevated Cr (but BUN/Cr <20), FeNa<1 (0.2) - possible etiologies is a mixture pre-renal and post-renal (clogged jimenez catheter). * Continue IV hydration * Repeat BEP in am BPH On tamsulosin started 8 years ago, he has indwelling cath. since a month ago due to frequency and urgency. He has been having constant discomfort at the jimenez site, had episode of hematuria 3-4 days ago, there is purulent discharge at the tip of the penis. He was was supposed to see Dr. Burch in the office on April 13. * continue flomax * Urology consulted * Started finasteride * Pt has office appointment for cysto on 04/13 * Continue jimenez. COPD stable - on 4L oxygen, reports his SO2 is >92% most of the time without oxygen. Does not report any history of smoking. Was admitted in March 2016 for SOB, and COPD plus MOIRA was in the differentials, he was told to follow up with Dr. Salazar for TFTs and sleep study. PVD Intermittent claudication * continue cilostazol Skin rash erythematous rash in groins, in the creases between the abdomen and thigh, most likely fungal infection. * continued clotrimazole Hypertension Patient is on metoprolol and losartan at home * Hold blood pressure medications for now as he came in with hypotension Anxiety Patient usually takes Ativan 1 mg 3 times a day as required for anxiety Please continue Ativan in the hospital Depression Patient usually takes venlafaxine We'll continue his home medication Chronic pain Patient has chronic pain-low back pain and shoulder pain On Percocet We will continue his home medication-Percocet Nerve pain Continue gabapentin Pain control: tylenol, IV acetaminophen, percocet Diet regular Full code DVT prophylaxis subcutaneous heparin Problem List: 1. SIRS (systemic inflammatory response syndrome) 2. Urinary retention due to benign prostatic hyperplasia 3. UTI (urinary tract infection) Pain Ratin Pain Location: At the site of Foleys catheter insertion Pain Goal: Remain pain free Pain Plan: Tylenol Percocet Tomorrow's Labs & Rationales: CBC in the setting of infection BEP in the setting of LÓPEZ Fishman 04/05/17 1108: Attending MD Review Statement Attending Statement Attending MD Statement: examined this patient, discuss w/resident/PA/HOUSEKEEPING SUPERVISOR HOTEL, agreed w/resident/PA/HOUSEKEEPING SUPERVISOR HOTEL, discussed with family, reviewed EMR data (avail), discussed with nursing, discussed with case mgmt, reviewed images, amended to note Attending Assessment/Plan: "[id number] obese male with past medical history significant for COPD on 4L of home oxygen, BPH with chronic in [place] for his catheter, sleep apnea, restless leg syndrome, HTN, LVH, resing LVOT gradient and anxiety/depression comes into the ER with low pressure and decreased urinary output. Patient had a recent admission in February for the same issues. Patient also had 2 more ED visits recently for pain and discomfort at the site of his Jimenez catheter for which patient was sent back to home with antibiotics which the patient did not take. Patient has been scheduled twice with Dr. Burch but has been unable to get in touch. Patient also reported constitutional symptoms of fever, chills , and decreased oral intake along with decreased urinary output." In the ED he was found to be hypotensive but he was successfully resuscitated with IV fluids. His labs show leukocytosis of 12.3, creatinine of 1.4, lactate is 2.2 which dropped down to 0.7 with fluid resuscitation, UA was hazy, high in protein, urobilinogen, mid to high LE, high RBC and WBC, rare bacteria and hyaline costs. Pt received one gram of IV ceftrixone in the ER Assessment and plan 1. hypotension 2. acute renal failure (more so prerenal and less likely post renal) 3. sepsis 2/2 urological origin 4. Chronic repsiratroy failure from severe COPD 5. COPD on home oxygen 4l. 6. hypertension opn home meds 7. MOIRA on home oxygen PLAN continue with IV fluids, c/w IV ceftrixone, f/u urine and blood for cultures, urology consulted, replaced jimenez catheter recently, pain control, hold on his antihypertensive meds for now which can be started gradually when BP allows, DVT prophylaxis and Full code. cont current care
--- NOTE | 2017-04-05 07:31 | Cons- Urology ---
General Information and HPI Consulting Request Date of Consult: 04/05/17 Requested By: GEN Padron MD Reason for Consult: urinary retention Source of Information: patient, old records Exam Limitations: no limitations History of Present Illness: This patient has had urinary retention for over 1 month. A jimenez was placed and he has had several ER visits and 2 hospital admissions for various reasons including dehydration, possible sepsis and pain at jimenez insertion site. He was admitted yesterday with pain at end of penis and WBC count of 12.8 Allergies/Medications Allergies: Coded Allergies: Penicillins (Severe, TONGUE SWELLING 02/25/17) Home Med List: Buprenorphine (Butrans) 20 MCG/HOUR PATCH.TDWK 1 PAT TOP ONCEAWEEK PAIN ( Reported) Cephalexin (Keflex) 500 MG CAPSULE 1 CAP PO TID urinary retention Cilostazol 100 MG TABLET 1 TAB PO BID INTERMITTENT CLAUDICATION (Reported) Clotrimazole (Lotrimin AF) 1 % CREAM..G. 1 FRACISCO TOP BID TINEA CRURIS apply to affected area(s) Gabapentin (Neurontin) 300 MG CAPSULE 1 CAP PO TID NERVE PAIN (Reported) Lorazepam 1 MG TABLET 1 TAB PO TID PRN ANXIETY (Reported) Losartan Potassium 50 MG TABLET 50 MG PO DAILY HIGH BP Metoprolol Tartrate 50 MG TABLET 50 MG PO BID HIGH BP, HEART HEALTH Multivitamin (Multiple Vitamins) 1 EACH TABLET 1 TAB PO DAILY SUPPLEMENT ( Reported) Oxycodone HCl/Acetaminophen (Percocet 5-325 MG Tablet) 5 MG-325 MG TABLET 1 TAB PO Q8H PRN CHRONIC PAIN (Reported) Tamsulosin HCl (Flomax) 0.4 MG CAP.ER.24H 1 CAP PO BID PROSTATE (Reported) Venlafaxine HCl (Venlafaxine HCl ER) 225 MG TAB.ER.24 1 TAB PO DAILY MENTAL HEALTH (Reported) Past History Medical History Blood Transfusion Hx: No Neurological: NONE EENT: NONE Cardiovascular: hypertension Respiratory: COPD Gastrointestinal: NONE Hepatic: NONE Renal: benign prost hyperplasia Musculoskeletal: NONE Psychiatric: anxiety Endocrine: NONE Blood Disorders: NONE Cancer(s): NONE REGIONAL PSYCHIATRIC DIRECTOR/Reproductive: NONE Other Medical Hx: OBESITY Surgical History Pertinent Surgical History: varicocoele Family History Relations & Conditions If Any: SISTER (esophageal cancer). BROTHER (esophageal and colon cancer). FATHER (hypertension, ?esophageal aneurysm). Psychosocial History Where Do You Live? Home Who Do You Live With? self Services at Home: None Primary Language: [place] Citizen Smoking Status: Never Smoked ETOH Use: denies use Illicit Drug Use: denies illicit drug use Functional Ability ADLs Independent: dressing, eating, toileting, bathing. Ambulation: independent IADLs Independent: shopping, housework, finances, food prep, telephone, transportation , medication admin. Exam & Diagnostic Data Vital Signs and I&O Vital Signs Date Time Temp Pulse Resp B/P B/P Pulse O2 O2 Flow FiO2 Mean Ox Delivery Rate 04/05 0634 97.9 62 20 130/76 98 Nasal Cannula 04/05 0000 Nasal 4.0L Cannula 04/04 2233 97.6 60 20 128/80 97 Nasal Cannula 04/04 2145 54 04/04 2042 96.0 50 18 110/65 98 Nasal 3.5L Cannula 04/04 1846 96.3 54 22 117/71 98 Nasal 4.0L Cannula 04/04 1702 96.5 56 20 140/72 98 Nasal 4.0L Cannula 04/04 1604 54 118/62 04/04 1520 96.5 54 15 98/50 97 Nasal 4.0L Cannula 04/04 1456 95 Nasal 4.0L Cannula 04/04 1452 57 98/52 04/04 1428 58 20 92/50 95 Nasal 4.0L Cannula 04/04 1355 97.0 69 14 76/53 94 Room Air Intake & Output 04/05 0800 04/05 0000 04/04 1600 04/04 0800 04/04 0000 04/03 1600 Intake Total 700 2000 Output Total 350 900 900 Balance 350 -900 1100 Intake, IV 600 2000 Intake, Oral 100 Output, Urine 350 900 900 Patient 348 lb 348 lb Weight Weight Reported by Patient Measurement Method Back: no CVA tenderness Abd: soft and non tender Genitalia: jimenez in place draining clear urine. No evidence of urethritis or epididymitis Laboratory Tests 04/04 04/04 04/04 2105 1734 1430 Chemistry Lactic Acid (0.7 - 2.1 mmol/L) 0.7 Urines Urinalysis MOD H Urine Color (YEL,AMB,STR) YEL Urine Clarity (CLEAR) HAZY H Urine pH (5.0 - 8.0) 6.0 Ur Specific [place] (1.001 - 1.035) 1.020 Urine Protein (NEG,<30 MG/DL) 100 H Urine Ketones (NEG) NEG Urine Nitrite (NEG) NEG Urine Bilirubin (NEG) NEG@ICTO Urine Urobilinogen (0.1 - 1.0 EU/dl) 4.0 H Ur Leukocyte Esterase (NEG) MOD H Ur Microscopic SEDIMENT EXAMINED Urine RBC (0 - 5 /HPF) >75 H Urine WBC (0 - 2 /HPF) 15-25 H Urine Bacteria (NEG/NONE) RARE H Urine Hemoglobin (NEG) LARGE H Urine Total Volume Cancelled Ur Total Protein 24 Hr Cancelled Urine Glucose (N MG/DL) NEG 04/04 04/04 1430 1410 Chemistry Sodium (137 - 145 mmol/L) 143 Potassium (3.5 - 5.1 mmol/L) 3.7 Chloride (98 - 107 mmol/L) 100 Carbon Dioxide (22 - 30 mmol/L) 30 Anion Gap (5 - 16) 13 BUN (9 - 20 mg/dL) 18 Creatinine (0.7 - 1.2 mg/dL) 1.4 H Estimated GFR (>60 ml/min) 51 L BUN/Creatinine Ratio (7 - 25 %) 12.9 Glucose (65 - 99 mg/dL) 104 H Lactic Acid (0.7 - 2.1 mmol/L) 2.2 H Calcium (8.4 - 10.2 mg/dL) 9.6 Phosphorus (2.5 - 4.5 mg/dL) 3.8 Magnesium (1.6 - 2.3 mg/dL) 2.1 Total Bilirubin (0.2 - 1.3 mg/dL) 1.5 H Direct Bilirubin (< 0.4 mg/dL) 0.4 AST (17 - 59 U/L) 18 ALT (21 - 72 U/L) 27 Alkaline Phosphatase (< 127 U/L) 62 Troponin I (<0.11 ng/ml) 0.03 Total Protein (6.3 - 8.2 g/dL) 6.6 Albumin (3.5 - 5.0 g/dL) 4.0 Globulin (1.9 - 4.2 gm/dL) 2.6 Albumin/Globulin Ratio (1.1 - 2.2 %) 1.5 Hematology CBC w Diff NO MAN DIFF REQ WBC (4.8 - 10.8 /CUMM) 12.3 H RBC (4.70 - 6.10 /CUMM) 5.17 Hgb (14.0 - 18.0 G/DL) 15.0 Hct (42 - 52 %) 44.5 MCV (80.0 - 94.0 FL) 86.2 MCH (27.0 - 31.0 PG) 29.1 RDW (11.5 - 14.5 %) 13.7 Plt Count (130 - 400 /CUMM) 183 MPV (7.4 - 10.4 FL) 8.8 Gran % (42.2 - 75.2 %) 81.1 H Lymphocytes % (20.5 - 51.1 %) 8.5 L Monocytes % (1.7 - 9.3 %) 9.5 H Eosinophils % (0 - 5 %) 0.9 Basophils % (0.0 - 2.0 %) 0 L Absolute Granulocytes (1.4 - 6.5 /CUMM) 10.0 H Absolute Lymphocytes (1.2 - 3.4 /CUMM) 1.0 L Absolute Monocytes (0.10 - 0.60 /CUMM) 1.2 H Absolute Eosinophils (0.0 - 0.7 /CUMM) 0.1 Absolute Basophils (0.0 - 0.2 /CUMM) 0 PUBS MCHC (33.0 - 37.0 G/DL) 33.7 Urines Ur Random Creatinine (mg/dL) 132.3 U Random Total Protein (0 - 12 mg/dL) 113 H Ur Random Sodium (30 - 90 mmol/L) 32 Ur Random Potassium (mmol/L) 19.9 Fraction Sodium Excret (<1% %) 0.2 Assessment/Plan Assessment/Plan Imp: 1. Urinary Retention 2. ? UTI 3. Prostatic hypertrophy Plan: 1. Continue jimenez. Only other option for now would be intermittent cath which I don't think would be possible as outpatient in his case 2. Agree with ceftriaxone 3. f/u urine C&S 4. tamsulosin and finasteride 5. Pt has office appointment for cysto on 04/13 which he should keep. He missed last appt 6. Lidocaine jelly to urethral meatus prn Consult Acknowledgment - Thank you for your consult request.
--- NOTE | 2017-04-05 08:20 | PN- Student ---
Subjective Subjective: Today Mr. Madrigal is complaining of burning pain in his penis upon urination that increases in intensity following voiding. He states that he has not been sleeping much due to pain and he has not had much of an appetite. He reports an episode of abdominal pain yesterday that was not completely alleviated by bowel movement. His movement was described as small and loose. He complains of no abdominal pain today, no back pain, no fever or chills, no headache, and no vision disturbances. He also denies chest pain, N/V, or lower extremity pain. Overall he says his pain is irritating but not unbearable, he did not give a pain scale when asked. Objective Objective: Orders Procedure Date/time Status Regular Diet 04/05 B Active CBC WITHOUT DIFFERENTIAL 04/05 06 Active BASIC ELECTROLYTES PLUS BUN&CR 04/05 06 Active CULTURE,URINE 04/05 0026 Active Lab Add-on Test 04/05 UNK Active Jimenez, Insertion/Removal/Asses 04/05 UNK Active PHYSICIAN CONSULT 04/05 UNK Active Vital Signs 04/04 2221 Complete Teach/Educate 04/04 2221 Active Pain Treatment and Response 04/04 2221 Active Nutritional Intake, Monitor 04/04 2221 Active Isolation 04/04 222 Active Intake & Output 04/04 2221 Complete Patient Care Conference 04/04 2221 Active Activity/Ambulation 04/04 2221 Active OXYGEN SETUP (GEN) 04/04 2200 Complete Pathway - chart 04/04 2103 Active Lab Add-on Test 04/04 2103 Active Vital Signs 04/04 2103 Complete Intake & Output 04/04 2103 Active URINE CREATININE, SPOT 04/04 2103 Complete URINE LYTES, SPOT 04/04 2103 Complete Patient Data 04/04 2056 Active Saline Lock 04/04 2049 Active Misc Message 04/04 2049 Active ED Holding Orders 04/04 2049 Active Vital Signs 04/04 2049 Active Code Status 04/[address] in observation 04/04 2048 Active LACTIC ACID 04/04 1707 Complete CULTURE,URINE 04/04 1432 Active URINALYSIS 04/04 1432 Complete PHOSPHORUS 04/04 1410 Complete MAGNESIUM 04/04 1410 Complete DIRECT BILIRUBIN 04/04 1410 Complete BLOOD CULTURE 04/04 1407 Active TROPONIN LEVEL 04/04 1407 Complete LACTIC ACID 04/04 1407 Complete COMPREHENSIVE METABOLIC PANEL 04/04 1407 Complete CBC WITHOUT DIFFERENTIAL 04/04 140 Complete EKG 04/04 1407 Active Vital Signs Date Time Temp Pulse Resp B/P B/P Pulse O2 O2 Flow FiO2 Mean Ox Delivery Rate 04/05 0634 97.9 62 20 130/76 98 Nasal Cannula 04/05 0000 Nasal 4.0L Cannula 04/04 2233 97.6 60 20 128/80 97 Nasal Cannula 04/04 2145 54 04/04 2042 96.0 50 18 110/65 98 Nasal 3.5L Cannula 04/04 1846 96.3 54 22 117/71 98 Nasal 4.0L Cannula 04/04 1702 96.5 56 20 140/72 98 Nasal 4.0L Cannula 04/04 1604 54 118/62 04/04 1520 96.5 54 15 98/50 97 Nasal 4.0L Cannula 04/04 1456 95 Nasal 4.0L Cannula 04/04 1452 57 98/52 04/04 1428 58 20 92/50 95 Nasal 4.0L Cannula 04/04 1355 97.0 69 14 76/53 94 Room Air Intake & Output 04/05 1600 04/05 0800 04/05 0000 Intake Total 700 Output Total 350 900 Balance 350 -900 Intake, IV 600 Intake, Oral 100 Output, Urine 350 900 Patient 348 lb Weight Notes: -Renal US- benign simple cyst in right kidney that was unchanged, parenchyma appears within normal limits, no evidence of hydronephrosis. -lactic acid of 2.2 on admission decreased to 0.7 later yesterday evening. -Urine culture positive for Gram negative rods PE: general- AAO x 3, slightly distressed, laying in bed HEENT- PERRLA, membranes moist and pink Neck- obese, no lymphadenopathy or thyromegaly, midline trachea CV- S1 and S2 appreciated, no murmurs or rubs Chest- vesicular breath sounds throughout all ford, equal chest rise bilaterally Abd- soft, non-tender to palpation, No guarding or distention Urinary- no erythema of penile meatus, small amount of purulent discharge noted on external skin, not around meatus. Back- chronic back pain, non-tender to palpation Ext- no edema, sensation and motor grossly intact bilaterally Results Results: Laboratory Tests 04/04/17 2105: Urine Total Volume Cancelled, Ur Total Protein 24 Hr Cancelled 04/04/17 1734: Lactic Acid 0.7 04/04/17 1430: Urinalysis MOD H, Urine Color YEL, Urine Clarity HAZY H, Urine pH 6.0, Ur Specific [place] 1.020, Urine Protein 100 H, Urine Ketones NEG, Urine Nitrite NEG, Urine Bilirubin NEG@ICTO, Urine Urobilinogen 4.0 H, Ur Leukocyte Esterase MOD H, Ur Microscopic SEDIMENT EXAMINED, Urine RBC >75 H, Urine WBC 15-25 H, Urine Bacteria RARE H, Urine Hemoglobin LARGE H, Urine Glucose NEG 04/04/17 1430: Ur Random Creatinine 132.3, U Random Total Protein 113 H, Ur Random Sodium 32, Ur Random Potassium 19.9, Fraction Sodium Excret 0.2 04/04/17 1410: Anion Gap 13, Estimated GFR 51 L, BUN/Creatinine Ratio 12.9, Glucose 104 H, Lactic Acid 2.2 H, Calcium 9.6, Phosphorus 3.8, Magnesium 2.1, Total Bilirubin 1.5 H, Direct Bilirubin 0.4, AST 18, ALT 27, Alkaline Phosphatase 62, Troponin I 0.03, Total Protein 6.6, Albumin 4.0, Globulin 2.6, Albumin/Globulin Ratio 1.5 , CBC w Diff NO MAN DIFF REQ, RBC 5.17, MCV 86.2, MCH 29.1, RDW 13.7, MPV 8.8, Gran % 81.1 H, Lymphocytes % 8.5 L, Monocytes % 9.5 H, Eosinophils % 0.9, Basophils % 0 L, Absolute Granulocytes 10.0 H, Absolute Lymphocytes 1.0 L, Absolute Monocytes 1.2 H, Absolute Eosinophils 0.1, Absolute Basophils 0, PUBS MCHC 33.7 Microbiology 04/05 0635 URINE ROUT: Urine Culture - RECD 04/04 1430 URINE ROUT: Urine Culture - RECD 04/04 141 BLOOD: Blood Culture - RECD 04/04 1410 BLOOD: Blood Culture - RECD Assessment/Plan Assessment: Mr. Madrigal is a 67 yo, morbidly obese man with PMHx of obstructive sleep apnea, COPD (4L oxygen at home), Hypertrophic obstructive cardiomyopathy, HTN, restless leg syndrome, and anxiety. He was recently admitted to [facility] due to HoTN, MANJIT and urinary retention for which he has had a jimenez placed for 1 month. He comes to [facility] due to persistent pain at jimenez site with associated fever, chills, dizziness. On admission he was found to be hypotensive for which they gave fluids Today his BP is stable with the latest reading being 130/76. He states that he has not been feeling feverish which is supported by his vitals (temp- 97.9). He has not had any chest pain, or breathing difficulties. He states that he has had some palpitations that he attributes to his anxiety. Overall he states that his condition has improved a bit from admission although he still has the painful urination. Urine culture from yesterday came back positive for gram negative rods. Current Medications Sig/Jared Start time Last Medication Dose Route Stop Time Status Admin Acetaminophen 650 MG Q6P PRN 04/04 2100 AC PO Acetaminophen 1,000 MG Q6P PRN 04/04 2100 AC IV Ceftriaxone Sodium 1,000 MG ONCE ONE 04/05 1000 AC IV 04/05 1001 Ceftriaxone Sodium 0 .STK-MED ONE 04/04 1915 DC .ROUTE Ceftriaxone Sodium 1,000 MG ONCE ONE 04/04 1830 DC 04/04 IV 04/04 1831 1915 Cilostazol 100 MG BID 04/05 1000 AC PO Clotrimazole 1 FRACISCO BID 04/05 0223 AC 04/05 TOP 0247 Finasteride 5 MG DAILY 04/05 1000 AC PO Gabapentin 300 MG TID 04/05 1000 AC PO Lidocaine 1 FRACISCO Q1P PRN 04/05 0800 AC TOP Oxycodone/ 2 TAB Q6P PRN 04/04 2100 AC Acetaminophen PO Sodium Chloride 1,000 ML Q13H 04/04 2315 AC 04/05 IV 0017 Sodium Chloride 1,000 ML BOLUS ONE 04/04 1530 DC 04/04 IV 04/04 1629 1520 Sodium Chloride 1,000 ML BOLUS ONE 04/04 1415 DC 05 IV 04/04 1514 1412 Sodium Chloride 1,000 ML BOLUS ONE 04/04 1415 DC 04/04 IV 04/04 1514 1412 Tamsulosin HCl 0.4 MG BID 04/05 1000 AC PO Venlafaxine HCl 225 MG 0800 04/05 0800 AC PO Plan: Patient seems to be improving on his antibiotics. vitals have been stable and urology is on board with current management plan. Will continue to monitor urine output and pain level as well as follow the recommendations of urology as listed below. Urology recommendations: 1. Continue jimenez. Only other option for now would be intermittent cath which I don't think would be possible as outpatient in his case 2. Agree with ceftriaxone 3. f/u urine C&S 4. tamsulosin and finasteride 5. Pt has office appointment for cysto on 04/13 which he should keep. He missed last appt 6. Lidocaine jelly to urethral meatus prn Problem list: 1. Possible UTI/urosepsis- Continue antibiotic therapy with ceftriaxone 1000mg IV once, F/U with results of culture (Urine culture from yesterday came back positive for gram negative rods) and sensitivity then re-evaluate appropriate medication. Follow Urology for catheter replacement and treatment recommendations. 2. Hypotension- resolved with fluid therapy, BP has been stable 3. Prostatic hypertrophy- continue Tamsulosin 0.4 mg PO BID and Finasteride 5mg PO daily 4. COPD- continue on oxygen therapy 4L nasal cannula 5. Chronic pain- continue percocet 2 tab Q6P PO and gabapentin 300 mg TID PO 6. HTN- continue to hold metoprolol and lasartan therapy 7. Anxiety- continue venlafaxine 225mg PO daily Code Status: Full Code DVT prophylaxis: ALPs Diet: normal
[2017-04-05 14:32] VITALS: BP 122/70
[2017-04-05] MEDS ORDERED: FINASTERIDE5 M1 PO (16:10)
--- NOTE | 2017-04-05 16:12 | Patient Discharge Instructions ---
Discharge Instructions General Discharge Information You were seen/treated for: Sepsis from catheter associated urinary tract infection You had these procedures: none Watch for these problems: Fevers, chills Dizziness, lightheadedness Painful urination Frequency, urgency Special Instructions: Please follow-up with your primary care doctor in 1-2 weeks please follow-up with your urologist Dr. turk on 04/13/2017 for your appointment for cystoscopy Diet Continue normal diet: Yes Activity Full Activity/No Limits: Yes Acute Coronary Syndrome Inclusion Criteria At DC or during hospital stay patient has or had the following: ACS DIAGNOSIS No Discharge Core Measures Meds if any: Prescribed or Continued at Discharge Meds if any: NOT Prescribed or Continued at Discharge Congestive Heart Failure Inclusion Criteria At DC or during hospital stay patient has or had the following: CHF DIAGNOSIS No Discharge Core Measures Meds if any: Prescribed or Continued at Discharge Meds if any: NOT Prescribed or Continued at Discharge Cerebrovascular accident Inclusion Criteria At DC or during hospital stay patient has or had the following: CVA/TIA Diagnosis No Discharge Core Measures Meds if any: Prescribed or Continued at Discharge Meds if any: NOT Prescribed or Continued at Discharge Venous thromboembolism Inclusion Criteria VTE Diagnosis No VTE Type NONE VTE Confirmed by (Test) NONE Discharge Core Measures - Per Current guidelines, there needs to be overlap - treatment for the first 5 days of Warfarin therapy. - If discharged on Warfarin prior to 5 days of - overlap therapy, the patient will need to be - assessed for post discharge needs including - *Post discharge parental anticoagulation - *Warfarin and/or parental anticoagulation education - *Follow up date to check INR post discharge At least 5 days overlap therapy as Inpatient No Meds if any: Prescribed or Continued at Discharge Note: Overlap Therapy is Warfarin and Anticoagulant Meds if any: NOT Prescribed or Continued at Discharge
--- NOTE | 2017-04-05 21:34 | NUR ---
[facility] [id number] REQUESTED TO REVIEW PERCOCET ORDER FOR THIS PT. PER ONE ORDER, PERCOCET CAN BE GIVEN Q6H. PER ANOTHER, PERCOCET IS Q8H.
[2017-04-05 23:00] VITALS: BP 108/60
[2017-04-06 07:02] VITALS: BP 136/70
--- NOTE | 2017-04-06 07:20 | PN- Housestaff ---
NONI MARTINS 04/06/17 0719: Subjective Follow-up For: Sepsis possibly from catheter Associated Urinary Tract Infection Hypotension resolved- Chronic Foleys due to prostate enlargement Complaints: pain scale (0-10) Subjective: Patient was seen and examined this morning. He is alert, awake and oriented to time place and person. No acute events noticed overnight. Patient denies any fever, chills. Denies any frequency, urgency, dysuria. He reports pain at the site of Foleys catheter. He denies any abdominal pain, flank pain. His Foleys catheter was changed in the emergency room. Vitals were stable. Blood pressure improved Review of Systems Constitutional: Reports: see HPI. Objective Last 24 Hrs of Vital Signs/I&O Vital Signs Date Time Temp Pulse Resp B/P B/P Pulse O2 O2 Flow FiO2 Mean Ox Delivery Rate 04/06 1454 98.0 80 20 120/80 95 04/06 0950 84 136/70 04/06 0702 97.6 84 20 136/70 90 04/06 0000 Nasal 4.0L Cannula 04/05 2300 98.2 68 20 108/60 95 Room Air 04/05 2149 68 108/60 Intake & Output 04/06 1600 04/06 0800 04/06 0000 Intake Total 800 200 Output Total 350 425 Balance 450 -225 Intake, IV 600 Intake, Oral 200 200 Output, Urine 350 425 Physical Exam General Appearance: Alert, Oriented X3, Cooperative, No Acute Distress Skin: No Rashes, No Breakdown, No Significant Lesion HEENT: Atraumatic, PERRLA, EOMI Neck: Supple, No JVD, No thryomegaly Lymphatic: Cervical nl Cardiovascular: Normal S1, Normal S2, No Murmurs Lungs: Normal Air Movement Abdomen: Normal Bowel Sounds, Soft, No Tenderness Extremities: No Clubbing, No Cyanosis, No Edema, Normal Pulses Vascular: Normal Pulses Current Medications: Current Medications Sig/Jared Start time Last Medication Dose Route Stop Time Status Admin Acetaminophen 650 MG Q6P PRN 04/04 2100 AC PO Acetaminophen 1,000 MG Q6P PRN 04/04 2100 AC IV Cilostazol 100 MG BID 04/05 1000 AC 04/06 PO 0950 Clotrimazole 1 FRACISCO BID 04/05 0223 AC 04/06 TOP 0950 Finasteride 5 MG DAILY 04/05 1000 AC 04/06 PO 0950 Gabapentin 300 MG TID 04/05 1000 AC 04/06 PO 0950 Lidocaine 1 FRACISCO Q1P PRN 04/05 0800 AC TOP Lorazepam 1 MG TID PRN 04/05 1600 AC 04/06 PO 0955 Oxycodone/ 1 TAB Q8H PRN 04/05 1115 DC Acetaminophen PO Oxycodone/ 2 TAB Q6P PRN 04/04 2100 AC 04/06 Acetaminophen PO 0955 Patient Medication 1 ED .STK-MED ONE 04/06 1350 DC Teaching ED 04/06 1351 Sodium Chloride 1,000 ML Q13H 04/04 2315 DC 04/06 IV 0501 Tamsulosin HCl 0.4 MG BID 04/05 1000 AC 04/06 PO 0950 Venlafaxine HCl 225 MG 0800 04/05 0800 AC 04/06 PO 0950 Last 24 Hrs of Lab/[place] Results Last 24 Hrs of Labs/Mics: Laboratory Tests 04/06/17 0640: Anion Gap 7, Estimated GFR > 60, BUN/Creatinine Ratio 14.0, CBC w Diff NO MAN DIFF REQ, RBC 3.97 L, MCV 85.6, MCH 28.8, RDW 13.7, MPV 9.6, Gran % 67.7, Lymphocytes % 19.2 L, Monocytes % 9.3, Eosinophils % 3.3, Basophils % 0.5, Absolute Granulocytes 2.8, Absolute Lymphocytes 0.8 L, Absolute Monocytes 0.4, Absolute Eosinophils 0.1, Absolute Basophils 0, PUBS MCHC 33.7 Assessment/Plan Assessment: Patient is a 67-year-old male with PMH of COPD on 4L oxygen, BPH with chronic jimenez catheter, hypertension, MOIRA, morbid obesity, RLS, anxiety, who came to the ED due to persistent pain at the jimenez site, urinary retention, hematuria, and 2 days of fever and chills, decreased appetite, weakness. He also reports intermittent episodes of dizziness since about a month ago. He was admitted twice in February 2017 once for urinary retention and BPH and most recently for hypotension and decreased urine output. Patient has had 2 ED visits during the past two days because of consistent pain and discomfort at the site of the jimenez as well as groin pain, he also complained of fever and chills.Patient was sent home 04/03/17 on cephalexin but never got any dose because he did not manage to get it from a pharmacy. Vitals on admission -afebrile, heart rate 69, respiratory rate 14, blood pressure 76/53, saturating at 94% on room air Patient is found to be hypotensive 76/53, received 3L NS, BP came up to 140/72. Pertinent labs: WBC 12.3, Cr 1.4, lactic acid of 2.2 which can come down 0.7 after fluid resuscitation. UA: hazy, high in Pr, Urobil, mod high LE, high RBC and WBC, rare bacteria and hyaline casts Renal ultrasound Benign simple cyst right kidney unchanged.. Parenchyma appears within normal limits. No hydronephrosis Possible sepsis and CAUTI Patient presented with fever, chills, decreased oral intake and decreased urine output. Also reported pain at the site of catheter. He was on chronic indwelling catheter for benign prostate hypertrophy. Scores 2 per SOFA scoring system, for low BP on arrival and elevated Cr. (SOFA>= 2 risk of sepsis 10%). Patient also had elevated lactic acid of 2.2 that came down to 0.7 after receiving IV fluids. Patient's low BP resolved after 3 L of NS IV boluses. Also received one dose of Ceftriaxone 1000 mg in the ER. * Gent med observation * Continue IV NS at 75 cc/hour * Urine analysis showed leukocyte esterase, RBC, WBC, bacteria, hemoglobin * Urine culture and blood culture ordered * Continued Ceftriaxone day2 * Follow-up urine culture showed gram-negative rods * Planning to discharge him on Bactrim for 3 more days * Repeat CBC in am-normal * Urology CONSULTED * Foleys was changed in the emergency room, plan was to continue Foleys catheter for now as per urology recommendations * He has follow-up appointment with urologist Dr. Burch on 04/13/2017 * We'll monitor for fever, leukocytosis, dysuria MANJIT Elevated Cr (but BUN/Cr <20), FeNa<1 (0.2) - possible etiologies is a mixture pre-renal and post-renal (clogged jimenez catheter). * Continued IV hydration * Repeat BEP in am- improved creatinine BPH On tamsulosin started 8 years ago, he has indwelling cath. since a month ago due to frequency and urgency. He has been having constant discomfort at the jimenez site, had episode of hematuria 3-4 days ago, there is purulent discharge at the tip of the penis. He was was supposed to see Dr. Burch in the office on April 13. * continue flomax * Urology consulted * Started finasteride * Pt has office appointment for cysto on 04/13 * Continue jimenez. COPD stable - on 4L oxygen, reports his SO2 is >92% most of the time without oxygen. Does not report any history of smoking. Was admitted in March 2016 for SOB, and COPD plus MOIRA was in the differentials, he was told to follow up with Dr. Salazar for TFTs and sleep study. PVD Intermittent claudication * continue cilostazol Skin rash erythematous rash in groins, in the creases between the abdomen and thigh, most likely fungal infection. * continued clotrimazole Hypertension Patient is on metoprolol and losartan at home * Hold blood pressure medications for now as he came in with hypotension Anxiety Patient usually takes Ativan 1 mg 3 times a day as required for anxiety Please continue Ativan in the hospital Depression Patient usually takes venlafaxine We'll continue his home medication Chronic pain Patient has chronic pain-low back pain and shoulder pain On Percocet We will continue his home medication-Percocet Nerve pain Continue gabapentin Pain control: tylenol, IV acetaminophen, percocet Diet regular Full code DVT prophylaxis subcutaneous heparin Problem List: 1. Urine retention 2. Urinary retention due to benign prostatic hyperplasia Pain Ratin Pain Location: none Pain Goal: Remain pain free Pain Plan: tylinol Tomorrow's Labs & Rationales: none LÓPEZ ALICEA 04/06/17 1103: Attending MD Review Statement Attending Statement Attending MD Statement: examined this patient, discuss w/resident/PA/CASE MANAGEMENT ASSOCIATE, agreed w/resident/PA/CASE MANAGEMENT ASSOCIATE, discussed with family, reviewed EMR data (avail), discussed with nursing, discussed with case mgmt, reviewed images, amended to note Attending Assessment/Plan: Assessment and plan 1. hypotension 2. acute renal failure (more so prerenal and less likely post renal) resolved 3. sepsis 2/2 urological origin 4. Chronic repsiratroy failure from severe COPD 5. COPD on home oxygen 4l. 6. hypertension on home meds 7. MOIRA on home oxygen PLAN continue with IV fluids, c/w IV ceftrixone change to PO abx as per c/s, f/u urine and blood for cultures, urology consulted, replaced jimenez catheter recently, pain control, hold on his antihypertensive meds for now which can be started gradually when BP allows, DVT prophylaxis and Full code. anticipate d/c soon.
--- NOTE | 2017-04-06 07:22 | PN- Student ---
Subjective Subjective: Today Mr. Madrigal is feeling better. He denies any penile pain, abdominal pain, headache, fever, N/V, chest pain, breathing difficulty, or extremity pain. He states that his urination has been better today (currently at 600ml). He feels that his groin rash is getting better and has been sleeping better. He did report that he had an episode (a few seconds in duration) in which he felt his heart flutter for a bit, but he says that these episodes have been a common occurrence throughout his life. He denies any syncopal episodes but says that he does feel dizzy and light headed when the episodes occur. Objective Objective: Vital Signs Date Time Temp Pulse Resp B/P B/P Pulse O2 O2 Flow FiO2 Mean Ox Delivery Rate 04/06 0702 97.6 84 20 136/70 90 04/06 0000 Nasal 4.0L Cannula 04/05 2300 98.2 68 20 108/60 95 Room Air 04/05 2149 68 108/60 04/05 1432 98.2 88 18 122/70 98 04/05 0916 62 130/76 04/05 0800 95 Nasal 4.0L Cannula Intake & Output 04/06 0800 04/06 0000 04/05 1600 Intake Total 200 Output Total 350 425 100 Balance -350 -225 -100 Intake, Oral 200 Output, Urine 350 425 100 Notes: -UA positive for >100,000 colonies of both gram negative rods and gram positive cocci -Supposed to see urologist on Apr 13 2017 PE: general- AAO x 3, slightly distressed, laying in bed HEENT- PERRLA, membranes moist and pink Neck- obese, no lymphadenopathy or thyromegaly, midline trachea CV- S1 and S2 appreciated, regular rhythm, strong beat with no murmurs or rubs Chest- vesicular breath sounds throughout all ford, equal chest rise bilaterally Abd- soft, non-tender to palpation, No guarding or distention Urinary- no reddness around jimenez site, no discharge noted from penile meatus, jimenez catheter in place and draining cloudy yellow urine, rash noted on medial thigh fold that is improving, slight suprapubic pain on palpation of 3/10. Back- chronic back pain, non-tender to palpation Ext- no edema, sensation and motor grossly intact bilaterally Results Results: Laboratory Tests 04/06/17 0640: Anion Gap 7, Estimated GFR > 60, BUN/Creatinine Ratio 14.0, CBC w Diff NO MAN DIFF REQ, RBC 3.97 L, MCV 85.6, MCH 28.8, RDW 13.7, MPV 9.6, Gran % 67.7, Lymphocytes % 19.2 L, Monocytes % 9.3, Eosinophils % 3.3, Basophils % 0.5, Absolute Granulocytes 2.8, Absolute Lymphocytes 0.8 L, Absolute Monocytes 0.4, Absolute Eosinophils 0.1, Absolute Basophils 0, PUBS MCHC 33.7 Laboratory Tests 04/05/17 0600: Sodium Cancelled, Potassium Cancelled, Chloride Cancelled, Carbon Dioxide Cancelled, Anion Gap Cancelled, BUN Cancelled, Creatinine Cancelled, BUN/ Creatinine Ratio Cancelled, CBC w Diff Cancelled, WBC Cancelled, RBC Cancelled, Hgb Cancelled, Hct Cancelled, MCV Cancelled, MCH Cancelled, RDW Cancelled, Plt Count Cancelled, MPV Cancelled, PUBS MCHC Cancelled 04/04/17 2105: Urine Total Volume Cancelled, Ur Total Protein 24 Hr Cancelled 04/04/17 1734: Lactic Acid 0.7 04/04/17 1430: Urinalysis MOD H, Urine Color YEL, Urine Clarity HAZY H, Urine pH 6.0, Ur Specific [place] 1.020, Urine Protein 100 H, Urine Ketones NEG, Urine Nitrite NEG, Urine Bilirubin NEG@ICTO, Urine Urobilinogen 4.0 H, Ur Leukocyte Esterase MOD H, Ur Microscopic SEDIMENT EXAMINED, Urine RBC >75 H, Urine WBC 15-25 H, Urine Bacteria RARE H, Urine Hemoglobin LARGE H, Urine Glucose NEG 04/04/17 1430: Ur Random Creatinine 132.3, U Random Total Protein 113 H, Ur Random Sodium 32, Ur Random Potassium 19.9, Fraction Sodium Excret 0.2 04/04/17 1410: Anion Gap 13, Estimated GFR 51 L, BUN/Creatinine Ratio 12.9, Glucose 104 H, Lactic Acid 2.2 H, Calcium 9.6, Phosphorus 3.8, Magnesium 2.1, Total Bilirubin 1.5 H, Direct Bilirubin 0.4, AST 18, ALT 27, Alkaline Phosphatase 62, Troponin I 0.03, Total Protein 6.6, Albumin 4.0, Globulin 2.6, Albumin/Globulin Ratio 1.5 , CBC w Diff NO MAN DIFF REQ, RBC 5.17, MCV 86.2, MCH 29.1, RDW 13.7, MPV 8.8, Gran % 81.1 H, Lymphocytes % 8.5 L, Monocytes % 9.5 H, Eosinophils % 0.9, Basophils % 0 L, Absolute Granulocytes 10.0 H, Absolute Lymphocytes 1.0 L, Absolute Monocytes 1.2 H, Absolute Eosinophils 0.1, Absolute Basophils 0, PUBS MCHC 33.7 Microbiology 04/05 0635 URINE ROUT: Urine Culture - RECD 04/04 143 URINE ROUT: Urine Culture - RES GRAM NEGATIVE RODS 04/04 141 BLOOD: Blood Culture - RES 04/04 141 BLOOD: Blood Culture - RES Assessment/Plan Assessment: Mr. Madrigal is a 67 yo, morbidly obese man with PMHx of obstructive sleep apnea, COPD (4L oxygen at home), Hypertrophic obstructive cardiomyopathy, HTN, restless leg syndrome, and anxiety. He was recently admitted to [facility] due to HoTN, MANJIT and urinary retention for which he has had a jimenez placed for 1 month. He comes to [facility] due to persistent pain at jimenez site with associated fever, chills, dizziness. On admission he was found to be hypotensive for which they gave fluids resulting in stabilization. Patient feeling better today. slight suprapubic pain on palpation noted although urine output has improved since yesterday. Cultures positive for G- rods and G+ cocci >100,000 for each. His vitals are stable, and his renal function has normalized. Pancytopenia most likely due to fluid dilution. Current Medications Sig/Jared Start time Last Medication Dose Route Stop Time Status Admin Acetaminophen 650 MG Q6P PRN 04/04 2100 AC PO Acetaminophen 1,000 MG Q6P PRN 04/04 2100 AC IV Cilostazol 100 MG BID 04/05 1000 AC 04/06 PO 0950 Clotrimazole 1 FRACISCO BID 04/05 0223 AC 04/06 TOP 0950 Finasteride 5 MG DAILY 04/05 1000 AC 04/06 PO 0950 Gabapentin 300 MG TID 04/05 1000 AC 04/06 PO 0950 Lidocaine 1 FRACISCO Q1P PRN 04/05 0800 AC TOP Lorazepam 1 MG TID PRN 04/05 1600 AC 04/06 PO 1538 Oxycodone/ 1 TAB Q8H PRN 04/05 1115 DC Acetaminophen PO Oxycodone/ 2 TAB Q6P PRN 04/04 2100 AC 04/06 Acetaminophen PO 1538 Patient Medication 1 ED .STK-MED ONE 04/06 1350 DC Teaching ED 04/06 1351 Sodium Chloride 1,000 ML Q13H 04/04 2315 DC 04/06 IV 0501 Tamsulosin HCl 0.4 MG BID 04/05 1000 AC 04/06 PO 0950 Venlafaxine HCl 225 MG 0800 04/05 0800 AC 04/06 PO 0950 Plan: Plan today is to discharge on PO antibiotics with follow up scheduled with urologist on April 13. Will have jimenez maintained by home health nurse. will continue finasteride and home medications upon discharge. Problem list: 1. Possible UTI/urosepsis- Patient's cultures postive for both G+ cocci and G- rods, no systemic symptoms and vitals stable. Patient is most likely colonized. Plan to discharge w/ next outpatient urology appointment scheduled for April 13. Follow Urology for catheter replacement and treatment recommendations. 2. Hypotension- resolved with fluid therapy, BP has been stable 3. Prostatic hypertrophy- continue Tamsulosin 0.4 mg PO BID and Finasteride 5mg PO daily 4. COPD- continue on oxygen therapy 4L nasal cannula 5. Chronic pain- continue percocet 2 tab Q6P PO and gabapentin 300 mg TID PO 6. HTN- continue to hold metoprolol and lasartan therapy 7. Anxiety- continue venlafaxine 225mg PO daily Code Status: Full Code DVT prophylaxis: ALPs Diet: normal
[2017-04-06 08:08] LABS: ABSOLUTE BASOPHIL COUNT 0 /CUMM (0.0-0.2); ABSOLUTE EOSINOPHIL COUNT 0.1 /CUMM (0.0-0.7); ABSOLUTE GRANULOCYTE CT 2.8 /CUMM (1.4-6.5); ABSOLUTE LYMPH COUNT 0.8 /CUMM (1.2-3.4); ABSOLUTE MONOCYTE COUNT 0.4 /CUMM (0.10-0.60); BASOPHIL % 0.5 % (0.0-2.0); EOSINOPHIL % 3.3 % (0-5); GRANULOCYTE % 67.7 % (42.2-75.2); MEAN CORPUSCULAR HGB 28.8 PG (27.0-31.0); MEAN CORPUSCULAR HGB CONC 33.7 G/DL (33.0-37.0); MEAN CORPUSCULAR VOLUME 85.6 FL (80.0-94.0); MEAN PLATELET VOLUME 9.6 FL (7.4-10.4); PLATELET COUNT 126 /CUMM (130-400); RBC DISTRIBUTION WIDTH 13.7 % (11.5-14.5); RED BLOOD CELL CT 3.97 /CUMM (4.70-6.10)
[2017-04-06 08:39] LABS: HEMATOCRIT 33.9 % (42-52); WHITE BLOOD CELL COUNT 4.1 /CUMM (4.8-10.8)
--- NOTE | 2017-04-06 11:31 | Discharge Summary ---
Visit Information Visit Dates Admission Date: 04/04/17 Discharge Date: 04/06/17 Hospital Course Course Attending Physician: GEN MEYER MD Primary Care Physician: RADHA ABURTO Other Care Providers: urology Consulting Request: Consulting Specialty: Urology Hospital Course: Patient is a 67-year-old male with PMH of COPD on 4L oxygen, BPH with chronic jimenez catheter for one month, hypertension, MOIRA, morbid obesity, RLS, anxiety, presented to the ED due to persistent pain at the jimenez site, urinary retention, 1 episode of hematuria, and 2 days of fever and chills, decreased appetite, weakness. He also reports intermittent episodes of dizziness since about a month ago. He was admitted twice in February 2017 once for urinary retention and BPH and most recently for hypotension and decreased urine output. Patient has had 2 ED visits during the past two days because of consistent pain and discomfort at the site of the jimenez as well as groin pain.Patient was sent home 04/03/17 on cephalexin but never got any dose because he did not manage to get it from a pharmacy. Vitals on admission -afebrile, heart rate 69, respiratory rate 14, blood pressure 76/53, saturating at 94% on room air Patient was found to be hypotensive 76/53, received 3L NS, BP came up to 140/72. Pertinent labs: WBC 12.3, Cr 1.4, lactic acid of 2.2 which can come down 0.7 after fluid resuscitation. UA: hazy, high in Pr, Urobil, mod high LE, high RBC and WBC, rare bacteria and hyaline casts Renal ultrasound Benign simple cyst right kidney unchanged.. Parenchyma appears within normal limits. No hydronephrosis Possible sepsis and CAUTI Patient presented with fever, chills, decreased oral intake and decreased urine output. Also reported pain at the site of catheter. He was on chronic indwelling catheter for benign prostate hypertrophy. Scores 2 per SOFA scoring system, for low BP on arrival and elevated Cr. (SOFA>= 2 risk of sepsis 10%). Patient also had elevated lactic acid of 2.2 that came down to 0.7 after receiving IV fluids. Patient's low BP resolved after 3 L of NS IV boluses. Also received one dose of Ceftriaxone 1000 mg in the ER. He was in the general medicine floor for 24-hour observation. We continued IV fluids normal saline at 75 mL per hour. Urine analysis showed leukocyte esterase, RBC, WBC, bacteria, hemoglobin Urine culture and blood culture were ordered. We continued IV antibiotics ceftriaxone for 2 days. Follow-up urine culture showed gram-negative rods acenetobacter sensitive to Bactrim, ciprofloxacin, gentamicin, Augmentin, ceftaz. He was discharged to home on Bactrim for 3 more days. Urology CONSULTED- Foleys was changed in the emergency room, plan was to continue Foleys catheter for now as per urology recommendations. He has follow- up appointment with urologist Dr. Burch on 04/13/2017 for cystoscopy MANJIT Elevated Cr (but BUN/Cr <20), FeNa<1 (0.2) - possible etiologies is a mixture pre-renal and post-renal (clogged jimenez catheter). Continued IV hydration and Repeat BEP showed improved creatinine BPH He was On tamsulosin started 8 years ago for BPH, he has indwelling cath. since a month ago due to frequency and urgency. He has been having constant discomfort at the jimenez site, had episode of hematuria 3-4 days ago, there is purulent discharge at the tip of the penis. He was supposed to see Dr. Burch in the office on April 13. Urology was consulted. We continued Flomax and started finasteride as per urology recommendations. He has follow-up appointment for cystoscopy on [address] Atkins. He was discharged on Foleys catheter as per . COPD stable - on 4L oxygen, his SO2 is >92% most of the time without oxygen. Does not report any history of smoking. Was admitted in March 2016 for SOB, and COPD plus MOIRA was in the differentials, he was told to follow up with Dr. Salazar for TFTs and sleep study. PVD Intermittent claudication continued cilostazol Skin rash erythematous rash in groins, in the creases between the abdomen and thigh, most likely fungal infection. continued clotrimazole cream. Hypertension Patient is on metoprolol and losartan at home blood pressure medications were held in the hospital as he came in with hypotension Metoprolol and losartan continued at the time of discharge Anxiety Patient usually takes Ativan 1 mg 3 times a day as required for anxiety continued Ativan in the hospital Depression Patient usually takes venlafaxine continued his home medication Chronic pain Patient has chronic pain-low back pain and shoulder pain On Percocet at home. continued his home medication-Percocet Nerve pain Continued gabapentin Pain control: tylenol, IV acetaminophen, percocet Diet regular Full code DVT prophylaxis subcutaneous heparin Complications: none Allergies: Coded Allergies: Penicillins (Severe, TONGUE SWELLING 02/25/17) Significant Procedures: none Pertinent Lab Results: renal U/S IMPRESSION: Benign simple cyst right kidney unchanged.. Parenchyma appears within normal limits. No hydronephrosis Disposition Summary Disposition Principal Diagnosis: Sepsis possibly from catheter Associated Urinary Tract Infection Additional Diagnosis: Chronic Foleys due to prostate enlargement Discharge Disposition: home health services Discharge Instructions General Discharge Information Code Status: Full Code Patient's Diet: As tolerated Patient's Activity: As tolerated Follow-Up Instructions/Appts: Please follow-up with your primary care doctor in 1-2 weeks please follow-up with your urologist Dr. atkins on 04/13/2017 for your appointment for cystoscopy. Medications at Discharge Discharge Medications: Stop taking the following medications: Cephalexin (Keflex) 500 MG CAPSULE ORAL THREE TIMES DAILY Qty = 21 Continue taking these medications: Venlafaxine HCl (Venlafaxine HCl ER) 225 MG TAB.ER.24 1 Tablet ORAL DAILY Comments: Last Taken: 04/06/17 Time: 9 AM Lorazepam (Lorazepam) 1 MG TABLET 1 Tablet ORAL THREE TIMES DAILY as needed for ANXIETY Comments: Last Taken: 04/06/17 Time: 9 AM Gabapentin (Neurontin) 300 MG CAPSULE 1 Capsule ORAL THREE TIMES DAILY Comments: Last Taken: 04/06/17 Time: 9 AM Multivitamin (Multiple Vitamins) 1 EACH TABLET 1 Tablet ORAL DAILY Comments: Last Taken: NOT GIVEN IN HOSPITAL Time: Cilostazol (Cilostazol) 100 MG TABLET 1 Tablet ORAL TWICE DAILY Comments: Last Taken: 04/06/17 Time: 9 AM Tamsulosin HCl (Flomax) 0.4 MG CAP.ER.24H 1 Capsule ORAL TWICE DAILY Comments: Last Taken: 04/06/17 Time: 9 AM Metoprolol Tartrate (Metoprolol Tartrate) 50 MG TABLET 50 Milligram ORAL TWICE DAILY Days = 30 Comments: Last Taken: NOT GIVEN AT HOSPITAL Time: Losartan Potassium (Losartan Potassium) 50 MG TABLET 50 Milligram ORAL DAILY Days = 30 Comments: Last Taken: NOT GIVEN AT HOSPITAL Time: Clotrimazole (Lotrimin AF) 1 % CREAM..G. 1 Application On the skin TWICE DAILY Qty = 24 Instructions: apply to affected area(s) Comments: Last Taken: 04/06/17 Time: 9 AM Buprenorphine (Butrans) 20 MCG/HOUR PATCH.TDWK 1 Patch On the skin ONCEAWEEK Comments: Last Taken: NOT GIVEN IN HOSPITAL Time: Oxycodone HCl/Acetaminophen (Percocet 5-325 MG Tablet) 5 MG-325 MG TABLET 1 Tablet ORAL Q8H as needed for CHRONIC PAIN Comments: Last Taken: 04/06/17 Time: 9 AM Start taking the following new medications: Finasteride (Finasteride) 5 MG TABLET 1 Tablet ORAL DAILY Qty = 30 No Refills Comments: Last Taken: 04/06/17 Time: 9 AM Sulfamethoxazole/Trimethoprim (Bactrim Ds Tablet) 800 MG-160 MG TABLET 1 Tablet ORAL TWICE DAILY Qty = 6 No Refills Comments: Last Taken: NOT GIVEN AT HOSPITAL Time: Copies To: RADHA ABURTO
[2017-04-06] MEDS ORDERED: BACTRIM DS TAB1 EACH PO (14:09)
[2017-04-06 14:54] VITALS: BP 120/80
== END 2017-04-06 17:09 ==
LOC: ERH 13:47 → 2NA 20:48 → ERHI 20:48 → 2NA 20:48 → ENRESERV 21:14 → 2NA 22:14 → ENPENDDIS 04-06 14:18 → 2NA 04-06 17:09
PROVIDERS: Physician Assistant Medical; ADMIT Internal Medicine
DX: T83.511A Infection and inflammatory reaction due to indwelling urethral catheter, initial encounter (principal); N39.0 Urinary tract infection, site not specified; N17.9 Acute kidney failure, unspecified; E87.2 Acidosis; I10 Essential (primary) hypertension; G25.81 Restless legs syndrome; N40.0 Benign prostatic hyperplasia without lower urinary tract symptoms; J44.9 Chronic obstructive pulmonary disease, unspecified; J45.909 Unspecified asthma, uncomplicated; I73.9 Peripheral vascular disease, unspecified; R21 Rash and other nonspecific skin eruption; G89.29 Other chronic pain; F41.9 Anxiety disorder, unspecified; F32.9 Major depressive disorder, single episode, unspecified; R33.9 Retention of urine, unspecified; I95.9 Hypotension, unspecified; E66.01 Morbid (severe) obesity due to excess calories; J96.10 Chronic respiratory failure, unspecified whether with hypoxia or hypercapnia; M79.2 Neuralgia and neuritis, unspecified
CPT/HCPCS: 1328; 1425; 1530; 1748; 84133; 84300; 76775; 81001; 82436; 82570; 87040; 87086; 87147; 93005; 93010; 96361; 96374; G0378; J0696

== ENCOUNTER 2017-04-07 04:02 | Emergency (ER) | payer OTHER, MEDICARE ==
[~2017-04-07] VITALS: Ht 182.9 cm; Wt 108.9 kg
[~2017-04-07 04:02] MED LIST changes: +BACTRIM DS TAB1 EACH PO; +FINASTERIDE5 M1 PO
--- NOTE | 2017-04-07 04:05 | ED GI/GU/ABDOMINAL COMPLAINT ---
History of Present Illness General Chief Complaint: General Adult Stated Complaint: CLOGGED JIMENEZ Source: patient, EMS Exam Limitations: no limitations Vital Signs & Intake/Output Vital Signs & Intake/Output Vital Signs Date Time Temp Pulse Resp B/P B/P Pulse O2 O2 Flow FiO2 Mean Ox Delivery Rate 04/07 0433 187/82 04/07 0419 99.2 88 16 202/110 92 Room Air Room Air 04/07 0408 98 Room Air Allergies Coded Allergies: Penicillins (Severe, TONGUE SWELLING 02/25/17) Reconcile Medications Buprenorphine (Butrans) 20 MCG/HOUR PATCH.TDWK 1 PAT TOP ONCEAWEEK PAIN ( Reported) Cilostazol 100 MG TABLET 1 TAB PO BID INTERMITTENT CLAUDICATION (Reported) Clotrimazole (Lotrimin AF) 1 % CREAM..G. 1 FRACISCO TOP BID TINEA CRURIS apply to affected area(s) Finasteride 5 MG TABLET 1 TAB PO DAILY bph Gabapentin (Neurontin) 300 MG CAPSULE 1 CAP PO TID NERVE PAIN (Reported) Lorazepam 1 MG TABLET 1 TAB PO TID PRN ANXIETY (Reported) Losartan Potassium 50 MG TABLET 50 MG PO DAILY HIGH BP Metoprolol Tartrate 50 MG TABLET 50 MG PO BID HIGH BP, HEART HEALTH Multivitamin (Multiple Vitamins) 1 EACH TABLET 1 TAB PO DAILY SUPPLEMENT ( Reported) Oxycodone HCl/Acetaminophen (Percocet 5-325 MG Tablet) 5 MG-325 MG TABLET 1 TAB PO Q8H PRN CHRONIC PAIN (Reported) Sulfamethoxazole/Trimethoprim (Bactrim Ds Tablet) 800 MG-160 MG TABLET 1 TAB PO BID urine infection Tamsulosin HCl (Flomax) 0.4 MG CAP.ER.24H 1 CAP PO BID PROSTATE (Reported) Venlafaxine HCl (Venlafaxine HCl ER) 225 MG TAB.ER.24 1 TAB PO DAILY MENTAL HEALTH (Reported) Triage Nurses Notes Reviewed? yes Onset: Abrupt Duration: hour(s): Timing: recent history Quality/Severity: cramping Location: suprapubic Radiation: no radiation Activities at Onset: none Prior Abdominal Problems: similar symptoms Modifying Factors: Worsens With: urinating. Associated Symptoms: nocturia HPI: 67-year-old gentleman with a history of urinary retention, with a chronic Jimenez for the past several weeks, presents with his Jimenez being clogged. He states that the Jimenez was placed yesterday afternoon. "This happens to me all the time , "he says. "A place a Jimenez and a few hours later the Jimenez no longer drains. I started feeling the pressure and a common right away." He notes that the Jimenez bag is mostly empty. He feels a slight pressure in the suprapubic region. He has no fever chills nausea vomiting diarrhea. Past History Travel History Traveled to [place] past 21 day No Medical History Any Pertinent Medical History? see below for history Neurological: NONE EENT: NONE Cardiovascular: hypertension Respiratory: COPD Gastrointestinal: NONE Hepatic: NONE Renal: benign prost hyperplasia Musculoskeletal: NONE Psychiatric: anxiety Endocrine: NONE Blood Disorders: NONE Cancer(s): NONE PURCHASING ANALYST/Reproductive: NONE Other Medical Hx: OBESITY History of MRSA: No History of VRE: No History of CDIFF: No Surgical History Surgical History: varicocoele Psychosocial History Who do you live with Patient/Self Services at Home None What is your primary language Tongan Family History Family History, If Any: SISTER (esophageal cancer). BROTHER (esophageal and colon cancer). FATHER (hypertension, ?esophageal aneurysm). Hx Contributory? No Review of Systems Review of Systems Constitutional: Reports: no symptoms. EENTM: Reports: no symptoms. Respiratory: Reports: no symptoms. Cardiovascular: Reports: no symptoms. GI: Reports: no symptoms. Genitourinary: Reports: no symptoms. Musculoskeletal: Reports: no symptoms. Skin: Reports: no symptoms. Neurological/Psychological: Reports: no symptoms. Hematologic/Endocrine: Reports: no symptoms. Immunologic/Allergic: Reports: no symptoms. All Other Systems: Reviewed and Negative Physical Exam Physical Exam General Appearance: well developed/nourished, no apparent distress Head: atraumatic, normal appearance Eyes: Bilateral: normal appearance, PERRL, EOMI, normal inspection. Ears, Nose, Throat, Mouth: hearing grossly normal, dental injury, moist mucous membrane, Tympanic normal Neck: normal inspection, supple, full range of motion, normal alignment Respiratory: normal breath sounds, chest non-tender, no respiratory distress, quiet respiration, lungs clear Cardiovascular: regular rate/rhythm, edema, gallop, JVD, murmur Peripheral Pulses: 1+ carotid (R), 1+ carotid (L), 1+ radial (R), 1+ radial (L) Gastrointestinal: normal bowel sounds, soft, non-tender, no organomegaly, pulsatile mass, abnormal bowel sounds Rectal: deferred Male Genitals: normal genitalia Extremities: normal range of motion, no ligament instability Neurologic/Psych: no motor/sensory deficits, awake, alert, oriented x 3 Skin: intact, normal color, warm/dry Core Measures ACS in differential dx? No Severe Sepsis Present: No Septic Shock Present: No Progress Differential Diagnosis: retention versus UTI versus other Plan of Care: Patient's Jimenez was flushed and began functioning normally. Initial ED EKG: none Departure Departure Disposition: HOME OR SELF CARE Condition: Stable Clinical Impression Primary Impression: Jimenez catheter problem Referrals: RADHA ABURTO (PCP/Family) Departure Forms: Customer Survey General Discharge Information Comments Patient is presently taking antibiotics. The jimenez balloon was deflated and re- inflated to proper tension with 10cc saline. 350 cc drained... Jimenez now draining freely. Pt safe for discharge and has appointment to follow up with urology next week.
[2017-04-07 05:56] VITALS: BP 188/89
== END 2017-04-07 06:00 ==
LOC: ERH 04:02
DX: T83.098A Other mechanical complication of other urinary catheter, initial encounter (principal)

== ENCOUNTER 2017-04-22 18:40 | Emergency (ER) | payer OTHER, MEDICARE ==
[~2017-04-22] VITALS: Ht 195.6 cm; Wt 154.2 kg
--- NOTE | 2017-04-22 19:09 | ED GI/GU/ABDOMINAL COMPLAINT ---
History of Present Illness General Chief Complaint: Male Genitourinary Problems Stated Complaint: BIBA FOR DIFF URINATING AFTER CATH REMOVAL YEST Source: patient, old records Exam Limitations: no limitations Vital Signs & Intake/Output Vital Signs & Intake/Output Vital Signs Date Time Temp Pulse Resp B/P B/P Pulse O2 O2 Flow FiO2 Mean Ox Delivery Rate 04/22 2159 98.2 82 19 142/67 96 Room Air 04/22 2047 98.7 49 18 114/56 97 Room Air 04/22 1950 90/54 04/22 1849 97.7 64 18 96/54 93 Room Air ED Intake and Output 04/23 0000 04/22 1200 Intake Total 1100 Output Total Balance 1100 Intake, IV 1100 Patient 340 lb Weight Weight Reported by Patient Measurement Method Allergies Coded Allergies: Penicillins (Severe, TONGUE SWELLING 02/25/17) Reconcile Medications Buprenorphine (Butrans) 20 MCG/HOUR PATCH.TDWK 1 PAT TOP QSAT PAIN (Reported) Cilostazol 100 MG TABLET 1 TAB PO BID INTERMITTENT CLAUDICATION (Reported) Ciprofloxacin HCl (Cipro) 500 MG TABLET 1 TAB PO BID uti Clotrimazole (Lotrimin AF) 1 % CREAM..G. 1 FRACISCO TOP BID TINEA CRURIS apply to affected area(s) Finasteride 5 MG TABLET 1 TAB PO DAILY bph Fluconazole (Diflucan) 150 MG TABLET 1 TAB PO ONCE yeast Gabapentin (Neurontin) 300 MG CAPSULE 1 CAP PO TID NERVE PAIN (Reported) Lorazepam 1 MG TABLET 1 TAB PO TID PRN ANXIETY (Reported) Losartan Potassium 50 MG TABLET 50 MG PO DAILY HIGH BP Metoprolol Tartrate 50 MG TABLET 50 MG PO BID HIGH BP, HEART HEALTH Multivitamin (Multiple Vitamins) 1 EACH TABLET 1 TAB PO DAILY SUPPLEMENT ( Reported) Oxycodone HCl/Acetaminophen (Percocet 5-325 MG Tablet) 5 MG-325 MG TABLET 1 TAB PO Q8H PRN CHRONIC PAIN (Reported) Phenazopyridine HCl (Pyridium) 200 MG TABLET 1 TAB PO TID dysuria Tamsulosin HCl (Flomax) 0.4 MG CAP.ER.24H 1 CAP PO BID PROSTATE (Reported) Venlafaxine HCl (Venlafaxine HCl ER) 225 MG TAB.ER.24 1 TAB PO DAILY MENTAL HEALTH (Reported) Triage Nurses Notes Reviewed? yes Onset: Abrupt Duration: day(s): (1), constant Timing: recent history Quality/Severity: burning Severity Numbers: 4 Location: urethral Radiation: no radiation Activities at Onset: none Prior Abdominal Problems: similar symptoms No Modifying Factors: none Associated Symptoms: DENIES HPI: 67 Year old male with PMH of COPD on 4L oxygen, BPH with chronic jimenez catheter for one month, hypertension, MOIRA, morbid obesity, RLS, anxiety presents to the ER for evaluation complain of difficulty voiding dysuria or burning with urination after he had his Jimenez catheter removed yesterday by urologist Dr. tillman. The patient denies any symptoms at rest and only present with attempted urination. No abdominal pain leg swelling fever chills nausea vomiting. On arrival patient is noted to be hypotensive he denies dizziness or lightheadedness old records reviewed show that the patient has had history of hypotension in the past. He denies hematuria, no discharge from his penis no rashes to the skin. No diarrhea (GABBY ESPINOZA) Past History Travel History Traveled to [place] past 21 day No Medical History Any Pertinent Medical History? see below for history Neurological: NONE EENT: NONE Cardiovascular: hypertension Respiratory: COPD Gastrointestinal: NONE Hepatic: NONE Renal: benign prost hyperplasia Musculoskeletal: NONE Psychiatric: anxiety Endocrine: NONE Blood Disorders: NONE Cancer(s): NONE STILL RUNNER/Reproductive: NONE Other Medical Hx: OBESITY History of MRSA: No History of VRE: No History of CDIFF: No Surgical History Surgical History: varicocoele Psychosocial History Who do you live with Patient/Self Services at Home None What is your primary language Polish Family History Family History, If Any: SISTER (esophageal cancer). BROTHER (esophageal and colon cancer). FATHER (hypertension, ?esophageal aneurysm). Hx Contributory? No (GABBY ESPINOZA) Review of Systems Review of Systems Constitutional: Reports: see HPI. All Other Systems: Reviewed and Negative Comments Review of systems: See HPI, All other systems negative. Constitutional, no chills no fever, no malaise HEENT: No visual changes no sore throat no congestion, Cardiovascular: No chest pain , no palpitation , Skin: no rashes, no change in skin Respiratory: No dyspnea no cough no sputum GI: No nausea no vomiting, no diarrhea : No dysuria Muscle skeletal: No joint pain, no back pain, no neck pain, Neurologic: no headache Psych: No stress Heme/endocrine: No bruising no bleeding Immunology: No lymphadenopathy (GABBY ESPINOZA) Physical Exam Physical Exam General Appearance: well developed/nourished, no apparent distress, alert, awake Gastrointestinal: soft Comments: Well-developed well-nourished person in no acute distress HEENT: Normal EENT exam; PERRL, EOMI, HEAD is atraumatic. moist mucous membranes. Neck: Supple, normal range of motion Back: Nontender, no CVA tenderness. Full range of motion Cardiovascular: Regular rate and rhythms no murmurs rubs Respiratory: No respiratory distress. Patient speaking in full complete sentences. Breath sounds clear to auscultation bilaterally: NO W/R/R Abdomen: Soft, nontender nondistended, no appreciable organomegaly. Normal bowel sounds. No rebound/guarding, No appreciable enlargement of the abdominal aorta, No ascites. Male : Normal external genitalia, testes nontender. No scrotal swelling or mases, No lesions/discharge. Extremity: No edema, full range of motion of extremities Neuro: Alert oriented x3, motor sensory normal, . There were no obvious focal neurologic abnormalities. Skin: No appreciable rash on exposed skin, skin is warm and dry. Psych: Mood and affect is normal, memory and judgment is normal. Core Measures ACS in differential dx? No Severe Sepsis Present: No Septic Shock Present: No (GABBY ESPINOZA) Progress Differential Diagnosis: ureterolithiasis, urinary retention, urethritis, UTI/ pyelo, ELECTROLYTE ABNORMALITY DEHYDRATION SEPSIS Plan of Care: Orders Procedure Date/time Status Add-on Test (ER Only) 04/22 2016 Active LACTIC ACID 04/22 1935 Complete Saline Lock 04/22 1922 Active CULTURE,URINE 04/22 1922 Active URINALYSIS 04/22 1922 Complete COMPREHENSIVE METABOLIC PANEL 04/22 1922 Complete CBC WITHOUT DIFFERENTIAL 04/22 1922 Complete Laboratory Tests 04/22/171934: Anion Gap 8, Estimated GFR 55 L, BUN/Creatinine Ratio 13.1, Glucose 102 H, Lactic Acid 1.1, Calcium 8.7, Total Bilirubin 0.9, AST 17, ALT 29, Alkaline Phosphatase 55, Total Protein 5.6 L, Albumin 3.3 L, Globulin 2.3, Albumin/ Globulin Ratio 1.4, CBC w Diff NO MAN DIFF REQ, RBC 4.43 L, MCV 85.3, MCH 28.8, RDW 13.8, MPV 9.1, Gran % 75.1, Lymphocytes % 14.1 L, Monocytes % 8.3, Eosinophils % 2.2, Basophils % 0.3, Absolute Granulocytes 3.8, Absolute Lymphocytes 0.7 L, Absolute Monocytes 0.4, Absolute Eosinophils 0.1, Absolute Basophils 0, PUBS MCHC 33.8 04/22/171924: Urine Color YEL, Urine Clarity CLEAR, Urine pH 6.0, Ur Specific [place] <= 1.005 , Urine Protein NEG, Urine Ketones NEG, Urine Nitrite NEG, Urine Bilirubin NEG, Urine Urobilinogen 0.2, Ur Leukocyte Esterase SMALL H, Ur Microscopic SEDIMENT EXAMINED, Urine RBC 1-3, Urine WBC 5-10 H, Ur Epithelial Cells FEW, Micro UA Comment BUDDING YEAST H, Urine Hemoglobin NEG, Urine Glucose NEG Microbiology 04/22 1925 URINE ROUT: Urine Culture - RECD Old records reviewed patient was able to provide urine sample case was discussed with Dr. Juarez old records including the patient's urine culture from earlier this week reviewed showed no growth Patient's blood pressure responded to fluids he feels improved, the patient is afebrile Ur is no elevated white blood cell count his lactic acid is within normal limits we'll treat him for suspected UTI with Diflucan and Cipro by radium advise close follow-up with his urologist on Tuesday he feels comfortable with this plan answered all his questions return progressions were discussed with the patient at length (GABBY ESPINOZA) Initial ED EKG: none (GABBY ESPINOZA) Departure Departure Time of Disposition: 2100 Disposition: HOME OR SELF CARE Condition: Stable Clinical Impression Primary Impression: UTI (urinary tract infection) Referrals: ELLIE LEE,RADHA WANG (PCP/Family) Additional Instructions: Follow-up with your urologist Dr. tillman on tuesday. cipro, pyridium and diflucan as directed. return at anytime sooner if you develop difficulty urinating, fever,chills orany other concerns. your prescriptions were sent to [facility] Departure Forms: Customer Survey General Discharge Information Prescriptions: Current Visit Scripts Ciprofloxacin HCl (Cipro) 1 TAB PO BID #14 TAB Phenazopyridine HCl (Pyridium) 1 TAB PO TID #9 TAB Fluconazole (Diflucan) 1 TAB PO ONCE #1 TAB (YANNA BOLAÑOS,GABBY) PA/WORKS MANAGER Co-Sign Statement Statement: ED Attending supervision documentation- [] I saw and evaluated the patient. I have also reviewed all the pertinent lab results and diagnostic results. I agree with the findings and the plan of care as documented in the PA's/WORKS MANAGER's documentation. [X] I have reviewed the ED Record and agree with the PA's/WORKS MANAGER's documentation. [] Additions or exceptions (if any) to the PAs/WORKS MANAGER's note and plan are summarized below: [] (BRIANNA LEE,LIZBETH Judd)
[2017-04-22 20:11] LABS: ABSOLUTE BASOPHIL COUNT 0 /CUMM (0.0-0.2); ABSOLUTE EOSINOPHIL COUNT 0.1 /CUMM (0.0-0.7); ABSOLUTE GRANULOCYTE CT 3.8 /CUMM (1.4-6.5); ABSOLUTE LYMPH COUNT 0.7 /CUMM (1.2-3.4); ABSOLUTE MONOCYTE COUNT 0.4 /CUMM (0.10-0.60); BASOPHIL % 0.3 % (0.0-2.0); EOSINOPHIL % 2.2 % (0-5); GRANULOCYTE % 75.1 % (42.2-75.2); HEMATOCRIT 37.8 % (42-52); MEAN CORPUSCULAR HGB 28.8 PG (27.0-31.0); MEAN CORPUSCULAR HGB CONC 33.8 G/DL (33.0-37.0); MEAN CORPUSCULAR VOLUME 85.3 FL (80.0-94.0); MEAN PLATELET VOLUME 9.1 FL (7.4-10.4); PLATELET COUNT 163 /CUMM (130-400); RBC DISTRIBUTION WIDTH 13.8 % (11.5-14.5); RED BLOOD CELL CT 4.43 /CUMM (4.70-6.10); WHITE BLOOD CELL COUNT 5.1 /CUMM (4.8-10.8)
[2017-04-22] MEDS ORDERED: PYRIDIUM200 M1 PO (21:03)
[2017-04-22] MEDS ORDERED: DIFLUCAN150 M1 PO (21:03)
[2017-04-22] MEDS ORDERED: CIPRO500 M1 PO (21:03)
[2017-04-22 21:59] VITALS: BP 142/67
== END 2017-04-22 22:01 ==
LOC: ERH 18:40
PROVIDERS: Physician Assistant Medical
DX: N39.0 Urinary tract infection, site not specified (principal)
CPT/HCPCS: 81001; 87086; 96361; 96374; J0696

== ENCOUNTER 2017-04-28 14:11 | Inpatient (IN) | payer OTHER, MEDICARE ==
[~2017-04-28] VITALS: Ht 195.6 cm; Wt 149.7 kg
[~2017-04-28 14:11] MED LIST changes: +CIPRO500 M1 PO; +DIFLUCAN150 M1 PO; +PYRIDIUM200 M1 PO
--- NOTE | 2017-04-28 14:24 | NUR ---
PER EMS PT TOOK A FALL ACROSS THE STREET FROM [place] WHILE AT A VISIT, REPORTS NO LOC, PT LATER REPORTED HE GOT DIZZY, AND FELL DOWN STRUCK HEAD PT ARRIVES TO BASELINE
--- NOTE | 2017-04-28 14:41 | NUR ---
PERMISSION FROM DR. GONZALEZ FOR ORDERS IN TRIAGE FOR EKG, CT AND LABS
--- NOTE | 2017-04-28 14:48 | ED MVC/FALL/TRAUMA COMPLAINT ---
History of Present Illness General Chief Complaint: Fall Stated Complaint: BIBA FOR FALL Source: patient, family Exam Limitations: confusion Vital Signs & Intake/Output Vital Signs & Intake/Output Vital Signs Date Time Temp Pulse Resp B/P B/P Pulse O2 O2 Flow FiO2 Mean Ox Delivery Rate 04/28 1734 97.3 101 20 165/116 94 Nasal 2.0L Cannula 04/28 1713 94 Nasal 2.0L Cannula 04/28 1529 97.1 67 18 100/69 95 Nasal 2.0L Cannula Allergies Coded Allergies: Penicillins (Severe, TONGUE SWELLING 02/25/17) Reconcile Medications Buprenorphine (Butrans) 20 MCG/HOUR PATCH.TDWK 1 PAT TOP QSAT PAIN (Reported) Cilostazol 100 MG TABLET 1 TAB PO BID INTERMITTENT CLAUDICATION (Reported) Ciprofloxacin HCl (Cipro) 500 MG TABLET 1 TAB PO BID uti Clotrimazole (Lotrimin AF) 1 % CREAM..G. 1 FRACISCO TOP BID TINEA CRURIS apply to affected area(s) Finasteride 5 MG TABLET 1 TAB PO DAILY bph Fluconazole (Diflucan) 150 MG TABLET 1 TAB PO ONCE yeast Gabapentin (Neurontin) 300 MG CAPSULE 1 CAP PO TID NERVE PAIN (Reported) Lorazepam 1 MG TABLET 1 TAB PO TID PRN ANXIETY (Reported) Losartan Potassium 50 MG TABLET 50 MG PO DAILY HIGH BP Metoprolol Tartrate 50 MG TABLET 50 MG PO BID HIGH BP, HEART HEALTH Multivitamin (Multiple Vitamins) 1 EACH TABLET 1 TAB PO DAILY SUPPLEMENT ( Reported) Oxycodone HCl/Acetaminophen (Percocet 5-325 MG Tablet) 5 MG-325 MG TABLET 1 TAB PO Q8H PRN CHRONIC PAIN (Reported) Phenazopyridine HCl (Pyridium) 200 MG TABLET 1 TAB PO TID dysuria Tamsulosin HCl (Flomax) 0.4 MG CAP.ER.24H 1 CAP PO BID PROSTATE (Reported) Venlafaxine HCl (Venlafaxine HCl ER) 225 MG TAB.ER.24 1 TAB PO DAILY MENTAL HEALTH (Reported) Triage Note: PER EMS PT TOOK A FALL ACROSS THE STREET FROM [place] WHILE AT A VISIT, REPORTS NO LOC, PT LATER REPORTED HE GOT DIZZY, AND FELL DOWN STRUCK HEAD PT ARRIVES TO BASELINE Triage Nurses Notes Reviewed? yes HPI: 67 yo M PMH HTN, BPH presenting with urinary retention, fall. Patient has history of BPH, had jimenez placed up until 3 days ago, pulled at urologist office , patient has not urinated a significant volume of urine since that time, associated suprapubic pressure/distension. Falls x 2 today, fell this morning in room at [facility] while using towel to clean water off floor, fell again immediately [employer], tripped over curb while walking into urology appointment, fell forward striking right hand on sidewalk, no head trauma/LOC. Patient alert, oriented to person, place, "April", per sister at mental status baseline, denies headache or confusion. ROS (+) for intermittent chest pain and SOB with exertion for the last several months, none today. Denies fevers, chills, N/V/D/C, bloody stools, focal neurologic Sx. (BILL LEE,TACOS) Past History Travel History Traveled to [place] past 21 day No Medical History Any Pertinent Medical History? 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 BROTHER (esophageal and colon cancer). FATHER (hypertension, ?esophageal aneurysm). Hx Contributory? No (BILL LEE,TACOS) Review of Systems Review of Systems Constitutional: Reports: no symptoms. Eyes: Reports: no symptoms. Ears, Nose, Throat, Mouth: Reports: no symptoms. Respiratory: Reports: short of breath. Denies: cough, sputum production, wheezing. Cardiovascular: Reports: chest pain. Denies: palpitations, peripheral edema. Gastrointestinal/Abdominal: Reports: abdominal pain. Denies: diarrhea, nausea, vomiting. Genitourinary: Reports: see HPI. Musculoskeletal: Reports: no symptoms. Skin: Reports: no symptoms. Neurological/Psychological: Reports: no symptoms. All Other Systems: Reviewed and Negative (TACOS KHAN MD) Physical Exam Physical Exam General Appearance: well developed/nourished, no apparent distress, lethargic Head: atraumatic, normal appearance Neck: no midline tenderness, C-collar in place Respiratory: normal breath sounds, chest non-tender, no respiratory distress Cardiovascular: regular rate/rhythm, normal peripheral pulses Gastrointestinal: normal bowel sounds, soft, Mild suprapubic TTP Back: normal inspection, evidence of trauma Extremities: normal range of motion Neurologic/Psych: no motor/sensory deficits Comments: General: Eyes closed, easily arousible to voice C-spine: Collar in place, no midline c-spine TTP Chest: Equal breath sounds bilaterally, no TTP over anterior chest wall or clavicles Abdomen: Soft, mild suprapubic distension/TTP Neurologic: GCS 14 (eyes to voice), Oriented to person, place, "April", no gross motor or sensory deficits Right upper extremity: Abrasion to right lateral dorsal hand without associated bony TTP or reduced ROM Core Measures ACS in differential dx? Yes Severe Sepsis Present: No Septic Shock Present: No (BILL LEE,TACOS) Progress Differential Diagnosis: aoritic dissection, abd injury, C/T/L spine injury, ext injury, ICH, pelvis injury, pnemothorax, spinal cord injury Plan of Care: Orders Procedure Date/time Status Nothing by Mouth 04/29 B Active Misc Message 04/28 1745 Active ED Holding Orders 04/28 1745 Active Code Status 04/28 1745 Active Patient Data 04/28 1735 Active URINE OSMOLALITY 04/28 1722 Active URINE LYTES, SPOT 04/28 1722 Active SERUM OSMOLALITY 04/28 1722 Active US-RENAL/KIDNEY 04/28 1649 Active Jimenez, Insertion/Removal/Asses 04/28 1641 Active CULTURE,URINE 04/28 1641 Active URINALYSIS 04/28 1641 Complete FingerStick- Glucose 04/28 1626 Active Admit to inpatient 04/28 1607 Active Intake & Output 04/28 1514 Active TROPONIN LEVEL 04/28 1426 Complete COMPREHENSIVE METABOLIC PANEL 04/28 1426 Complete CBC WITHOUT DIFFERENTIAL 04/28 1426 Complete EKG 04/28 1416 Active Laboratory Tests 04/28/17 1730: Urinalysis LIGHT H, Urine Color ORANG H, Urine Clarity CLDY H, Urine pH 5.0, Ur Specific [place] 1.020, Urine Protein 100 H, Urine Ketones TRACE H, Urine Nitrite POS H, Urine Bilirubin POS@ICTO H, Urine Urobilinogen 4.0 H, Ur Leukocyte Esterase LARGE H, Ur Microscopic SEDIMENT EXAMINED, Urine RBC 25-50 H, Urine WBC 25-50 H, Urine Bacteria FEW H, Micro UA Comment BUDDING YEAST H, Urine Hemoglobin LARGE H, Urine Glucose 100 H 04/28/17 1730: Urine Osmolality Pending, Ur Random Creatinine 184.0, Ur Random Sodium 13 L, Ur Random Potassium 23.5, Fraction Sodium Excret 0.2 04/28/17 1439: Anion Gap 9, Estimated GFR 15 L, BUN/Creatinine Ratio 12.8, Glucose 115 H, Calcium 8.2 L, Total Bilirubin 0.7, AST 23, ALT 30, Alkaline Phosphatase 66, Troponin I < 0.01, Total Protein 5.5 L, Albumin 3.3 L, Globulin 2.2, Albumin/ Globulin Ratio 1.5, CBC w Diff NO MAN DIFF REQ, RBC 3.94 L, MCV 83.5, MCH 28.6, RDW 14.2, MPV 9.7, Gran % 82.4 H, Lymphocytes % 8.2 L, Monocytes % 7.2, Eosinophils % 2.0, Basophils % 0.2, Absolute Granulocytes 6.2, Absolute Lymphocytes 0.6 L, Absolute Monocytes 0.5, Absolute Eosinophils 0.1, Absolute Basophils 0, PUBS MCHC 34.3 Microbiology 04/28 1730 URINE ROUT: Urine Culture - RECD Physician MDM: 67 yo M PMH HTN, BPH presenting with urinary retention, fall. BP 100/60, HR 70s, listless but easily arousible, remainder of exam as above. DDx: Obstructive uropathy, UTI, cystitis, pyelonpehritis, concussion, ICH, c-spine fracture. ECG with STD in anterior leads more pronounced then on prior, no LOUIS or other ischemic changes. Troponin negative. BMP with hyponatremia to 123, hyperkalemia 5.8, MANJIT with Cr 4.0. Calcium, insulin, dextrose. 2L NS started. Bedside U/S with distended bladder, jimenez placed with return of dark, blood tinged urine. Admit to hospitalist for further management. (BILL LEE,TACOS) Departure Departure Disposition: STILL A PATIENT Condition: Stable Clinical Impression Primary Impression: MANJIT (acute kidney injury) Secondary Impressions: Hyperkalemia, Hyponatremia, Obstructive uropathy Referrals: RADHA ABURTO (PCP/Family) Departure Forms: Customer Survey General Discharge Information Admission Note Spoke With: RACHEL MCKEON M.D Documentation of Exam: Documentation of any treatments & extenuating circumstances including Concerns Regarding Discharge (functional status, medication knowledge or non-compliance, living conditions, etc.) that warrant an admission rather than observation: [ Patient presented with altered mental status, confusion, multiple falls, found to have obstructive uropathy related to benign prostatic hyperplasia, obstructive uropathy complicated by impressive MANJIT, hyponatremia, hyperkalemia, patient requires admission for close monitoring given electrolyte abnormalities, ongoing correction of electrolyte abnormalities, requires IV fluid resuscitation , requires placement of Jimenez catheter and monitoring of urine output, requires IV antibiotics for treatment of urinary tract infection, if discharge the patient has a high risk of arrhythmia and sudden related to electrolyte abnormality, if discharge the patient has a high likelihood of ongoing obstructive uropathy with progressive MANJIT and significant kidney damage (BILL LEE,TACOS) PA/PROJECT GEOLOGIST Co-Sign Statement Statement: ED Attending supervision documentation- [X] I saw and evaluated the patient. I have also reviewed all the pertinent lab results and diagnostic results. I agree with the findings and the plan of care as documented in the PA's/PROJECT GEOLOGIST's documentation. [] I have reviewed the ED Record and agree with the PA's/PROJECT GEOLOGIST's documentation. [] Additions or exceptions (if any) to the PAs/PROJECT GEOLOGIST's note and plan are summarized below: [] (CHIVO GONZALEZ DO)
[2017-04-28 14:49] LABS: ABSOLUTE BASOPHIL COUNT 0 /CUMM (0.0-0.2); ABSOLUTE EOSINOPHIL COUNT 0.1 /CUMM (0.0-0.7); ABSOLUTE GRANULOCYTE CT 6.2 /CUMM (1.4-6.5); ABSOLUTE LYMPH COUNT 0.6 /CUMM (1.2-3.4); ABSOLUTE MONOCYTE COUNT 0.5 /CUMM (0.10-0.60); BASOPHIL % 0.2 % (0.0-2.0); GRANULOCYTE % 82.4 % (42.2-75.2); HEMATOCRIT 32.9 % (42-52); MEAN CORPUSCULAR HGB 28.6 PG (27.0-31.0); MEAN CORPUSCULAR HGB CONC 34.3 G/DL (33.0-37.0); MEAN CORPUSCULAR VOLUME 83.5 FL (80.0-94.0); MEAN PLATELET VOLUME 9.7 FL (7.4-10.4); PLATELET COUNT 167 /CUMM (130-400); RBC DISTRIBUTION WIDTH 14.2 % (11.5-14.5); RED BLOOD CELL CT 3.94 /CUMM (4.70-6.10); WHITE BLOOD CELL COUNT 7.6 /CUMM (4.8-10.8)
--- NOTE | 2017-04-28 15:14 | NUR ---
ASSUMED CARE OF PT. PT RETURING FROM CT SCAN. C COLLAR IN PLACE
--- NOTE | 2017-04-28 15:39 | NUR ---
PROVIDER TO SEE PT.
--- NOTE | 2017-04-28 15:39 | NUR ---
VITALS TAKEN WHEN LAYING FLAT IN STRETCHER. SATS 88-89% ON ROOM AIR. PLACED ON 2 LITERS NC WITH SATS 94%
--- NOTE | 2017-04-28 15:55 | CT SCAN REPORT ---
EXAMINATION: CT HEAD AND CT CERVICAL SPINE. CLINICAL INFORMATION: Fall. Evaluate for fracture an intracranial process. COMPARISON: None TECHNIQUE: 5 mm thin axial and 2.5 mm thin coronal images of brain were obtained without contrast. Subsequently 2.5 mm thin axial and reformatted 2 mm thin coronal and sagittal images of cervical spine spine were performed. Dose 1346. FINDINGS: The exam is slightly limited secondary to patient's rotation of brain to the left and motion artifact. BRAIN: There is no acute intra-axial, extra-axial bleed, masses or midline shift. Both lateral ventricles are symmetrical in size and configuration with mild enlargement. The chirinos to white matter distinction is maintained. Bone windows reveal no calvarial abnormality small retention cyst or polyp is seen in left maxillary sinus. Rest of the paranasal sinuses and mastoid air cells are well aerated. CERVICAL SPINE: On sagittal reconstructed images there is normal cervical lordosis. The vertebral heights, alignment and disc heights are normal. No visible acute fracture or dislocation seen. There is mild loss of C5-C6 and C6-C7 disc heights with posterior spondylosis. The prevertebral soft tissues appear unremarkable. The lung apices are clear. IMPRESSION: No acute intracranial process seen. Mild age-related cerebral volume loss. Small retention cyst or polyp left maxillary sinus. There is no visible acute fracture or dislocation cervical spine. Graph there are degenerative disc changes with posterior spondylosis C5-C6 and C6-C7 disc levels.
--- NOTE | 2017-04-28 16:26 | NUR ---
C COLLAR REMOVED BY PROVIDER. ATTEMPTED IV X1. UNSUCCESSFUL ATTEMPT. PT MOVED TO ROOM 6 FOR FURTHER MEDICAL TX. FINGERSTICK 90
--- NOTE | 2017-04-28 18:07 | NUR ---
PT ADMITTED TO ROOM 179-2
--- NOTE | 2017-04-28 18:10 | NUR ---
BEDSIDE US IN PROGRESS
--- NOTE | 2017-04-28 18:38 | ULTRASOUND REPORT ---
EXAMINATION: US RETROPERITONEAL COMPLETE (RENAL) CLINICAL INFORMATION: Hydronephrosis.. COMPARISON: 04/04/2017 renal ultrasound, 03/12/2017 CT abdomen and pelvis TECHNIQUE: Real-time imaging of the kidneys and bladder. The study is somewhat limited per technologist note. FINDINGS: RIGHT KIDNEY: 12.0 x 6.4 x 7.5 cm (SAG x AP x TRV). The kidney is normal in size, contour, and echogenicity. Renal cortical thickness is normal. No calculi. No hydronephrosis. There is a 2.7 x 2.3 x 2.3 cm simple appearing cyst in the upper pole, stable. LEFT KIDNEY: 13.7 x 7.0 x 5.0 cm (SAG x AP x TRV). The kidney is normal in size, contour, and echogenicity. Renal cortical thickness is normal. No calculi or focal parenchymal lesions. No hydronephrosis. BLADDER: A Shultz catheter decompresses the bladder. IMPRESSION: No change from prior study. No evidence of hydronephrosis.
--- NOTE | 2017-04-28 18:48 | NUR ---
REPORT CALLED TO RN
--- NOTE | 2017-04-28 19:04 | History & Physical ---
PAULINA VELA 04/28/17 1800: General Information and HPI MD Statement: I have seen and personally examined GABBY MADRIGAL and documented this H&P. The patient is a 67 year old M who presented with a patient stated chief complaint of [altered mental status and fall]. Source of Information: family, old records, EMS Exam Limitations: clinical condition, confusion, poor historian History of Present Illness: Patient is a poor historian and the majority of history was obtained from his sister who presented at the bedside and from the EMR records. A 67-year-old gentleman was presented for fall and altered mentation. Mr. Madrigal has a asked medical history significant for COPD on 4 L of home oxygen, BPH and chronic Jimenez placement in February 2017. Patient has been admitted to the Center for multiple admissions (e.g sepsis, dehydration, hypotension, urinary retention ). Most recently patient was admitted at [facility] from April 04 to 2016 for sepsis of urinary origin. After discharge on April 06, patient returned to emergency room on April 07 with a complaint of "my Jimenez is clogged" and are in April 22 with a complaint of difficulty urinating, during which his Jimenez was DC'd and patient was started on ciprofloxacin and refer to Dr. Burch's office on following Tuesday (April 25). According to his sister Dr. Olmedo did limited, office-based manipulation to his urethra and continued him on po ABx and plan for revisit Today at the office. According to his sister, patient has been at his normal state of health up until Tuesday-Tuesday, when he gradually became oliguric anuric. Patient denies any fever, chills, N/V/D. reported increasing by mouth intake(fluids) but she remains oliguric. Today patient's had 2 episode of fall at [facility] which did not resulted in head trauma and loss of consciousness. Patient denies any palpitation, worsening peripheral edema however he reports suprapubic pain and mild chest pain and baseline dyspnea. According to sister patient has baseline jerking movements of his extremities, which has gotten worse today. Allergies/Medications Allergies: Coded Allergies: Penicillins (Severe, TONGUE SWELLING 02/25/17) Home Med list Buprenorphine (Butrans) 20 MCG/HOUR PATCH.TDWK 1 PAT TOP QSAT PAIN (Reported) Cilostazol 100 MG TABLET 1 TAB PO BID INTERMITTENT CLAUDICATION (Reported) Ciprofloxacin HCl (Cipro) 500 MG TABLET 1 TAB PO BID uti Clotrimazole (Lotrimin AF) 1 % CREAM..G. 1 FRACISCO TOP BID TINEA CRURIS apply to affected area(s) Finasteride 5 MG TABLET 1 TAB PO DAILY bph Fluconazole (Diflucan) 150 MG TABLET 1 TAB PO ONCE yeast Gabapentin (Neurontin) 300 MG CAPSULE 1 CAP PO TID NERVE PAIN (Reported) Lorazepam 1 MG TABLET 1 TAB PO TID PRN ANXIETY (Reported) Losartan Potassium 50 MG TABLET 50 MG PO DAILY HIGH BP Metoprolol Tartrate 50 MG TABLET 50 MG PO BID HIGH BP, HEART HEALTH Multivitamin (Multiple Vitamins) 1 EACH TABLET 1 TAB PO DAILY SUPPLEMENT ( Reported) Oxycodone HCl/Acetaminophen (Percocet 5-325 MG Tablet) 5 MG-325 MG TABLET 1 TAB PO Q8H PRN CHRONIC PAIN (Reported) Phenazopyridine HCl (Pyridium) 200 MG TABLET 1 TAB PO TID dysuria Tamsulosin HCl (Flomax) 0.4 MG CAP.ER.24H 1 CAP PO BID PROSTATE (Reported) Venlafaxine HCl (Venlafaxine HCl ER) 225 MG TAB.ER.24 1 TAB PO DAILY MENTAL HEALTH (Reported) Compliance With Home Meds: UNKNOWN Past History Travel History Traveled to [place] past 21 day No Medical History Neurological: NONE EENT: NONE Cardiovascular: hypertension Respiratory: COPD Gastrointestinal: NONE Hepatic: NONE Renal: benign prost hyperplasia Musculoskeletal: NONE Psychiatric: anxiety Endocrine: NONE Blood Disorders: NONE Cancer(s): NONE MANAGER CONFIGURATION/Reproductive: NONE Other Medical Hx: OBESITY History of MRSA: No History of VRE: No History of CDIFF: No Surgical History Surgical History: varicocoele Past Family/Social History Family History Relations & Conditions if any SISTER (esophageal cancer). BROTHER (esophageal and colon cancer). FATHER (hypertension, ?esophageal aneurysm). Psychosocial History Who Do You Live With? self Services at Home: None Primary Language: Slovak Living Will? no Functional Ability ADLs Independent: dressing, eating, toileting, bathing. Ambulation: independent IADLs Independent: shopping, housework, finances, food prep, telephone, transportation , medication admin. Review of Systems Review of Systems Constitutional: Reports: see HPI. Cardiovascular: Reports: see HPI, chest pain. Denies: edema, palpitations, peripheral edema, syncope. Respiratory: Reports: see HPI, short of breath. Denies: orthopnea. GI: Reports: see HPI. Genitourinary: Reports: see HPI, hesitation, pain. Musculoskeletal: Reports: no symptoms. Neurological/Psychological: Reports: see HPI, pre-existing deficit, tremors. All Other Systems: Reviewed and Negative Exam & Diagnostic Data Last 24 Hrs of Vital Signs/I&O Vital Signs Date Time Temp Pulse Resp B/P B/P Pulse O2 O2 Flow FiO2 Mean Ox Delivery Rate 04/28 1734 97.3 101 20 165/116 94 Nasal 2.0L Cannula 04/28 1713 94 Nasal 2.0L Cannula 04/28 1529 97.1 67 18 100/69 95 Nasal 2.0L Cannula Intake & Output 04/28 1600 04/28 0800 04/28 0000 Intake Total Output Total Balance Patient 170 lb Weight Physical Exam General Appearance Alert, Oriented X3, Cooperative Skin No Rashes HEENT PERRLA, mocous membrane: dry Neck Supple Cardiovascular Normal S1, Normal S2, No Murmurs Lungs Clear to Auscultation Abdomen Soft, supra-pubic tenderness Neurological confused , myoclonic jerk Extremities No Edema Vascular Normal Pulses Assessment/Plan Assessment: 67-year-old gentleman with complicated past medical history of urinary problems and multiple admissions for urinary retention and sepsis of urinary origin was admitted for obstructive uropathy, hyperkalemia and EKG changes and metabolic encephalopathy, and hyponatremia. Pertinent data: Sodium 123, potassium 5.8, BUN 51, creatinine 4, troponin negative Urinalysis: Leukocyte esterase positive, nitrite positive, + pyuria EKG: Normal sinus rhythm, for the mom beats per minutes, prolonged [place] interval, abnormal ST, T segment change in precordial leads Renal US: B/L no hydronephrosis Head and cervical spine CT: normal List of active problems #Hyperkalemia with EKG change * Admit to telemetry for continuous monitoring * repeat labs- stat; if hyperkalemia was not corrected continue w/ insulin, dextrose, and kayoxalate * BEP stat * R/O ACS- repeat Troponin and EKG at 20 pm # Hyponatremia: patient has hypotonic hyponatremia w/ low urine sodium of 13. Patient clinically looks euvolumic however, he maybe hypovolumic. * follow stat lab results; if Na is not corrected after hydration #MANJIT secondary to obstructive uropathy and urinary tract infection; pre and post renal causes has been effectively R/O. * Continue IV hydration with normal saline; 150 ml/h * repeat BEP stat * goal is to correct Na 2-3 meq q 24 h and not greater than 12 meq in 48 h * Hx of growing Acinetobacter Baumanni sensitive to Cipro>>> IV continue Ciprofloxacin * Urology consult w/ Dr. Burch * Hypertension; hold lisinopril due to MANJIT * BPH continue Tamsulosin and Finasteride As Ranked By This Provider Problem List: 1. Hyperkalemia 2. Hyponatremia 3. MANJIT (acute kidney injury) 4. Urinary retention due to benign prostatic hyperplasia 5. Chest pain, unspecified Core Measures/Miscellaneous Acute Coronary Syndrome ACS Diagnosis: No Cerebrovascular Accident CVA/TIA Diagnosis: No Congestive Heart Failure CHF Diagnosis: No VTE (View Protocol) VTE Risk Factors: Acute medical illness, Age > 40, Immobility, paresis, Obesity [facility] prophylaxis d/t: No contraindications No VTE Pharm Prophylaxis d/t: No contraindications VTE Diagnosis: No VTE Type: NONE VTE Confirmed by (Test): NONE Sepsis (View Protocol) Severe Sepsis Present: No Septic Shock Septic Shock Present: No Miscellaneous Documentation Attending Case Discussed With: [facility]AMILTON [facility] Primary Care Physician: RADHA ABURTO Patient sees these Specialists internal medicine Level of Patient Care: Telemetry Consults Needed: Consulting Specialty: Urology ALFONSO LEE, MARY 04/28/172034: Attending MD Review Statement Attending Statement Attending MD Statement: examined this patient, discuss w/resident/PA/CONFERENCE RESERVATIONIST, agreed w/resident/PA/CONFERENCE RESERVATIONIST Attending Assessment/Plan: 67 yo morbidly obese M with h/o chronic hypoxic respiratory failure, COPD on 3L O2, OHS/MOIRA noncompliant with autopap, RLS, HTN, CKD stage 3A, BPH with previous chronic indwelling catheter, most recently admitted (April 04-) for CAUTI, sepsis and MANJIT, discharged with a plan for follow up with Dr. Burch on April 13 for a cystoscopy. He was seen in ER on April 07 for a clogged jimenez cather, jimenez was deflated and reinflated and noted to drain properly. He saw Dr. Burch on April 21 and underwent ?cystoscopy (not clear) and his Jimenez was discontinued. He returned to ER on April 22 for UTI s/s and hypotension, discharged on Cipro and Diflucan. According to information provided by ER and patient's sister, patient has sustained 2 mechanical falls at home (lives at [facility]) and today outside Urologist office where he was going for his scheduled appointment. Unclear if he was dizzy or prodromal. No syncope. Patient has not been urinating enough, almost oliguric, poor appetite for the past 3 days. He lives at the [facility]. Of note, patient has these shaking/ jerky movement of his extremities, which seems to have worsened over past 1 week. He has chronic intermittent chest discomfort and dyspnea, but denies any on my evaluation. VSS. Exam: lethargic but arousable, confused, PERRL, dry mucous membranes, appears hypovolemic, no focal deficits other than jerky movements of upper extremities. Labs: H/H 11.3/32.9, Na 123 (baseline 140's), K 5.8, BUN 51, creat 4.0 (baseline 1.0-1.3), glucose 115, S. Osm 279, lactic acid normal, Ca 8.2, trop neg. UA positive, Utox neg. Urine osm 243, sodium 13, FeNa 0.2. CXR: neg, CT head/cervical spine neg. Renal Usg: no hydronephrosis. AB.27/47/ 92/21. Echo (2017): EF > 65%, stage 1 diastolic dysfunction. 1. Acute hypotonic hyponatremia in the setting of MANJIT on CKD with GFR ~ 15, associated with hyperkalemia with no new EKG changes. MANJIT and hyponatremia appear to be due to a combination of pre-renal and post obstructive (BPH). Tele admit, strict I/Os', jimenez placed in ER with ~ 1L output, send urine culture, patient received 2 L NS in ER, recheck BEP Q4, continue IV fluids and correct sodium ~ 8mEq in 24 hours, avoid overcorrection. Check TSH, free T4, cortisol levels. Obtain Urology and nephrology consult. Treat UTI with IV ciprofloxacin ( previous culture grew Acinetobacter Baumanni), hold losartan. Ct. Flomax and finasteride. Patient received calcium gluconate for hyperkalemia, check repeat K and assess need for further correction. 2. Intermittent confusion, lethargy in the setting of hyponatremia, uremia and hypercarbia 2/2 OHS-MOIRA. ABG checked, patient noncompliant to autopap. Spoke with respiratory therapist, will consider CPAP at night. Hold all sedatives meds. Keep NPO, swallow eval in AM. Resume pain meds percocet in AM. DVT ppx Hep SC. Full code.
[2017-04-28 20:00] VITALS: BP 118/70
--- NOTE | 2017-04-28 20:35 | Admission Certification ---
Admission Certification Certification Statement - As attending physician, I certify that at the time of - admission, based on clinical presentation, severity of - symptoms, need for further diagnostic testing and - therapeutic interventions, and risk of adverse outcomes - without in-hospital treatment, in my clinical assessment, - this patient requires an acute hospital stay for a minimum - of two nights or longer. I have also considered psychsocial - factors such as support system, advanced age, financial - issues, cognitive issues, and failed out-patient treatments, - past re-admission history, safety of patient, and lack of - compliance as applicable. Specific rationale supporting this admission is: Acute renal failure, hyponatremia, hyperkalemia.
--- NOTE | 2017-04-28 21:53 | RADIOLOGY REPORT ---
EXAMINATION: XR PORTABLE CHEST CLINICAL INFORMATION: Dyspnea and cough COMPARISON: Chest x-ray from 03/12/2017. CT of the abdomen and pelvis from 03/12/2017. TECHNIQUE: Portable frontal view of the chest was obtained. FINDINGS: Lung volumes are quite low, unchanged. There is air within the hepatic flexure, which extends anterior to the liver and is visualized just below the right hemidiaphragm. The lungs are clear. The cardiomediastinal silhouette is unchanged. No evidence of pleural effusion or pneumothorax. IMPRESSION: Very low lung volumes without superimposed acute abnormality.
[2017-04-29 00:21] VITALS: BP 124/80
--- NOTE | 2017-04-29 00:42 | NUR ---
04/28/17 LATE ENTRY PT ARRIVED TO THE UNIT VIA STRETCHER APPROX 191. TRANSFERRED ONTO HOSPITAL BED. PATIENT ALERT WITH PERIODS OF DROWSINESS. DOESNT ANSWER QUESTIONS APPROPRIATELY. TREMORS NOTED TO ALL EXTREMITIES, TWITCHING BLE AND SPASTIC MOVEMENTS NOTED TO BUE. LUNGS CTA ON 2LNC LATER LOWERED TO 1LNC BY FACULTY INSTRUCTOR KEYUR. NSR/SB 48-60S ON THE MONITOR. PT DENIES CP OR SOB. SKIN INTACT AND NO EDEMA NOTED. NS @ 150ML/HR THOUGH LF IV. ACCUCHECK [address], DARK KAREN- BENOIT BROWN COLORED URINE. BED ALARM IN PLACE. BED LOW LOCKED. 3 RAILS UP. BUTRANS PATCHED NOTED TO RCW. PT CANNOT RECALL WHEN LAST CHANGED. PER DR. VELA AWARE AND TO REMAIN IN PLACE PER HIM. PT ASKING FOR PO ATIVAN AND PERCOCET BUT RESTING COMFORTABLY IN BED. REMAINS NPO AWAITING SWALLOW EVAL BUT SWALLOWED BEDTIME PILLS WITH SIPS OF WATER WITHOUT DIFFICULTY. WILL CTM.
--- NOTE | 2017-04-29 07:33 | PN- Housestaff ---
Subjective Follow-up For: Hypercapnic respiratory failure Hyponatremia UTI A KI Hyperkalemia Tele-Events Since Last Visit: Heart rate between 50-60, first-degree AV block Subjective: Patient seen and examined this morning. He was lying in bed in no acute distress but appeared very drowsy and confused. Vitals reviewed within normal limits, hemodynamically stable. Will follow-up sodium levels to ensure slow correction. Patient scheduled for swallow eval when mentation improves. Review of Systems Constitutional: Reports: see HPI. Objective Last 24 Hrs of Vital Signs/I&O Vital Signs Date Time Temp Pulse Resp B/P B/P Pulse O2 O2 Flow FiO2 Mean Ox Delivery Rate 04/29 1530 97.8 54 16 96/48 93 Nasal 1.0L Cannula 04/29 1137 95 Nasal 1.0L Cannula 04/29 1136 64 95 04/29 1131 Nasal 1.0L Cannula 04/29 1000 96.9 53 24 130/60 95 Nasal 1.0L Cannula 04/29 0021 97.8 63 22 124/80 94 Nasal Cannula 04/28 2200 Nasal 1.0L Cannula 04/28 2124 59 110/72 04/28 2000 97.7 65 24 118/70 96 Nasal 2.0L Cannula 04/28 1829 66 20 130/50 94 Nasal 2.0L Cannula Intake & Output 04/29 1600 04/29 0800 04/29 0000 Intake Total 1700 2600 Output Total 800 1400 Balance 900 1200 Intake, IV 1700 2550 Intake, Oral 0 50 Number 0 Bowel Movements Output, Urine 800 1400 Patient 149.685 kg Weight Weight Estimated Measurement Method Physical Exam General Appearance: patient was very sleepy during evaluation Assessment/Plan Assessment: 67-year-old gentleman with complicated past medical history of urinary problems and multiple admissions for urinary retention and sepsis of urinary origin was admitted for obstructive uropathy, hyperkalemia and EKG changes and metabolic encephalopathy, and hyponatremia. Pertinent data: Sodium 123, potassium 5.8, BUN 51, creatinine 4, troponin negative Urinalysis: Leukocyte esterase positive, nitrite positive, + pyuria EKG: Normal sinus rhythm, for the mom beats per minutes, prolonged [place] interval, abnormal ST, T segment change in precordial leads Renal US: B/L no hydronephrosis Head and cervical spine CT: normal Patient admitted to telemetry floor and monitoring for the allowing conditions. Hypercapnic respiratory failure: Patient has history of COPD, and 4 L of home oxygen. ABG upon presentation 7.7/47/92/95 >> 7.26/55/102/97 She was placed on BiPAP, will follow-up repeat ABG UTI: Urinalysis: Leukocyte esterase positive, nitrite positive, + pyuria Patient started on Cipro Floxin 500 mg MANJIT secondary to obstructive uropathy and urinary tract infection: Creatinine upon presentation to 3.5>>3.2>>2.6 Continue hydration with IV fluids. Urology consulted, will follow recommendations. Hyponatremia: It was upon presentation 123>> corrected 4 units so far in the last 24 hours. We'll continue with half NS at 100 mL per hour and follow sodium levels to 8. Hyperkalemia: Level upon presentation 5.8. Resolved now Pain management with Percocet 1 tab every 6 when necessary along with MS Contin starting from tomorrow 15 mg twice a day (patient was on Buprenorphine patch as an outpatient, dose of in-patient pain meds discussed with pharmacy). BPH: continue Tamsulosin and Finasteride Patient past swallow valve, started on by mouth diet regular thin DVT prophylaxis with Patient is full code Problem List: 1. Obstructive uropathy 2. Hyponatremia 3. Hyperkalemia 4. MANJIT (acute kidney injury) Pain Ratin Pain Location: none Pain Goal: Remain pain free Pain Plan: [facility] Tomorrow's Labs & Rationales: bep Consulting Request: Consulting Specialty: Urology
[2017-04-29 08:33] LABS: ABSOLUTE BASOPHIL COUNT 0 /CUMM (0.0-0.2); ABSOLUTE EOSINOPHIL COUNT 0.1 /CUMM (0.0-0.7); ABSOLUTE GRANULOCYTE CT 2.1 /CUMM (1.4-6.5); ABSOLUTE MONOCYTE COUNT 0.3 /CUMM (0.10-0.60)
[2017-04-29 08:44] LABS: ABSOLUTE LYMPH COUNT 0.6 /CUMM (1.2-3.4); BASOPHIL % 0.2 % (0.0-2.0); EOSINOPHIL % 4.2 % (0-5); GRANULOCYTE % 65.5 % (42.2-75.2); HEMATOCRIT 30.5 % (42-52); MEAN CORPUSCULAR HGB 29.1 PG (27.0-31.0); MEAN CORPUSCULAR HGB CONC 33.8 G/DL (33.0-37.0); MEAN CORPUSCULAR VOLUME 86.1 FL (80.0-94.0); MEAN PLATELET VOLUME 10.2 FL (7.4-10.4); PLATELET COUNT 102 /CUMM (130-400); RBC DISTRIBUTION WIDTH 14.2 % (11.5-14.5); RED BLOOD CELL CT 3.55 /CUMM (4.70-6.10)
[2017-04-29 08:47] LABS: WHITE BLOOD CELL COUNT 3.3 /CUMM (4.8-10.8)
[2017-04-29 10:00] VITALS: BP 130/60
--- NOTE | 2017-04-29 14:28 | PN- Att Addend ---
Attending MD Review Statement Attending Statement Attending MD Statement: examined this patient, discuss w/resident/PA/UROLOGIST, agreed w/resident/PA/UROLOGIST, reviewed EMR data (avail), discussed w/nursing, discussed w/ case mgmt Attending Assessment/Plan: Laboratory Tests 04/29/17 0928: pH 7.26 *L, pCO2 55 H, pO2 102 H, HCO3 24, ABG O2 Sat (Measured) 97.0, P-50 ( Temp Corrected) N, Carboxyhemoglobin 0.2 L, O2 Concentration % 1L, Temperature 97.8, O2 Delivery Method N/C, Phlebotomy Draw Site RIGHT RADIAL 04/29/17 0625: Anion Gap 5, Estimated GFR 19 L, BUN/Creatinine Ratio 13.8, CBC w Diff NO MAN DIFF REQ, RBC 3.55 L, MCV 86.1, MCH 29.1, RDW 14.2, MPV 10.2, Gran % 65.5, Lymphocytes % 19.8 L, Monocytes % 10.3 H, Eosinophils % 4.2, Basophils % 0.2, Absolute Granulocytes 2.1, Absolute Lymphocytes 0.6 L, Absolute Monocytes 0.3, Absolute Eosinophils 0.1, Absolute Basophils 0, PUBS MCHC 33.8 04/29/17 0200: Anion Gap 7, Estimated GFR 18 L, BUN/Creatinine Ratio 12.9, TSH 2.020, Free T4 1.35, Cortisol AM Sample 3.6 L 04/28/172104: pH 7.27 *L, pCO2 47 H, pO2 92, HCO3 21, ABG O2 Sat (Measured) 95.0 L, P-50 ( Temp Corrected) N, Carboxyhemoglobin 0.6 L, O2 Concentration % 2L, Temperature 97.7, O2 Delivery Method NC, Phlebotomy Draw Site RIGHT RADIAL 04/28/172024: Lactic Acid < 0.5 L 04/28/172024: Anion Gap 8, Estimated GFR 16 L, BUN/Creatinine Ratio 12.6, Troponin I < 0.01 04/28/172024: Sodium Cancelled, Potassium Cancelled, Chloride Cancelled, Carbon Dioxide Cancelled, Anion Gap Cancelled, BUN Cancelled, Creatinine Cancelled, BUN/ Creatinine Ratio Cancelled 04/28/17 1730: Urinalysis LIGHT H, Urine Color ORANG H, Urine Clarity CLDY H, Urine pH 5.0, Ur Specific [place] 1.020, Urine Protein 100 H, Urine Ketones TRACE H, Urine Nitrite POS H, Urine Bilirubin POS@ICTO H, Urine Urobilinogen 4.0 H, Ur Leukocyte Esterase LARGE H, Ur Microscopic SEDIMENT EXAMINED, Urine RBC 25-50 H, Urine WBC 25-50 H, Urine Bacteria FEW H, Micro UA Comment BUDDING YEAST H, Urine Hemoglobin LARGE H, Urine Glucose 100 H 04/28/17 1730: Urine Opiates Screen 234.00, Methadone Screen 53, Barbiturate Screen < 60, Ur Phencyclidine Scrn < 6.00, Amphetamines Screen < 100, U Benzodiazepines Scrn < 85, Urine Cocaine Screen < 50, Urine Cannabis Screen < 5.00, Urine Osmolality 243 L, Ur Random Creatinine 184.0, Ur Random Sodium 13 L, Ur Random Potassium 23.5, Fraction Sodium Excret 0.2 04/28/17 1722: Serum Osmolality Cancelled 04/28/17 1439: Anion Gap 9, Estimated GFR 15 L, BUN/Creatinine Ratio 12.8, Glucose 115 H, Serum Osmolality 279 L, Lactic Acid 1.6, Calcium 8.2 L, Total Bilirubin 0.7, AST 23, ALT 30, Alkaline Phosphatase 66, Troponin I < 0.01, Total Protein 5.5 L , Albumin 3.3 L, Globulin 2.2, Albumin/Globulin Ratio 1.5, CBC w Diff NO MAN DIFF REQ, RBC 3.94 L, MCV 83.5, MCH 28.6, RDW 14.2, MPV 9.7, Gran % 82.4 H, Lymphocytes % 8.2 L, Monocytes % 7.2, Eosinophils % 2.0, Basophils % 0.2, Absolute Granulocytes 6.2, Absolute Lymphocytes 0.6 L, Absolute Monocytes 0.5, Absolute Eosinophils 0.1, Absolute Basophils 0, PUBS MCHC 34.3 Vital Signs Date Time Temp Pulse Resp B/P B/P Pulse O2 O2 Flow FiO2 Mean Ox Delivery Rate 04/29 1137 95 Nasal 1.0L Cannula 04/29 1136 64 95 04/29 1131 Nasal 1.0L Cannula 04/29 1000 96.9 53 24 130/60 95 Nasal 1.0L Cannula 04/29 0021 97.8 63 22 124/80 94 Nasal Cannula 04/28 2200 Nasal 1.0L Cannula 04/28 2124 59 110/72 04/28 2000 97.7 65 24 118/70 96 Nasal 2.0L Cannula 04/28 1829 66 20 130/50 94 Nasal 2.0L Cannula 04/28 1734 97.3 101 20 165/116 94 Nasal 2.0L Cannula 04/28 1713 94 Nasal 2.0L Cannula 04/28 1529 97.1 67 18 100/69 95 Nasal 2.0L Cannula Pt admitted with 1. Hypercapneic respiratory failure on top of chronic respiratory failrue secondary to COPD on home oxygen. Cont BIPAP prn and repeat AGB in evening to see if hypercapnia resolving. 2. Severe hyponatremia- sodium 123 at admission, improved to 127 this am. will decrease IV fluids to 75 ml/hr to prevent rapid correction. Will recheck sodium q8h to monitor levels. 3. UTI- Cont on cipro for now. Renal usg shows no hydronephrosis. 4. MANJIT- creatinine better today. cont with iv fluids and monitor I & O 5. Hyperkalemia- resolved. cont to monitor K, likely secondary to MANJIT.
--- NOTE | 2017-04-29 14:49 | Cons- Nephrology ---
General Information and HPI Consulting Request Date of Consult: 04/29/17 Requested By: LAVERN LEE,GLORIA Culp History of Present Illness: History obtained from chart and medical staff (pt cecily historian). Mr Madrigal is a 67 yo gentleman with COPD who was recently hospitalized with urosepsis and urinary retention (March). During that hospitalization Cr has been in the low 1's He presented to the ER on April 22 with c/of "jimenez being clogged" and jimenez was D/C'd and he was put on cipro. He was admitted yesterday with confusion and was found to be in MANJIT with Cr of 4 and sodium of 123. Urine indices show a dilute urine (Osm 200's) and low sodium. He had a jimenez placed with copious urine. Allergies/Medications Allergies: Coded Allergies: Penicillins (Severe, TONGUE SWELLING 02/25/17) Home Med List: Buprenorphine (Butrans) 20 MCG/HOUR PATCH.TDWK 1 PAT TOP QSAT PAIN (Reported) Cilostazol 100 MG TABLET 1 TAB PO BID INTERMITTENT CLAUDICATION (Reported) Ciprofloxacin HCl (Cipro) 500 MG TABLET 1 TAB PO BID uti Clotrimazole (Lotrimin AF) 1 % CREAM..G. 1 FRACISCO TOP BID TINEA CRURIS apply to affected area(s) Finasteride 5 MG TABLET 1 TAB PO DAILY bph Fluconazole (Diflucan) 150 MG TABLET 1 TAB PO ONCE yeast Gabapentin (Neurontin) 300 MG CAPSULE 1 CAP PO TID NERVE PAIN (Reported) Lorazepam 1 MG TABLET 1 TAB PO TID PRN ANXIETY (Reported) Losartan Potassium 50 MG TABLET 50 MG PO DAILY HIGH BP Metoprolol Tartrate 50 MG TABLET 50 MG PO BID HIGH BP, HEART HEALTH Multivitamin (Multiple Vitamins) 1 EACH TABLET 1 TAB PO DAILY SUPPLEMENT ( Reported) Oxycodone HCl/Acetaminophen (Percocet 5-325 MG Tablet) 5 MG-325 MG TABLET 1 TAB PO Q8H PRN CHRONIC PAIN (Reported) Phenazopyridine HCl (Pyridium) 200 MG TABLET 1 TAB PO TID dysuria Tamsulosin HCl (Flomax) 0.4 MG CAP.ER.24H 1 CAP PO BID PROSTATE (Reported) Venlafaxine HCl (Venlafaxine HCl ER) 225 MG TAB.ER.24 1 TAB PO DAILY MENTAL HEALTH (Reported) Current Medications: Current Medications Sig/Jared Start time Last Medication Dose Route Stop Time Status Admin Acetaminophen 650 MG Q6P PRN 04/28 1945 AC PO Acetaminophen 1,000 MG Q6 04/28 1944 DC 04/29 IV 04/29 1201 0519 Albuterol Sulfate 3 ML Q4P PRN 04/29 1145 AC INH Calcium Gluconate 0 .STK-MED ONE 04/28 1833 DC IV Calcium Gluconate 1 GM ONCE ONE 04/28 1830 DC 04/28 Sodium Chloride 100 ML IV 04/28 1929 1831 Calcium Gluconate 1 GM ONCE ONE 04/28 1600 CAN Sodium Chloride 100 ML IV 04/28 1659 Ciprofloxacin 400 MG Q12H 04/29 0700 AC 04/29 Dextrose/Water 200 ML IV 0528 Ciprofloxacin 500 MG BID 04/28 2200 CAN PO 05/02 2159 Ciprofloxacin 400 MG Q12 04/28 2200 DC Dextrose/Water 200 ML IV Ciprofloxacin 400 MG ONCE ONE 04/28 1700 DC 04/28 IV 04/28 1701 1839 Clotrimazole 1 FRACISCO BID 04/28 2200 CAN TOP Dextrose 25 GM ONCE ONE 04/28 1615 CAN IV 04/28 1616 Finasteride 5 MG DAILY 04/28 1855 AC 04/29 PO 1401 Fluconazole 150 MG ONCE ONE 04/28 1900 CAN PO 04/28 1901 Heparin Sodium 5,000 UNIT Q8 04/28 2200 AC 04/29 (Porcine) SC 1359 Insulin Human Regular 5 UNITS ONCE ONE 04/28 1600 CAN IV 04/28 1601 Non-Formulary 0 SEE ADMIN CRITERIA 04/28 2015 UNV Medication ANY Sodium Chloride 1,000 ML Q10H 04/29 1315 DC IV Sodium Chloride 1,000 ML .[id number] 04/29 1315 AC 04/29 IV 1355 Sodium Chloride 1,000 ML .[id number] 04/28 1915 DC 04/29 IV 0640 Sodium Chloride 1,000 ML BOLUS ONE 04/28 1615 DC /08 IV 04/28 1814 1700 Sodium Chloride 1,000 ML BOLUS ONE 04/28 1615 DC /08 IV 04/28 1814 1830 Tamsulosin HCl 0.4 MG BID 04/28 2200 AC 04/29 PO 1401 Review of Systems Review of Systems: as in HPI PT unable to give history Past History Travel History Traveled to [place] past 21 day No Medical History Neurological: NONE EENT: NONE Cardiovascular: hypertension Respiratory: COPD Gastrointestinal: NONE Hepatic: NONE Renal: benign prost hyperplasia Musculoskeletal: NONE Psychiatric: anxiety Endocrine: NONE Blood Disorders: NONE Cancer(s): NONE 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 BROTHER (esophageal and colon cancer). FATHER (hypertension, ?esophageal aneurysm). Psychosocial History Where Do You Live? Other Who Do You Live With? self Services at Home: None Primary Language: Vincentian Smoking Status: Unknown If Ever Smoked Living Will? no Functional Ability ADLs Independent: dressing, eating, toileting, bathing. Ambulation: independent IADLs Independent: shopping, housework, finances, food prep, telephone, transportation , medication admin. Exam & Diagnostic Data Vital Signs and I&O Obese M in bed BP 130/60 P 64 T 96.9 Skin neg rash Eyes anicteric ENT moist Lungs clear to A Cor RRR Abd soft N/T obsese Ext tr edema jimenez in place Results Pertinent Lab Results: Laboratory Tests 04/29 04/29 1425 0928 Blood Gas pH (7.35 - 7.45 PH) 7.26 *L pCO2 (35 - 45 TORR) 55 H pO2 (80 - 100 TORR) 102 H HCO3 (21 - 28 MEQ/L) 24 ABG O2 Sat (Measured) (>96.0 %) 97.0 P-50 (Temp Corrected) N Carboxyhemoglobin (1.5 - 5.0 %) 0.2 L O2 Concentration % 1L Temperature (97.0 - 100.0 FARH) 97.8 O2 Delivery Method N/C Chemistry Sodium Pending Potassium Pending Chloride Pending Carbon Dioxide Pending Anion Gap Pending BUN Pending Creatinine Pending BUN/Creatinine Ratio Pending Miscellaneous Phlebotomy Draw Site RIGHT RADIAL 04/29 04/29 04/28 0625 0200 2105 Blood Gas pH (7.35 - 7.45 PH) 7.27 *L pCO2 (35 - 45 TORR) 47 H pO2 (80 - 100 TORR) 92 HCO3 (21 - 28 MEQ/L) 21 ABG O2 Sat (Measured) (>96.0 %) 95.0 L P-50 (Temp Corrected) N Carboxyhemoglobin (1.5 - 5.0 %) 0.6 L O2 Concentration % 2L Temperature (97.0 - 100.0 FARH) 97.7 O2 Delivery Method NC Chemistry Sodium (137 - 145 mmol/L) 127 L 125 L Potassium (3.5 - 5.1 mmol/L) 4.7 4.9 Chloride (98 - 107 mmol/L) 97 L 95 L Carbon Dioxide (22 - 30 mmol/L) 25 23 Anion Gap (5 - 16) 5 7 BUN (9 - 20 mg/dL) 44 H 45 H Creatinine (0.7 - 1.2 mg/dL) 3.2 H 3.5 H Estimated GFR (>60 ml/min) 19 L 18 L BUN/Creatinine Ratio (7 - 25 %) 13.8 12.9 TSH (0.270 - 4.200 uIU/mL) 2.020 Free T4 (0.78 - 2.44 ng/dL) 1.35 Cortisol AM Sample (4.46 - 22.7 ug/dL) 3.6 L Hematology CBC w Diff NO MAN DIFF REQ WBC (4.8 - 10.8 /CUMM) 3.3 L RBC (4.70 - 6.10 /CUMM) 3.55 L Hgb (14.0 - 18.0 G/DL) 10.3 L Hct (42 - 52 %) 30.5 L MCV (80.0 - 94.0 FL) 86.1 MCH (27.0 - 31.0 PG) 29.1 RDW (11.5 - 14.5 %) 14.2 Plt Count (130 - 400 /CUMM) 102 L MPV (7.4 - 10.4 FL) 10.2 Gran % (42.2 - 75.2 %) 65.5 Lymphocytes % (20.5 - 51.1 %) 19.8 L Monocytes % (1.7 - 9.3 %) 10.3 H Eosinophils % (0 - 5 %) 4.2 Basophils % (0.0 - 2.0 %) 0.2 Absolute Granulocytes (1.4 - 6.5 /CUMM) 2.1 Absolute Lymphocytes (1.2 - 3.4 /CUMM) 0.6 L Absolute Monocytes (0.10 - 0.60 /CUMM) 0.3 Absolute Eosinophils (0.0 - 0.7 /CUMM) 0.1 Absolute Basophils (0.0 - 0.2 /CUMM) 0 PUBS MCHC (33.0 - 37.0 G/DL) 33.8 Miscellaneous Phlebotomy Draw Site RIGHT RADIAL 04/28 Chemistry Sodium (137 - 145 mmol/L) 124 L Cancelled Potassium (3.5 - 5.1 mmol/L) 5.2 H Cancelled Chloride (98 - 107 mmol/L) 95 L Cancelled Carbon Dioxide (22 - 30 mmol/L) 22 Cancelled Anion Gap (5 - 16) 8 Cancelled BUN (9 - 20 mg/dL) 48 H Cancelled Creatinine (0.7 - 1.2 mg/dL) 3.8 H Cancelled Estimated GFR (>60 ml/min) 16 L BUN/Creatinine Ratio (7 - 25 %) 12.6 Cancelled Lactic Acid (0.7 - 2.1 mmol/L) < 0.5 L Troponin I (<0.11 ng/ml) < 0.01 04/28 04/28 04/28 1730 1730 1722 Chemistry Serum Osmolality Cancelled Toxicology Urine Opiates Screen (>2000 NG/ML) 234.00 Methadone Screen (>300 NG/ML) 53 Barbiturate Screen (>200 NG/ML) < 60 Ur Phencyclidine Scrn (>25 NG/ML) < 6.00 Amphetamines Screen (>1000 NG/ML) < 100 U Benzodiazepines Scrn (>200 NG/ML) < 85 Urine Cocaine Screen (>300 NG/ML) < 50 Urine Cannabis Screen (>50 NG/ML) < 5.00 Urines Urinalysis LIGHT H Urine Color (YEL,AMB,STR) ORANG H Urine Clarity (CLEAR) CLDY H Urine pH (5.0 - 8.0) 5.0 Ur Specific [place] (1.001 - 1.035) 1.020 Urine Protein (NEG,<30 MG/DL) 100 H Urine Ketones (NEG) TRACE H Urine Nitrite (NEG) POS H Urine Bilirubin (NEG) POS@ICTO H Urine Urobilinogen (0.1 - 1.0 EU/dl) 4.0 H Ur Leukocyte Esterase (NEG) LARGE H Ur Microscopic SEDIMENT EXAMINED Urine RBC (0 - 5 /HPF) 25-50 H Urine WBC (0 - 2 /HPF) 25-50 H Urine Bacteria (NEG/NONE) FEW H Micro UA Comment BUDDING YEAST H Urine Hemoglobin (NEG) LARGE H Urine Osmolality (300 - 1000 MOSM/KG) 243 L Ur Random Creatinine (mg/dL) 184.0 Ur Random Sodium (30 - 90 mmol/L) 13 L Ur Random Potassium (mmol/L) 23.5 Fraction Sodium Excret (<1% %) 0.2 Urine Glucose (N MG/DL) 100 H 06/08 1439 Chemistry Sodium (137 - 145 mmol/L) 123 L Potassium (3.5 - 5.1 mmol/L) 5.8 H Chloride (98 - 107 mmol/L) 91 L Carbon Dioxide (22 - 30 mmol/L) 23 Anion Gap (5 - 16) 9 BUN (9 - 20 mg/dL) 51 H Creatinine (0.7 - 1.2 mg/dL) 4.0 H Estimated GFR (>60 ml/min) 15 L BUN/Creatinine Ratio (7 - 25 %) 12.8 Glucose (65 - 99 mg/dL) 115 H Serum Osmolality (285 - 295 MOSM/KG) 279 L Lactic Acid (0.7 - 2.1 mmol/L) 1.6 Calcium (8.4 - 10.2 mg/dL) 8.2 L Total Bilirubin (0.2 - 1.3 mg/dL) 0.7 AST (17 - 59 U/L) 23 ALT (21 - 72 U/L) 30 Alkaline Phosphatase (< 127 U/L) 66 Troponin I (<0.11 ng/ml) < 0.01 Total Protein (6.3 - 8.2 g/dL) 5.5 L Albumin (3.5 - 5.0 g/dL) 3.3 L Globulin (1.9 - 4.2 gm/dL) 2.2 Albumin/Globulin Ratio (1.1 - 2.2 %) 1.5 Hematology CBC w Diff NO MAN DIFF REQ WBC (4.8 - 10.8 /CUMM) 7.6 RBC (4.70 - 6.10 /CUMM) 3.94 L Hgb (14.0 - 18.0 G/DL) 11.3 L Hct (42 - 52 %) 32.9 L MCV (80.0 - 94.0 FL) 83.5 MCH (27.0 - 31.0 PG) 28.6 RDW (11.5 - 14.5 %) 14.2 Plt Count (130 - 400 /CUMM) 167 MPV (7.4 - 10.4 FL) 9.7 Gran % (42.2 - 75.2 %) 82.4 H Lymphocytes % (20.5 - 51.1 %) 8.2 L Monocytes % (1.7 - 9.3 %) 7.2 Eosinophils % (0 - 5 %) 2.0 Basophils % (0.0 - 2.0 %) 0.2 Absolute Granulocytes (1.4 - 6.5 /CUMM) 6.2 Absolute Lymphocytes (1.2 - 3.4 /CUMM) 0.6 L Absolute Monocytes (0.10 - 0.60 /CUMM) 0.5 Absolute Eosinophils (0.0 - 0.7 /CUMM) 0.1 Absolute Basophils (0.0 - 0.2 /CUMM) 0 PUBS MCHC (33.0 - 37.0 G/DL) 34.3 Assessment/Plan Assessment/Recommendations Assessment: MANJIT due to obstructive uropathy. 2L in jimenez bag now and copious urine. As discussed with you MANJIT likely due to obstruction should improve with jimenez. Hyponaremia due to MANJIT and water intake. REC: change IV to 1/2 NS. Obstructive uropathy causes ATN and the kidneys ability to handle salt /water is impaired. Would Recheck U Na/U Osm U Na typically remains around 70 regardless of volume status. Would continue IVF around 100 cc/hr Follow daily labs Keep jimenez in Recommendations: .
[2017-04-29 15:30] VITALS: BP 96/48
[2017-04-30 00:30] VITALS: BP 124/62
[2017-04-30 08:21] LABS: ABSOLUTE BASOPHIL COUNT 0 /CUMM (0.0-0.2); ABSOLUTE EOSINOPHIL COUNT 0.1 /CUMM (0.0-0.7); ABSOLUTE GRANULOCYTE CT 2.1 /CUMM (1.4-6.5); ABSOLUTE LYMPH COUNT 0.4 /CUMM (1.2-3.4); ABSOLUTE MONOCYTE COUNT 0.2 /CUMM (0.10-0.60); BASOPHIL % 0.4 % (0.0-2.0); HEMATOCRIT 33.4 % (42-52); MEAN CORPUSCULAR HGB CONC 34.2 G/DL (33.0-37.0); MEAN PLATELET VOLUME 9.4 FL (7.4-10.4); PLATELET COUNT 115 /CUMM (130-400); RBC DISTRIBUTION WIDTH 14.5 % (11.5-14.5); RED BLOOD CELL CT 3.93 /CUMM (4.70-6.10); WHITE BLOOD CELL COUNT 2.8 /CUMM (4.8-10.8)
[2017-04-30 09:00] VITALS: BP 158/80
--- NOTE | 2017-04-30 09:04 | Cons- Urology ---
General Information and HPI Consulting Request Date of Consult: 04/30/17 Requested By: Medical service GLORIA PUCKETT MD Reason for Consult: Urinary retention and renal failure Source of Information: old records Exam Limitations: no limitations History of Present Illness: This patient initially presented with urinary retention and had jimenez placed. He had subsequent admissions for sepsis and dehydration. He underwent office cystoscopy about 2 weeks ago which showed at least moderate prostatic hypertrophy with partial bladder outlet obstruction. He was given a voiding trial last week and was initially voiding spontaneously. He presented to the ER yesterday with weakness and was found to be in urinary retention with MANJIT and hyponatremia. A jimenez was placed for a large volume of urine and he is now improving. A renal ultrasound did not reveal any hydronephrosis. He does have multiple comorbidities as noted below Allergies/Medications Allergies: Coded Allergies: Penicillins (Severe, TONGUE SWELLING 02/25/17) Home Med List: Buprenorphine (Butrans) 20 MCG/HOUR PATCH.TDWK 1 PAT TOP QSAT PAIN (Reported) Cilostazol 100 MG TABLET 1 TAB PO BID INTERMITTENT CLAUDICATION (Reported) Ciprofloxacin HCl (Cipro) 500 MG TABLET 1 TAB PO BID uti Clotrimazole (Lotrimin AF) 1 % CREAM..G. 1 FRACISCO TOP BID TINEA CRURIS apply to affected area(s) Finasteride 5 MG TABLET 1 TAB PO DAILY bph Fluconazole (Diflucan) 150 MG TABLET 1 TAB PO ONCE yeast Gabapentin (Neurontin) 300 MG CAPSULE 1 CAP PO TID NERVE PAIN (Reported) Lorazepam 1 MG TABLET 1 TAB PO TID PRN ANXIETY (Reported) Losartan Potassium 50 MG TABLET 50 MG PO DAILY HIGH BP Metoprolol Tartrate 50 MG TABLET 50 MG PO BID HIGH BP, HEART HEALTH Multivitamin (Multiple Vitamins) 1 EACH TABLET 1 TAB PO DAILY SUPPLEMENT ( Reported) Oxycodone HCl/Acetaminophen (Percocet 5-325 MG Tablet) 5 MG-325 MG TABLET 1 TAB PO Q8H PRN CHRONIC PAIN (Reported) Phenazopyridine HCl (Pyridium) 200 MG TABLET 1 TAB PO TID dysuria Tamsulosin HCl (Flomax) 0.4 MG CAP.ER.24H 1 CAP PO BID PROSTATE (Reported) Venlafaxine HCl (Venlafaxine HCl ER) 225 MG TAB.ER.24 1 TAB PO DAILY MENTAL HEALTH (Reported) Past History Medical History Neurological: NONE EENT: NONE Cardiovascular: hypertension Respiratory: COPD Gastrointestinal: NONE Hepatic: NONE Renal: benign prost hyperplasia Musculoskeletal: NONE Psychiatric: anxiety Endocrine: NONE Blood Disorders: NONE Cancer(s): NONE 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 BROTHER (esophageal and colon cancer). FATHER (hypertension, ?esophageal aneurysm). Psychosocial History Where Do You Live? Other Who Do You Live With? self Services at Home: None Primary Language: Kyrgyz Smoking Status: Unknown If Ever Smoked Living Will? no Functional Ability ADLs Independent: dressing, eating, toileting, bathing. Ambulation: independent IADLs Independent: shopping, housework, finances, food prep, telephone, transportation , medication admin. Exam & Diagnostic Data Vital Signs and I&O Vital Signs Date Time Temp Pulse Resp B/P B/P Pulse O2 O2 Flow FiO2 Mean Ox Delivery Rate 04/30 0030 97.3 74 20 124/62 95 04/30 0022 76 124/62 04/30 0000 95 Nasal 1.0L Cannula 04/29 2001 98 Nasal 1.0L Cannula 04/29 1600 96 Nasal 1.0L Cannula 04/29 1530 97.8 54 16 96/48 93 Nasal 1.0L Cannula 04/29 1137 95 Nasal 1.0L Cannula 04/29 1136 64 95 04/29 1131 Nasal 1.0L Cannula 04/29 1000 96.9 53 24 130/60 95 Nasal 1.0L Cannula Intake & Output 04/30 1600 04/30 0800 04/30 0000 04/29 1600 04/29 0800 04/29 0000 Intake Total 800 1155 1700 2600 Output Total 2750 1300 1999 800 1400 Balance -1950 -1300 -518 517 9879 Intake, IV 800 1125 1700 2550 Intake, Oral 30 0 50 Number 0 0 Bowel Movements Output, Urine 2750 1300 1999 800 1400 Patient 330 lb Weight Weight Estimated Measurement Method No acute distress Back: No CVA tenderness Abd: Obese, soft, non tender Genitalia: jimenez in place draining clear urine Laboratory Tests 04/30 04/29 04/29 0615 2140 1425 Chemistry Sodium (137 - 145 mmol/L) 136 L 132 L 127 L Potassium (3.5 - 5.1 mmol/L) 5.1 Chloride (98 - 107 mmol/L) 97 L Carbon Dioxide (22 - 30 mmol/L) 23 Anion Gap (5 - 16) 7 BUN (9 - 20 mg/dL) 41 H Creatinine (0.7 - 1.2 mg/dL) 2.6 H Estimated GFR (>60 ml/min) 25 L BUN/Creatinine Ratio (7 - 25 %) 15.8 Hematology CBC w Diff NO MAN DIFF REQ WBC (4.8 - 10.8 /CUMM) 2.8 L RBC (4.70 - 6.10 /CUMM) 3.93 L Hgb (14.0 - 18.0 G/DL) 11.4 L Hct (42 - 52 %) 33.4 L MCV (80.0 - 94.0 FL) 85.0 MCH (27.0 - 31.0 PG) 29.0 RDW (11.5 - 14.5 %) 14.5 Plt Count (130 - 400 /CUMM) 115 L MPV (7.4 - 10.4 FL) 9.4 Gran % (42.2 - 75.2 %) 76.0 H Lymphocytes % (20.5 - 51.1 %) 13.7 L Monocytes % (1.7 - 9.3 %) 5.9 Eosinophils % (0 - 5 %) 4.0 Basophils % (0.0 - 2.0 %) 0.4 Absolute Granulocytes (1.4 - 6.5 /CUMM) 2.1 Absolute Lymphocytes (1.2 - 3.4 /CUMM) 0.4 L Absolute Monocytes (0.10 - 0.60 /CUMM) 0.2 Absolute Eosinophils (0.0 - 0.7 /CUMM) 0.1 Absolute Basophils (0.0 - 0.2 /CUMM) 0 PUBS MCHC (33.0 - 37.0 G/DL) 34.2 Urines Urine Osmolality (300 - 1000 MOSM/KG) 198 L Ur Random Creatinine (mg/dL) 47.8 Ur Random Sodium (30 - 90 mmol/L) 16 L Ur Random Potassium (mmol/L) 8.8 Fraction Sodium Excret (<1% %) 0.7 04/29 0928 Blood Gas pH (7.35 - 7.45 PH) 7.26 *L pCO2 (35 - 45 TORR) 55 H pO2 (80 - 100 TORR) 102 H HCO3 (21 - 28 MEQ/L) 24 ABG O2 Sat (Measured) (>96.0 %) 97.0 P-50 (Temp Corrected) N Carboxyhemoglobin (1.5 - 5.0 %) 0.2 L O2 Concentration % 1L Temperature (97.0 - 100.0 FARH) 97.8 O2 Delivery Method N/C Miscellaneous Phlebotomy Draw Site RIGHT RADIAL Assessment/Plan Assessment/Plan Imp: 1. Urinary retention at least partially due to prostatic hypertrophy. He may also have poor bladder tone 2. MANJIT and hyponatremia likely due to urinary retention Plan: 1. Continue jimenez 2. Follow nephrology suggestions for electrolyte correction 3. Would repeat urine culture 4. When optimize TURP would be best chance to get him catheter-free as he has failed medical therapy for BPH. He was told that if his bladder tone is poor he may still not urinate after surgery. If still in hospital may try to schedule for next week if medically improved Consult Acknowledgment - Thank you for your consult request.
--- NOTE | 2017-04-30 09:19 | PN- Housestaff ---
MALICK LEE,JOANA 04/30/17 0918: Subjective Follow-up For: Hypercapnic respiratory failure Hyponatremia UTI MANJIT Hyperkalemia Subjective: Patient seen and examined. He is seen sitting upright in bed resting comfortably. He appears to be in no acute distress. He reports "not feeling well " and cannot further elaborate any specifics onto what that means. He does however also admit to midl abdominal discomfort across his abdomen. He denies any further episodes of dizziness or loss of consciousness. Otherwise he denies any lightheadedness/dizziness, headache, fever, chills, chest pain, palpitations, shortness of breaht, nausea, vomiting, diarrhea. Review of Systems Constitutional: Reports: see HPI. Objective Last 24 Hrs of Vital Signs/I&O Vital Signs Date Time Temp Pulse Resp B/P B/P Pulse O2 O2 Flow FiO2 Mean Ox Delivery Rate 04/30 1225 96 Nasal 1.0L Cannula 04/30 0922 74 124/62 04/30 0900 97.7 101 20 158/80 95 Nasal Cannula 04/30 0800 Nasal 1.0L Cannula 04/30 0030 97.3 74 20 124/62 95 10 0022 76 124/62 04/30 0000 95 Nasal 1.0L Cannula 04/29 2001 98 Nasal 1.0L Cannula 04/29 1600 96 Nasal 1.0L Cannula 04/29 1530 97.8 54 16 96/48 93 Nasal 1.0L Cannula Intake & Output 04/30 1600 04/30 0800 04/30 0000 Intake Total 1280 800 Output Total 1750 2750 1300 Balance -470 -1950 -1300 Intake, IV 800 800 Intake, Oral 480 Output, Urine 1750 2750 1300 Physical Exam General Appearance: Alert, Oriented X3, Cooperative, No Acute Distress Other Physical Findings: General- well developed, well nourished morbidly obese elderly man in no acute distress HEENT- NCAT, PERRL, EOMI, anicteric sclera Chest- S1, S2 w/o m/g/r Lung- decreased airflow w/o wheezing/rhonchi/crackes Abdomen- Soft, morbidly obese, nontender, nondistended, bowel sounds intact Neuro- Awake and alert, CN II - XII grossly intact - jimenez catheter in place draining a clear yellow urine Ext- normal pulses, no cyanosis/clubbing/edema Current Medications: Current Medications Sig/Jared Start time Last Medication Dose Route Stop Time Status Admin Acetaminophen 650 MG Q6P PRN 04/28 1945 AC PO Albuterol Sulfate 3 ML Q4P PRN 04/29 1145 AC INH Ciprofloxacin 400 MG Q12H 04/29 0700 AC 04/30 Dextrose/Water 200 ML IV 0629 Docusate Sodium 100 MG DAILY 04/30 1118 AC 04/30 PO 1305 Finasteride 5 MG DAILY 04/28 1855 AC 04/30 PO 0922 Gabapentin 100 MG Q8 04/30 1400 AC 04/30 PO 1305 Heparin Sodium 5,000 UNIT Q8 04/28 2200 AC 04/30 (Porcine) SC 1305 Lorazepam 0.5 MG TID 04/30 1114 AC 04/30 PO 05/07 1113 1305 Morphine Sulfate 15 MG BID 04/30 1000 AC 04/30 PO 0922 Non-Formulary 0 SEE ADMIN CRITERIA 04/28 2015 DC Medication ANY Oxycodone/ 1 TAB Q6P PRN 04/29 1600 AC Acetaminophen PO Polyethylene Glycol 17 GM DAILY 04/30 1118 AC 04/30 PO 1305 Senna 187 MG AT BEDTIME 04/30 2200 AC PO Sodium Chloride 1,000 ML .Q10H 04/29 1315 AC 04/30 IV 0922 Tamsulosin HCl 0.4 MG BID 04/28 2200 AC 04/30 PO 0922 Venlafaxine HCl 225 MG 0800 05/01 0800 AC PO Last 24 Hrs of Lab/[place] Results Last 24 Hrs of Labs/Mics: Laboratory Tests 04/30/17 0615: CBC w Diff NO MAN DIFF REQ, RBC 3.93 L, MCV 85.0, MCH 29.0, RDW 14.5, MPV 9.4, Gran % 76.0 H, Lymphocytes % 13.7 L, Monocytes % 5.9, Eosinophils % 4.0, Basophils % 0.4, Absolute Granulocytes 2.1, Absolute Lymphocytes 0.4 L, Absolute Monocytes 0.2, Absolute Eosinophils 0.1, Absolute Basophils 0, PUBS MCHC 34.2 04/29/17 2140: Urine Osmolality 198 L, Ur Random Creatinine 47.8, Ur Random Sodium 16 L, Ur Random Potassium 8.8, Fraction Sodium Excret 0.7 Assessment/Plan Assessment: Patient continues with the jimenez catheter in place draining a clear yellow urine. He has few vague complaints and overall feels well. He denies any further episodes of feeling faint. Patient was restarted on gabapentin and lorazepam at a lower doses, titrate up as tolerated. Serum sodium correctioning appropriately. Problem List: -Hypercapnic respiratory failure -Hyponatremia -UTI -MANJIT -Hyperkalemia Plan: -Telemetry -Obtain ABG if lethargic -Jimenez catheter -Continue IV fluids -Ciprofloxacin 400mg IV Q12H -Gabapentin 100mg PO TID, titrate up to 300mg -Lorazepam 0.5mg PO TID, titate up to 1mg -Venlafaxin restarted -Tamsulosin 0.4mg PO BID -Continue home meds -Urology following -Nephrology following -Pain control -Bowel regimen -Heart Healthy Diet -DVT PPx -FULL CODE Problem List: 1. Obstructive uropathy 2. MANJIT (acute kidney injury) Pain Ratin Pain Location: Abdomen Pain Goal: Remain pain free Pain Plan: See assessment Tomorrow's Labs & Rationales: CBC - leukopenia & UTI BEP - MANJIT Consulting Request: Consulting Specialty: Urology ADARSH LEE,[facility] 04/30/17 1312: Attending MD Review Statement Attending Statement Attending Assessment/Plan: Patient seen and examined. Plan of care discussed with the medical team and the patient. Available lab work and radiology test reports were reviewed. Patient complains of for lower abdominal pain which is new since yesterday. Patient denies any nausea vomiting or diarrhea or fever. On school lunch monitor he showed normal sinus rhythm rate of 90/m with first-degree heart block. On exam patient appears comfortable chest exam shows bilateral scattered crepitations. Abdomen soft nontender no guarding rebound is found. Sodium is now 136 and was to count is 2.8. Assessment plan * I would restart Ativan given the patient was on 1 mg 3 times a day and is currently not on it and he is getting more anxious. This also will avoid issue of withdrawal seizures. * Restart home medications such as venlafaxine * No need for ABGs this point * Bowel regimen to relieve constipation
[2017-04-30 15:42] VITALS: BP 178/90
[2017-04-30 22:00] VITALS: BP 188/100
[2017-05-01 01:08] VITALS: BP 140/100
[2017-05-01 06:23] VITALS: BP 148/84
--- NOTE | 2017-05-01 07:09 | PN- Housestaff ---
MITCH LEE,[place] 05/01/17 0708: Subjective Follow-up For: Hypercapnic respiratory failure Hyponatremia UTI MANJIT Hyperkalemia Tele-Events Since Last Visit: Sinus rhythm heart rate 64-90 Subjective: Continue and examined this point. He was lying comfortably in bed in no acute distress. Reports that he had not been sleeping well at night, but that is baseline. Otherwise denies any chest pain, palpitation, shortness of breath, nausea, vomiting, any other urinary symptoms. Review of Systems Constitutional: Reports: see HPI. Objective Last 24 Hrs of Vital Signs/I&O Vital Signs Date Time Temp Pulse Resp B/P B/P Pulse O2 O2 Flow FiO2 Mean Ox Delivery Rate 05/01 0623 94 148/84 05/01 0108 140/100 05/01 0037 89 93 04/30 2200 98.7 86 18 188/100 95 Room Air 04/30 2156 86 188/100 04/30 1634 94 Room Air Room Air 04/30 1542 98.1 93 20 178/90 93 Room Air 04/30 1225 96 Nasal 1.0L Cannula 04/30 0922 74 124/62 04/30 0900 97.7 101 20 158/80 95 Nasal Cannula 04/30 0800 Nasal 1.0L Cannula Intake & Output 05/01 0800 05/01 0000 04/30 1600 Intake Total 049 561 5572 Output Total 2250 3500 Balance -1550 500 -2220 Intake, IV 700 500 800 Intake, Oral 480 Output, Urine 2250 3500 Physical Exam General Appearance: Alert, Oriented X3, Cooperative, No Acute Distress Cardiovascular: Regular Rate, Normal S1, Normal S2, No Murmurs Lungs: Clear to Auscultation, Normal Air Movement Abdomen: Normal Bowel Sounds, Soft, No Tenderness Extremities: No Clubbing, No Cyanosis, No Edema Current Medications: Current Medications Sig/Jared Start time Last Medication Dose Route Stop Time Status Admin Acetaminophen 650 MG Q6P PRN 04/28 1945 AC PO Albuterol Sulfate 3 ML Q4P PRN 04/29 1145 AC INH Ciprofloxacin 400 MG Q12H 04/29 0700 AC 05/01 Dextrose/Water 200 ML IV 0603 Docusate Sodium 100 MG DAILY 04/30 1118 AC 04/30 PO 1305 Finasteride 5 MG DAILY 04/28 1855 AC 04/30 PO 0922 Gabapentin 100 MG Q8 04/30 1400 AC 05/01 PO 0602 Heparin Sodium 5,000 UNIT Q8 04/28 2200 AC 05/01 (Porcine) SC 0602 Lorazepam 0.5 MG TID 04/30 1114 AC 04/30 PO 05/07 1113 2157 Morphine Sulfate 15 MG BID 04/30 1000 AC 04/30 PO 2157 Oxycodone/ 1 TAB Q6P PRN 04/29 1600 AC Acetaminophen PO Polyethylene Glycol 17 GM DAILY 04/30 1118 AC 04/30 PO 1305 Senna 187 MG AT BEDTIME 04/30 2200 AC 04/30 PO 2155 Sodium Chloride 1,000 ML .Q10H 04/29 1315 AC 05/01 IV 0038 Tamsulosin HCl 0.4 MG BID 04/28 220 AC 04/30 PO 215 Venlafaxine HCl 225 MG 0800 05/01 0800 AC PO Last 24 Hrs of Lab/[place] Results Last 24 Hrs of Labs/Mics: Laboratory Tests 05/01/17 0650: Anion Gap 5, Estimated GFR > 60, BUN/Creatinine Ratio 17.3, CBC w Diff NO MAN DIFF REQ, RBC 3.99 L, MCV 85.6, MCH 28.6, RDW 14.3, MPV 8.8, Gran % 59.7, Lymphocytes % 26.2, Monocytes % 9.5 H, Eosinophils % 4.2, Basophils % 0.4, Absolute Granulocytes 1.8, Absolute Lymphocytes 0.8 L, Absolute Monocytes 0.3, Absolute Eosinophils 0.1, Absolute Basophils 0, PUBS MCHC 33.4 Microbiology 04/30 1640 URINE ROUT: Urine Culture - COLB Assessment/Plan Assessment: Patient continues with the jimenez catheter in place draining a clear yellow urine. He has few vague complaints and overall feels well. He denies any further episodes of feeling faint. Patient was restarted on gabapentin and lorazepam at a lower doses, titrate up as tolerated. Serum sodium correctioning appropriately. Problem List: -Hypercapnic respiratory failure -Hyponatremia -UTI -MANJIT -Hyperkalemia Plan: -Telemetry -Obtain ABG if lethargic -Jimenez catheter -Continue IV fluids -Ciprofloxacin 400mg IV Q12H -Gabapentin 100mg PO TID, titrate up to 300mg -Lorazepam 0.5mg PO TID, titate up to 1mg -Venlafaxin restarted -Tamsulosin 0.4mg PO BID -Continue home meds -Urology following -Nephrology following -Pain control -Bowel regimen -Heart Healthy Diet -DVT PPx -FULL CODE Problem List: 1. Hyperkalemia 2. Hyponatremia 3. Obstructive uropathy 4. MANJIT (acute kidney injury) Pain Ratin Pain Location: none Pain Goal: Remain pain free Pain Plan: mpp Tomorrow's Labs & Rationales: bep Consulting Request: Consulting Specialty: Urology ADARSH ELE,CELSA 05/01/17 1146: Attending MD Review Statement Attending Statement Attending Assessment/Plan: Patient seen and examined. Plan of care discussed with the medical team and the patient. Available lab work and radiology test reports were reviewed. Patient states that his abdominal pain slightly better but he still continues to have lower abdominal pain. Patient denies any nausea vomiting or diarrhea or fever. Patient states that he tried to walk today but got dizzy upon standing up. On exam patient appears comfortable chest exam shows bilateral scattered crepitations. Abdomen soft nontender no guarding rebound is found. Vital Signs Date Time Temp Pulse Resp B/P B/P Pulse O2 O2 Flow FiO2 Mean Ox Delivery Rate 05/01 1010 90 148/88 05/01 0837 98.2 90 20 148/88 95 05/01 0623 94 148/84 05/01 0108 140/100 05/01 0037 89 93 04/30 2200 98.7 86 18 188/100 95 Room Air 04/30 2156 86 188/100 04/30 1634 94 Room Air Room Air 04/30 1542 98.1 93 20 178/90 93 Room Air 04/30 1225 96 Nasal 1.0L Cannula Laboratory Tests 05/01 0650 Chemistry Sodium (137 - 145 mmol/L) 141 Potassium (3.5 - 5.1 mmol/L) 4.7 Chloride (98 - 107 mmol/L) 106 Carbon Dioxide (22 - 30 mmol/L) 29 Anion Gap (5 - 16) 5 BUN (9 - 20 mg/dL) 19 Creatinine (0.7 - 1.2 mg/dL) 1.1 Estimated GFR (>60 ml/min) > 60 BUN/Creatinine Ratio (7 - 25 %) 17.3 Hematology CBC w Diff NO MAN DIFF REQ WBC (4.8 - 10.8 /CUMM) 2.9 L RBC (4.70 - 6.10 /CUMM) 3.99 L Hgb (14.0 - 18.0 G/DL) 11.4 L Hct (42 - 52 %) 34.1 L MCV (80.0 - 94.0 FL) 85.6 MCH (27.0 - 31.0 PG) 28.6 RDW (11.5 - 14.5 %) 14.3 Plt Count (130 - 400 /CUMM) 158 MPV (7.4 - 10.4 FL) 8.8 Gran % (42.2 - 75.2 %) 59.7 Lymphocytes % (20.5 - 51.1 %) 26.2 Monocytes % (1.7 - 9.3 %) 9.5 H Eosinophils % (0 - 5 %) 4.2 Basophils % (0.0 - 2.0 %) 0.4 Absolute Granulocytes (1.4 - 6.5 /CUMM) 1.8 Absolute Lymphocytes (1.2 - 3.4 /CUMM) 0.8 L Absolute Monocytes (0.10 - 0.60 /CUMM) 0.3 Absolute Eosinophils (0.0 - 0.7 /CUMM) 0.1 Absolute Basophils (0.0 - 0.2 /CUMM) 0 PUBS MCHC (33.0 - 37.0 G/DL) 33.4 Microbiology Date/Time Procedure - Status Source Growth 05/01 0744 Urine Culture - RECD URINE ROUT 04/30 1640 Urine Culture - CAN URINE ROUT Cancelled: NOT COLLECTED 04/30/17 STEPHANIE Assessment plan -Hypercapnic respiratory failure -Hyponatremia -UTI -MANJIT- improved -Hyperkalemia - abd pain- non specific with soft abdomen * Continue current medications * Check orthostatics * Ambulate with assist; if patient has difficulty ambulating therefore will need physical therapy assessment * Continue Bowel regimen to relieve constipation
[2017-05-01 07:41] LABS: ABSOLUTE BASOPHIL COUNT 0 /CUMM (0.0-0.2); ABSOLUTE EOSINOPHIL COUNT 0.1 /CUMM (0.0-0.7); ABSOLUTE GRANULOCYTE CT 1.8 /CUMM (1.4-6.5); ABSOLUTE LYMPH COUNT 0.8 /CUMM (1.2-3.4); ABSOLUTE MONOCYTE COUNT 0.3 /CUMM (0.10-0.60); BASOPHIL % 0.4 % (0.0-2.0); EOSINOPHIL % 4.2 % (0-5); GRANULOCYTE % 59.7 % (42.2-75.2); HEMATOCRIT 34.1 % (42-52); MEAN CORPUSCULAR HGB 28.6 PG (27.0-31.0); MEAN CORPUSCULAR HGB CONC 33.4 G/DL (33.0-37.0); MEAN CORPUSCULAR VOLUME 85.6 FL (80.0-94.0); MEAN PLATELET VOLUME 8.8 FL (7.4-10.4); PLATELET COUNT 158 /CUMM (130-400); RBC DISTRIBUTION WIDTH 14.3 % (11.5-14.5); RED BLOOD CELL CT 3.99 /CUMM (4.70-6.10); WHITE BLOOD CELL COUNT 2.9 /CUMM (4.8-10.8)
[2017-05-01 08:37] VITALS: BP 148/88
--- NOTE | 2017-05-01 09:43 | PN- Urology ---
Subjective Subjective: Comfortable Objective Vital Signs and I&Os Vital Signs Date Time Temp Pulse Resp B/P B/P Pulse O2 O2 Flow FiO2 Mean Ox Delivery Rate 05/01 0837 98.2 90 20 148/88 95 05/01 0623 94 148/84 05/01 0108 140/100 05/01 0037 89 93 04/30 2200 98.7 86 18 188/100 95 Room Air 04/30 2156 86 188/100 04/30 1634 94 Room Air Room Air 04/30 1542 98.1 93 20 178/90 93 Room Air 04/30 1225 96 Nasal 1.0L Cannula Intake & Output 05/01 1600 05/01 0800 05/01 0000 04/30 1600 04/30 0800 04/30 0000 Intake Total 965 570 1870 800 Output Total 2250 3500 2750 1300 Balance -1550 500 -2220 -1950 -1300 Intake, IV 700 500 800 800 Intake, Oral 480 Output, Urine 2250 3500 2750 1300 Abd: soft and non tender Genitalia: jimenez in place. Draining clear urine Creat now 1.[address] Initinal urine C&S pos for yeast. Repeat pending WBC=2.9, ? reason for leukopenia Laboratory Tests 05/01 0650 Chemistry Sodium (137 - 145 mmol/L) 141 Potassium (3.5 - 5.1 mmol/L) 4.7 Chloride (98 - 107 mmol/L) 106 Carbon Dioxide (22 - 30 mmol/L) 29 Anion Gap (5 - 16) 5 BUN (9 - 20 mg/dL) 19 Creatinine (0.7 - 1.2 mg/dL) 1.1 Estimated GFR (>60 ml/min) > 60 BUN/Creatinine Ratio (7 - 25 %) 17.3 Hematology CBC w Diff NO MAN DIFF REQ WBC (4.8 - 10.8 /CUMM) 2.9 L RBC (4.70 - 6.10 /CUMM) 3.99 L Hgb (14.0 - 18.0 G/DL) 11.4 L Hct (42 - 52 %) 34.1 L MCV (80.0 - 94.0 FL) 85.6 MCH (27.0 - 31.0 PG) 28.6 RDW (11.5 - 14.5 %) 14.3 Plt Count (130 - 400 /CUMM) 158 MPV (7.4 - 10.4 FL) 8.8 Gran % (42.2 - 75.2 %) 59.7 Lymphocytes % (20.5 - 51.1 %) 26.2 Monocytes % (1.7 - 9.3 %) 9.5 H Eosinophils % (0 - 5 %) 4.2 Basophils % (0.0 - 2.0 %) 0.4 Absolute Granulocytes (1.4 - 6.5 /CUMM) 1.8 Absolute Lymphocytes (1.2 - 3.4 /CUMM) 0.8 L Absolute Monocytes (0.10 - 0.60 /CUMM) 0.3 Absolute Eosinophils (0.0 - 0.7 /CUMM) 0.1 Absolute Basophils (0.0 - 0.2 /CUMM) 0 PUBS MCHC (33.0 - 37.0 G/DL) 33.4 Assessment/Plan Assessment/Plan Imp: 1. Urinary retention. Likely due to BPH. ? component of hypotonic bladder 2. MANJIT, resolved with jimenez 3. fungal UTI 4. Leukopenia Plan: 1. Since patient does poorly as outpatient with jimenez would prefer to do TURP on this admission, possibly mid week if medically stable 2. Would start fluconazole for fungal UTI. Would ordinarily not treat this but urine should be sterilized if surgery being planned 3. ? need to w/u leukopenia 4. continue jimenez for now
[2017-05-01 16:39] VITALS: BP 178/102
[2017-05-01 22:00] VITALS: BP 148/88
--- NOTE | 2017-05-02 09:10 | PN- Housestaff ---
Subjective Follow-up For: Hypercapnic respiratory failure Hyponatremia UTI MANJIT Hyperkalemia Tele-Events Since Last Visit: Normal sinus rhythm, heart rate between 78-86 Subjective: She seen and examined this morning. He was lying comfortably in bed in no acute distress. Did not report any shortness of breath, chest pain, palpitation. Still reports dizziness upon getting up from bed and ambulation, was seen by urology has recommended a TURP likely on Tuesday. Remains hemodynamically stable, vitals within normal range. No other complaints offered. Review of Systems Constitutional: Denies: chills, fever. Cardiovascular: Denies: chest pain, palpitations. Respiratory: Denies: cough, short of breath. Gastrointestinal: Denies: abdominal pain, constipation, diarrhea, nausea, vomiting. Objective Last 24 Hrs of Vital Signs/I&O Vital Signs Date Time Temp Pulse Resp B/P B/P Pulse O2 O2 Flow FiO2 Mean Ox Delivery Rate 05/02 1032 90 167/90 05/02 0916 99.1 90 18 167/90 96 Room Air 05/02 0011 88 92 05/02 0000 Room Air 05/01 2200 97.8 70 20 148/88 94 Room Air 05/01 2124 70 148/88 05/01 1639 97.8 88 20 178/102 96 Intake & Output 05/02 1600 05/02 0800 05/02 0000 Intake Total 750 1250 Output Total 1600 1500 1250 Balance -1600 -750 0 Intake, IV 600 600 Intake, Oral 150 650 Number 0 Bowel Movements Output, Urine 1600 1500 1250 Patient 149.685 kg Weight Physical Exam General Appearance: Alert, Oriented X3, Cooperative, No Acute Distress Cardiovascular: Regular Rate, Normal S1, Normal S2, No Murmurs Lungs: Clear to Auscultation, Normal Air Movement Abdomen: Normal Bowel Sounds, Soft, No Tenderness Extremities: No Clubbing, No Cyanosis, No Edema Current Medications: Current Medications Sig/Jared Start time Last Medication Dose Route Stop Time Status Admin Acetaminophen 650 MG Q6P PRN 04/28 1945 AC PO Albuterol Sulfate 3 ML Q4P PRN 04/29 1145 AC INH Ciprofloxacin 400 MG Q12H 04/29 0700 AC 05/02 Dextrose/Water 200 ML IV 0553 Docusate Sodium 100 MG DAILY 04/30 1118 AC 05/02 PO 1032 Finasteride 5 MG DAILY 04/28 1855 AC 05/02 PO 1033 Fluconazole 100 MG DAILY 05/01 1235 AC 05/02 PO 1032 Gabapentin 100 MG Q8 04/30 1400 AC 05/02 PO 0553 Heparin Sodium 5,000 UNIT Q8 04/28 2200 AC 05/02 (Porcine) SC 0554 Lorazepam 0.5 MG TID 04/30 1114 AC 05/02 PO 05/07 1113 1032 Morphine Sulfate 15 MG BID 04/30 1000 AC 05/02 PO 1033 Oxycodone/ 1 TAB Q6P PRN 04/29 1600 AC Acetaminophen PO Polyethylene Glycol 17 GM DAILY 04/30 1118 AC 05/02 PO 1033 Senna 187 MG AT BEDTIME 04/30 2200 AC 05/01 PO 2124 Sodium Chloride 1,000 ML Q13H 05/01 1445 DC 05/01 IV 05/02 0344 1744 Tamsulosin HCl 0.4 MG BID 04/28 2200 AC 05/02 PO 1032 Venlafaxine HCl 225 MG 0800 05/01 0800 AC 05/02 PO 1032 Last 24 Hrs of Lab/[place] Results Last 24 Hrs of Labs/Mics: Laboratory Tests 05/02/17 0800: Anion Gap 8, Estimated GFR > 60, BUN/Creatinine Ratio 15.0, Magnesium 1.2 L Assessment/Plan Assessment: 67-year-old gentleman with complicated past medical history of urinary problems and multiple admissions for urinary retention and sepsis of urinary origin was admitted for obstructive uropathy, hyperkalemia and EKG changes and metabolic encephalopathy, and hyponatremia. Pertinent data: Sodium 123, potassium 5.8, BUN 51, creatinine 4, troponin negative Urinalysis: Leukocyte esterase positive, nitrite positive, + pyuria EKG: Normal sinus rhythm, for the mom beats per minutes, prolonged SD interval, abnormal ST, T segment change in precordial leads Renal US: B/L no hydronephrosis Head and cervical spine CT: normal Patient admitted to telemetry floor and monitoring for the allowing conditions. Hypercapnic respiratory failure: Resolved, patient has not required BiPAP overnight, satting well in the 90s on room air. UTI: Urinalysis: Leukocyte esterase positive, nitrite positive, + pyuria Patient was started on Cipro Floxin 500 mg, urine culture grew yeast, as per urology recommendation, switched to fluconazole. MANJIT secondary to obstructive uropathy and urinary tract infection: Creatinine upon presentation to 3.5>>3.2>>2.6>>1 Abdominal ultrasound did not show any evidence of nephrosis, patient is scheduled for TURP likely on Tuesday as per urology recommendations. Hyponatremia: Resolved, Hyperkalemia: Resolved Pain management with Percocet 1 tab every 6 when necessary along with MS Contin starting from tomorrow 15 mg twice a day (patient was on Buprenorphine patch as an outpatient, dose of in-patient pain meds discussed with pharmacy). BPH: continue Tamsulosin and Finasteride Patient past swallow valve, started on by mouth diet regular thin DVT prophylaxis with Patient is full code Problem List: 1. Hyperkalemia 2. Hyponatremia 3. Obstructive uropathy 4. MANJIT (acute kidney injury) Pain Ratin Pain Location: None Pain Goal: Remain pain free Pain Plan: MS Contin Tomorrow's Labs & Rationales: None Consulting Request: Consulting Specialty: Urology
[2017-05-02 09:16] VITALS: BP 167/90
--- NOTE | 2017-05-02 10:37 | NUR ---
10:35 AM 5 BEAT RUN V-TACH- NOTIFIED BY DIRECTOR OF CHANNEL MARKETING PT HAD 5 BEAT RUN AT 10:32 AM. THIS RN IN ROOM AT THIS TIME. PT ASYMPTOMATIC. DENIES CP. C/O 06/30 CHRONIC BACK PAIN. AM MEDS GIVEN. DR JANINA MEYER MADE AWARE AT 10:37 AM. AM LABS CHECKED AND REPORTED. WILL CONTINUE TO MONITOR.
--- NOTE | 2017-05-02 15:14 | PN- Att Addend ---
Attending MD Review Statement Attending Statement Attending MD Statement: examined this patient, discuss w/resident/PA/COPPER PLATE LITHOGRAPHER, agreed w/resident/PA/COPPER PLATE LITHOGRAPHER, reviewed EMR data (avail), discussed w/nursing, discussed w/ case mgmt Attending Assessment/Plan: Laboratory Tests 05/02/17 0800: Anion Gap 8, Estimated GFR > 60, BUN/Creatinine Ratio 15.0, Magnesium 1.2 L Vital Signs Date Time Temp Pulse Resp B/P B/P Pulse O2 O2 Flow FiO2 Mean Ox Delivery Rate 05/02 1032 90 167/90 05/02 0916 99.1 90 18 167/90 96 Room Air 05/02 0011 88 92 05/02 0000 Room Air 05/01 2200 97.8 70 20 148/88 94 Room Air 05/01 2124 70 148/88 05/01 1639 97.8 88 20 178/102 96 Pt admitted with 1. Hypercapneic respiratory failure on top of chronic respiratory failrue secondary to COPD on home oxygen. Resolved now. Pt mentating well. 2. Severe hyponatremia- sodium 123 at admission, improved to 140 this am. Monitor sodium levels. 3. UTI- Urine culture grew yeast, dc cipro and started on fluconazole. Renal usg shows no hydronephrosis. 4. MANJIT- resolved ,cr down to baseline at 1.0 5. Hyperkalemia- resolved. 6. Leukopenia- plan to monitor it. Unclear etiology.
--- NOTE | 2017-05-03 07:12 | PN- Housestaff ---
Subjective Follow-up For: UTI Dizziness Subjective: Patient seen and examined this morning. He is lying comfortably in bed in no acute distress. Surgiport dizziness upon standing up, physical therapy worked with him yesterday and patient reported dizziness, will reassess today again, patient to be kept nothing by mouth for TURP tomorrow. No other complaints. Hemodynamically stable, vitals within normal limits. Labs pending Review of Systems Constitutional: Denies: chills, fever. Cardiovascular: Denies: chest pain, palpitations. Respiratory: Denies: cough, short of breath, sputum production. Gastrointestinal: Denies: abdominal pain, constipation, diarrhea, nausea, vomiting. Genitourinary: Denies: dysuria, frequency. Objective Last 24 Hrs of Vital Signs/I&O Vital Signs Date Time Temp Pulse Resp B/P B/P Pulse O2 O2 Flow FiO2 Mean Ox Delivery Rate 05/02 2213 80 166/82 05/02 1944 92 Room Air 05/02 1032 90 167/90 05/02 0916 99.1 90 18 167/90 96 Room Air Intake & Output 05/03 1600 05/03 0800 05/03 0000 Intake Total 150 150 Output Total 2750 Balance -2600 150 Intake, IV 150 Intake, Oral 150 Output, Urine 2750 Physical Exam General Appearance: Alert, Oriented X3, Cooperative, No Acute Distress Cardiovascular: Regular Rate, Normal S1, Normal S2, No Murmurs Lungs: Clear to Auscultation, Normal Air Movement Abdomen: Normal Bowel Sounds, Soft, No Tenderness Extremities: No Clubbing, No Cyanosis, No Edema Current Medications: Current Medications Sig/Jared Start time Last Medication Dose Route Stop Time Status Admin Acetaminophen 650 MG Q6P PRN 04/28 1945 AC PO Albuterol Sulfate 3 ML Q4P PRN 04/29 1145 AC INH Ciprofloxacin 400 MG Q12H 04/29 0700 DC 05/02 Dextrose/Water 200 ML IV 0553 Docusate Sodium 100 MG DAILY 04/30 1118 AC 05/02 PO 1032 Finasteride 5 MG DAILY 04/28 1855 AC 05/02 PO 1033 Fluconazole 100 MG DAILY 05/01 1235 AC 05/02 PO 1032 Gabapentin 100 MG Q8 04/30 1400 AC 05/03 PO 0629 Heparin Sodium 5,000 UNIT Q8 04/28 2200 AC 05/03 (Porcine) SC 0630 Lorazepam 0.5 MG TID 04/30 1114 AC 05/02 PO 05/07 1113 2212 Magnesium Sulfate 1 GM Q2H 05/02 1600 DC 05/02 Dextrose/Water 100 ML IV 05/02 Magnesium Sulfate 1 GM ONCE ONE 05/02 1600 CAN Dextrose/Water 100 ML IV 05/02 1959 Magnesium Sulfate 2 GM ONCE ONE 05/02 1545 CAN Dextrose/Water 100 ML IV 05/02 194 Morphine Sulfate 15 MG BID 04/30 1000 AC 05/02 PO 221 Oxycodone/ 1 TAB Q6P PRN 04/29 1600 AC 05/02 Acetaminophen PO 1536 Polyethylene Glycol 17 GM DAILY 04/30 1118 AC 05/02 PO 1033 Senna 187 MG AT BEDTIME 04/30 220 AC 05/02 PO 221 Tamsulosin HCl 0.4 MG BID 04/28 2200 AC 05/02 PO 221 Venlafaxine HCl 225 MG 0800 05/01 0800 AC 05/02 PO 1032 Last 24 Hrs of Lab/[place] Results Last 24 Hrs of Labs/Mics: Laboratory Tests 05/03/17 0724: Magnesium Pending, CBC w Diff Pending, WBC Pending, RBC Pending, Hgb Pending, Hct Pending, MCV Pending, MCH Pending, RDW Pending, Plt Count Pending, MPV Pending, PUBS MCHC Pending Assessment/Plan Assessment: 67-year-old gentleman with complicated past medical history of urinary problems and multiple admissions for urinary retention and sepsis of urinary origin was admitted for obstructive uropathy, hyperkalemia and EKG changes and metabolic encephalopathy, and hyponatremia. Pertinent data: Sodium 123, potassium 5.8, BUN 51, creatinine 4, troponin negative Urinalysis: Leukocyte esterase positive, nitrite positive, + pyuria EKG: Normal sinus rhythm, for the mom beats per minutes, prolonged [place] interval, abnormal ST, T segment change in precordial leads Renal US: B/L no hydronephrosis Head and cervical spine CT: normal Patient admitted to telemetry floor and monitoring for the allowing conditions. Hypercapnic respiratory failure: Resolved, patient has not required BiPAP overnight, satting well in the 90s on room air. UTI: Urinalysis: Leukocyte esterase positive, nitrite positive, + pyuria Patient was started on Cipro Floxin 500 mg(d/c 05/02), urine culture grew yeast, as per urology recommendation, switched to fluconazole. MANJIT secondary to obstructive uropathy and urinary tract infection: Creatinine upon presentation to 3.5>>3.2>>2.6>>1 Abdominal ultrasound did not show any evidence of nephrosis, patient is scheduled for TURP likely tomorrow as per urology recommendations. Patient to be kept nothing by mouth overnight Hyponatremia: Resolved, Hyperkalemia: Resolved Pain management with Percocet 1 tab every 6 when necessary along with MS Contin starting from tomorrow 15 mg twice a day (patient was on Buprenorphine patch as an outpatient, dose of in-patient pain meds discussed with pharmacy). BPH: continue Tamsulosin and Finasteride Patient past swallow valve, started on by mouth diet regular thin DVT prophylaxis with Patient is full code Problem List: 1. Urinary retention due to benign prostatic hyperplasia Pain Ratin Pain Location: none Pain Goal: Remain pain free Pain Plan: ms contin Tomorrow's Labs & Rationales: cbc magnesium Consulting Request: Consulting Specialty: Urology
--- NOTE | 2017-05-03 08:17 | PN- Urology ---
Subjective Subjective: No distress Objective Vital Signs and I&Os Vital Signs Date Time Temp Pulse Resp B/P B/P Pulse O2 O2 Flow FiO2 Mean Ox Delivery Rate 05/02 2213 80 166/82 05/02 1944 92 Room Air 05/02 1032 90 167/90 05/02 0916 99.1 90 18 167/90 96 Room Air Intake & Output 05/03 1600 05/03 0800 05/03 0000 05/02 1600 05/02 0800 05/02 0000 Intake Total 150 994 696 3376 Output Total 2750 1600 1500 1250 Balance -2600 150 -1600 -750 0 Intake, IV 150 600 600 Intake, Oral 150 150 650 Number 0 Bowel Movements Output, Urine 2750 1600 1500 1250 Patient 330 lb Weight Shultz draining clear urine Laboratory Tests 05/03 0724 Chemistry Magnesium Pending Hematology CBC w Diff Pending WBC Pending RBC Pending Hgb Pending Hct Pending MCV Pending MCH Pending RDW Pending Plt Count Pending MPV Pending PUBS MCHC Pending Assessment/Plan Assessment/Plan Imp: 1. Urinary retention 2. BPH 3. Yeast UTI. Now on fluconazole Plan: 1. I am attempting to schedule for TURP tomorrow 2. Please keep npo after midnight tonight except for po meds with sips 3. If plans change (meaning OR unable to schedule for tomorrow will contact medical team or nursing staff)
[2017-05-03 08:30] VITALS: BP 168/84
[2017-05-03 08:45] LABS: ABSOLUTE BASOPHIL COUNT 0 /CUMM (0.0-0.2); ABSOLUTE EOSINOPHIL COUNT 0.3 /CUMM (0.0-0.7); ABSOLUTE GRANULOCYTE CT 2.3 /CUMM (1.4-6.5); ABSOLUTE MONOCYTE COUNT 0.3 /CUMM (0.10-0.60); BASOPHIL % 0.3 % (0.0-2.0); EOSINOPHIL % 6.8 % (0-5); GRANULOCYTE % 60.2 % (42.2-75.2); HEMATOCRIT 34.4 % (42-52); MEAN CORPUSCULAR HGB 28.7 PG (27.0-31.0); MEAN CORPUSCULAR HGB CONC 33.9 G/DL (33.0-37.0); MEAN CORPUSCULAR VOLUME 84.7 FL (80.0-94.0); MEAN PLATELET VOLUME 8.1 FL (7.4-10.4); PLATELET COUNT 169 /CUMM (130-400); RBC DISTRIBUTION WIDTH 13.8 % (11.5-14.5); RED BLOOD CELL CT 4.06 /CUMM (4.70-6.10); WHITE BLOOD CELL COUNT 3.8 /CUMM (4.8-10.8)
--- NOTE | 2017-05-03 14:47 | PN- Att Addend ---
Attending MD Review Statement Attending Statement Attending MD Statement: examined this patient, discuss w/resident/PA/BENCH EXAMINER, agreed w/resident/PA/BENCH EXAMINER, reviewed EMR data (avail), discussed w/nursing, discussed w/ case mgmt Attending Assessment/Plan: Laboratory Tests 05/03/17 0724: Magnesium 1.8, CBC w Diff NO MAN DIFF REQ, RBC 4.06 L, MCV 84.7, MCH 28.7, RDW 13.8, MPV 8.1, Gran % 60.2, Lymphocytes % 25.1, Monocytes % 7.6, Eosinophils % 6.8 H, Basophils % 0.3, Absolute Granulocytes 2.3, Absolute Lymphocytes 1.0 L, Absolute Monocytes 0.3, Absolute Eosinophils 0.3, Absolute Basophils 0, PUBS MCHC 33.9 Vital Signs Date Time Temp Pulse Resp B/P B/P Pulse O2 O2 Flow FiO2 Mean Ox Delivery Rate 05/03 0830 98.4 82 20 168/84 92 05/02 2213 80 166/82 05/02 1944 92 Room Air Pt admitted with 1. Hypercapneic respiratory failure on top of chronic respiratory failrue secondary to COPD on home oxygen. Resolved now. Pt mentating well. 2. Severe hyponatremia- sodium 123 at admission, improved to normal levels now. Monitor sodium levels. 3. UTI- Urine culture grew yeast, dc cipro and started on fluconazole. Renal usg shows no hydronephrosis. 4. MANJIT- resolved ,cr down to baseline at 1.0 5. Hyperkalemia- resolved. 6. Leukopenia- plan to monitor it. Unclear etiology. Improving. 7. BPH with bladder outflow obstruction. Planned for TURP tomorrow. Will get PTT /INR in am .
[2017-05-03 16:29] VITALS: BP 140/90
[2017-05-04] VITALS: BP 180/80
--- NOTE | 2017-05-04 07:19 | PN- Housestaff ---
Subjective Follow-up For: Acute kidney injury, secondary to obstructive uropathy Complaints: no complaints Tele-Events Since Last Visit: Sinus rhythm, heart rate ranging from 65-79, with PVCs all night. Subjective: I followed up and examined the patient today. She is resting comfortably in bed , was nothing by mouth since midnight for possible TURP procedure today but urologist saw him just before we were informed that he has been scheduled for tomorrow 1 PM. His vitals have been stable overnight, no other issues. Morejon cath in situ. Review of Systems Constitutional: Reports: no symptoms. Objective Last 24 Hrs of Vital Signs/I&O Vital Signs Date Time Temp Pulse Resp B/P B/P Pulse O2 O2 Flow FiO2 Mean Ox Delivery Rate 05/04 0942 76 138/72 05/04 0813 97.9 76 20 138/72 93 Room Air 05/04 0000 98.4 70 18 180/80 93 05/03 2111 72 164/80 05/03 1629 98.7 68 18 140/90 94 Room Air Intake & Output 05/04 1600 05/04 0800 05/04 0000 Intake Total 420 Output Total 850 450 Balance -850 -30 Intake, IV 20 Intake, Oral 400 Number 0 Bowel Movements Output, Urine 850 450 Physical Exam General Appearance: Alert, Oriented X3, Cooperative, No Acute Distress Other Physical Findings: Cardiovascular: Regular Rate, Normal S1, Normal S2, No Murmurs Lungs: Clear to Auscultation, Normal Air Movement Abdomen: Normal Bowel Sounds, Soft, No Tenderness; HAS A MOREJON ON Extremities: No Clubbing, No Cyanosis, No Edema Current Medications: Current Medications Sig/Jared Start time Last Medication Dose Route Stop Time Status Admin Acetaminophen 650 MG Q6P PRN 04/28 1945 AC PO Albuterol Sulfate 3 ML Q4P PRN 04/29 1145 AC INH Bisacodyl 10 MG ONCE ONE 05/04 1330 DC MT 05/04 1331 Docusate Sodium 100 MG DAILY 04/30 1118 AC 05/04 PO 0942 Finasteride 5 MG DAILY 04/28 1855 AC 05/04 PO 0942 Fluconazole 100 MG DAILY 05/01 1235 AC 05/04 PO 0942 Gabapentin 100 MG Q8 04/30 1400 AC 05/04 PO 1445 Heparin Sodium 5,000 UNIT Q8 04/28 2200 AC 05/04 (Porcine) SC 1445 Lorazepam 0.5 MG TID 04/30 1114 AC 05/04 PO 05/07 1113 1630 Morphine Sulfate 15 MG BID 04/30 1000 AC 05/04 PO 0944 Oxycodone/ 1 TAB Q6P PRN 04/29 1600 AC 05/04 Acetaminophen PO 1630 Polyethylene Glycol 17 GM DAILY 04/30 1118 AC 05/04 PO 0943 Senna 187 MG AT BEDTIME 04/30 2200 AC 05/03 PO 2113 Tamsulosin HCl 0.4 MG BID 04/28 2200 AC 05/04 PO 0942 Venlafaxine HCl 225 MG 0800 05/01 0800 AC 05/04 PO 0942 Last 24 Hrs of Lab/[place] Results Last 24 Hrs of Labs/Mics: Laboratory Tests 05/04/17 0702: Magnesium 1.8, CBC w Diff NO MAN DIFF REQ, RBC 4.08 L, MCV 86.6, MCH 29.0, RDW 13.9, MPV 7.5, Gran % 58.9, Lymphocytes % 25.7, Monocytes % 8.0, Eosinophils % 7.1 H, Basophils % 0.3, Absolute Granulocytes 2.0, Absolute Lymphocytes 0.9 L, Absolute Monocytes 0.3, Absolute Eosinophils 0.2, Absolute Basophils 0, PUBS MCHC 33.5 Assessment/Plan Assessment: 67-year-old gentleman with complicated past medical history of urinary problems and multiple admissions for urinary retention and sepsis of urinary origin was admitted for obstructive uropathy, hyperkalemia and EKG changes and metabolic encephalopathy, and hyponatremia. Patient admitted to telemetry floor and monitoring for the allowing conditions. Hypercapnic respiratory failure: Resolved, patient has not required BiPAP overnight, saturating well in the 90s on room air. #UTI Urinalysis: Leukocyte esterase positive, nitrite positive, + pyuria -Ciprofloloxin was discontinued after urine culture came out negative, but grew yeast. Patient was kept on fluconazole. #MANJIT secondary to obstructive uropathy and urinary tract infection -Creatinine now back to baseline at 1. -Patient is scheduled for TURP likely tomorrow as per urology recommendations. Today's TURP procedure was canceled/post poned by urology due to scheduling issues was stopped. Not due to medical reasons. -Patient is being kept nothing by mouth overnight. -Continuing Morejon cath for now. #Hyponatremia Resolved #Hyperkalemia Resolved #BPH -continue Tamsulosin and Finasteride Patient past swallow evaluation and is continuing HH diet. DVT prophylaxis with SQ Heparin. Patient is full code Problem List: 1. Urinary retention due to benign prostatic hyperplasia 2. MANJIT (acute kidney injury) 3. Obstructive uropathy Pain Ratin Pain Location: - Pain Goal: Pain 4 or less Pain Plan: prn Tomorrow's Labs & Rationales: BEP Consulting Request: Consulting Specialty: Urology
--- NOTE | 2017-05-04 07:45 | PN- Urology ---
Subjective Subjective: No distress Objective Vital Signs and I&Os Vital Signs Date Time Temp Pulse Resp B/P B/P Pulse O2 O2 Flow FiO2 Mean Ox Delivery Rate 05/04 0000 98.4 70 18 180/80 93 05/03 2111 72 164/80 05/03 1629 98.7 68 18 140/90 94 Room Air 05/03 0830 98.4 82 20 168/84 92 Intake & Output 05/04 0800 05/04 0000 05/03 1600 05/03 0000 05/02 1600 Intake Total 420 600 150 150 Output Total 964 952 7100 2750 1600 Balance -850 -30 -500 -2600 150 -1600 Intake, IV 20 0 150 Intake, Oral 400 600 150 Number 0 0 Bowel Movements Output, Urine 479 419 9671 2750 1600 Patient 330 lb Weight Abd: soft and non tender Genitalia: jimenez in place. Draining clear urine Assessment/Plan Assessment/Plan Imp: Urinary retention BPH Plan: I could not get patient on OR schedule today due heavy OR schedule Patient is scheduled for TURP tomorrow at 1:00 PM May feed today and keep npo after midnight tonight except po meds with sip Please start cipro 500 mg bid today
[2017-05-04 08:13] VITALS: BP 138/72
[2017-05-04 08:16] LABS: ABSOLUTE BASOPHIL COUNT 0 /CUMM (0.0-0.2); ABSOLUTE EOSINOPHIL COUNT 0.2 /CUMM (0.0-0.7); ABSOLUTE LYMPH COUNT 0.9 /CUMM (1.2-3.4); ABSOLUTE MONOCYTE COUNT 0.3 /CUMM (0.10-0.60); BASOPHIL % 0.3 % (0.0-2.0); EOSINOPHIL % 7.1 % (0-5); GRANULOCYTE % 58.9 % (42.2-75.2); HEMATOCRIT 35.3 % (42-52); MEAN CORPUSCULAR HGB CONC 33.5 G/DL (33.0-37.0); MEAN CORPUSCULAR VOLUME 86.6 FL (80.0-94.0); MEAN PLATELET VOLUME 7.5 FL (7.4-10.4); PLATELET COUNT 163 /CUMM (130-400); RBC DISTRIBUTION WIDTH 13.9 % (11.5-14.5); RED BLOOD CELL CT 4.08 /CUMM (4.70-6.10); WHITE BLOOD CELL COUNT 3.4 /CUMM (4.8-10.8)
[2017-05-04 16:14] VITALS: BP 158/80
--- NOTE | 2017-05-04 16:14 | PN- Att Addend ---
Attending MD Review Statement Attending Statement Attending MD Statement: examined this patient, discuss w/resident/PA/COMPUTER CONSOLE OPERATOR, agreed w/resident/PA/COMPUTER CONSOLE OPERATOR, reviewed EMR data (avail), discussed w/nursing, discussed w/ case mgmt Attending Assessment/Plan: Laboratory Tests 05/04/17 0702: Magnesium 1.8, CBC w Diff NO MAN DIFF REQ, RBC 4.08 L, MCV 86.6, MCH 29.0, RDW 13.9, MPV 7.5, Gran % 58.9, Lymphocytes % 25.7, Monocytes % 8.0, Eosinophils % 7.1 H, Basophils % 0.3, Absolute Granulocytes 2.0, Absolute Lymphocytes 0.9 L, Absolute Monocytes 0.3, Absolute Eosinophils 0.2, Absolute Basophils 0, PUBS MCHC 33.5 Vital Signs Date Time Temp Pulse Resp B/P B/P Pulse O2 O2 Flow FiO2 Mean Ox Delivery Rate 05/04 0942 76 138/72 05/04 0813 97.9 76 20 138/72 93 Room Air 05/04 0000 98.4 70 18 180/80 93 05/03 2111 72 164/80 05/03 1629 98.7 68 18 140/90 94 Room Air Pt admitted with 1. Hypercapneic respiratory failure on top of chronic respiratory failrue secondary to COPD on home oxygen. Resolved now. Pt mentating well. 2. Severe hyponatremia- sodium 123 at admission, improved to normal levels now. Monitor sodium levels. 3. UTI- Urine culture grew yeast, dc cipro and started on fluconazole. Renal usg shows no hydronephrosis. 4. MANJIT- resolved ,cr down to baseline at 1.0 5. Hyperkalemia- resolved. 6. Leukopenia- plan to monitor it. Unclear etiology. Improving. 7. BPH with bladder outflow obstruction. Planned for TURP tomorrow. Will get PTT /INR in am .
[2017-05-04 22:20] VITALS: BP 160/90
[2017-05-05 06:00] VITALS: BP 142/88
--- NOTE | 2017-05-05 07:42 | PN- Housestaff ---
See Addendum Subjective Follow-up For: Acute kidney injury, secondary to obstructive uropathy Subjective: Mr. Madrigal was seen and examined this morning. Is resting comfortably in bed. He is currently nothing by mouth awaiting a TURP procedure. Denies any issues overnight was able to get some rest distress despite being brought up to the floor at 9:30 PM. Currently has been voiding well. Denies any fever, chills, nausea, vomiting. Review of Systems Constitutional: Reports: see HPI. Objective Last 24 Hrs of Vital Signs/I&O Vital Signs Date Time Temp Pulse Resp B/P B/P Pulse O2 O2 Flow FiO2 Mean Ox Delivery Rate 05/05 06 98.2 61 14 142/88 95 05/04 2220 97.5 73 20 160/90 90 05/04 2127 72 142/84 05/04 1614 99.1 62 20 158/80 92 05/04 0942 76 138/72 05/04 0813 97.9 76 20 138/72 93 Room Air Intake & Output 05/05 0800 05/05 0000 05/04 1600 Intake Total 10 500 Output Total 1500 1650 Balance -1490 -1150 Intake, IV 10 Intake, Oral 500 Number 0 Bowel Movements Output, Urine 1500 1650 Physical Exam General Appearance: Alert, Oriented X3, Cooperative Cardiovascular: Normal S1, Normal S2 Lungs: Clear to Auscultation Abdomen: Normal Bowel Sounds, Soft, No Tenderness Neurological: Normal Speech Extremities: No Edema Vascular: Normal Pulses Current Medications: Current Medications Sig/Jared Start time Last Medication Dose Route Stop Time Status Admin Acetaminophen 650 MG Q6P PRN 04/28 1945 AC PO Albuterol Sulfate 3 ML Q4P PRN 04/29 1145 AC INH Bisacodyl 10 MG ONCE ONE 05/04 1330 DC KS 05/04 1331 Ciprofloxacin 500 MG BID 05/05 1000 UNVr PO 05/09 0959 Docusate Sodium 100 MG DAILY 04/30 1118 AC 05/04 PO 0942 Finasteride 5 MG DAILY 04/28 1855 AC 05/04 PO 0942 Fluconazole 100 MG DAILY 05/01 1235 AC 05/04 PO 0942 Gabapentin 100 MG Q8 04/30 1400 AC 05/05 PO 0550 Heparin Sodium 5,000 UNIT Q8 04/28 2200 AC 05/05 (Porcine) SC 0551 Lorazepam 0.5 MG TID 04/30 1114 AC 05/04 PO 05/07 1113 2126 Morphine Sulfate 15 MG BID 04/30 1000 AC 05/04 PO 2126 Oxycodone/ 1 TAB Q6P PRN 04/29 1600 AC 05/04 Acetaminophen PO 230 Polyethylene Glycol 17 GM DAILY 04/30 1118 AC 05/04 PO 0943 Senna 187 MG AT BEDTIME 04/30 2200 AC 05/04 PO 2126 Tamsulosin HCl 0.4 MG BID 04/28 2200 AC 05/04 PO 2126 Venlafaxine HCl 225 MG 0800 05/01 0800 AC 05/04 PO 0942 Last 24 Hrs of Lab/[place] Results Last 24 Hrs of Labs/Mics: Laboratory Tests 05/05/17 0830: Anion Gap 6, Estimated GFR > 60, BUN/Creatinine Ratio 22.0, PT 12.5, INR 1.19 H , APTT 34 Microbiology 05/05 1300 URINE OR: Urine Culture - RECD Assessment/Plan Assessment: 67-year-old gentleman with complicated past medical history of urinary problems and multiple admissions for urinary retention and sepsis of urinary origin was admitted for obstructive uropathy, hyperkalemia and EKG changes and metabolic encephalopathy, and hyponatremia. Patient transferred to for additional care. #Hypercapnic respiratory failure Resolved, patient has not required BiPAP overnight, saturating well in the 90s on room air. #UTI Urinalysis: Leukocyte esterase positive, nitrite positive, + pyuria Patient was kept on fluconazole, for Yeast greater thatn 100,000 colonies per mL. Ciprofloxacin 500 mg BID #MANJIT secondary to obstructive uropathy and urinary tract infection -Creatinine now back to baseline at 1. -Patient is scheduled for TURP later today. -Patient is being kept nothing by mouth overnight, will advance diet when returns. -Continuing Shultz cath for now. #Hyponatremia Resolved. Na level today: 140 #Hyperkalemia Resolved. K level today: 4.4 #BPH Continue Tamsulosin and Finasteride Patient past swallow evaluation and is continuing HH diet. DVT prophylaxis with SQ Heparin. Patient is full code Problem List: 1. Obstructive uropathy 2. MANJIT (acute kidney injury) 3. Urinary retention due to benign prostatic hyperplasia 4. Shultz catheter problem Pain Ratin Pain Location: chronic back pain Pain Goal: Remain pain free Pain Plan: MS Janet Valdivia. Tomorrow's Labs & Rationales: CBC Monitor WBC in the setting of infection BEP: Monitor Electrolytes Consulting Request: Consulting Specialty: Urology
--- NOTE | 2017-05-05 07:50 | Patient Discharge Instructions ---
Discharge Instructions General Discharge Information You were seen/treated for: Hyponatremia UTI You had these procedures: TURP Watch for these problems: If you feel weak, experience chest pain, shortness breath, or increased weakness please come back to the emergency department. If you experience fever, chills, nausea, vomiting in addition to the above please come back to the emergency department for additional care Special Instructions: Please follow-up with your primary care physician within 7 days of discharge. Please inform your primary care physician of this admission to General medical service. Please follow-up with your urologist Dr. Burch within 7 days. Some medication changes will be considered at this time. Diet Continue normal diet: Yes Activity Full Activity/No Limits: No Activity Self Limited: Yes (As tolerated ) Acute Coronary Syndrome Inclusion Criteria At DC or during hospital stay patient has or had the following: ACS DIAGNOSIS No Discharge Core Measures Meds if any: Prescribed or Continued at Discharge Meds if any: NOT Prescribed or Continued at Discharge Congestive Heart Failure Inclusion Criteria At DC or during hospital stay patient has or had the following: CHF DIAGNOSIS No Discharge Core Measures Meds if any: Prescribed or Continued at Discharge Meds if any: NOT Prescribed or Continued at Discharge Cerebrovascular accident Inclusion Criteria At DC or during hospital stay patient has or had the following: CVA/TIA Diagnosis No Discharge Core Measures Meds if any: Prescribed or Continued at Discharge Meds if any: NOT Prescribed or Continued at Discharge Venous thromboembolism Inclusion Criteria VTE Diagnosis No VTE Type NONE VTE Confirmed by (Test) NONE Discharge Core Measures - Per Current guidelines, there needs to be overlap - treatment for the first 5 days of Warfarin therapy. - If discharged on Warfarin prior to 5 days of - overlap therapy, the patient will need to be - assessed for post discharge needs including - *Post discharge parental anticoagulation - *Warfarin and/or parental anticoagulation education - *Follow up date to check INR post discharge At least 5 days overlap therapy as Inpatient No Meds if any: Prescribed or Continued at Discharge Note: Overlap Therapy is Warfarin and Anticoagulant Meds if any: NOT Prescribed or Continued at Discharge
[2017-05-05 09:18] LABS: PT 12.5 SEC (9.4-12.5); PTT 34 SEC (25-37)
--- NOTE | 2017-05-05 10:52 | Transfer of Care Summary ---
Hospital Course Course Hospital Course: 67-year-old gentleman with complicated past medical history of urinary problems and multiple admissions for urinary retention and sepsis of urinary origin was admitted for obstructive uropathy, hyperkalemia and EKG changes and metabolic encephalopathy, and hyponatremia. Hypercapnic respiratory failure: Patient has history of COPD, and 4 L of home oxygen. ABG upon presentation 7.7/ 47/92/95 placed on BIPAP, repeat ABGs improved. UTI: Upon presentation UA positive for leukocyte esterase, nitrite positive, + pyuria Patient was started on Ciprofloloxin whic was discontinued (05/03) after urine culture came out negative, but grew yeast. Patient was kept on fluconazole. Urology was on board. MANJIT secondary to obstructive uropathy and urinary tract infection -Creatinine upon presentation 4. IV hydration improved to baseline. -Urology was on board, patient was scheduled for TURP. -Continuing Shultz cath for now. -Cont finastride and tamsulosin Hyponatremia Resolved Patient presented with Na level 123, corrected slowly. Hyperkalemia Resolved Patient presented with K level 5.8. BPH continue Tamsulosin and Finasteride Urology was on board, patient was scheduled for TURP. -Continuing Shultz cath for now. -Cont finastride and tamsulosin Pain Mx: Pain management with Percocet 1 tab every 6 when necessary along with MS Contin starting from tomorrow 15 mg twice a day (patient was on Buprenorphine patch as an outpatient, dose of in-patient pain meds discussed with pharmacy). Patient past swallow evaluation and is continuing HH diet. DVT prophylaxis with SQ Heparin. Patient is full code Complications: none Assessment/Plan: .
--- NOTE | 2017-05-05 11:39 | NUR ---
SPEECH THERAPY: ATTEMPTED TO SEE PT FOR DIET TOLERANCE, HOWEVER, PT CURRENTLY NPO PENDING TURP PROCEDURE. PT UNABLE TO BE SEEN. ST CONTINUE TO FOLLOW FOR DIET TOLERANCE CLINICALLY INDICATED. D/W RN.
[2017-05-05 12:06] VITALS: BP 140/60
--- NOTE | 2017-05-05 12:12 | NUR ---
NURSING NOTE: PT LEFT FLOOR VIA STRETCHER WITH DISTRIBUTION FOR TUBP IN OR WITH DR DING, PT AWAKE, A/OX3, VITALS OBTAINED, DENIES PAIN. NPO, MOREJON PATENT. IV PATENT, OR CHECKLIST COMPLETE, STAMPER/MED LIST SENT, BETA JULIA GIVEN THIS AM WITH SIP OF WATER. AWAIT RETURN TO FLOOR.
--- NOTE | 2017-05-05 14:45 | Operative Report ---
Operative/Inv Procedure Report Surgery Date: 05/05/17 Name of Procedure: Cystoscopy and TURP Pre-Operative Diagnosis: Urinary retention and BPH Post-Operative Diagnosis: same Estimated Blood Loss: 150-200 cc Surgeon/Sales Appointment Coordinator: GLORIA Parada MD Anesthesia: general endotracheal tube Drains: 22 fr 3-way jimenez for CBI Specimens: Urine C&S and prostate chips Complications: none Condition: stable Operative Indication: Urinary retention with failure of medical therapy for BPH Operative/Procedure Note Note: The patient was taken to the cystoscopy room and identified. He was placed in the supine position on the cystoscopy table. A timeout was executed appropriately with the patient awake. Gen. anesthesia was induced via an endotracheal tube. He was then placed in the dorsolithotomy position. Bimanual rectal exam revealed an enlarged, nonnodular prostate. He was then prepped and draped in usual fashion for cystoscopy. Surgical pause was executed appropriately. 22 Micronesian cystoscope sheath was placed into the bladder under direct vision using the 30 lens. Anterior urethra was normal. Prostatic urethra showed bilateral lateral lobe prostatic hypertrophy with definite bladder outlet obstruction. Upon entering the bladder cystoscopy was performed. There were mild signs of catheter cystitis. The bladder was trabeculated. There is no evidence of bladder tumor or stones. Ureteral orifices were normal in location and appearance. The bladder was left full and the cystoscope removed. A 26 Micronesian resectoscope sheath was placed into the bladder using obturator. The working element was inserted. First the left lateral lobe of the prostate was resected between 1:00 and 5:00 positions using the bladder neck proximal landmark and the verumontanum as a distal landmark. Hemostasis was obtained electrocautery. Next the right lateral lobe of the prostate was resected between 11 and 7:00 positions using same landmarks. Hemostasis was obtained electrocautery. The floor the prostatic urethra was then resected between 5 and 7:00 positions using same landmarks. Hemostasis was obtained electrocautery. Finally the roof prostatic fossa was resected between 11:00 and 1:00 positions using same landmarks. At this point all prostate chips were irrigated out of the bladder using Ellik evacuator. Hemostasis was obtained electrocautery. No significant bleeding was noted at this time. The prostatic fossa appeared wide open other than some apical tissue which was adjacent to the verumontanum. Was felt that this tissue should not be resected as this would increase the risk of incontinence. The bladder was left full and the resectoscope removed. A 22 Micronesian three-way hematuria catheter was inserted. Continuous bladder irrigation was begun. With the catheter on light traction the drainage was light pink to clear. The patient's blood pressure the time was 127/68. Patient tolerated the procedure well and as completion was taken recovery room extubated in stable condition. Findings: Bilateral lateral lobe prostatic hypertrophy with bladder outlet obstruction Discharge Disposition: PACU
[2017-05-05 17:30] VITALS: BP 140/90
--- NOTE | 2017-05-05 20:17 | NUR ---
PATIENT ARRIVED FROM PACU AT 1728, S/P TURP [address], CBI RUNNING BAG #3 C/O SOME BURNING TO PENIS, SCANT AMOUNT OF BLOOD NOTED UNDER PENIS, CONTINUE TO MONITOR. TOLERATED DINNER WELL; REMAINING ON 3L O2 SAT AT 94-95% POST OP ORDERS REVIEWED AND SENT TO PHARMACY. SAFETY MAINTAINED, NEEDS WITHIN REACH.
[2017-05-05 22:00] VITALS: BP 150/86
--- NOTE | 2017-05-06 06:22 | PN- Housestaff ---
MICHELE LEE,[facility] 05/06/17 0621: Subjective Follow-up For: MANJIT 2/2 obstructive Uropathy Subjective: Mr. Madrigal was seen and examined this morning. Was continuing to have CBI during the course of our encounter. Post Op day 1. Patient did state that he has continued to experience some karla blood loss from his urethra. Likely owing to TURP. Patient states he initially felt lightheaded over the course evening but he denies any chest discomfort or palpitations. Denies any fever, chills, nausea, vomiting. Tolerating by mouth intake well. Also continues to endorse pain. 8 out of 10 in severity. Location is his lower back which is present chronically. Denies any fever, chills, nausea, vomiting Review of Systems Constitutional: Reports: see HPI. Objective Last 24 Hrs of Vital Signs/I&O Vital Signs Date Time Temp Pulse Resp B/P B/P Pulse O2 O2 Flow FiO2 Mean Ox Delivery Rate 05/06 0651 98.0 57 20 186/102 91 Nasal 3.0L Cannula 05/06 0643 186/102 05/05 2200 97.5 58 19 150/86 93 Nasal 3.0L Cannula 05/05 2108 58 150/86 05/05 1730 94 Nasal 3.0L Cannula 05/05 1730 98.0 63 20 140/90 94 Nasal 3.0L Cannula 05/05 1419 Room Air Room Air 05/05 1206 98.1 64 20 140/60 97 Room Air 05/05 1114 70 142/80 Intake & Output 05/06 1600 05/06 0800 05/06 0000 Intake Total 400 2125 Output Total 1050 Balance 400 1075 Intake, IV 400 1525 Intake, Oral 600 Output, Urine 1050 Physical Exam General Appearance: Alert, Oriented X3, Cooperative Cardiovascular: Regular Rate, Normal S1, Normal S2 Lungs: Normal Air Movement, Decreased breath sounds Right Lung Base Abdomen: Normal Bowel Sounds, Soft, No Tenderness Neurological: Normal Speech Extremities: No Clubbing, No Cyanosis, No Edema Vascular: Normal Pulses Current Medications: Current Medications Sig/Jared Start time Last Medication Dose Route Stop Time Status Admin Acetaminophen 650 MG Q6P PRN 05/05 1815 AC PO Acetaminophen 650 MG Q6P PRN 04/28 1945 DC PO Albuterol Sulfate 3 ML Q4P PRN 05/05 1815 AC INH Albuterol Sulfate 3 ML Q4P PRN 04/29 1145 DC INH Ciprofloxacin 500 MG BID 05/05 2200 AC 05/05 PO 05/07 1001 2109 Ciprofloxacin 500 MG BID 05/05 1000 DC 05/05 PO 05/09 0959 1005 Dexamethasone 4 MG .STK-MED ONE 05/05 1219 DC IM 05/05 1220 Dextrose/Sodium 1,000 ML .Q20H 05/05 1815 AC 05/05 Chloride IV 1804 Docusate Sodium 100 MG DAILY 05/06 1000 AC PO Docusate Sodium 100 MG DAILY 04/30 1118 DC 05/04 PO 0942 Fentanyl Citrate 100 MCG .STK-MED ONE 05/05 1218 DC IM 05/05 1219 Fentanyl Citrate 250 MCG .STK-MED ONE 05/05 1218 DC IM 05/05 1219 Finasteride 5 MG DAILY 05/06 1000 AC PO Finasteride 5 MG DAILY 04/28 1855 DC 05/05 PO 1006 Fluconazole 100 MG DAILY 05/01 1235 DC 05/05 PO 1005 Gabapentin 100 MG Q8 05/05 2200 AC 05/06 PO 0623 Gabapentin 100 MG Q8 04/30 1400 DC 05/05 PO 0550 Heparin Sodium 5,000 UNIT Q8 04/28 2200 DC 05/05 (Porcine) SC 0551 Hydromorphone HCl 2 MG .STK-MED ONE 05/05 1447 DC IM 05/05 1448 Hydromorphone HCl 2 MG .STK-MED ONE 05/05 1218 DC IM 05/05 1219 Lorazepam 0.5 MG TID 05/05 1830 AC 05/05 PO 05/12 1829 2108 Lorazepam 0.5 MG TID 04/30 1114 DC 05/05 PO 05/07 1113 1007 Losartan Potassium 50 MG DAILY 05/06 1000 AC PO Metoprolol Tartrate 50 MG BID 05/05 2200 AC 05/06 PO 0643 Metoprolol Tartrate 50 MG BID 05/05 1043 DC 05/05 PO 1114 Midazolam HCl 2 MG .STK-MED ONE 05/05 1218 DC IM 05/05 1219 Morphine Sulfate 15 MG BID 04/30 1000 AC 05/05 PO 2108 Ondansetron HCl 4 MG .STK-MED ONE 05/05 1218 DC IM 05/05 1219 Oxycodone/ 1 TAB ONCE ONE 05/06 0715 DC Acetaminophen PO 05/06 0716 Oxycodone/ 1 TAB Q6P PRN 04/29 1600 AC 05/06 Acetaminophen PO 0623 Patient Medication 1 ED .STK-MED ONE 05/05 1410 DC Teaching ED 05/05 1411 Polyethylene Glycol 17 GM DAILY 05/06 1000 AC PO Polyethylene Glycol 17 GM DAILY 04/30 1118 DC 05/04 PO 0943 Senna 187 MG AT BEDTIME 05/05 2200 AC PO Senna 187 MG AT BEDTIME 04/30 2200 DC 05/04 PO 2127 Tamsulosin HCl 0.4 MG DAILY 05/06 1000 AC PO Tamsulosin HCl 0.4 MG BID 04/28 2200 DC 05/05 PO 1006 Venlafaxine HCl 225 MG 0800 05/06 0800 AC PO Venlafaxine HCl 225 MG 0800 05/01 0800 DC 05/05 PO 1005 Last 24 Hrs of Lab/[place] Results Last 24 Hrs of Labs/Mics: Laboratory Tests 05/05/17 0830: Anion Gap 6, Estimated GFR > 60, BUN/Creatinine Ratio 22.0, PT 12.5, INR 1.19 H , APTT 34 Microbiology 05/05 1300 URINE OR: Urine Culture - RES Assessment/Plan Assessment: 67-year-old gentleman with complicated past medical history of urinary problems and multiple admissions for urinary retention and sepsis of urinary origin was admitted for obstructive uropathy, hyperkalemia and EKG changes and metabolic encephalopathy, and hyponatremia. Patient transferred to for additional care. #Acute Hypercapnic respiratory failure Resolved, patient has not required BiPAP overnight, saturating well in the 90s on room air. #UTI Urinalysis: Leukocyte esterase positive, nitrite positive, + pyuria. Patient was kept on fluconazole, for Yeast greater thatn 100,000 colonies per mL. Continue Fluconazole, will require 14 days of total treatment. #MANJIT secondary to obstructive uropathy and urinary tract infection -Creatinine now back to baseline at 1.1. -Patient tolerated procedure well. Continuous bladder irrigation was running overnight however this has been stopped this morning. He currently has not any episodes of any hematuria. Shultz will likely be discontinued on 05/07/2017. If patient is able to void he can likely be discharged. -Continuing Shultz cath for now. -Will need to follow up as out patient. #Hyponatremia Resolved. Na level today: 136. Will Monitor. #Hyperkalemia Resolved. K level today: 4.3 #BPH Continue Tamsulosin and Finasteride, can likely be discontinued in the office. Patient past swallow evaluation and is continuing Heart healthy diet. DVT prophylaxis with SQ Heparin. Patient is full code Problem List: 1. Obstructive uropathy 2. Hypertensive urgency Pain Ratin Pain Location: Back Pain Goal: Remain pain free Pain Plan: Percocet PRN Tomorrow's Labs & Rationales: No Labs Consulting Request: Consulting Specialty: Urology DANA CALZADA MD 05/06/17 1417: Attending MD Review Statement Attending Statement Attending MD Statement: examined this patient, discuss w/resident/PA/PHOTOGRAPHIC REPRODUCTION TECHNICIAN, agreed w/resident/PA/PHOTOGRAPHIC REPRODUCTION TECHNICIAN, reviewed EMR data (avail) Attending Assessment/Plan: 67M PMH COPD on 4 L of home oxygen, BPH and chronic Shultz placement admitted with metabolic encephalopathy, MANJIT, obstructive uropathy, hyperkalemia. Underwent TURP on 05/05 followed by CBI for hematuria. Patient feels well today. He has some mild pain from the procedure that is managed with PRN Percocet. He denies fever or chills. CBI has been stopped as hematuria has resolved. Afebrile, stable vitals, labs reviewed. Plan - Continue on general medicine - Follow urology recommendations - Monitor renal function - Continue home medications - DVT PPx - When Shultz can be removed, patient can be discharged home. Will follow up with urology.
[2017-05-06 06:51] VITALS: BP 186/102
--- NOTE | 2017-05-06 07:22 | PN- Urology ---
Subjective Subjective: No distress Objective Vital Signs and I&Os Vital Signs Date Time Temp Pulse Resp B/P B/P Pulse O2 O2 Flow FiO2 Mean Ox Delivery Rate 05/06 0651 98.0 57 20 186/102 91 Nasal 3.0L Cannula 05/06 0643 186/102 05/05 2200 97.5 58 19 150/86 93 Nasal 3.0L Cannula 05/05 2108 58 150/86 05/05 1730 94 Nasal 3.0L Cannula 05/05 1730 98.0 63 20 140/90 94 Nasal 3.0L Cannula 05/05 1419 Room Air Room Air 05/05 1206 98.1 64 20 140/60 97 Room Air 05/05 1114 70 142/80 Intake & Output 05/06 0800 05/06 0000 05/05 1600 05/05 0800 05/05 0000 05/04 1600 Intake Total 400 2125 10 10 500 Output Total 1050 2200 1500 1650 Balance 400 1075 -2190 -1490 -1150 Intake, IV 400 1525 10 10 Intake, Oral 600 0 500 Number 0 0 Bowel Movements Output, Urine 1050 2200 1500 1650 Abd: soft and non tender Genitalia: 3-way jimenez in place. CBI running with clear drainage. Was having urethral bleeding but this seems to have resolved Laboratory Tests 05/05 0830 Chemistry Sodium (137 - 145 mmol/L) 140 Potassium (3.5 - 5.1 mmol/L) 4.4 Chloride (98 - 107 mmol/L) 100 Carbon Dioxide (22 - 30 mmol/L) 34 H Anion Gap (5 - 16) 6 BUN (9 - 20 mg/dL) 22 H Creatinine (0.7 - 1.2 mg/dL) 1.0 Estimated GFR (>60 ml/min) > 60 BUN/Creatinine Ratio (7 - 25 %) 22.0 Coagulation PT (9.4 - 12.5 SEC) 12.5 INR (0.90 - 1.17) 1.19 H APTT (25 - 37 SEC) 34 Assessment/Plan Assessment/Plan Imp: Stable s/p TURP Multiple medical issues Plan: 1. Stop CBI today. Restart if necessary for hematuria 2. Incentive spirometer
[2017-05-06 08:20] VITALS: BP 138/70
[2017-05-06 10:09] LABS: ABSOLUTE BASOPHIL COUNT 0 /CUMM (0.0-0.2); ABSOLUTE EOSINOPHIL COUNT 0 /CUMM (0.0-0.7); ABSOLUTE LYMPH COUNT 0.7 /CUMM (1.2-3.4); ABSOLUTE MONOCYTE COUNT 0.4 /CUMM (0.10-0.60); EOSINOPHIL % 0.1 % (0-5); MEAN CORPUSCULAR HGB 28.6 PG (27.0-31.0); RBC DISTRIBUTION WIDTH 13.9 % (11.5-14.5); RED BLOOD CELL CT 4.03 /CUMM (4.70-6.10)
[2017-05-06 10:14] LABS: BASOPHIL % 0.2 % (0.0-2.0); HEMATOCRIT 34.8 % (42-52); MEAN CORPUSCULAR HGB CONC 33.2 G/DL (33.0-37.0); MEAN CORPUSCULAR VOLUME 86.2 FL (80.0-94.0); MEAN PLATELET VOLUME 7.9 FL (7.4-10.4); PLATELET COUNT 209 /CUMM (130-400)
[2017-05-06 10:17] LABS: WHITE BLOOD CELL COUNT 8.1 /CUMM (4.8-10.8)
[2017-05-06 10:34] LABS: GRANULOCYTE % 86.1 % (42.2-75.2)
[2017-05-06] MEDS ORDERED: DIFLUCAN150 M1 PO (14:26)
[2017-05-06 14:42] VITALS: BP 122/70
--- NOTE | 2017-05-06 14:56 | Discharge Summary ---
Visit Information Visit Dates Admission Date: 04/28/17 Discharge Date: 05/09/17 Hospital Course Course Attending Physician: DANA CALZADA MD. Primary Care Physician: RADHA ABURTO Other Care Providers: The patient is a 67 year old morbidly obese M with h/o chronic hypoxic respiratory failure, COPD on 3L O2, OHS/MOIRA noncompliant with autopap, RLS, HTN, CKD stage 3A, BPH with previous chronic indwelling catheter, most recently admitted (April 04) for CAUTI, sepsis and MANJIT, discharged with a plan for follow up with Dr. Burch on April 13 for a cystoscopy. He was seen in ER on April 07 for a clogged jimenez cather, jimenez was deflated and reinflated and noted to drain properly. He saw Dr. Burch on April 21 and underwent ?cystoscopy ( not clear) and his Jimenez was discontinued. He returned to ER on April 22 for UTI s/s and hypotension, discharged on Cipro and Diflucan. According to information provided by ER and patient's sister, patient has sustained 2 mechanical falls at home (lives at [facility]) and today outside Urologist office where he was going for his scheduled appointment. Unclear if he was dizzy or prodromal. No syncope. Patient has not been urinating enough, almost oliguric, poor appetite for the past 3 days. He lives at the [facility]. Consulting Request: 1 Consulting Specialty: Urology Consulting Physician: Dr. Burch Reason for Consult: Obstructive uropathy from BPH Consulting Request: 2 Consulting Specialty: Nephrology Consulting Physician: Savana Snyder Reason for Consult: Acute kidney injury on background chronic kidney disease Hospital Course: Mr. Madrigal is a 67 year old morbidly obese M with a past medical history of chronic hypoxic respiratory failure, COPD on 3L O2, OHS/MOIRA noncompliant with autopap, restles leg syndrome, HTN, CKD stage 3A, BPH with previous chronic indwelling catheter. He presented with a fall and altered mentation. He was recently admitted (April 042016) for a catheter associated UTI, sepsis and MANJIT, discharged with a plan to follow up with Dr. Burch on April 13 for a cystoscopy. He was seen in [facility] ER on April 07 for a clogged jimenez cather, jimenez was deflated and reinflated and noted to drain properly. He saw Dr. Burch on April 21 and underwent ?cystoscopy (not clear) and his Jimenez was discontinued. He returned to ER on April 22 for UTI s/s and hypotension, discharged on Cipro and Diflucan. Of note, patient had recently sustained 2 mechanical falls at home (lives at [facility]) and also on the day of presentation, while he was outside his urologist's office where he was going for his scheduled appointment. He did not have any head trauma, however, he was noted to be slightly confused and have an increase in his baseline shaking and jerking of his limbs. He also complained of markedly reduced urination/oliguria and a poor appetite for the previous 3 days prior to admission. Vital signs at presentation showed temperature of 97.1 Fahrenheit, pulse of 67 bpm, respiratory rate of 18/m, blood pressure of 100/69 mmHg, pulse oximetry of 95% on 2 L of oxygen by nasal cannula. Physical Exam at presentation General Appearance: Alert, Oriented X3, Cooperative Skin: No Rashes HEENT PERRLA, mocous membrane: dry Neck: Supple Cardiovascular: Normal S1, Normal S2, No Murmurs Lungs: Clear to Auscultation Abdomen: Soft, supra-pubic tenderness Neurological: confused , myoclonic jerks Extremities: No Edema Vascular: Normal Pulses Significant Labs: Hb/Hct 11.3 g/L/32.9%, Na 123 (baseline 140's), K 5.8, BUN 51, creat 4.0 (baseline 1.0-1.3), glucose 115 mg/dl, Serum osmolality 279, lactic acid normal, Ca 8.2, trop neg. UA positive, Utox neg. Urine osm 243, sodium 13, FeNa 0.2. ABG at presentation showed pH of 7.27, CO2 of 47, PO2 of 92, O2 sat of 95% on 2 L of oxygen by nasal cannula. Imaging: Chest x-ray showed very low lung volumes without superimposed acute abnormality. CTA CT head and cervical spine showed no intracranial lesion or fracture or dislocation. A renal ultrasound showed normal-sized kidneys with no hydronephrosis and the Jimenez catheter decompressing the bladder. Echo (2017): EF > 65%, stage 1 diastolic dysfunction. He was admitted for a urinary tract infection complicated by his benign prostatic hypertrophy, and acute kidney injury on a background chronic kidney disease, hyponatremia and hyperkalemia. He was admitted to the telemetry floor for close monitoring. Jimenez catheter was placed in the ER and samples were taken for urine and blood cultures. His hyponatremia was treated with IV normal saline infusion urology and nephrology consultation was obtained. He also received Kayexalate and calcium gluconate for his hyperkalemia. His urinary tract infection was initially treated with IV ciprofloxacin. However cultures came back positive for yeast so his ciprofloxacin was was discontinued and he was started on by mouth fluconazole. His renal function improved on this therapy and his creatinine trended down from 4.0 on admission to 1.0. His hyponatremia and hyperkalemia resolved. Neurology reviewed by urologist Dr. Burch with further urinary retention was at least partially due to prostatic hypertrophy. He had transurethral resection of prostate (TURP) procedure and his postoperative course was uneventful. His jimenez catheter was removed and he was voiding well without significant hematuria. He was discharged to complete 14 days of by mouth fluconazole at a short-term rehabilitation facility and follow up with his urologist in 3 weeks. Allergies: Coded Allergies: Penicillins (Severe, TONGUE SWELLING 02/25/17) Significant Procedures: 1. Cystoscopy and TURP Disposition Summary Disposition Principal Diagnosis: 1. Acute kidney injury on background chronic kidney disease 2. Urinary tract infection 3. Urinary retention secondary to benign prostatic hypertrophy 4. Hypercapnic respiratory failure secondary to COPD 5. Severe hyponatremia 6. Hyperkalemia Additional Diagnosis: 7. COPD 8. BPH Discharge Disposition: SNF Discharge Instructions General Discharge Information Code Status: Full Code Patient's Diet: Heart healthy diet Patient's Activity: Self limited activity Follow-Up Instructions/Appts: 1. Please follow-up with your primary care physician within 7 days of discharge. 2. Please inform your primary care physician of this admission to General medical service. 3. Please follow-up with your urologist Dr. Burch within 3 weeks of discharge Medications at Discharge Discharge Medications: Stop taking the following medications: Ciprofloxacin HCl (Cipro) 500 MG TABLET ORAL TWICE DAILY Qty = 14 Continue taking these medications: Venlafaxine HCl (Venlafaxine HCl ER) 225 MG TAB.ER.24 1 Tablet ORAL DAILY Comments: Last Taken: 04/06/17 Time: 9 AM Lorazepam (Lorazepam) 1 MG TABLET 1 Tablet ORAL THREE TIMES DAILY as needed for ANXIETY Comments: Last Taken: 04/06/17 Time: 9 AM Gabapentin (Neurontin) 300 MG CAPSULE 1 Capsule ORAL THREE TIMES DAILY Comments: Last Taken: 04/06/17 Time: 9 AM Multivitamin (Multiple Vitamins) 1 EACH TABLET 1 Tablet ORAL DAILY Comments: Last Taken: NOT GIVEN IN HOSPITAL Time: Cilostazol (Cilostazol) 100 MG TABLET 1 Tablet ORAL TWICE DAILY Comments: Last Taken: 04/06/17 Time: 9 AM Tamsulosin HCl (Flomax) 0.4 MG CAP.ER.24H 1 Capsule ORAL TWICE DAILY Comments: Last Taken: 04/06/17 Time: 9 AM Metoprolol Tartrate (Metoprolol Tartrate) 50 MG TABLET 50 Milligram ORAL TWICE DAILY Days = 30 Comments: Last Taken: NOT GIVEN AT HOSPITAL Time: Losartan Potassium (Losartan Potassium) 50 MG TABLET 50 Milligram ORAL DAILY Days = 30 Comments: Last Taken: NOT GIVEN AT HOSPITAL Time: Clotrimazole (Lotrimin AF) 1 % CREAM..G. 1 Application On the skin TWICE DAILY Qty = 24 Instructions: apply to affected area(s) Comments: Last Taken: 04/06/17 Time: 9 AM Buprenorphine (Butrans) 20 MCG/HOUR PATCH.TDWK 1 Patch On the skin EVERY TUESDAY Comments: Last Taken: NOT GIVEN IN HOSPITAL Time: Oxycodone HCl/Acetaminophen (Percocet 5-325 MG Tablet) 5 MG-325 MG TABLET 1 Tablet ORAL Q8H as needed for CHRONIC PAIN Comments: Last Taken: 04/06/17 Time: 9 AM Finasteride (Finasteride) 5 MG TABLET 1 Tablet ORAL DAILY Qty = 30 Comments: Last Taken: 04/06/17 Time: 9 AM Phenazopyridine HCl (Pyridium) 200 MG TABLET 1 Tablet ORAL THREE TIMES DAILY Qty = 9 Start taking the following new medications: Fluconazole (Fluconazole) 100 MG TABLET 1 Tablet ORAL DAILY Qty = 5 No Refills Copies To: DANA CALZADA MD; ELLIE LEE,VICTOR MANUEL Orozco; MISHA LEE,SAVANA Rios; RADHA ABURTO
--- NOTE | 2017-05-06 18:45 | NUR ---
PER DR. CALZADA, CBI RESTARTED DUE TO URINE BEING HEMATURIC. PER THIS RN, URINE APPEARED TEA COLORED. CBI RESTARTED AT A SLOW RATE AT 1600. 2500 INFUSED, 2500 OUTPUT. URINE LIGHT YELLOW AND NO BLOOD. CBI D/C'D AT 1800. WILL CONTINUE TO MONITOR URINE COLOR. PT ENCOURAGED TO DRINK PLENTY OF FLUIDS TO STAY HYDRATED.
[2017-05-06 23:15] VITALS: BP 115/50
--- NOTE | 2017-05-07 06:28 | PN- Housestaff ---
See Addendum Subjective Follow-up For: MANJIT Electrolye derangements S/P TURP Subjective: Mr. Madrigal was seen and examined this morning. Resting comfortably in bed. Denies any issues overnight. Patient recently had Shultz taken out early this morning. He is tolerating by mouth intake well. Patient does endorse some hematuria from the urethral site overnight much improved compared to the last 24 hours. Denies any fever, chills, nausea, vomiting. Review of Systems Constitutional: Reports: see HPI. Objective Last 24 Hrs of Vital Signs/I&O Vital Signs Date Time Temp Pulse Resp B/P B/P Pulse O2 O2 Flow FiO2 Mean Ox Delivery Rate 05/06 2315 98.8 59 20 115/50 95 Room Air 05/06 2052 120/60 05/06 1442 99.0 56 20 122/70 93 Room Air 05/06 1056 53 104/60 05/06 1055 53 104/60 05/06 0820 51 138/70 92 Room Air 05/06 0800 92 Room Air 05/06 0651 98.0 57 20 186/102 91 Nasal 3.0L Cannula 05/06 0643 186/102 Intake & Output 05/07 0800 05/07 0000 05/06 1600 Intake Total 0 550 475 Output Total 450 2100 Balance 0 100 -1625 Intake, IV 0 75 Intake, Oral 550 400 Output, Urine 450 2100 Physical Exam General Appearance: Alert Cardiovascular: Regular Rate, Normal S1, Normal S2 Lungs: Clear to Auscultation Abdomen: Normal Bowel Sounds, Soft, No Tenderness, Distended Neurological: Normal Speech Extremities: No Edema Current Medications: Current Medications Sig/Jared Start time Last Medication Dose Route Stop Time Status Admin Acetaminophen 650 MG Q6P PRN 05/05 1815 AC PO Albuterol Sulfate 3 ML Q4P PRN 05/05 181 AC INH Ciprofloxacin 500 MG BID 05/05 2200 DC 05/06 PO 05/07 1001 1055 Docusate Sodium 100 MG DAILY 05/06 1000 AC 05/07 PO 1005 Finasteride 5 MG DAILY 05/06 1000 AC 05/07 PO 1004 Fluconazole 100 MG DAILY 05/06 1424 AC 05/07 PO 1004 Gabapentin 100 MG Q8 05/05 2200 AC 05/07 PO 0534 Lorazepam 0.5 MG TID 05/05 1830 AC 05/07 PO 05/12 1829 1005 Losartan Potassium 50 MG DAILY 05/06 1000 AC 05/07 PO 1005 Metoprolol Tartrate 50 MG BID 05/05 2200 AC 05/07 PO 1004 Morphine Sulfate 15 MG BID 04/30 1000 AC 05/07 PO 1005 Oxycodone/ 1 TAB Q6P PRN 05/06 1330 AC Acetaminophen PO Oxycodone/ 2 TAB Q6P PRN 05/06 1315 AC 05/07 Acetaminophen PO 1132 Oxycodone/ 1 TAB Q6P PRN 04/29 1600 DC 05/06 Acetaminophen PO 0623 Polyethylene Glycol 17 GM DAILY 05/06 1000 AC PO Senna 187 MG AT BEDTIME 05/05 2200 AC 05/06 PO 2054 Tamsulosin HCl 0.4 MG DAILY 05/06 1000 AC 05/07 PO 1005 Venlafaxine HCl 225 MG 0800 05/06 0800 AC 05/07 PO 1004 Assessment/Plan Assessment: 67-year-old gentleman with complicated past medical history of urinary problems and multiple admissions for urinary retention and sepsis of urinary origin was admitted for obstructive uropathy, hyperkalemia and EKG changes and metabolic encephalopathy, and hyponatremia. Patient transferred to for additional care. #Acute Hypercapnic respiratory failure Resolved, patient has not required BiPAP overnight, saturating well in the 90s on room air. #UTI Urinalysis: Leukocyte esterase positive, nitrite positive, + pyuria. Patient was kept on fluconazole, for Yeast greater than 100,000 colonies per mL. Continue Fluconazole, will require 14 days of total treatment. #MANJIT secondary to obstructive uropathy and urinary tract infection -Creatinine now back to baseline at 1.1. -Shultz was pulled this morning. Currently awaiting for patient to void. If patient is unable to void, we will BladderScan the patient and if urinary volume is > 500 mL will likely require Shultz. -Will continue to monitor with scanning post void residual. -Will assess potential discharge in the afternoon. -Will need to follow up as out patient. #Hyponatremia Resolved. Na level today: 136. Will Monitor. #Hyperkalemia Resolved. K level: 4.3 #BPH Continue Tamsulosin and Finasteride, can likely be discontinued in the office. Patient past swallow evaluation and is continuing Heart healthy diet. DVT prophylaxis with SQ Heparin. Patient is full code Problem List: 1. MANJIT (acute kidney injury) 2. UTI (urinary tract infection) 3. Hyponatremia 4. Hyperkalemia Pain Ratin Pain Location: Chronic Back Pain Goal: Remain pain free Pain Plan: Percocet Tomorrow's Labs & Rationales: No Labs Consulting Request: Consulting Specialty: Nephrology Consulting Physician: Humberto Snyder Reason for Consult: Acute kidney injury on background chronic kidney disease
[2017-05-07 07:00] VITALS: BP 130/65
--- NOTE | 2017-05-07 07:17 | PN- Urology ---
Subjective Subjective: Comfortable Objective Vital Signs and I&Os Vital Signs Date Time Temp Pulse Resp B/P B/P Pulse O2 O2 Flow FiO2 Mean Ox Delivery Rate 05/07 0700 98.0 59 20 130/65 93 Room Air 05/06 2315 98.8 59 20 115/50 95 Room Air 05/06 2052 120/60 05/06 1442 99.0 56 20 122/70 93 Room Air 05/06 1056 53 104/60 05/06 1055 53 104/60 05/06 0820 51 138/70 92 Room Air 05/06 0800 92 Room Air Intake & Output 05/07 0800 05/07 0000 05/06 1600 05/06 0800 05/06 0000 05/05 1600 Intake Total 0 550 305 997 5101 10 Output Total 450 2100 1350 1050 2200 Balance 0 100 -1625 -950 1075 -2190 Intake, IV 0 75 400 1525 10 Intake, Oral 550 400 600 0 Number 0 Bowel Movements Output, Urine 450 2100 1350 1050 2200 Abd: soft and non tender Gentialia: jimenez in place. CBI is off. Urine clear Laboratory Tests 05/06 0915 Chemistry Sodium (137 - 145 mmol/L) 136 L Potassium (3.5 - 5.1 mmol/L) 4.3 Chloride (98 - 107 mmol/L) 98 Carbon Dioxide (22 - 30 mmol/L) 28 Anion Gap (5 - 16) 10 BUN (9 - 20 mg/dL) 22 H Creatinine (0.7 - 1.2 mg/dL) 1.1 Estimated GFR (>60 ml/min) > 60 BUN/Creatinine Ratio (7 - 25 %) 20.0 Hematology CBC w Diff NO MAN DIFF REQ WBC (4.8 - 10.8 /CUMM) 8.1 RBC (4.70 - 6.10 /CUMM) 4.03 L Hgb (14.0 - 18.0 G/DL) 11.6 L Hct (42 - 52 %) 34.8 L MCV (80.0 - 94.0 FL) 86.2 MCH (27.0 - 31.0 PG) 28.6 RDW (11.5 - 14.5 %) 13.9 Plt Count (130 - 400 /CUMM) 209 MPV (7.4 - 10.4 FL) 7.9 Gran % (42.2 - 75.2 %) 86.1 H Lymphocytes % (20.5 - 51.1 %) 9.2 L Monocytes % (1.7 - 9.3 %) 4.4 Eosinophils % (0 - 5 %) 0.1 Basophils % (0.0 - 2.0 %) 0.2 Absolute Granulocytes (1.4 - 6.5 /CUMM) 7.0 H Absolute Lymphocytes (1.2 - 3.4 /CUMM) 0.7 L Absolute Monocytes (0.10 - 0.60 /CUMM) 0.4 Absolute Eosinophils (0.0 - 0.7 /CUMM) 0 Absolute Basophils (0.0 - 0.2 /CUMM) 0 PUBS MCHC (33.0 - 37.0 G/DL) 33.2 Assessment/Plan Assessment/Plan Imp: 1. stable s/p TURP Plan: 1. Jimenez removed 2. Have nurse check pvr x 2 and if less than 200 cc patient may be discharged later today or tomorrow from urology point of view 3. If unable to void, or if pvr greater than [address] 16 fr jimenez 4. If discharged home would continue tamsulosin and finasteride for now. These will be d/c'ed as outpatient. No need for abx 5. office f/u in 2-3 weeks 6. If any questions can call me at [phone] or monogram operator urologist
[2017-05-07 14:22] VITALS: BP 126/80
--- NOTE | 2017-05-07 14:45 | NUR ---
NURSING NOTE: MOREJON DCD AT 0655AM BY DR BECKWITH, DUE TO VOID BY 1500PM, PT DENIES FEELING THE URGE TO PEE. BLADDER SCAN SHOWING 5ML. LEOBARDO [employer] LINE INST[employer]ER CALLED AND MADE AWARE, BLADDER SCAN AGAIN IN ONE HOUR PER [employer] LINE INSTALLER, WILL GIVE REPORT TO NEXT SHIFT RN.
--- NOTE | 2017-05-07 18:33 | NUR ---
ALERT AND ORIENTED X 3. ON ROOM AIR. DENIES SHORTNESS OF BREATH VITAL SIGNS STABLE. DENIES CHEST PAIN. + PULSES. DENIES NUMBNESS/TINGLING VOIDING IN URINAL. SKIN C/D/I. MEDICATION GIVEN FOR ABDOMINAL DISCOMFORT PATIENT RESTING COMFORTABLY AT THIS TIME. WILL CONTINUE TO MONITOR
[2017-05-07 23:28] VITALS: BP 118/62
[2017-05-08 06:44] VITALS: BP 130/64
--- NOTE | 2017-05-08 07:05 | PN- Housestaff ---
See Addendum Subjective Follow-up For: MANJIT 2/2 Obstructive Uropathy Subjective: Mr. Madrigal was seen and examined this morning. Resting comfortably in bed. Denies any issues overnight. Complaints of subjective dysuria. Denies any urinary frequency. Continues to endorse back pain pain is rated 8 out of 10 in severity. Denies any fever, chills, nausea, vomiting. No evidence of any hematuria. Review of Systems Constitutional: Reports: see HPI. Objective Last 24 Hrs of Vital Signs/I&O Vital Signs Date Time Temp Pulse Resp B/P B/P Pulse O2 O2 Flow FiO2 Mean Ox Delivery Rate 05/08 0849 58 104/52 05/08 0848 58 104/52 05/08 0847 58 102/50 05/08 0644 97.6 53 20 130/64 92 Room Air 05/07 2328 97.9 54 20 118/62 92 Room Air 05/07 2111 54 118/62 05/07 1422 98.3 51 20 126/80 93 Room Air 05/07 1005 66 130/80 Intake & Output 05/08 1600 05/08 0800 05/08 0000 Intake Total 450 250 Output Total 400 700 Balance 50 -450 Intake, Blood Product Intake, Oral 450 250 Output, Urine 400 700 Physical Exam General Appearance: Alert, Oriented X3, Cooperative Cardiovascular: Regular Rate, Normal S1, Normal S2 Lungs: Clear to Auscultation Abdomen: Normal Bowel Sounds, Soft, No Tenderness Neurological: Normal Speech Extremities: No Edema Vascular: Normal Pulses Current Medications: Current Medications Sig/Jared Start time Last Medication Dose Route Stop Time Status Admin Acetaminophen 650 MG Q6P PRN 05/05 1815 AC PO Albuterol Sulfate 3 ML Q4P PRN 05/05 181 AC INH Docusate Sodium 100 MG DAILY 05/06 1000 AC 05/08 PO 0840 Finasteride 5 MG DAILY 05/06 1000 AC 05/08 PO 0846 Fluconazole 100 MG DAILY 05/06 1424 AC 05/08 PO 0840 Gabapentin 100 MG Q8 05/05 2200 AC 05/08 PO 0601 Lorazepam 0.5 MG TID 05/05 1830 AC 05/08 PO 05/12 182 0840 Losartan Potassium 50 MG DAILY 05/06 1000 AC 05/07 PO 1005 Metoprolol Tartrate 50 MG BID 05/05 2200 AC 05/07 PO 2111 Morphine Sulfate 15 MG BID 04/30 1000 AC 05/08 PO 0840 Oxycodone/ 2 TAB Q4 PRN 05/07 1523 AC 05/08 Acetaminophen PO 0603 Oxycodone/ 1 TAB Q6P PRN 05/06 1330 AC Acetaminophen PO Oxycodone/ 2 TAB Q6P PRN 05/06 1315 DC 05/07 Acetaminophen PO 1132 Polyethylene Glycol 17 GM DAILY 05/06 1000 AC 05/08 PO 0841 Senna 187 MG AT BEDTIME 05/05 2200 AC 05/07 PO 2110 Tamsulosin HCl 0.4 MG DAILY 05/06 1000 AC 05/08 PO 0848 Venlafaxine HCl 225 MG 0800 05/06 0800 AC 05/08 PO 0839 Assessment/Plan Assessment: 67-year-old gentleman with complicated past medical history of urinary problems and multiple admissions for urinary retention and sepsis of urinary origin was admitted for obstructive uropathy, hyperkalemia and EKG changes and metabolic encephalopathy, and hyponatremia. Patient transferred to for additional care. #Acute Hypercapnic respiratory failure Resolved, patient has not required BiPAP overnight, saturating well in the 90s on room air. #Chronic Back Pain Percocet 2 tabs every 4 when necessary. #UTI Urinalysis: Leukocyte esterase positive, nitrite positive, + pyuria. Patient was kept on fluconazole, for Yeast greater than 100,000 colonies per mL. Continue Fluconazole, will require 14 days of total treatment. #MANJIT secondary to obstructive uropathy and urinary tract infection -Creatinine now back to baseline at 1.1. -Shultz was pulled. Patient has been able to void. Post void residuals have been 0 mL. -Will continue to monitor with scanning post void residual. -Will need to follow up with urology as out patient. #Hyponatremia Resolved. Last Na level: 136. Will Monitor. #Hyperkalemia Resolved. K level: 4.3 #BPH Continue Tamsulosin and Finasteride, can likely be discontinued in the office. Patient past swallow evaluation and is continuing Heart healthy diet. #Disposition: Patient was evaluated this morning by physical therapy for potential discharge. Was unable to ambulate. Likely he need short-term rehabilitation. Additional recommendations to follow. DVT prophylaxis with SQ Heparin. Patient is full code Problem List: 1. MANJIT (acute kidney injury) 2. Urinary retention due to benign prostatic hyperplasia 3. UTI (urinary tract infection) Pain Ratin Pain Location: Back Pain Goal: Remain pain free Pain Plan: Percocet Tomorrow's Labs & Rationales: NA Consulting Request: Consulting Specialty: Nephrology Consulting Physician: Humberto Snyder Reason for Consult: Acute kidney injury on background chronic kidney disease
[2017-05-08 14:53] VITALS: BP 110/60
[2017-05-08 22:41] VITALS: BP 128/72
--- NOTE | 2017-05-09 06:14 | PN- Housestaff ---
See Addendum Subjective Follow-up For: S/P TURP Subjective: Mr. Madrigal was seen and examined this morning. He is resting comfortably in bed. He states that he feels good. He has been voiding adequately without any complications. Endorses occasional dysuria. Output has been over 275 mL. No evidence of any hematuria or clots. Patient endorses back pain. Chronic in nature. Rated an 8 out of 10 in severity. Responding well to pain medication. Denies any fever, chills, nausea, vomiting. Review of Systems Constitutional: Reports: see HPI. Objective Last 24 Hrs of Vital Signs/I&O Vital Signs Date Time Temp Pulse Resp B/P B/P Pulse O2 O2 Flow FiO2 Mean Ox Delivery Rate 05/09 618 97.8 56 20 146/64 92 05/08 2245 60 128/72 05/08 2241 99.6 60 20 128/72 995 Room Air 05/08 1453 98.1 61 20 110/60 93 05/08 0849 58 104/52 05/08 0848 58 104/52 05/08 0847 58 102/50 Intake & Output 05/09 1600 05/09 0800 05/09 0000 Intake Total 140 400 Output Total 275 350 Balance -135 50 Intake, Oral 140 400 Output, Urine 275 350 Physical Exam General Appearance: Alert, Oriented X3, Cooperative Cardiovascular: Regular Rate, Normal S1, Normal S2, No Murmurs Lungs: Clear to Auscultation Abdomen: Normal Bowel Sounds, Soft, No Tenderness Neurological: Normal Speech Extremities: No Edema Vascular: Normal Pulses Current Medications: Current Medications Sig/Jared Start time Last Medication Dose Route Stop Time Status Admin Acetaminophen 650 MG Q6P PRN 05/05 1815 AC PO Albuterol Sulfate 3 ML Q4P PRN 05/05 181 AC INH Docusate Sodium 100 MG DAILY 05/06 1000 AC 05/08 PO 0840 Finasteride 5 MG DAILY 05/06 1000 AC 05/08 PO 0846 Fluconazole 100 MG DAILY 05/06 1424 AC 05/08 PO 0840 Gabapentin 100 MG Q8 05/05 2200 AC 05/09 PO 0534 Lorazepam 0.5 MG TID 05/05 1830 AC 05/08 PO 05/12 1829 2245 Losartan Potassium 50 MG DAILY 05/06 1000 AC 05/07 PO 1005 Metoprolol Tartrate 50 MG BID 05/05 2200 AC 05/08 PO 2245 Morphine Sulfate 15 MG BID 04/30 1000 AC 05/08 PO 2245 Oxycodone/ 2 TAB Q4 PRN 05/07 1523 AC 05/08 Acetaminophen PO 2045 Oxycodone/ 1 TAB Q6P PRN 05/06 1330 DC Acetaminophen PO Polyethylene Glycol 17 GM DAILY 05/06 1000 AC 05/08 PO 0841 Senna 187 MG AT BEDTIME 05/05 2200 AC 05/07 PO 2110 Tamsulosin HCl 0.4 MG DAILY 05/06 1000 AC 05/08 PO 0848 Venlafaxine HCl 225 MG 0800 05/06 0800 AC 05/08 PO 0839 Assessment/Plan Assessment: 67-year-old gentleman with complicated past medical history of urinary problems and multiple admissions for urinary retention and sepsis of urinary origin was admitted for obstructive uropathy, hyperkalemia and EKG changes and metabolic encephalopathy, and hyponatremia. Patient transferred to for additional care. #Acute Hypercapnic respiratory failure Resolved, patient has not required BiPAP overnight, saturating well in the 90s on room air. #Chronic Back Pain Percocet 2 tabs every 4 when necessary. #UTI Urinalysis: Leukocyte esterase positive, nitrite positive, + pyuria. Patient was kept on fluconazole, for Yeast greater than 100,000 colonies per mL. Continue Fluconazole, will require 14 days of total treatment, to be discharged to [facility] for an additional 5 days of coverage. #MANJIT secondary to obstructive uropathy and urinary tract infection -Creatinine now back to baseline at 1.1. -Shultz was pulled. Patient has been able to void. Post void residuals have been 0 mL. No evidence of hematuria. -Will continue to monitor with scanning post void residual volumes. -Will need to follow up with urology as out patient. #Hyponatremia Resolved. Last Na level: 136. Will Monitor. #Hyperkalemia Resolved. Last K level: 4.3 #BPH Continue Tamsulosin and Finasteride, can likely be discontinued in the office. Patient past swallow evaluation and is continuing Heart healthy diet. #Disposition: Likely he need short-term rehabilitation. DVT prophylaxis with SQ Heparin. Patient is full code Problem List: 1. MANJIT (acute kidney injury) 2. Obstructive uropathy 3. Right lower lobe pneumonia 4. Urinary retention due to benign prostatic hyperplasia 5. Chronic back pain Pain Ratin Pain Location: Chronic Back Pain Pain Goal: Remain pain free Pain Plan: Prcocet Tomorrow's Labs & Rationales: No Labs Consulting Request: Consulting Specialty: Nephrology Consulting Physician: Humberto Snyder Reason for Consult: Acute kidney injury on background chronic kidney disease Reason for Consult: Acute kidney injury on background chronic kidney disease
[2017-05-09 06:18] VITALS: BP 146/64
[2017-05-09] MEDS ORDERED: DIFLUCAN150 M1 PO (07:20)
--- NOTE | 2017-05-09 08:31 | PN- Urology ---
Subjective Subjective: No distress Objective Vital Signs and I&Os Vital Signs Date Time Temp Pulse Resp B/P B/P Pulse O2 O2 Flow FiO2 Mean Ox Delivery Rate 05/09 618 97.8 56 20 146/64 92 05/08 2245 60 128/72 05/08 2241 99.6 60 20 128/72 995 Room Air 05/08 1453 98.1 61 20 110/60 93 05/08 0849 58 104/52 05/08 0848 58 104/52 05/08 0847 58 102/50 Intake & Output 05/09 1600 05/09 0800 05/09 0000 05/08 1600 05/08 0800 05/08 0000 Intake Total 140 400 500 450 250 Output Total 275 350 800 400 700 Balance -135 50 -300 50 -450 Intake, Blood Product Intake, Oral 140 400 500 450 250 Number 0 Bowel Movements Output, Urine 275 350 800 400 700 voiding spontaneously. PVR's low. Urine now clear Assessment/Plan Assessment/Plan Imp: s/p TURP, voiding adequately Plan: From urology point of view OK to discharge home and f/u in office in about 3 weeks
[2017-05-09] MEDS ORDERED: FLUCONAZOLE100 M1 PO (11:09)
[2017-05-09 14:33] VITALS: BP 112/80
[2017-05-09 16:03] VITALS: BP 112/80
== END 2017-05-09 17:20 | DRG 665 ==
LOC: ERH 14:11 → ERHI 16:07 → 2NB 16:07 → 1NO 16:07 → ENRESERV 17:59 → ENTRNSPT 18:48 → 1NO 19:04 → CMPTRNSPT 19:16 → 1NO 20:54 → 2NB 05-04 21:35 → ENTRNSPT 05-05 17:00 → CMPTRNSPT 05-05 17:41 → 2NB 05-06 16:07 → ENPENDDIS 05-09 13:27 → 2NB 05-09 17:20
PROVIDERS: Emergency Medicine; Internal Medicine; Internal Medicine Interventional Cardiology; Student in an Organized Health Care Education/Training Program; ADMIT Student in an Organized Health Care Education/Training Program
PROC: 0VT08ZZ Resection of Prostate, Via Natural or Artificial Opening Endoscopic (ICD-10-PCS; principal; 2017-05-05)
DX: N13.9 Obstructive and reflux uropathy, unspecified (principal); G93.41 Metabolic encephalopathy; N40.1 Benign prostatic hyperplasia with lower urinary tract symptoms; J96.22 Acute and chronic respiratory failure with hypercapnia; N17.9 Acute kidney failure, unspecified; J96.11 Chronic respiratory failure with hypoxia; E66.2 Morbid (severe) obesity with alveolar hypoventilation; E87.1 Hypo-osmolality and hyponatremia; B37.49 Other urogenital candidiasis; Z91.19 Patient's noncompliance with other medical treatment and regimen; G25.81 Restless legs syndrome; I12.9 Hypertensive chronic kidney disease with stage 1 through stage 4 chronic kidney disease, or unspecified chronic kidney disease; N18.3 Chronic kidney disease, stage 3 (moderate); J44.9 Chronic obstructive pulmonary disease, unspecified; Z91.81 History of falling; R63.0 Anorexia; Z99.81 Dependence on supplemental oxygen; R34 Anuria and oliguria; R33.8 Other retention of urine; N32.0 Bladder-neck obstruction; F41.9 Anxiety disorder, unspecified; D72.819 Decreased white blood cell count, unspecified; N31.2 Flaccid neuropathic bladder, not elsewhere classified; I44.0 Atrioventricular block, first degree; E87.5 Hyperkalemia; I16.0 Hypertensive urgency; M54.9 Dorsalgia, unspecified; G89.29 Other chronic pain; Z68.39 Body mass index [BMI] 39.0-39.9, adult
CPT/HCPCS: 1NSP; 2NBP; 84133; 84300; 36415; 76775; 80307; 81001; 82436; 82570; 87040; 87071; 87086; 87088; 93005; 93010; 96360; 97110-GO; 97116-GO; 97161-GP; 97530-GO; J0131; J0610; J0744; J1100; J1644; J1815; J2405; J7060

== ENCOUNTER 2017-12-02 14:10 | Emergency (ER) | payer OTHER, MEDICARE ==
[~2017-12-02] VITALS: Ht 180.3 cm; Wt 117.9 kg
[~2017-12-02 14:10] MED LIST changes: +FLUCONAZOLE100 M1 PO
--- NOTE | 2017-12-02 14:58 | ED GENERAL ADULT ---
See Addendum History of Present Illness General Chief Complaint: General Adult Stated Complaint: HIGH BP, NOT GOING, CHRONIC ISSUE PER PT Source: patient Exam Limitations: no limitations Allergies Coded Allergies: Penicillins (Severe, TONGUE SWELLING 02/25/17) Triage Note: PT TO ED C/O DIZZINESS, WEAKNESS AND BLURRY VISION TODAY. WAS AT DOCTOR'S APPOINTMENT AND "DIDN'T FEEL RIGHT" "I THOUGHT MY BLOOD PRESSURE WAS HIGH BUT THEY DIDN'T TAKE IT SO I BROUGHT MYSELF HERE" PT 75/46 IN TRIAGE. SKIN COLD AND CLAMMY. FLIGHT OF IDEAS. HAS BPH ISSUES, WAS ABLE TO URINATE "A WHOLE JUG" LAST BM WAS A WEEK AGO "I GO ONCE EVERY 2 WEEKS, THEN I GO A LOT" Triage Nurses Notes Reviewed? yes Onset: Abrupt Duration: day(s):, constant, getting worse Timing: recent history Injury Environment: home No Modifying Factors: none HPI: 67-year-old male comes into the emergency room for further evaluation of dizziness and lightheadedness and increased weakness. Patient was up and pain management and asymptomatic down here for low blood pressure. He denies any chest pain. Some mild shortness of breath. Denies any fever or chills coughing. Feels unsteady on his feet. (Moshe BOLAÑOS,Aquiles) Vital Signs & Intake/Output Vital Signs & Intake/Output Vital Signs Date Time Temp Pulse Resp B/P B/P Pulse O2 O2 Flow FiO2 Mean Ox Delivery Rate 12/02 2052 98.3 55 16 106/60 92 Room Air 12/02 1824 98.0 68 16 136/77 95 Room Air 12/02 1538 54 16 91/51 93 Room Air 12/02 1509 94 Room Air 12/02 1506 55 18 95/50 94 Room Air 12/02 1417 98.5 61 18 94 Room Air (Venus LEE,Jack Saavedra) Reconcile Medications Albuterol Sulfate (Proventil Hfa) 90 MCG HFA.AER.AD 2 PUF INH Q4 sob Buprenorphine (Butrans) 20 MCG/HOUR PATCH.TDWK 1 PAT TOP QSAT PAIN (Reported) Cilostazol 100 MG TABLET 1 TAB PO BID INTERMITTENT CLAUDICATION (Reported) Finasteride 5 MG TABLET 1 TAB PO DAILY bph Gabapentin (Neurontin) 300 MG CAPSULE 1 CAP PO TID NERVE PAIN (Reported) LORazepam (Ativan) 1 MG TAB 1 TAB PO BID anxiety Losartan Potassium 50 MG TABLET 50 MG PO DAILY HIGH BP Metoprolol Tartrate 50 MG TABLET 50 MG PO BID HIGH BP, HEART HEALTH Multivitamin (Multiple Vitamins) 1 EACH TABLET 1 TAB PO DAILY SUPPLEMENT ( Reported) Tamsulosin HCl (Flomax) 0.4 MG CAP.ER.24H 1 CAP PO BID PROSTATE (Reported) Venlafaxine HCl (Venlafaxine HCl ER) 225 MG TAB.ER.24 1 TAB PO DAILY MENTAL HEALTH (Reported) (Ann LEE,Kt Judd) Past History Travel History Traveled to [place] past 21 day No Medical History Any Pertinent Medical History? see below for history Neurological: NONE EENT: NONE Cardiovascular: hypertension Respiratory: COPD Gastrointestinal: NONE Hepatic: NONE Renal: benign prost hyperplasia Musculoskeletal: NONE Psychiatric: anxiety Endocrine: NONE Blood Disorders: NONE Cancer(s): NONE RN INTERNAL MEDICINE/Reproductive: NONE Other Medical Hx: OBESITY History of MRSA: No History of VRE: No History of CDIFF: No Surgical History Surgical History: varicocoele Psychosocial History Who do you live with Patient/Self Services at Home None What is your primary language Chinese Tobacco Use: Never used ETOH Use: denies use Illicit Drug Use: denies illicit drug use Family History Family History, If Any: SISTER (esophageal cancer). BROTHER (esophageal and colon cancer). FATHER (hypertension, ?esophageal aneurysm). Hx Contributory? No (Aquiles Perry) Review of Systems Review of Systems Constitutional: Reports: no symptoms. EENTM: Reports: no symptoms. Respiratory: Reports: no symptoms. Cardiovascular: Reports: see HPI. GI: Reports: no symptoms. Genitourinary: Reports: no symptoms. Musculoskeletal: Reports: no symptoms. Skin: Reports: no symptoms. Neurological/Psychological: Reports: no symptoms. Hematologic/Endocrine: Reports: no symptoms. Immunologic/Allergic: Reports: no symptoms. All Other Systems: Reviewed and Negative (Aquiles Perry) Physical Exam Physical Exam General Appearance: lethargic, mild distress Head: atraumatic Eyes: Bilateral: normal appearance. Ears, Nose, Throat: normal ENT inspection, hearing grossly normal Neck: normal inspection Respiratory: normal breath sounds, no respiratory distress Cardiovascular: bradycardia Gastrointestinal: soft Back: decreased range of motion Neurologic/Psych: awake, alert, oriented x 3 Skin: intact, normal color Core Measures ACS in differential dx? No CVA/TIA Diagnosis: No Sepsis Present: No Sepsis Focused Exam Completed? No (Aquiles Perry) Progress Differential Diagnoses I considered the following diagnoses in my evaluation of the patient: Cardiac arrhythmia, orthostatic hypotension, sepsis, dehydration, medication side effect , Diagnostic Imaging: Viewed by Me: Radiology Read. Discussed w/RAD: Radiology Read. Radiology Impression: PATIENT: GABBY SERRANO PRESENT AGE: 67 PATIENT ACCOUNT NO: [id number] : 50 LOCATION: [facility] ORDERING PHYSICIAN: Aquiles BOLAÑOS SERVICE DATE: 12/02/17 EXAM TYPE: RAD - XRY-PORTABLE CHEST XRAY EXAMINATION: XR PORTABLE CHEST CLINICAL INFORMATION: Shortness of breath. COMPARISON: Chest done on 04/28/2017. TECHNIQUE: Portable frontal view of the chest was obtained. FINDINGS: Mild improved aeration is noted bilaterally as compared to the prior study dated 04/28/2017. Linear airspace disease is noted at left lung base, most consistent with atelectasis versus pleural-parenchymal scar and less likely to be infiltrate. The remainder of the lung ford are clear. The cardiomediastinal silhouette is within normal limits. There is no pleural effusion present. IMPRESSION: Linear pleural- parenchymal opacity at left lung base, may represent pleural-parenchymal scar versus atelectasis and less likely to be infiltrate. Improved aeration since prior study. Otherwise, no other significant change. DICTATED BY: Yobani Merida MD DATE/TIME DICTATED:12/02/171522 DIRECTOR OF MARKET ANALYSIS:SHARIF DATE/ TIME TRANSCRIBED:12/02/171522 CONFIDENTIAL, DO NOT COPY WITHOUT APPROPRIATE AUTHORIZATION. <Electronically signed in Other Vendor System> SIGNED BY: Yobani Merida MD 12/02/17 1550 Initial ED EKG: normal sinus rhythm, rate (52), RBBB (Aquiles Perry) Plan of Care: Orders Procedure Date/time Status Discharge Patient 12/02 2351 Active EKG 12/02 2245 Active TROPONIN LEVEL 12/02 2224 Complete EKG 12/02 2224 Active LACTIC ACID 12/[address] in observation 12/02 1735 Active Patient Data 12/02 1735 Active Add-on Test (ER Only) 12/02 1458 Active URINALYSIS 12/02 1457 Complete LIPASE 12/02 1457 Complete AMYLASE 12/02 1457 Complete EKG 12/02 1457 Active TROPONIN LEVEL 12/02 1451 Complete LACTIC ACID 12/02 1451 Complete COMPREHENSIVE METABOLIC PANEL 12/02 1451 Complete CBC WITHOUT DIFFERENTIAL 12/02 145 Complete Laboratory Tests 12/02/17 2243: Troponin I 0.02 12/02/17 2102: Urine Color YEL, Urine Clarity HAZY H, Urine pH 6.0, Ur Specific [place] >= 1.030, Urine Protein 100 H, Urine Ketones 15 H, Urine Nitrite NEG, Urine Bilirubin NEG@ICTO, Urine Urobilinogen >=8.0 H, Ur Leukocyte Esterase NEG, Ur Microscopic SEDIMENT EXAMINED, Urine RBC 1-3, Urine WBC 3-5 H, Ur Epithelial Cells FEW, Urine Bacteria FEW H, Hyaline Casts 10-15 H, Urine Mucus MOD H, Urine Hemoglobin NEG, Urine Glucose 100 H 12/02/17 1835: Lactic Acid 0.9 12/02/17 1457: Anion Gap 18 H, Estimated GFR 55 L, BUN/Creatinine Ratio 9.2, Glucose 103 H, Lactic Acid 2.5 H, Calcium 9.2, Total Bilirubin 1.3, AST 37, ALT 51, Alkaline Phosphatase 82, Troponin I 0.03, Total Protein 6.7, Albumin 4.2, Globulin 2.5, Albumin/Globulin Ratio 1.7, Amylase 58, Lipase 66, CBC w Diff NO MAN DIFF REQ, RBC 5.07, MCV 84.2, MCH 28.6, RDW 13.7, MPV 8.9, Gran % 77.5 H, Lymphocytes % 15.3 L, Monocytes % 6.1, Eosinophils % 0.9, Basophils % 0.2, Absolute Granulocytes 4.4, Absolute Lymphocytes 0.9 L, Absolute Monocytes 0.4, Absolute Eosinophils 0.1, Absolute Basophils 0, PUBS MCHC 34.0 (Venus LEE,Jack Saavedra) Repeat EKG: unchanged (v1 w/artifact) (Ann LEE,Kt Judd) Departure Departure Disposition: STILL A PATIENT Condition: Stable Clinical Impression Primary Impression: Hypotension Secondary Impressions: Lactic acidosis Referrals: Huong Oliva APRN (PCP/Family) Departure Forms: Customer Survey General Discharge Information (Aquiles Perry) PA/COAL DELIVERER Co-Sign Statement Statement: ED Attending supervision documentation- [X] I saw and evaluated the patient. I have also reviewed all the pertinent lab results and diagnostic results. I agree with the findings and the plan of care as documented in the PA's/COAL DELIVERER's documentation. [] I have reviewed the ED Record and agree with the PA's/COAL DELIVERER's documentation. [] Additions or exceptions (if any) to the PAs/COAL DELIVERER's note and plan are summarized below: [] (Venus LEE,Jack Saavedra) Departure Prescriptions: Current Visit Scripts LORazepam (Ativan) 1 TAB PO BID #4 TAB Albuterol Sulfate (Proventil Hfa) 2 PUF INH Q4 #1 INHAL PA/COAL DELIVERER Co-Sign Statement Statement: ED Attending supervision documentation- [] I saw and evaluated the patient. I have also reviewed all the pertinent lab results and diagnostic results. I agree with the findings and the plan of care as documented in the PA's/COAL DELIVERER's documentation. [x] I have reviewed the ED Record and agree with the PA's/COAL DELIVERER's documentation. [] Additions or exceptions (if any) to the PAs/COAL DELIVERER's note and plan are summarized below: [] (Ann LEE,Kt Judd) Critical Care Note Critical Care Note Critical Care Time: non-applicable (Aquiles Perry) ED Attending Observation Initial Observation Note: I have seen and personally examined GABBY SERRANO on 12/02/17 at 1736. I agree with the current emergency department documentation. The disposition (admission or discharge) is uncertain at this time, he needs a period of observation for the following reason(s): Patient presented with a low blood pressure along with dizziness and generalized weakness. Although his blood pressure has improved, he is still too weak and dizzy to be discharged. He would be at risk of syncope, falling and injury. Patient will be treated with gentle IV fluids and monitoring of vital signs including blood pressure. Once his blood pressure has been shown to be stable and his symptoms resolved he should be ready for discharge. The ED Nurse caring for this patient has been personally informed as to what the patient is being observed for. (Jack Donovan MD) Observation Re-Evaluation: I have reevaluated GABBY SERRANO on 12/02/17 at 2231. The physical findings that support the continued need to observe this patient include . Pt feeling better after iv fluids. benign exam... will repeat trop.ekg... pt asks for ativan and albuterol refills.... will give ativan #4, albuterol mdi... if ekg/trop neg, pt to be discharged later tonight. Observation Discharge: I have reevaluated GABBY SERRANO on 12/02/17 at 2351. The patient is: ([x]): Stable for discharge (): To be admitted to Nursing Floor (): To be placed in Observation on Nursing Floor (): For transfer to other facility The patient was being observed for dizziness and relatively low blood pressure. He has been feeling better for the past 9 hours 40 minutes in the ED after 1 liter of normal saline. He is awake alert comfortable and shares that he feels comfortable going home. He is safe for discharge. As a result of that observation, I have determined ... he will follow up with his pmd and pain management team. (Ann LEE,Kt Judd)
[2017-12-02 15:01] LABS: ABSOLUTE BASOPHIL COUNT 0 /CUMM (0.0-0.2); ABSOLUTE EOSINOPHIL COUNT 0.1 /CUMM (0.0-0.7); ABSOLUTE GRANULOCYTE CT 4.4 /CUMM (1.4-6.5); ABSOLUTE LYMPH COUNT 0.9 /CUMM (1.2-3.4); ABSOLUTE MONOCYTE COUNT 0.4 /CUMM (0.10-0.60); BASOPHIL % 0.2 % (0.0-2.0); EOSINOPHIL % 0.9 % (0-5); GRANULOCYTE % 77.5 % (42.2-75.2); HEMATOCRIT 42.7 % (42-52); MEAN CORPUSCULAR HGB 28.6 PG (27.0-31.0); MEAN CORPUSCULAR VOLUME 84.2 FL (80.0-94.0); MEAN PLATELET VOLUME 8.9 FL (7.4-10.4); PLATELET COUNT 204 /CUMM (130-400); RBC DISTRIBUTION WIDTH 13.7 % (11.5-14.5); RED BLOOD CELL CT 5.07 /CUMM (4.70-6.10); WHITE BLOOD CELL COUNT 5.7 /CUMM (4.8-10.8)
--- NOTE | 2017-12-02 15:50 | RADIOLOGY REPORT ---
EXAMINATION: XR PORTABLE CHEST CLINICAL INFORMATION: Shortness of breath. COMPARISON: Chest done on 04/28/2017. TECHNIQUE: Portable frontal view of the chest was obtained. FINDINGS: Mild improved aeration is noted bilaterally as compared to the prior study dated 04/28/2017. Linear airspace disease is noted at left lung base, most consistent with atelectasis versus pleural-parenchymal scar and less likely to be infiltrate. The remainder of the lung ford are clear. The cardiomediastinal silhouette is within normal limits. There is no pleural effusion present. IMPRESSION: Linear pleural-parenchymal opacity at left lung base, may represent pleural-parenchymal scar versus atelectasis and less likely to be infiltrate. Improved aeration since prior study. Otherwise, no other significant change.
[2017-12-02] MEDS ORDERED: ATIVAN1 M1 PO (22:31)
[2017-12-02] MEDS ORDERED: PROVENTIL HFA6.7 GM INH (22:31)
[2017-12-02 23:50] VITALS: BP 110/70
== END 2017-12-03 02:01 ==
LOC: ERH 14:10
PROVIDERS: Emergency Medicine
DX: I95.9 Hypotension, unspecified (principal); E87.2 Acidosis; R53.1 Weakness; J44.9 Chronic obstructive pulmonary disease, unspecified
CPT/HCPCS: 71045; 81001; 93005; 93010; 96360

== ENCOUNTER 2017-12-30 14:38 | Inpatient (IN) | payer OTHER, MEDICARE ==
[~2017-12-30] VITALS: Ht 195.6 cm; Wt 135.8 kg
[~2017-12-30 14:38] MED LIST changes: +ATIVAN1 M1 PO; +PROVENTIL HFA6.7 GM INH
--- NOTE | 2017-12-30 15:02 | ED AMS/SEIZURE/WEAK/DIZZY ---
History of Present Illness General Chief Complaint: General Adult Stated Complaint: HYPOTENTION/FALL Source: patient, old records, EMS Exam Limitations: no limitations Vital Signs & Intake/Output Vital Signs & Intake/Output Vital Signs Date Time Temp Pulse Resp B/P B/P Pulse O2 O2 Flow FiO2 Mean Ox Delivery Rate 12/31 0200 97.6 65 18 104/57 96 Room Air 12/31 0031 97.6 59 18 100/52 97 Room Air 12/30 2330 97.3 61 18 112/68 97 Room Air 12/30 2214 97.7 67 18 98/56 94 Room Air 12/30 2031 130/70 12/30 1905 94/56 12/30 1900 97.6 67 18 82/52 92 Room Air 12/30 1738 102/52 12/30 1648 72 12/30 1628 97.2 59 18 66/40 94 Room Air 12/30 1515 93 Nasal 2.0L Cannula 12/30 1510 93 Nasal 2.0L Cannula 12/30 1508 98.7 55 20 86/50 91 Room Air ED Intake and Output 12/31 0000 12/30 1200 Intake Total 2060 Output Total 500 Balance 1560 Intake, IV 2000 Intake, Oral 60 Output, Urine 500 Patient 330 lb Weight Weight Reported by Patient Measurement Method Allergies Coded Allergies: Penicillins (Severe, TONGUE SWELLING 02/25/17) Reconcile Medications Albuterol Sulfate (Proventil Hfa) 90 MCG HFA.AER.AD 2 PUF INH AD PRN RESP. ( Reported) Buprenorphine (Butrans) 20 MCG/HOUR PATCH.TDWK 1 PAT TOP QSAT PAIN (Reported) Cilostazol 100 MG TABLET 1 TAB PO BID INTERMITTENT CLAUDICATION (Reported) Finasteride 5 MG TABLET 1 TAB PO DAILY bph Gabapentin (Neurontin) 300 MG CAPSULE 1 CAP PO TID NERVE PAIN (Reported) LORazepam (Ativan) 1 MG TAB 1 TAB PO BID anxiety Losartan Potassium 50 MG TABLET 50 MG PO DAILY HIGH BP Metoprolol Tartrate 50 MG TABLET 50 MG PO BID HIGH BP, HEART HEALTH Multivitamin (Multiple Vitamins) 1 EACH TABLET 1 TAB PO DAILY SUPPLEMENT ( Reported) Tamsulosin HCl (Flomax) 0.4 MG CAP.ER.24H 1 CAP PO BID PROSTATE (Reported) Venlafaxine HCl (Venlafaxine HCl ER) 225 MG TAB.ER.24 1 TAB PO DAILY MENTAL HEALTH (Reported) Triage Nurses Notes Reviewed? 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 Patient was able to get up with assistance of a chair and by standards patient was able to take the bus to his BPH care appointment was evaluated however begin complaining of dizziness and lightheadedness and generalized weakness where he was advised to present to the emergency room which EMS was called patient was noted to be hypotensive receive IV fluids on arrival. Patient denies any preceding episode of the fall of dizziness or lightheaded sensation Denies any loss of consciousness Denies any photophobia ear pain sore throat chest pain abdominal pain nausea vomiting denies any dysuria hematuria Denies Fever chills Patient denies any extremity pain from the fall (Gabby Magaña) Past History Medical History Any Pertinent Medical History? 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 BROTHER (esophageal and colon cancer). FATHER (hypertension, ?esophageal aneurysm). Hx Contributory? No (Gabby Magaña) Review of Systems Review of Systems Constitutional: Reports: see HPI, weakness. EENTM: Reports: no symptoms. Respiratory: Reports: no symptoms. Cardiovascular: Reports: no symptoms. GI: Reports: no symptoms. Genitourinary: Reports: no symptoms. Musculoskeletal: Reports: see HPI. Skin: Reports: see HPI. Neurological/Psychological: Reports: no symptoms. Hematologic/Endocrine: Reports: no symptoms. Immunologic/Allergic: Reports: no symptoms. All Other Systems: Reviewed and Negative (Gabby Magaña) Physical Exam Physical Exam General Appearance: no apparent distress, obese Head: evidence of injury Eyes: Bilateral: normal appearance, PERRL, EOMI. Ears, Nose, Throat: normal pharynx, normal ENT inspection, hearing grossly normal Neck: limited range of motion, tender lateral, tender midline Respiratory: normal breath sounds, chest non-tender, no respiratory distress Cardiovascular: regular rate/rhythm Peripheral Pulses: 2+ radial (R) Gastrointestinal: normal bowel sounds, soft, non-tender Back: vertebral tenderness Extremities: normal range of motion Neurologic/Psych: no motor/sensory deficits, awake, alert, lighting adviser II-XII nml as tested Skin: normal color Diagram Body: 1) Noted superficial skin abrasion Core Measures ACS in differential dx? Yes CVA/TIA Diagnosis No Sepsis Present: No Sepsis Focused Exam Completed? No (Gabby Magaña) Progress Differential Diagnosis: arrythmia, alcohol intoxication, anemia, benign positional vertigo, CVA/stroke, dehydration, drug intoxication, encephalitis, electrolyte imbalance, GI bleed, hypoglycemia, hypoxia, intracranial Hem., intracranial mass/tumor, labrynthitis, meningitis, Meniere's disease, migraine ABEL, multiple sclerosis, pneumonia, postural hypotension, presyncope, post- traumatic vertigo, sepsis, seizure disorder, subarachnoid Hem., UTI/pyelo, vertebrobasilar insuff Plan of Care: Orders Procedure Date/time Status Regular Diet 12/31 B Active TROPONIN LEVEL 12/31 06 Active CORTISOL AM 12/31 06 Active EKG 12/31 06 Active ICU LAB BUNDLE 12/31 0500 Active CBC WITHOUT DIFFERENTIAL 12/31 0500 Active VRE ACTIVE SURVIELLANCE 12/31 215 Active ACTIVE SURVEILLANCE NARES 12/31 215 Active Weight 12/31 138 Active Turn and Reposition 12/31 138 Active Teach/Educate 12/31 138 Active Skin Integrity Protocol 12/31 138 Active Skin/Pressure Ulcer Assess (Sk 12/31 138 Active Precautions 12/31 138 Active Pain Treatment and Response 12/31 138 Active Nutritional Intake, Monitor 02/10 0139 Active Isolation 02/10 0139 Active Patient Care Conference 12/31 0139 Active Activity/Ambulation 12/31 013 Active Pathway - chart 12/31 0103 Active ECHOCARDIOGRAM 12/31 0059 Active RAPID VIRAL INFLUENZA A 12/31 0015 Active TRC EVALUATION (GEN) 12/31 UNK Active House Staff 12/31 UNK Active VTE Mechanical Prophylaxis 12/31 UNK Active CORTISOL PM 12/30 2337 Complete TROPONIN LEVEL 12/30 2336 Complete LACTIC ACID 12/30 2336 Complete BASIC ELECTROLYTES PLUS BUN&CR 12/30 2336 Complete EKG 12/30 2336 Active Patient Data 12/30 2229 Active Shultz, Insertion/Removal/Asses 12/30 2219 Active Saline Lock 12/30 221 Active Misc Message 12/30 2213 Active ED Holding Orders 12/30 2213 Active Admit to inpatient 12/30 221 Active Vital Signs 12/30 221 Active Code Status 12/30 221 Active Add-on Test (ER Only) 12/30 1931 Active BLOOD CULTURE 12/30 1911 Active URINE DRUGS OF ABUSE 12/30 1810 Complete Add-on Test (ER Only) 12/30 1633 Active CULTURE,URINE 12/30 1633 Active URINALYSIS 12/30 1633 Complete Intake & Output 12/30 1559 Active LACTIC ACID 12/30 1540 Complete Telemetry/Car Wash Manager 12/30 1516 Active TROPONIN LEVEL 12/30 1516 Complete COMPREHENSIVE METABOLIC PANEL 12/30 1516 Complete CBC WITHOUT DIFFERENTIAL 12/30 1516 Complete EKG 12/30 1503 Active Current Medications Sig/Jared Start time Last Medication Dose Stop Time Status Admin Cilostazol 100 MG BID 12/31 1000 AC (Pletal) Finasteride 5 MG DAILY 12/31 1000 AC (Proscar) Gabapentin 300 MG TID 12/31 1000 AC (Neurontin) Multivitamins 1 TAB DAILY 12/31 1000 AC Therapeutic (Theragran-M Vitamins Tabs) Venlafaxine HCl 225 MG 0800 12/31 0800 AC (Effexor Xr) Heparin Sodium 5,000 UNIT Q8 12/31 0600 AC (Porcine) Acetaminophen 650 MG Q6P PRN 12/31 0115 AC (Tylenol) Lorazepam 1 MG BID PRN 12/31 0100 AC (Ativan) Oxycodone HCl 5 MG Q8P PRN 12/31 0100 AC (Roxicodone) Sodium Chloride 1,000 ML Q10H 12/30 2345 AC 12/30 (Normal Saline 0.9%) 12/31 0844 2349 Sodium Chloride 1,000 ML BOLUS ONE 12/30 2330 CAN (Normal Saline 0.9%) 12/31 0329 Laboratory Tests 12/31/17 0014: Cortisol PM Sample 6.8 12/31/17 0014: Anion Gap 3 L, Estimated GFR 51 L, BUN/Creatinine Ratio 15.7, Lactic Acid 0.7, Troponin I 0.01 12/30/17 1810: Urine Opiates Screen 174.00, Methadone Screen < 40, Barbiturate Screen < 60, Ur Phencyclidine Scrn < 6.00, Amphetamines Screen < 100, U Benzodiazepines Scrn < 85, Urine Cocaine Screen < 50, Urine Cannabis Screen < 5.00, Urine Color YEL, Urine Clarity CLEAR, Urine pH 6.0, Ur Specific Reading 1.010, Urine Protein NEG, Urine Ketones NEG, Urine Nitrite NEG, Urine Bilirubin NEG, Urine Urobilinogen 0.2, Ur Leukocyte Esterase TRACE H, Ur Microscopic SEDIMENT EXAMINED, Urine RBC RARE, Urine WBC 1-3 H, Ur Epithelial Cells MOD H, Urine Crystals 4+ CA OX H, Hyaline Casts FEW H, Granular Casts RARE H, Urine Hemoglobin NEG, Urine Glucose NEG 12/30/17 1540: Anion Gap 7, Estimated GFR 43 L, BUN/Creatinine Ratio 15.0, Glucose 89, Lactic Acid 0.8, Calcium 8.0 L, Total Bilirubin 0.5, AST 11 L, ALT 27, Alkaline Phosphatase 50, Troponin I < 0.01, Total Protein 5.0 L, Albumin 2.9 L, Globulin 2.1, Albumin/Globulin Ratio 1.4, CBC w Diff NO MAN DIFF REQ, RBC 4.05 L, MCV 85.9, MCH 28.0, MCHC 32.6 L, RDW 14.1, MPV 8.1, Gran % 72.3, Lymphocytes % 17.8 L, Monocytes % 7.4, Eosinophils % 2.1, Basophils % 0.4, Absolute Granulocytes 4.4, Absolute Lymphocytes 1.1 L, Absolute Monocytes 0.5, Absolute Eosinophils 0.1, Absolute Basophils 0 Microbiology 12/31 215 UPPER RESP: Surveillance Culture - ORD 02/10 0216 GI: Surveillance Culture - ORD 12/31 0203 NASOPHARYN: Influenza Virus A & B Rapid Smear - RECD 12/30 1999 BLOOD: Blood Culture - RECD 12/30 194 BLOOD: Blood Culture - RECD 12/30 181 URINE ROUT: Urine Culture - RECD Patient on arrival is noted to be hypotensive 2 peripheral lines of IV fluids are resuscitating patient at this time DENIES of his drug use or alcohol use today Hypotension still continues IV fluids were CONTINUED After patient's 5-6 L of fluid he finally normalize his blood pressure however patient tried to ambulate upon assistance in the emergency room and was too weak to weight-bear due to lower extremity and generalized weakness. Admission will be warranted for patient in which patient requires IV fluids blood cultures currently pending urine culture pending Patient may require short-term rehabilitation due to profound weakness Patient essentially has unremarkable blood work and imaging no concerns of infectious process at this time Blood pressure continues to be LOW after 6 L of normal saline fluid resuscitation patient had minimal urine output Shultz was placed central line was placed by me chest x-ray confirmation is pending discussed patient with Dr. Juarez Diagnostic Imaging: Viewed by Me: CT Scan. Radiology Impression: no acute abnormality Initial ED EKG: normal p-waves, 51 BPM,NSR Comments: PATIENT: GABBY SERRANO PRESENT AGE: 67 PATIENT ACCOUNT NO: [id number] : 50 LOCATION: [facility] ORDERING PHYSICIAN: Gabby BOLAÑOS SERVICE DATE: 12/30/17-1516 EXAM TYPE: CAT - CT ABD & PELVIS W/O IV CONTRAS; CT CHEST WO IV CONTRAST EXAMINATION: CT CHEST WITHOUT IV CONTRAST CT ABDOMEN AND PELVIS WITHOUT IV CONTRAST CLINICAL INFORMATION: History of fall with head strike, neck, thoracic and lumbar region pain. COMPARISON: CT images of abdomen pelvis from 03/12/2017. Chest CT from 02/17/2016. TECHNIQUE: Noncontrast multidetector CT imaging examination of the chest, abdomen and pelvis was performed. Axial images are displayed at 0.625 mm and 5 mm slice thickness. Coronal and sagittal reformatted images were generated at the technologist's workstation and submitted for review. DLP: 1586 mGy-cm FINDINGS: CHEST - LUNGS and PLEURA: Trachea and mainstem bronchi are widely patent and normal in caliber. Lungs are hypoinflated and right diaphragm chronically elevated. Scattered linear opacities of scarring or platelike atelectasis in both lungs. No pulmonary edema, consolidation, pneumothorax or pleural effusion. MEDIASTINUM: The heart size is normal. Pulmonary artery trunk is chronically dilated, a finding that may be seen in chronic pulmonary arterial hypertension. At the level of the right pulmonary artery, the ascending thoracic aorta is 4 cm transverse, 4.1 cm AP. The ascending aorta was 4.2 cm AP on 02/17/2016. Distal to the takeoff of the left subclavian artery, aortic arch is 3.1 cm. The descending thoracic aorta is normal in size. No pericardial effusion. The esophagus and visualized portion of the thyroid gland are unremarkable. LYMPHATICS: No pathologic sized axillary, hilar or mediastinal lymph nodes. CHEST WALL/BONES: No acute, displaced rib fracture or chest wall hematoma. The sternum is intact. Thoracic vertebra have well preserved height and alignment. Multilevel discovertebral degenerative change of the thoracic spine. ABDOMEN AND PELVIS - HEPATOBILIARY: Liver and gallbladder are unremarkable. No evidence of radiopaque calculi, gallbladder wall edema or pericholecystic fluid. No intrahepatic or extrahepatic bile duct dilatation. PANCREAS: Habh-ow-lhtoxykp atrophy and partial fatty replacement of the pancreas. No peripancreatic edema. SPLEEN: Spleen measures up to 15.2 cm maximum dimension, compared to 15.6 cm on 03/03/2017. No perisplenic fluid collection. ADRENAL GLANDS: Unremarkable. KIDNEYS, URETERS, BLADDER: Mild bilateral renal cortical atrophy. Small, 0.2 cm calculus of the mid right kidney and 0.3 cm calculus of the lower pole of the left kidney. No hydronephrosis. Simple cyst in the interpolar of the region of the right kidney is 3.3 cm AP. The ureters are unremarkable. Urinary bladder is underdistended. There is chronic circumferential thickening of the bladder wall. No bladder calculi. GI TRACT AND PERITONEUM: The right diaphragm is chronically elevated and the hepatic flexure of the colon is interposed between the liver and diaphragm. Bowel loops are normal in size. No evidence of acute inflammation or obstruction along the gastrointestinal tract. Diverticulosis of the sigmoid colon without diverticulitis. No hemoperitoneum or pneumoperitoneum. ABDOMINAL WALL: There is a small fat-containing umbilical hernia. Also, there is an old, direct fat-containing left inguinal hernia. These findings are unchanged compared to 03/12/2017. VASCULAR: Mild atherosclerosis of the abdominal aorta without aneurysm. No retroperitoneal hematoma. LYMPH NODES: No pathologic sized lymph nodes within the abdomen or pelvis. PELVIC VISCERA: Large prostate gland measures 5.8 x 4.5 x 5.2 cm and compresses the bladder base. No pelvic free fluid. OSSEOUS STRUCTURES: Mild levocurvature of the degenerated lumbar spine. No acute findings in the lumbar spine compared to 03/03/2017. Multilevel degenerative disc disease (T12-L1, L1-L2, L2-L3 and L5-S1). Multilevel facet osteoarthritis, as well. Associated chronic multilevel neural foraminal stenosis and spinal canal stenosis. The lumbar vertebral heights and alignment are maintained. Pelvic bones and proximal femurs are intact. IMPRESSION: 1. No acute findings in the chest, abdomen or pelvis. Within the chest, the ectasia of the ascending thoracic aorta is unchanged compared to 02/17/2016. The pulmonary arteries are chronically enlarged, suggestive of pulmonary arterial hypertension. Lungs remain hypoinflated and there are linear opacities of platelike atelectasis and/or scarring, and right diaphragm is chronically elevated. 2. Within the abdomen, findings include small, nonobstructing renal calculi and diverticulosis of the sigmoid colon. Prostate gland is chronically enlarged and compresses the bladder base. The chronic circumferential wall thickening of the urinary bladder likely represents detrusor muscle hypertrophy. There are old, small fat-containing umbilical and left inguinal hernias. 3. No acute fracture or subluxation within the degenerated thoracic or lumbar spine. DICTATED BY: Rob Thomas MD DATE/TIME DICTATED:12/30/171634 TREASURY MANAGER:SHARIF DATE/TIME TRANSCRIBED:12/30/171634 PATIENT: GABBY SERRANO PRESENT AGE: 67 PATIENT ACCOUNT NO: [id number] : 50 LOCATION: [facility] ORDERING PHYSICIAN: Gabby BOLAÑOS SERVICE DATE: 12/30/17 EXAM TYPE: CAT - CT CERV SPINE WO IV CONTRAST; CT HEAD WO IV CONTRAST EXAMINATION: CT HEAD AND CT CERVICAL SPINE WITHOUT CONTRAST CLINICAL INFORMATION: Status post fall. COMPARISON: CT head and cervical spine most recent prior dated 04/28/2017 TECHNIQUE: Contiguous axial CT slices with reformatted images. DLP: 1105.52 mGy-cm FINDINGS: CT HEAD: There is no CT evidence of acute intra-axial or extra-axial hemorrhage. No acute mass effect or midline shift. Ventricles and sulci are within normal limits. Marte-white differentiation appears preserved. Visualized paranasal sinuses demonstrate large mucus retention cyst or polyp within the left maxillary sinus. Deviation of the nasal septum with convexity to the left and left lateral nasal crest. Intact osseous structures. No evidence of scalp or extra calvarial hematoma. CT CERVICAL SPINE Normal alignment. Normal vertebral body heights. Multilevel degenerative changes with decrease intervertebral disc space and osteophyte formation. Hypertrophic changes with osteophyte formation also noted in the anterior atlantoaxial joint. Multilevel facet arthropathy and uncovertebral hypertrophy. Foraminal stenosis right greater than left noted at C5-C6 level and left greater than right noted at C6/C7 level. Decrease intervertebral disc space with endplate subcortical cystic changes noted at C5-C6 level. Visualized soft tissues do not demonstrate any evidence of prevertebral or paraspinal hematoma formation. No gross lymphadenopathy. No evidence of pneumothorax. Minor scarring noted in the lung apices. IMPRESSION: 1. No acute intracranial pathology. 2. Stable moderate retention cyst or polyp left maxillary sinus. 3. No acute osseous abnormality noted in the cervical spine. 4. Moderate cervical spondylosis notably C5-C6 and C6/C7 levels with foraminal narrowing as detailed. DICTATED BY: Kimberly Toribio MD DATE/TIME DICTATED:12/30/171628 TREASURY MANAGER:SHARIF DATE/TIME TRANSCRIBED:12/30/171628 (Gabby Magaña) Repeat EKG: unchanged (rbbb) (Ann LEE,Kt Judd) Departure Departure Disposition: STILL A PATIENT Condition: Critical Clinical Impression Primary Impression: Hypotension Secondary Impressions: Fall, Head injury, Weakness Referrals: Huong Oliva APRN (PCP/Family) Departure Forms: Customer Survey General Discharge Information Admission Note Spoke With: Paresh Elliott MD Documentation of Exam: Documentation of any treatments & extenuating circumstances including Concerns Regarding Discharge (functional status, medication knowledge or non-compliance, living conditions, etc.) that warrant an admission rather than observation: [ Patient requires IV fluid resuscitation, dietary consultation, repeat labs, physical therapy consultation and short-term rehabilitation blood cultures and urine culture currently pending] (Gabby Magaña) PA/SENIOR SOFTWARE ARCHITECT Co-Sign Statement Statement: ED Attending supervision documentation- [x] I saw and evaluated the patient. I have also reviewed all the pertinent lab results and diagnostic results. I agree with the findings and the plan of care as documented in the PA's/SENIOR SOFTWARE ARCHITECT's documentation. 12/30/17, 22:16... pt feeling better after iv fluids,awake and alert merits close follow up in the hospital, monitoring blood pressure. [] I have reviewed the ED Record and agree with the PA's/SENIOR SOFTWARE ARCHITECT's documentation. [] Additions or exceptions (if any) to the PAs/SENIOR SOFTWARE ARCHITECT's note and plan are summarized below: [] (Ann LEE,Kt Judd) Procedures Central Line Central Line Lumen: triple Central Line Procedure: Yes: bentadine prep?, sterile drapes applied, sterile dressing applied. Central Line Position: internal jugular (R) Anesthesia: lidocaine 1% CC's of Anesthesia: 10 Complications: none Central Line Post Position: sutured, good blood return (Gabby Magaña) Critical Care Note Critical Care Note Critical Care Time: 75-104 min (Gabby Magaña)
[2017-12-30 15:54] LABS: ABSOLUTE BASOPHIL COUNT 0 /CUMM (0.0-0.2); ABSOLUTE EOSINOPHIL COUNT 0.1 /CUMM (0.0-0.7); ABSOLUTE GRANULOCYTE CT 4.4 /CUMM (1.4-6.5); ABSOLUTE LYMPH COUNT 1.1 /CUMM (1.2-3.4); ABSOLUTE MONOCYTE COUNT 0.5 /CUMM (0.10-0.60); BASOPHIL % 0.4 % (0.0-2.0); EOSINOPHIL % 2.1 % (0-5); GRANULOCYTE % 72.3 % (42.2-75.2); HEMATOCRIT 34.8 % (42-52); MEAN CORPUSCULAR HGB CONC 32.6 G/DL (33.0-37.0); MEAN CORPUSCULAR VOLUME 85.9 FL (80.0-94.0); MEAN PLATELET VOLUME 8.1 FL (7.4-10.4); PLATELET COUNT 157 /CUMM (130-400); RBC DISTRIBUTION WIDTH 14.1 % (11.5-14.5); RED BLOOD CELL CT 4.05 /CUMM (4.70-6.10); WHITE BLOOD CELL COUNT 6.1 /CUMM (4.8-10.8)
--- NOTE | 2017-12-30 16:48 | CT SCAN REPORT ---
EXAMINATION: CT HEAD AND CT CERVICAL SPINE WITHOUT CONTRAST CLINICAL INFORMATION: Status post fall. COMPARISON: CT head and cervical spine most recent prior dated 04/28/2017 TECHNIQUE: Contiguous axial CT slices with reformatted images. DLP: 1105.52 mGy-cm FINDINGS: CT HEAD: There is no CT evidence of acute intra-axial or extra-axial hemorrhage. No acute mass effect or midline shift. Ventricles and sulci are within normal limits. Marte-white differentiation appears preserved. Visualized paranasal sinuses demonstrate large mucus retention cyst or polyp within the left maxillary sinus. Deviation of the nasal septum with convexity to the left and left lateral nasal crest. Intact osseous structures. No evidence of scalp or extra calvarial hematoma. CT CERVICAL SPINE Normal alignment. Normal vertebral body heights. Multilevel degenerative changes with decrease intervertebral disc space and osteophyte formation. Hypertrophic changes with osteophyte formation also noted in the anterior atlantoaxial joint. Multilevel facet arthropathy and uncovertebral hypertrophy. Foraminal stenosis right greater than left noted at C5-C6 level and left greater than right noted at C6/C7 level. Decrease intervertebral disc space with endplate subcortical cystic changes noted at C5-C6 level. Visualized soft tissues do not demonstrate any evidence of prevertebral or paraspinal hematoma formation. No gross lymphadenopathy. No evidence of pneumothorax. Minor scarring noted in the lung apices. IMPRESSION: 1. No acute intracranial pathology. 2. Stable moderate retention cyst or polyp left maxillary sinus. 3. No acute osseous abnormality noted in the cervical spine. 4. Moderate cervical spondylosis notably C5-C6 and C6/C7 levels with foraminal narrowing as detailed.
--- NOTE | 2017-12-30 17:03 | CT SCAN REPORT ---
EXAMINATION: CT CHEST WITHOUT IV CONTRAST CT ABDOMEN AND PELVIS WITHOUT IV CONTRAST CLINICAL INFORMATION: History of fall with head strike, neck, thoracic and lumbar region pain. COMPARISON: CT images of abdomen pelvis from 03/12/2017. Chest CT from 02/17/2016. TECHNIQUE: Noncontrast multidetector CT imaging examination of the chest, abdomen and pelvis was performed. Axial images are displayed at 0.625 mm and 5 mm slice thickness. Coronal and sagittal reformatted images were generated at the technologist's workstation and submitted for review. DLP: 1586 mGy-cm FINDINGS: CHEST - LUNGS and PLEURA: Trachea and mainstem bronchi are widely patent and normal in caliber. Lungs are hypoinflated and right diaphragm chronically elevated. Scattered linear opacities of scarring or platelike atelectasis in both lungs. No pulmonary edema, consolidation, pneumothorax or pleural effusion. MEDIASTINUM: The heart size is normal. Pulmonary artery trunk is chronically dilated, a finding that may be seen in chronic pulmonary arterial hypertension. At the level of the right pulmonary artery, the ascending thoracic aorta is 4 cm transverse, 4.1 cm AP. The ascending aorta was 4.2 cm AP on 02/17/2016. Distal to the takeoff of the left subclavian artery, aortic arch is 3.1 cm. The descending thoracic aorta is normal in size. No pericardial effusion. The esophagus and visualized portion of the thyroid gland are unremarkable. LYMPHATICS: No pathologic sized axillary, hilar or mediastinal lymph nodes. CHEST WALL/BONES: No acute, displaced rib fracture or chest wall hematoma. The sternum is intact. Thoracic vertebra have well preserved height and alignment. Multilevel discovertebral degenerative change of the thoracic spine. ABDOMEN AND PELVIS - HEPATOBILIARY: Liver and gallbladder are unremarkable. No evidence of radiopaque calculi, gallbladder wall edema or pericholecystic fluid. No intrahepatic or extrahepatic bile duct dilatation. PANCREAS: [id number] atrophy and partial fatty replacement of the pancreas. No peripancreatic edema. SPLEEN: Spleen measures up to 15.2 cm maximum dimension, compared to 15.6 cm on 03/03/2017. No perisplenic fluid collection. ADRENAL GLANDS: Unremarkable. KIDNEYS, URETERS, BLADDER: Mild bilateral renal cortical atrophy. Small, 0.2 cm calculus of the mid right kidney and 0.3 cm calculus of the lower pole of the left kidney. No hydronephrosis. Simple cyst in the interpolar of the region of the right kidney is 3.3 cm AP. The ureters are unremarkable. Urinary bladder is underdistended. There is chronic circumferential thickening of the bladder wall. No bladder calculi. GI TRACT AND PERITONEUM: The right diaphragm is chronically elevated and the hepatic flexure of the colon is interposed between the liver and diaphragm. Bowel loops are normal in size. No evidence of acute inflammation or obstruction along the gastrointestinal tract. Diverticulosis of the sigmoid colon without diverticulitis. No hemoperitoneum or pneumoperitoneum. ABDOMINAL WALL: There is a small fat-containing umbilical hernia. Also, there is an old, direct fat-containing left inguinal hernia. These findings are unchanged compared to 03/12/2017. VASCULAR: Mild atherosclerosis of the abdominal aorta without aneurysm. No retroperitoneal hematoma. LYMPH NODES: No pathologic sized lymph nodes within the abdomen or pelvis. PELVIC VISCERA: Large prostate gland measures 5.8 x 4.5 x 5.2 cm and compresses the bladder base. No pelvic free fluid. OSSEOUS STRUCTURES: Mild levocurvature of the degenerated lumbar spine. No acute findings in the lumbar spine compared to 03/03/2017. Multilevel degenerative disc disease (T12-L1, L1-L2, L2-L3 and L5-S1). Multilevel facet osteoarthritis, as well. Associated chronic multilevel neural foraminal stenosis and spinal canal stenosis. The lumbar vertebral heights and alignment are maintained. Pelvic bones and proximal femurs are intact. IMPRESSION: 1. No acute findings in the chest, abdomen or pelvis. Within the chest, the ectasia of the ascending thoracic aorta is unchanged compared to 02/17/2016. The pulmonary arteries are chronically enlarged, suggestive of pulmonary arterial hypertension. Lungs remain hypoinflated and there are linear opacities of platelike atelectasis and/or scarring, and right diaphragm is chronically elevated. 2. Within the abdomen, findings include small, nonobstructing renal calculi and diverticulosis of the sigmoid colon. Prostate gland is chronically enlarged and compresses the bladder base. The chronic circumferential wall thickening of the urinary bladder likely represents detrusor muscle hypertrophy. There are old, small fat-containing umbilical and left inguinal hernias. 3. No acute fracture or subluxation within the degenerated thoracic or lumbar spine.
[2017-12-30] MEDS ORDERED: PROVENTIL HFA6.7 GM INH (20:46)
--- NOTE | 2017-12-30 23:27 | History & Physical ---
Dandre LEE,[facility] 12/30/17 2326: General Information and HPI MD Statement: I have seen and personally examined GABBY SERRANO and documented this H&P. The patient is a 67 year old M who presented with a patient stated chief complaint of [Fall and dizziness]. Source of Information: patient, old records Exam Limitations: no limitations History of Present Illness: The patient is a 67-year-old man with a past medical history of morbid obesity, chronic respiratory failure, COPD on 3 L of home O2 (non-compliant), MOIRA not compliant with CPAP, chronic pain on opiate medication, restless leg syndrome, hypertension, CKD and BPH. He presents with a mechanical fall and subsequent dizziness today. He was in his usual state of health until this morning when he tripped on a rug and fell hitting his forehead on the floor. He did not lose consciousness and was able to get up on his own and went to his appointment with his psychiatrist, Dr. Mackay at [facility]. At the end of the visit, he suddenly felt dizzy and faint with wobling of his legs after he walked a few steps to the change booth attendant area of the clinic. He denied chest pain, palpitations, diaphoresis or shortness of breath. After the symptoms started he called for an ambulance and was brought to the ER. Of note, patient had 2 episodes of diarrhea the day before presentation and one diarrheal episode today-both non-bloody. He ate only an orange and a banana prior to the onset of symptoms, but states that he has been drinking a normal amount of water recently. He denies nausea, vomitting or abdominal pain. He denies fevers, chills, headache, myalgia. He denies urinary frequency, pain, or hematuria. He denies cough and states that he stopped using home oxygen for his COPD on his own accord and was told he no longer needed it. He does not follow actively with his pulmunologist. Allergies/Medications Allergies: Coded Allergies: Penicillins (Severe, TONGUE SWELLING 02/25/17) Home Med list Albuterol Sulfate (Proventil Hfa) 90 MCG HFA.AER.AD 2 PUF INH AD PRN RESP. ( Reported) Buprenorphine (Butrans) 20 MCG/HOUR PATCH.TDWK 1 PAT TOP QSAT PAIN (Reported) Cilostazol 100 MG TABLET 1 TAB PO BID INTERMITTENT CLAUDICATION (Reported) Finasteride 5 MG TABLET 1 TAB PO DAILY bph Gabapentin (Neurontin) 300 MG CAPSULE 1 CAP PO TID NERVE PAIN (Reported) LORazepam (Ativan) 1 MG TAB 1 TAB PO BID anxiety Losartan Potassium 50 MG TABLET 50 MG PO DAILY HIGH BP Metoprolol Tartrate 50 MG TABLET 50 MG PO BID HIGH BP, HEART HEALTH Multivitamin (Multiple Vitamins) 1 EACH TABLET 1 TAB PO DAILY SUPPLEMENT ( Reported) Tamsulosin HCl (Flomax) 0.4 MG CAP.ER.24H 1 CAP PO BID PROSTATE (Reported) Venlafaxine HCl (Venlafaxine HCl ER) 225 MG TAB.ER.24 1 TAB PO DAILY MENTAL HEALTH (Reported) Past History Travel History Traveled to [place] past 21 day No Medical History Neurological: NONE EENT: NONE Cardiovascular: hypertension Respiratory: COPD, CHRONIC HYPOXIA RESPIRATORY FAILURE Gastrointestinal: NONE Hepatic: NONE Renal: benign prost hyperplasia, CKD Musculoskeletal: RESTLESS LEG SYNDROME Psychiatric: anxiety Endocrine: NONE Blood Disorders: NONE Cancer(s): NONE 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 BROTHER (esophageal and colon cancer). FATHER (hypertension, ?esophageal aneurysm). Psychosocial History Who Do You Live With? self Services at Home: None Primary Language: Macedonian Smoking Status: Current Everyday Smoker ETOH Use: occasional use Living Will? no Functional Ability ADLs Independent: dressing, eating, toileting, bathing. Ambulation: independent IADLs Independent: shopping, housework, finances, food prep, telephone, transportation , medication admin. Review of Systems Review of Systems Constitutional: Reports: see HPI. Exam & Diagnostic Data Last 24 Hrs of Vital Signs/I&O Vital Signs Date Time Temp Pulse Resp B/P B/P Pulse O2 O2 Flow FiO2 Mean Ox Delivery Rate 12/31 0031 97.6 59 18 100/52 97 Room Air 12/30 2330 97.3 61 18 112/68 97 Room Air 12/30 2214 97.7 67 18 98/56 94 Room Air 12/30 2031 130/70 12/30 1905 94/56 12/30 1900 97.6 67 18 82/52 92 Room Air 12/30 1738 102/52 12/30 1648 72 12/30 1628 97.2 59 18 66/40 94 Room Air 12/30 1515 93 Nasal 2.0L Cannula 12/30 1510 93 Nasal 2.0L Cannula 12/30 1508 98.7 55 20 86/50 91 Room Air Intake & Output 12/31 0800 12/31 0000 12/30 1600 Intake Total 2060 Output Total 500 Balance -500 2060 Intake, IV 2000 Intake, Oral 60 Output, Urine 500 Patient 330 lb Weight Weight Reported by Patient Measurement Method Physical Exam General Appearance Alert, Oriented X3, Cooperative, No Acute Distress Skin No Rashes Skin Temp/Moisture Exam: Cool/Dry Sepsis Skin Exam (color): Normal for Ethnicity HEENT Atraumatic, PERRLA, EOMI, Dry mucus membranes Neck Supple, No JVD, No thryomegaly, Right IJ central line in situ Lymphatic Cervical nl Cardiovascular Regular Rate, Normal S1, Normal S2, No Murmurs Lungs Clear to Auscultation, Normal Air Movement Abdomen Normal Bowel Sounds, Soft, No Tenderness, No Hepatospenomegaly, No Masses Neurological Normal Speech, Normal Tone, Cranial Nerves 3-12 NL Extremities No Clubbing, No Cyanosis, No Edema Vascular Normal Pulses Sepsis Peripheral Pulse Location: Dorsalis Pedis Sepsis Peripheral Pulse Exam: Normal Sepsis Cap Refill Exam: <2 Sec Diagnostic Data EKG Results Sinus rhythm, HR 51 bpm, right bundle branch block Other Results Head CT IMPRESSION: 1. No acute intracranial pathology. 2. Stable moderate retention cyst or polyp left maxillary sinus. 3. No acute osseous abnormality noted in the cervical spine. 4. Moderate cervical spondylosis notably C5-C6 and C6/C7 levels with foraminal narrowing as detailed. CT Chest Abdomen and pelvis IMPRESSION: 1. No acute findings in the chest, abdomen or pelvis. Assessment/Plan Assessment: The patient is a 67-year-old man with a past medical history of morbid obesity, chronic respiratory failure, COPD on 3 L of home O2 (non-compliant), MOIRA not compliant with CPAP, chronic pain on opiate medication, restless leg syndrome, hypertension, CKD and BPH. He presents with a mechanical fall and subsequent dizziness today after having 3 diarrheal episodes in the last 24 hours. He was hypotensive with blood pressure of 86/50 mmhg on arrival in the ER and received 5 L of normal saline with blood pressure improving to 120/70 mmhg. The etiology of his dizziness is unclear at this time. His CT abdomen, pelvis and CT chest show no sign of infection and he does not have leukocytosis. However he does appear dehydrated on exam and it could be that his diarrhea was severe enough to cause his hypotension. Other etiologies of his dizziness could be cardiac or endocrine. He will be monitored in the ICU and ruled out for an acute coronary syndrome. Cardiology consultation will be obtained. We will also check his cortisol level this evening and in the morning. Problem list 1. Hypotension 2. Dizziness-Rule out ACS 3. MANJIT on CKD 4. COPD previously on 3 L of home O2 and MOIRA 5. Hypertension 6. Chronic pain 7. Depression and Anxiety Plan 1. Hypotension * Admit and monitor in the ICU * IV normal saline at 100 cc/hr * Keep MAP >65% with pressors if needed * Monitor fluid input/output closely * Culture blood, urine; send rapid flu test * Cortisol this PM and in the AM * Do othostatic blood pressure check in the AM 2. Dizziness-Rule out ACS * Serial EKG, troponins * Echocardiogram * Cardiology consult in the AM * Patient's hypertensive meds are held 3. MANJIT on CKD * Monitor BEP closely * Continue IV normal saline at 100 cc/hr 4. COPD previously on 3 L of home O2 and MOIRA * TRC evaluation for nebulizer therapy * Oxygen by nasal canula to keep O2 >92% * Consider nocturnal CPAP if patient desaturates at night 5. Hypertension * Hold antihypertensives, metoprolol and losartan 6. Chronic pain * Hold Butrans patch * CTPMP was checked for patient and his home prescription of Oxycodone 10 mg Q 8 hrs was noted * Will start a reduced dose of Oxycodone 5 mg Q 8 hours for now 7. Depression and Anxiety * Continue lorazepam 1 mg PO BID PRN for anxiety * Continue venlafaxine Continue home medications for neuropathy gabapentin, hold flomax for BPH on account of hypotension. Continue finasteride for BPH. Continue cilostazol for claudication Diet: regular diet DVT prophylaxis: ALPS and SC heparin Code status: Full code As Ranked By This Provider Problem List: 1. Dizziness 2. Hypotension 3. Hypovolemia 4. Fall 5. Head injury 6. Full code status 7. Anxiety Core Measures/Misc (08/07) Acute Coronary Syndrome ACS Diagnosis: No Congestive Heart Failure Congestive Heart Failure Diagnosis No Cerebrovascular Accident CVA/TIA Diagnosis: No VTE (View Protocol) VTE Risk Factors Age>40 No Mechanical VTE Prophylaxis d/t N/A MechProphylax Ordered No VTE Pharm Prophylaxis d/t NA PharmProphylax ordered Sepsis (View protocol) Sepsis Present: No Earl LEE, [facility] 12/31/17 0049: Attending MD Review Statement Attending Statement Attending MD Statement: examined this patient, discuss w/resident/PA/TANK TRUCK DRIVER, agreed w/resident/PA/TANK TRUCK DRIVER, reviewed images, amended to note Attending Assessment/Plan: 67 yo morbidly obese M with h/o COPD, OHS/MOIRA noncompliant with 3L O2 and AutoPaP, RLS, HTN, HOCM, CKD, BPH, chronic pain on opiates (follows pain management), is brought in status post fall for evaluation of lightheadedness. Patient was scheduled for an appointment at [facility] this morning, but while heading from home he tripped on a rug, fell and hit his head without LOC. No preceding lightheadedness. He had subsequent back and neck pain, but he able to get up and take a bus to [facility]. After his appointment with Codie Randall, he started feeling lightheaded, dizzy, lethargic, near syncopal with wobbly feet. 911 was called, noted to be hypotensive, received 500 mls fluid and brought to the ER. On ER arrival he was very lethargic, hypotensive but responded to fluids. Patient c/o diarrhea 2 episodes yesterday and 1 today, no N/V/ abdominal pain. He thinks he keeps himself hydrated, denies recent antibiotic use. Denies excessive use of pain medications. He denies chest pain, dyspnea or palpitations. Vitals: afebrile, HR 55-65, BP 86/50 --> 66/40 --> 102/52 --> 82/52 --> 98/56 after 5 L IV fluids, 93% on 2L --> 97% RA. Right IJ was placed in anticipation for need for pressors. Exam: AAO, in no respiratory distress, very dry mucous membranes, PERRL, Neck right IJ in place, no JVD, Head: left forehead swelling and bruise from the fall. Chest b/l clear, no rhonchi or wheeze, Heart S1S2 regular, Abd soft, mild right sided tenderness, LE: no edema. Neuro grossly nonfocal. Labs: no leukocytosis, H/H 11.3/34.8, Plt 157, bicarb 31, BUN 24, creat 1.6 ( baseline 1.1-1.3), lactic acid 0.8, trop neg. UA clear. Utox positive for opiates. Imaging CT CAP: no acute findings, pulmonary arterial hypertension, lungs hypoinflated, atelectasis, right diaphragm chronically elevated. Small nonobstructing renal calculi, enlarged prostate gland. CT head/ cervical spine: no acute abnormality, stable polyp left maxillary sinus , cervical spondylosis. CXR: Right IJ catheter tip over right atrium, no pneumothorax. EKG: sinus rhythm, RBBB, Qtc 443. Echo (2017): EF > 65%, stage 1 diastolic dysfunction, moderate to severe concentric LVH with increased ventricular outflow tract velocity. Assessment and plan: 1. Hypotension with impending hypovolemic shock multifactorial 2/2 diarrhea and antihypertensive use. He has presented with such hypotensive episodes in the past. No evidence of sepsis. 2. Near syncope 3. MANJIT on CKD stage 3A 4. Fall, head injury 5. Chronic pain on opiate 6. History of diastolic CHF, HTN, HOCM - Admit to ICU - Vitals Q 1hour - Fall and aspiration precautions - Shultz placement, strict I/O's - IV fluids maintenance, 5 L bolus given in ER - Keep MAP > 65 mmHg, initiate levophed if low - Panculture, no clear source of infection/sepsis, monitor off antibiotics. - Trend renal functions and lactic acid - Check AM cortisol levels - Hold flomax, losartan and metoprolol - Serial EKG and troponin to rule out ACS - Obtain echo - Watch for fluid overload - Cardio consult - CRCU consult - Hold off butrans patch, resume oxycodone at low dose. - Hold sedative meds gabapentin and ativan. - If persistent diarrhea, check stool studies. - PT eval DVT ppx Hep SC. Full code. TTS > 55 mins
--- NOTE | 2017-12-31 00:45 | RADIOLOGY REPORT ---
EXAMINATION: XR PORTABLE CHEST CLINICAL INFORMATION: Central line placement COMPARISON: Chest x-ray December 02, 2017 TECHNIQUE: Portable frontal view of the chest was obtained. 11:43 PM FINDINGS: Right IJ catheter tip over the right atrium. Lung volume is low. This causes crowding of the bronchovascular markings. Linear atelectasis at right lung base. No dense consolidation. No large pleural effusion. No pneumothorax. IMPRESSION: Right IJ catheter tip over right atrium. No pneumothorax. Low lung volume. Right basilar linear atelectasis.
--- NOTE | 2017-12-31 00:50 | Admission Certification ---
Admission Certification Certification Statement - As attending physician, I certify that at the time of - admission, based on clinical presentation, severity of - symptoms, need for further diagnostic testing and - therapeutic interventions, and risk of adverse outcomes - without in-hospital treatment, in my clinical assessment, - this patient requires an acute hospital stay for a minimum - of two nights or longer. I have also considered psychsocial - factors such as support system, advanced age, financial - issues, cognitive issues, and failed out-patient treatments, - past re-admission history, safety of patient, and lack of - compliance as applicable. Specific rationale supporting this admission is: Hypovolemic shock, MANJIT on CKD.
[2017-12-31 05:38] LABS: ABSOLUTE BASOPHIL COUNT 0 /CUMM (0.0-0.2); ABSOLUTE EOSINOPHIL COUNT 0.1 /CUMM (0.0-0.7); ABSOLUTE GRANULOCYTE CT 3.1 /CUMM (1.4-6.5); ABSOLUTE LYMPH COUNT 1.1 /CUMM (1.2-3.4); ABSOLUTE MONOCYTE COUNT 0.3 /CUMM (0.10-0.60); BASOPHIL % 0.6 % (0.0-2.0); GRANULOCYTE % 65.9 % (42.2-75.2); HEMATOCRIT 33.7 % (42-52); MEAN CORPUSCULAR HGB 28.7 PG (27.0-31.0); MEAN CORPUSCULAR HGB CONC 33.9 G/DL (33.0-37.0); MEAN CORPUSCULAR VOLUME 84.6 FL (80.0-94.0); MEAN PLATELET VOLUME 8.3 FL (7.4-10.4); PLATELET COUNT 122 /CUMM (130-400); RBC DISTRIBUTION WIDTH 13.8 % (11.5-14.5); RED BLOOD CELL CT 3.98 /CUMM (4.70-6.10); WHITE BLOOD CELL COUNT 4.7 /CUMM (4.8-10.8)
[2017-12-31 08:00] VITALS: BP 130/66
--- NOTE | 2017-12-31 08:30 | Cons- CRCU ---
General Information and HPI Consulting Request Date of Consult: 12/31/17 Allergies/Medications Allergies: Coded Allergies: Penicillins (Severe, TONGUE SWELLING 02/25/17) Home Med List: Albuterol Sulfate (Proventil Hfa) 90 MCG HFA.AER.AD 2 PUF INH AD PRN RESP. ( Reported) Buprenorphine (Butrans) 20 MCG/HOUR PATCH.TDWK 1 PAT TOP QSAT PAIN (Reported) Cilostazol 100 MG TABLET 1 TAB PO BID INTERMITTENT CLAUDICATION (Reported) Finasteride 5 MG TABLET 1 TAB PO DAILY bph Gabapentin (Neurontin) 300 MG CAPSULE 1 CAP PO TID NERVE PAIN (Reported) LORazepam (Ativan) 1 MG TAB 1 TAB PO BID anxiety Losartan Potassium 50 MG TABLET 50 MG PO DAILY HIGH BP Metoprolol Tartrate 50 MG TABLET 50 MG PO BID HIGH BP, HEART HEALTH Multivitamin (Multiple Vitamins) 1 EACH TABLET 1 TAB PO DAILY SUPPLEMENT ( Reported) Tamsulosin HCl (Flomax) 0.4 MG CAP.ER.24H 1 CAP PO BID PROSTATE (Reported) Venlafaxine HCl (Venlafaxine HCl ER) 225 MG TAB.ER.24 1 TAB PO DAILY MENTAL HEALTH (Reported) Past History Travel History Traveled to [place] past 21 day No Medical History Blood Transfusion Hx: No Neurological: NONE EENT: NONE Cardiovascular: hypertension Respiratory: COPD, CHRONIC HYPOXIA RESPIRATORY FAILURE Gastrointestinal: NONE Hepatic: NONE Renal: benign prost hyperplasia, CKD Musculoskeletal: RESTLESS LEG SYNDROME Psychiatric: anxiety Endocrine: NONE Blood Disorders: NONE Cancer(s): NONE COLORER HIDES AND SKINS/Reproductive: NONE Other Medical Hx: OBESITY Surgical History Surgical History: varicocoele Family History Relations & Conditions If Any: SISTER (esophageal cancer). BROTHER (esophageal and colon cancer). FATHER (hypertension, ?esophageal aneurysm). Psychosocial History Where Do You Live? Home Who Do You Live With? self Services at Home: None Primary Language: Pashto Smoking Status: Former Smoker Living Will? no Functional Ability ADLs Independent: dressing, eating, toileting, bathing. Ambulation: independent IADLs Independent: shopping, housework, finances, food prep, telephone, transportation , medication admin. Assessment/Plan Consult Acknowledgment - Thank you for your consult request.
--- NOTE | 2017-12-31 10:07 | PN- Resident CRCU ---
Aki Wilson 12/31/17 0951: Subjective HPI/CRCU Issues: He was comfortable this am. He still has occassional dizziness, with no loss of consciousness. Vitals remained stable overnight. 24 Hour Events: Tm 96 Heart rate 59-68 Normal sinus rhythm Systolic blood pressure 114-113, diastolic blood pressure 69-71 93%-oxygen saturation on room air Ins and outs in the last 24 hours- Input 446 mL, output 796 mL. Objective Vital Signs & I&O Last 8 Hrs of Vitals and I&O: Vital Signs Date Time Temp Pulse Resp B/P B/P Pulse O2 O2 Flow FiO2 Mean Ox Delivery Rate 12/31 0400 94 Room Air Room Air 12/31 0235 98 Room Air Room Air 12/31 0200 97.6 65 18 104/57 96 Room Air 12/31 0031 97.6 59 18 100/52 97 Room Air 12/30 2330 97.3 61 18 112/68 97 Room Air 12/30 2214 97.7 67 18 98/56 94 Room Air 12/30 2031 130/70 12/30 1905 94/56 12/30 1900 97.6 67 18 82/52 92 Room Air 12/30 1738 102/52 12/30 1648 72 12/30 1628 97.2 59 18 66/40 94 Room Air 12/30 1515 93 Nasal 2.0L Cannula 12/30 1510 93 Nasal 2.0L Cannula 12/30 1508 98.7 55 20 86/50 91 Room Air Intake & Output 12/31 1600 12/31 0800 12/31 0000 Intake Total 888 Output Total 1580 500 Balance -692 -500 Intake, IV 888 Number 0 Bowel Movements Output, Urine 1580 500 Patient 299 lb Weight Weight Bed scale Measurement Method Exam General Appearance: well developed/nourished, no apparent distress, alert Head: normal appearance, evidence of injury, swelling Ears, Nose, Throat: normal pharynx Neck: normal inspection Respiratory: normal breath sounds, chest non-tender, no respiratory distress Cardiovascular: regular rate/rhythm Gastrointestinal: normal bowel sounds, soft Extremities: normal inspection Cranial Nerves: normal hearing, normal speech, PERRL Skin: intact, normal color, warm/dry Skin Temp/Moisture Exam: Warm/Dry Sepsis Skin Exam (color): Normal for Ethnicity Back: normal inspection, normal range of motion Sepsis Peripheral Pulse Location: Dorsalis Pedis Sepsis Peripheral Pulse Exam: Bounding Sepsis Cap Refill Exam: >2 sec Current Medications: Current Medications Sig/Jared Start time Last Medication Dose Route Stop Time Status Admin Acetaminophen 650 MG Q6P PRN 12/31 0115 AC 12/31 PO 0833 Al Hydroxide/Mg 30 ML Q4-6 PRN PRN 01/01 1815 AC 01/01 Hydroxide PO 1806 Al Hydroxide/Mg 30 ML .STK-MED ONE 01/01 1803 DC Hydroxide PO 01/01 1804 Albuterol Sulfate 2 PUF Q4P PRN 12/31 1415 AC INH Cilostazol 100 MG BID 12/31 1000 AC 01/02 PO 0911 Finasteride 5 MG DAILY 12/31 1000 AC 01/02 PO 0910 Gabapentin 300 MG TID 12/31 1000 AC 01/02 PO 0910 Heparin Sodium 5,000 UNIT Q8 12/31 0600 AC 01/02 (Porcine) SC 0512 Hydrocortisone 25 MG BID 01/01 2200 DC 01/01 Sodium Succinate IV 2205 Hydrocortisone 50 MG BID 12/31 0845 DC 01/01 Sodium Succinate IV 1009 Lorazepam 1 MG TID 12/31 1600 AC 01/02 PO 0910 Metoprolol Tartrate 25 MG BID 01/01 1245 AC 01/02 PO 0911 Morphine Sulfate 15 MG BID 12/31 1200 AC 01/02 PO 0910 Multivitamins 1 TAB DAILY 12/31 1000 AC 01/02 Therapeutic PO 0910 Omeprazole 20 MG DAILY AC PRN 01/01 1815 AC PO Oxycodone/ 1 TAB Q6P PRN 12/31 1215 AC 01/02 Acetaminophen PO 0237 Venlafaxine HCl 225 MG 0800 12/31 0800 AC 01/02 PO 0910 Impression/Plan Impression/Problem List Impression: Mr Madrigal is a 67 year old man with a PMHx of class 3 obesity, chronic respiratory failure, COPD on 5L, MOIRA on 3L O2 CPAP, HTN, LVOT, CKD, BPH, chronic pain on opiates, RLS, CKD and BPH came in with a chief concern of a presyncopal episode after exertion. No LOC, no seizures. No prodromal symptoms. Reported a few episodes of large volume- diarrhea the day prior to presntation. Reported frequent orhtostasis, and compliance to his medications including opiates and beta blockers. At the time of admission, at presentation, vitals-temperature 98.7, pulse rate 55, respirations 20, blood pressure 86/50 (persistently in the systolic 90s, diastolic 50s despite aggressive fluid resuscitation), 91%-to 93% on 2 L oxygen. Pertinent lab findings: WBC 6.1--> 4.7 (2/10) Hemoglobin 11.3 Platelets 157--> 122 (2/10) Sodium 138, potassium 4.2 Bicarbonate 29 Anion gap 3, Albumin 2.6 ( Corrected AG 7.5 ) Ca 8.0 ( ~ 9.7 corrected ) BUN 51-->55( 2/10) Sr Cr 1.3( basline 1.1) AST 11, ALT 27, Alk Phos 50, Trop 5.0, Alb 2.6 Troponin 0.01, 0.01,0.02 Cortisol AM- 2.2 Utox negative. UA positive for Ca EKG revealed NSR, mild RAD and LAFB, RBBB, repolarization abnormalities in ST segments antlat and lateral leads. CT chest and abdomen revealed ectasia of the ascending thoracic aorta ( unchanged ). The pulmonary arteries are chronically enlarged, suggestive of pulmonary arterial hypertension. Lungs remain hypoinflated and there are linear opacities of platelike atelectasis and/or scarring, and right diaphragm is chronically elevated. Within the abdomen, findings include small, nonobstructing renal calculi and diverticulosis of the sigmoid colon. Prostate gland is chronically enlarged and compresses the bladder base. The chronic circumferential wall thickening of the urinary bladder likely represents detrusor muscle hypertrophy. There are old, small fat-containing umbilical and left inguinal hernias. CT head didnt show any acute intracranial pathology. Stable moderate retention cyst or polyp left maxillary sinus. No acute osseous abnormality noted in the cervical spine. Moderate cervical spondylosis notably C5-C6 and C6/C7 levels with foraminal narrowing as detailed. Echo done in 2017 EF > 65%, stage 1 diastolic dysfunction, moderate to severe concentric LVH with increased ventricular outflow tract velocity. Etiology in his case is likely multifactorial, with dehydration decreasing the preload, and he had an episode of presyncope post-exertion which is usually seen in ? HOCM or LVOT. Last echocardiogram showed e/o mild LVOT, which could be repeated to evaluate the progression, and also re-evaluate the medication that can decrease the preload and afterload. He is clearly fluid dependent, and fortunately he received a lot of fluids that would improve the cardiac output and hence the pressure. He also has LAFB, and RBBB which should be monitored closely, and using the beta blockers and afterload reducers too. Other etiologies in his case is likely adrenal insufficieny, likely secondary to opiate use, which should be re-evaluted closely, and decrease the dose of opiates. So far, all the clinical and radiological signs are negative for infection, but should be kept in mind. Plan: 1. Respiratory- Stable. 2. Infectious- no source of infection found so far. Check CBC in the am. 3. Circulatory- Vitals have been stable overnight, but he has been receiving fluids. Check orthosats, and ascertain his requirement for more fluids. At this time, he wouldnt need any Fluodro at this time. Check Echocardiogram to asess the status of the LVOT, and EF. EKG did not show any arrythmias, and would monitor closely. Await evaluation from the nail kegger. 4. Hematology- Stable. Hb stable. 5. Metablolic- Na, and K normal. Cortisol Am 2.3, which was low likely from opiate use, and low protein. We should ideally check free and total cortisol. He was started on hydrocortisone 50 mg BID intravenously, and check cosynt at some point after discontinuing HC. Renal function wnl. 6. Alimentary- heart healthy diet. 7. Neurology- stable. CT head negative for bleed. Pain medications should be decreased as allowed. Hous[place]in. DVT PPx - heparin sc 2. GI Ppx- none 3. Lines- TLC IJ left 12/30/17. 4. Shultz cath- none 5. Vent settings- not on vent. Consults- Endocrine and Cardiology. Problem List: 1. Weakness Pain Ratin Tomorrow's Labs & Rationales: cbc icu bundle Plan DVT/Prophylaxis: pharmacological Bronwyn Curiel MD 12/31/17 1605: Attending MD Review Statement Attending Sign Off Attending Cosign Statement: I have: examined this patient, reviewed [facility] EMR data, discussd w/resident/PA/ BAKERY WORKER CONVEYOR LINE, agreed w/resident/PA/BAKERY WORKER CONVEYOR LINE. Other Findings: 67M PMH chronic respiratory failure, COPD on 3 L of home O2 (non-compliant), MOIRA not compliant with CPAP, chronic pain on opiate medication, restless leg syndrome, hypertension, CKD and BPH admitted overnight with weakness and fall, no LOC or head strike, found to be hypotensive in ED requiring 5L NS with blood pressure improving, found to have morning cortisol level 2.2. Patient is awake and alert and has no complaitns today. Physical exam is normal. 1. Adrenal insufficiency 2. Hypotension 3. Near syncope Plan - Continue in ICU for now, likely downgrade tomorrow - Continue hydrocortisone - Echocardiogram - Hold anti-hypertensives - Cardiology and endocrine consults - DVT PPx
--- NOTE | 2017-12-31 12:49 | Cons- Cardiology ---
General Information and HPI Consulting Request Date of Consult: 12/31/17 Requested By: Earl LEE,Paresh History of Present Illness: Mr. Jose De Jesus Madrigal is a 67-year-old maleWith a history of morbid obesity, former heavy tobacco use, COPD w/o home O2 compliance, MOIRA w/o CPAP compliance, RLS, HTN, BPH, CKD, cardiac conduction disease (LPFB, RBBB), and moderate to severe left ventricular hypertrophy with an outflow tract gradient who presented following a syncopal episode at his psychiatrist's office. He was initially found to be hypotensive with improved dramatically following volume replacement. He is a poor historian, but states that he had been in his usual state of health , with the exception of a couple of bouts of diarrhea, when getting ready to go to his psychiatrist's office he tripped over the rug and fell with head strike. acquaintances at his residence attempted to ice his wound, but he did want to miss his psychiatric appointment into public transportation to his physician's office. Toward the end of his visit he started to feel poorly with lightheadedness, dizziness, etc. and became syncopal as he was trying to make his next appointment. He does not recall experiencing any chest discomfort, palpitations, shortness of breath, etc. He was brought to the ED where he was found to be hypotensive. Allergies/Medications Allergies: Coded Allergies: Penicillins (Severe, TONGUE SWELLING 02/25/17) Home Med List: Albuterol Sulfate (Proventil Hfa) 90 MCG HFA.AER.AD 2 PUF INH AD PRN RESP. ( Reported) Buprenorphine (Butrans) 20 MCG/HOUR PATCH.TDWK 1 PAT TOP QSAT PAIN (Reported) Cilostazol 100 MG TABLET 1 TAB PO BID INTERMITTENT CLAUDICATION (Reported) Finasteride 5 MG TABLET 1 TAB PO DAILY bph Gabapentin (Neurontin) 300 MG CAPSULE 1 CAP PO TID NERVE PAIN (Reported) LORazepam (Ativan) 1 MG TAB 1 TAB PO BID anxiety Losartan Potassium 50 MG TABLET 50 MG PO DAILY HIGH BP Metoprolol Tartrate 50 MG TABLET 50 MG PO BID HIGH BP, HEART HEALTH Multivitamin (Multiple Vitamins) 1 EACH TABLET 1 TAB PO DAILY SUPPLEMENT ( Reported) Tamsulosin HCl (Flomax) 0.4 MG CAP.ER.24H 1 CAP PO BID PROSTATE (Reported) Venlafaxine HCl (Venlafaxine HCl ER) 225 MG TAB.ER.24 1 TAB PO DAILY MENTAL HEALTH (Reported) Review of Systems Review of Systems: A 14 point system review was obtained and was noncontributory, other than as above. Past History Travel History Traveled to [place] past 21 day No Medical History Blood Transfusion Hx: No Neurological: NONE EENT: NONE Cardiovascular: hypertension Respiratory: COPD, CHRONIC HYPOXIA RESPIRATORY FAILURE Gastrointestinal: NONE Hepatic: NONE Renal: benign prost hyperplasia, CKD Musculoskeletal: RESTLESS LEG SYNDROME Psychiatric: anxiety Endocrine: NONE Blood Disorders: NONE Cancer(s): NONE RECEIVING ROOM CLERK/Reproductive: NONE Other Medical Hx: OBESITY Surgical History Surgical History: varicocoele Family History Relations & Conditions If Any: SISTER (esophageal cancer). BROTHER (esophageal and colon cancer). FATHER (hypertension, ?esophageal aneurysm). Psychosocial History Where Do You Live? Home Who Do You Live With? self Services at Home: None Primary Language: Yakut Smoking Status: Former Smoker Living Will? no Functional Ability ADLs Independent: dressing, eating, toileting, bathing. Ambulation: independent IADLs Independent: shopping, housework, finances, food prep, telephone, transportation , medication admin. Exam & Diagnostic Data Vital Signs and I&O Vital Signs Date Time Temp Pulse Resp B/P B/P Pulse O2 O2 Flow FiO2 Mean Ox Delivery Rate 12/31 0400 94 Room Air Room Air 12/31 0235 98 Room Air Room Air 12/31 0200 97.6 65 18 104/57 96 Room Air 12/31 0031 97.6 59 18 100/52 97 Room Air 12/30 2330 97.3 61 18 112/68 97 Room Air 12/30 2214 97.7 67 18 98/56 94 Room Air 12/30 2031 130/70 12/30 1905 94/56 12/30 1900 97.6 67 18 82/52 92 Room Air 12/30 1738 102/52 12/30 1648 72 12/30 1628 97.2 59 18 66/40 94 Room Air 12/30 1515 93 Nasal 2.0L Cannula 12/30 1510 93 Nasal 2.0L Cannula 12/30 1508 98.7 55 20 86/50 91 Room Air Intake & Output 12/31 1600 12/31 0800 12/31 0000 12/30 1600 12/30 0812/30 0000 Intake Total 888 2060 Output Total 1580 500 Balance -692 -500 2060 Intake, IV 888 2000 Intake, Oral 60 Number 0 Bowel Movements Output, Urine 1580 500 Patient 299 lb 330 lb Weight Weight Bed scale Reported by Patient Measurement Method Physical Exam: Well-developed, overweight male in no acute distress. Vital signs: See above. HEENT: Normocephalic, laceration to left forehead region, EOMI, slightly dry mucous membranes. Neck: No JVD, no bruits. Lungs: Decreased breath sounds bilaterally, otherwise clear. Heart: S1, S2 with grade 2/6 systolic ejection type murmur best heard at the base. No gallop or rub. Excellent abdomen: Soft, nontender, positive bowel sounds. Extremities: No edema. Labs/[place] Results: Laboratory Tests 12/31 12/31 12/31 0513 0513 0014 Chemistry Sodium (137 - 145 mmol/L) 141 Potassium (3.5 - 5.1 mmol/L) 4.1 Chloride (98 - 107 mmol/L) 109 H Carbon Dioxide (22 - 30 mmol/L) 28 Anion Gap (5 - 16) 4 L BUN (9 - 20 mg/dL) 20 Creatinine (0.7 - 1.2 mg/dL) 1.3 H Estimated GFR (>60 ml/min) 55 L Glucose (65 - 99 mg/dL) 70 Calcium (8.4 - 10.2 mg/dL) 8.0 L Phosphorus (2.5 - 4.5 mg/dL) 3.9 Magnesium (1.6 - 2.3 mg/dL) 2.1 Total Bilirubin (0.2 - 1.3 mg/dL) 0.6 AST (17 - 59 U/L) 11 L ALT (21 - 72 U/L) 24 Troponin I (<0.11 ng/ml) 0.02 Albumin (3.5 - 5.0 g/dL) 2.6 L TSH &T3 &Free T4 Intrp (0.27 - 4.20 uIU/mL) 1.120 Cortisol AM Sample (4.46 - 22.7 ug/dL) 2.2 L Cortisol PM Sample (1.7 - 14.1) 6.8 Hematology CBC w Diff NO MAN DIFF REQ WBC (4.8 - 10.8 /CUMM) 4.7 L RBC (4.70 - 6.10 /CUMM) 3.98 L Hgb (14.0 - 18.0 G/DL) 11.4 L Hct (42 - 52 %) 33.7 L MCV (80.0 - 94.0 FL) 84.6 MCH (27.0 - 31.0 PG) 28.7 MCHC (33.0 - 37.0 G/DL) 33.9 RDW (11.5 - 14.5 %) 13.8 Plt Count (130 - 400 /CUMM) 122 L MPV (7.4 - 10.4 FL) 8.3 Gran % (42.2 - 75.2 %) 65.9 Lymphocytes % (20.5 - 51.1 %) 23.2 Monocytes % (1.7 - 9.3 %) 7.3 Eosinophils % (0 - 5 %) 3.0 Basophils % (0.0 - 2.0 %) 0.6 Absolute Granulocytes (1.4 - 6.5 /CUMM) 3.1 Absolute Lymphocytes (1.2 - 3.4 /CUMM) 1.1 L Absolute Monocytes (0.10 - 0.60 /CUMM) 0.3 Absolute Eosinophils (0.0 - 0.7 /CUMM) 0.1 Absolute Basophils (0.0 - 0.2 /CUMM) 0 12/31 12/30 0014 1810 Chemistry Sodium (137 - 145 mmol/L) 138 Potassium (3.5 - 5.1 mmol/L) 4.2 Chloride (98 - 107 mmol/L) 105 Carbon Dioxide (22 - 30 mmol/L) 29 Anion Gap (5 - 16) 3 L BUN (9 - 20 mg/dL) 22 H Creatinine (0.7 - 1.2 mg/dL) 1.4 H Estimated GFR (>60 ml/min) 51 L BUN/Creatinine Ratio (7 - 25 %) 15.7 Lactic Acid (0.7 - 2.1 mmol/L) 0.7 Troponin I (<0.11 ng/ml) 0.01 Toxicology Urine Opiates Screen (>2000 NG/ML) 174.00 Methadone Screen (>300 NG/ML) < 40 Barbiturate Screen (>200 NG/ML) < 60 Ur Phencyclidine Scrn (>25 NG/ML) < 6.00 Amphetamines Screen (>1000 NG/ML) < 100 U Benzodiazepines Scrn (>200 NG/ML) < 85 Urine Cocaine Screen (>300 NG/ML) < 50 Urine Cannabis Screen (>50 NG/ML) < 5.00 Urines Urine Color (YEL,AMB,STR) YEL Urine Clarity (CLEAR) CLEAR Urine pH (5.0 - 8.0) 6.0 Ur Specific [place] (1.001 - 1.035) 1.010 Urine Protein (NEG,<30 MG/DL) NEG Urine Ketones (NEG) NEG Urine Nitrite (NEG) NEG Urine Bilirubin (NEG) NEG Urine Urobilinogen (0.1 - 1.0 EU/dl) 0.2 Ur Leukocyte Esterase (NEG) TRACE H Ur Microscopic SEDIMENT EXAMINED Urine RBC (0 - 5 /HPF) RARE Urine WBC (0 - 2 /HPF) 1-3 H Ur Epithelial Cells (NONE,FEW) MOD H Urine Crystals 4+ CA OX H Hyaline Casts (0/LPF) FEW H Granular Casts (NONE /LPF) RARE H Urine Hemoglobin (NEG) NEG Urine Glucose (N MG/DL) NEG 12/30 1540 Chemistry Sodium (137 - 145 mmol/L) 141 Potassium (3.5 - 5.1 mmol/L) 4.6 Chloride (98 - 107 mmol/L) 104 Carbon Dioxide (22 - 30 mmol/L) 31 H Anion Gap (5 - 16) 7 BUN (9 - 20 mg/dL) 24 H Creatinine (0.7 - 1.2 mg/dL) 1.6 H Estimated GFR (>60 ml/min) 43 L BUN/Creatinine Ratio (7 - 25 %) 15.0 Glucose (65 - 99 mg/dL) 89 Lactic Acid (0.7 - 2.1 mmol/L) 0.8 Calcium (8.4 - 10.2 mg/dL) 8.0 L Total Bilirubin (0.2 - 1.3 mg/dL) 0.5 AST (17 - 59 U/L) 11 L ALT (21 - 72 U/L) 27 Alkaline Phosphatase (< 127 U/L) 50 Troponin I (<0.11 ng/ml) < 0.01 Total Protein (6.3 - 8.2 g/dL) 5.0 L Albumin (3.5 - 5.0 g/dL) 2.9 L Globulin (1.9 - 4.2 gm/dL) 2.1 Albumin/Globulin Ratio (1.1 - 2.2 %) 1.4 Hematology CBC w Diff NO MAN DIFF REQ WBC (4.8 - 10.8 /CUMM) 6.1 RBC (4.70 - 6.10 /CUMM) 4.05 L Hgb (14.0 - 18.0 G/DL) 11.3 L Hct (42 - 52 %) 34.8 L MCV (80.0 - 94.0 FL) 85.9 MCH (27.0 - 31.0 PG) 28.0 MCHC (33.0 - 37.0 G/DL) 32.6 L RDW (11.5 - 14.5 %) 14.1 Plt Count (130 - 400 /CUMM) 157 MPV (7.4 - 10.4 FL) 8.1 Gran % (42.2 - 75.2 %) 72.3 Lymphocytes % (20.5 - 51.1 %) 17.8 L Monocytes % (1.7 - 9.3 %) 7.4 Eosinophils % (0 - 5 %) 2.1 Basophils % (0.0 - 2.0 %) 0.4 Absolute Granulocytes (1.4 - 6.5 /CUMM) 4.4 Absolute Lymphocytes (1.2 - 3.4 /CUMM) 1.1 L Absolute Monocytes (0.10 - 0.60 /CUMM) 0.5 Absolute Eosinophils (0.0 - 0.7 /CUMM) 0.1 Absolute Basophils (0.0 - 0.2 /CUMM) 0 Diagnostic Data EKG Results 12/31/2017: Sinus bradycardia, consider LAFB, RBBB, and consider bilateral indeterminate age [place]. CXR Results 12/30/2017: Right IJ catheter tip over right atrium. No pneumothorax. Low lung volume. Right basilar linear atelectasis. Other Results Chest, abdomen/pelvis CT 12/30/2017: 1. No acute findings in the chest, abdomen or pelvis. Within the chest, the ectasia of the ascending thoracic aorta is unchanged compared to 02/17/2016. The pulmonary arteries are chronically enlarged, suggestive of pulmonary arterial hypertension. Lungs remain hypoinflated and there are linear opacities of platelike atelectasis and/or scarring, and right diaphragm is chronically elevated. 2. Within the abdomen, findings include small, nonobstructing renal calculi and diverticulosis of the sigmoid colon. Prostate gland is chronically enlarged and compresses the bladder base. The chronic circumferential wall thickening of the urinary bladder likely represents detrusor muscle hypertrophy. There are old, small fat-containing umbilical and left inguinal hernias. 3. No acute fracture or subluxation within the degenerated thoracic or lumbar spine. Head/cervical spine CT12/30/2017: 1. No acute intracranial pathology. 2. Stable moderate retention cyst or polyp left maxillary sinus. 3. No acute osseous abnormality noted in the cervical spine. 4. Moderate cervical spondylosis notably C5-C6 and C6/C7 levels withforaminal narrowing as detailed. Assessment/Plan Assessment/Plan [id number] w/ hx morbid obesity, fmr heavy tobacco use, COPD w/o home O2 compliance, MOIRA w/o CPAP compliance, RLS, HTN, BPH, CKD, conduction disease ( LPFB, RBBB), and moderate to severe LVH w/ LVOT gradient who presented following a syncopal episode that was likely on the basis of relative intravascular depletion in the setting of HOCM, however, also has evidence of conduction disease and may have had the syncopal episode on that basis. While beta blockade is indicated for his HOCM, it may be exacerbating his conduction disease. If we discover evidence of higher grade heart block, he could potentially be well served with implantation of a permanent pacemaker. This would allow us to not only improve his outflow tract gradient by safely slowing his heart rate, but would also allow us to program a degree of dyssynchrony which would also decrease the outflow tract gradient. Fortunately, he has markedly improved following volume resuscitation and would continue with this for the short-term. According to nursing, he is still orthostatic. Recommendations: * Continue management in ICU, with volume resuscitation, strict inputs/outputs, daily weights, etc. * Continue to hold his non-dihydropyridine calcium channel antagonist, beta areli, etc. for the short-term. * Schedule for echocardiogram to reassess LV systolic/diastolic function, degree of left ventricular hypertrophy,degree of outflow tract obstruction, etc. * Evaluate cortisol deficiency. * DVT prophylaxis. Further recommendations will follow, Thank you. Consult Acknowledgment - Thank you for your consult request.
--- NOTE | 2017-12-31 14:29 | Cons- Endocrinology ---
General Information and HPI Consulting Request Date of Consult: 12/31/17 Requested By: ICU team Reason for Consult: evaluation and management of adrenal insufficiency. Source of Information: patient, old records Exam Limitations: no limitations History of Present Illness: 67-year-old man with a past medical history of morbid obesity, COPD on 3 L, MOIRA not compliant with CPAP, chronic pain on opiate medication, restless leg syndrome, hypertension, CKD and BPH. presented with feeling dizzy and fall. In addition, he had diarrhea the day before. His po intake has been poor. In hospital, his BP has been borderline low despite he has received several liters of saline. Am cortisol was 2.2. Stress dose steroid of hydrocortisone 50 mg iv every 12 hours was initiated. His BP has been better since then. Allergies/Medications Allergies: Coded Allergies: Penicillins (Severe, TONGUE SWELLING 02/25/17) Home Med List: Albuterol Sulfate (Proventil Hfa) 90 MCG HFA.AER.AD 2 PUF INH AD PRN RESP. ( Reported) Buprenorphine (Butrans) 20 MCG/HOUR PATCH.TDWK 1 PAT TOP QSAT PAIN (Reported) Cilostazol 100 MG TABLET 1 TAB PO BID INTERMITTENT CLAUDICATION (Reported) Finasteride 5 MG TABLET 1 TAB PO DAILY bph Gabapentin (Neurontin) 300 MG CAPSULE 1 CAP PO TID NERVE PAIN (Reported) LORazepam (Ativan) 1 MG TAB 1 TAB PO BID anxiety Losartan Potassium 50 MG TABLET 50 MG PO DAILY HIGH BP Metoprolol Tartrate 50 MG TABLET 50 MG PO BID HIGH BP, HEART HEALTH Multivitamin (Multiple Vitamins) 1 EACH TABLET 1 TAB PO DAILY SUPPLEMENT ( Reported) Tamsulosin HCl (Flomax) 0.4 MG CAP.ER.24H 1 CAP PO BID PROSTATE (Reported) Venlafaxine HCl (Venlafaxine HCl ER) 225 MG TAB.ER.24 1 TAB PO DAILY MENTAL HEALTH (Reported) Review of Systems Review of Systems Constitutional: Reports: see HPI, weakness. Cardiovascular: Denies: chest pain. Respiratory: Denies: short of breath. GI: Reports: diarrhea. Musculoskeletal: Reports: joint pain. Neurological/Psychological: Reports: see HPI. Past History Travel History Traveled to [place] past 21 day No Medical History Blood Transfusion Hx: No Neurological: NONE EENT: NONE Cardiovascular: hypertension Respiratory: COPD, CHRONIC HYPOXIA RESPIRATORY FAILURE Gastrointestinal: NONE Hepatic: NONE Renal: benign prost hyperplasia, CKD Musculoskeletal: RESTLESS LEG SYNDROME Psychiatric: anxiety Endocrine: NONE Blood Disorders: NONE Cancer(s): NONE TRANSIT DRIVER/Reproductive: NONE Other Medical Hx: OBESITY Surgical History Surgical History: varicocoele Family History Relations & Conditions If Any: SISTER (esophageal cancer). BROTHER (esophageal and colon cancer). FATHER (hypertension, ?esophageal aneurysm). Psychosocial History Where Do You Live? Home Who Do You Live With? self Services at Home: None Primary Language: French Smoking Status: Former Smoker Living Will? no Functional Ability ADLs Independent: dressing, eating, toileting, bathing. Ambulation: independent IADLs Independent: shopping, housework, finances, food prep, telephone, transportation , medication admin. Exam & Diagnostic Data Last 24 Hrs of Vital Signs/I&O Vital Signs Date Time Temp Pulse Resp B/P B/P Pulse O2 O2 Flow FiO2 Mean Ox Delivery Rate 12/31 1359 Room Air 12/31 0400 94 Room Air Room Air 12/31 0235 98 Room Air Room Air 12/31 0200 97.6 65 18 104/57 96 Room Air 12/31 0031 97.6 59 18 100/52 97 Room Air 12/30 2330 97.3 61 18 112/68 97 Room Air 12/30 2214 97.7 67 18 98/56 94 Room Air 12/30 2031 130/70 12/30 1905 94/56 12/30 1900 97.6 67 18 82/52 92 Room Air 12/30 1738 102/52 12/30 1648 72 12/30 1628 97.2 59 18 66/40 94 Room Air 12/30 1515 93 Nasal 2.0L Cannula 12/30 1510 93 Nasal 2.0L Cannula 12/30 1508 98.7 55 20 86/50 91 Room Air Intake & Output 12/31 1600 12/31 0800 12/31 0000 Intake Total 888 Output Total 1580 500 Balance -692 -500 Intake, IV 888 Number 0 Bowel Movements Output, Urine 1580 500 Patient 299 lb Weight Weight Bed scale Measurement Method Physical Exam General Appearance: no apparent distress Neck: normal inspection Respiratory: lungs clear Cardiovascular: regular rate/rhythm Gastrointestinal: non-tender Extremities: no edema Labs/[place] Results: Laboratory Tests 12/31 12/31 12/31 0513 0513 0014 Chemistry Sodium (137 - 145 mmol/L) 141 Potassium (3.5 - 5.1 mmol/L) 4.1 Chloride (98 - 107 mmol/L) 109 H Carbon Dioxide (22 - 30 mmol/L) 28 Anion Gap (5 - 16) 4 L BUN (9 - 20 mg/dL) 20 Creatinine (0.7 - 1.2 mg/dL) 1.3 H Estimated GFR (>60 ml/min) 55 L Glucose (65 - 99 mg/dL) 70 Calcium (8.4 - 10.2 mg/dL) 8.0 L Phosphorus (2.5 - 4.5 mg/dL) 3.9 Magnesium (1.6 - 2.3 mg/dL) 2.1 Total Bilirubin (0.2 - 1.3 mg/dL) 0.6 AST (17 - 59 U/L) 11 L ALT (21 - 72 U/L) 24 Troponin I (<0.11 ng/ml) 0.02 Albumin (3.5 - 5.0 g/dL) 2.6 L TSH &T3 &Free T4 Intrp (0.27 - 4.20 uIU/mL) 1.120 Cortisol AM Sample (4.46 - 22.7 ug/dL) 2.2 L Cortisol PM Sample (1.7 - 14.1) 6.8 Hematology CBC w Diff NO MAN DIFF REQ WBC (4.8 - 10.8 /CUMM) 4.7 L RBC (4.70 - 6.10 /CUMM) 3.98 L Hgb (14.0 - 18.0 G/DL) 11.4 L Hct (42 - 52 %) 33.7 L MCV (80.0 - 94.0 FL) 84.6 MCH (27.0 - 31.0 PG) 28.7 MCHC (33.0 - 37.0 G/DL) 33.9 RDW (11.5 - 14.5 %) 13.8 Plt Count (130 - 400 /CUMM) 122 L MPV (7.4 - 10.4 FL) 8.3 Gran % (42.2 - 75.2 %) 65.9 Lymphocytes % (20.5 - 51.1 %) 23.2 Monocytes % (1.7 - 9.3 %) 7.3 Eosinophils % (0 - 5 %) 3.0 Basophils % (0.0 - 2.0 %) 0.6 Absolute Granulocytes (1.4 - 6.5 /CUMM) 3.1 Absolute Lymphocytes (1.2 - 3.4 /CUMM) 1.1 L Absolute Monocytes (0.10 - 0.60 /CUMM) 0.3 Absolute Eosinophils (0.0 - 0.7 /CUMM) 0.1 Absolute Basophils (0.0 - 0.2 /CUMM) 0 12/31 12/30 0014 1810 Chemistry Sodium (137 - 145 mmol/L) 138 Potassium (3.5 - 5.1 mmol/L) 4.2 Chloride (98 - 107 mmol/L) 105 Carbon Dioxide (22 - 30 mmol/L) 29 Anion Gap (5 - 16) 3 L BUN (9 - 20 mg/dL) 22 H Creatinine (0.7 - 1.2 mg/dL) 1.4 H Estimated GFR (>60 ml/min) 51 L BUN/Creatinine Ratio (7 - 25 %) 15.7 Lactic Acid (0.7 - 2.1 mmol/L) 0.7 Troponin I (<0.11 ng/ml) 0.01 Toxicology Urine Opiates Screen (>2000 NG/ML) 174.00 Methadone Screen (>300 NG/ML) < 40 Barbiturate Screen (>200 NG/ML) < 60 Ur Phencyclidine Scrn (>25 NG/ML) < 6.00 Amphetamines Screen (>1000 NG/ML) < 100 U Benzodiazepines Scrn (>200 NG/ML) < 85 Urine Cocaine Screen (>300 NG/ML) < 50 Urine Cannabis Screen (>50 NG/ML) < 5.00 Urines Urine Color (YEL,AMB,STR) YEL Urine Clarity (CLEAR) CLEAR Urine pH (5.0 - 8.0) 6.0 Ur Specific [place] (1.001 - 1.035) 1.010 Urine Protein (NEG,<30 MG/DL) NEG Urine Ketones (NEG) NEG Urine Nitrite (NEG) NEG Urine Bilirubin (NEG) NEG Urine Urobilinogen (0.1 - 1.0 EU/dl) 0.2 Ur Leukocyte Esterase (NEG) TRACE H Ur Microscopic SEDIMENT EXAMINED Urine RBC (0 - 5 /HPF) RARE Urine WBC (0 - 2 /HPF) 1-3 H Ur Epithelial Cells (NONE,FEW) MOD H Urine Crystals 4+ CA OX H Hyaline Casts (0/LPF) FEW H Granular Casts (NONE /LPF) RARE H Urine Hemoglobin (NEG) NEG Urine Glucose (N MG/DL) NEG 12/30 1540 Chemistry Sodium (137 - 145 mmol/L) 141 Potassium (3.5 - 5.1 mmol/L) 4.6 Chloride (98 - 107 mmol/L) 104 Carbon Dioxide (22 - 30 mmol/L) 31 H Anion Gap (5 - 16) 7 BUN (9 - 20 mg/dL) 24 H Creatinine (0.7 - 1.2 mg/dL) 1.6 H Estimated GFR (>60 ml/min) 43 L BUN/Creatinine Ratio (7 - 25 %) 15.0 Glucose (65 - 99 mg/dL) 89 Lactic Acid (0.7 - 2.1 mmol/L) 0.8 Calcium (8.4 - 10.2 mg/dL) 8.0 L Total Bilirubin (0.2 - 1.3 mg/dL) 0.5 AST (17 - 59 U/L) 11 L ALT (21 - 72 U/L) 27 Alkaline Phosphatase (< 127 U/L) 50 Troponin I (<0.11 ng/ml) < 0.01 Total Protein (6.3 - 8.2 g/dL) 5.0 L Albumin (3.5 - 5.0 g/dL) 2.9 L Globulin (1.9 - 4.2 gm/dL) 2.1 Albumin/Globulin Ratio (1.1 - 2.2 %) 1.4 Hematology CBC w Diff NO MAN DIFF REQ WBC (4.8 - 10.8 /CUMM) 6.1 RBC (4.70 - 6.10 /CUMM) 4.05 L Hgb (14.0 - 18.0 G/DL) 11.3 L Hct (42 - 52 %) 34.8 L MCV (80.0 - 94.0 FL) 85.9 MCH (27.0 - 31.0 PG) 28.0 MCHC (33.0 - 37.0 G/DL) 32.6 L RDW (11.5 - 14.5 %) 14.1 Plt Count (130 - 400 /CUMM) 157 MPV (7.4 - 10.4 FL) 8.1 Gran % (42.2 - 75.2 %) 72.3 Lymphocytes % (20.5 - 51.1 %) 17.8 L Monocytes % (1.7 - 9.3 %) 7.4 Eosinophils % (0 - 5 %) 2.1 Basophils % (0.0 - 2.0 %) 0.4 Absolute Granulocytes (1.4 - 6.5 /CUMM) 4.4 Absolute Lymphocytes (1.2 - 3.4 /CUMM) 1.1 L Absolute Monocytes (0.10 - 0.60 /CUMM) 0.5 Absolute Eosinophils (0.0 - 0.7 /CUMM) 0.1 Absolute Basophils (0.0 - 0.2 /CUMM) 0 Assessment/Plan Assessment/Plan 67-year-old man with a past medical history of morbid obesity, COPD on 3 L, MOIRA not compliant with CPAP, chronic pain on opiate medication, restless leg syndrome, hypertension, CKD and BPH. presented with feeling dizzy and fall. In addition, he had diarrhea the day before. His po intake has been poor. In hospital, his BP has been borderline low despite he has received several liters of saline. Am cortisol was 2.2. Stress dose steroid of hydrocortisone 50 mg iv every 12 hours was initiated. His BP has been better since then. Adrenal insufficinecy most likely due to chronica pain medication uses. 1. continue stress dose of steroid--- hydrocortisone 50 mg iv every 12 hours today; 2. continue monitoring vital signs; 3. will consider decreasing hydrocortisone to 25 mg every 12 hours tomorrow; 4. will evaluate his pituitary function after steroid is discontinued. will follow. Consult Acknowledgment - Thank you for your consult request.
[2017-12-31 16:00] VITALS: BP 130/76
[2017-12-31 23:00] VITALS: BP 181/87
[2018-01-01 05:28] LABS: ABSOLUTE BASOPHIL COUNT 0 /CUMM (0.0-0.2); ABSOLUTE EOSINOPHIL COUNT 0 /CUMM (0.0-0.7); ABSOLUTE GRANULOCYTE CT 3.7 /CUMM (1.4-6.5); ABSOLUTE LYMPH COUNT 0.5 /CUMM (1.2-3.4); ABSOLUTE MONOCYTE COUNT 0.1 /CUMM (0.10-0.60); BASOPHIL % 0.2 % (0.0-2.0); EOSINOPHIL % 0.1 % (0-5); GRANULOCYTE % 85.4 % (42.2-75.2); HEMATOCRIT 37.9 % (42-52); MEAN CORPUSCULAR HGB 28.6 PG (27.0-31.0); MEAN CORPUSCULAR HGB CONC 33.3 G/DL (33.0-37.0); MEAN PLATELET VOLUME 8.7 FL (7.4-10.4); PLATELET COUNT 137 /CUMM (130-400); RBC DISTRIBUTION WIDTH 13.5 % (11.5-14.5); RED BLOOD CELL CT 4.41 /CUMM (4.70-6.10)
[2018-01-01 06:02] LABS: WHITE BLOOD CELL COUNT 4.3 /CUMM (4.8-10.8)
[2018-01-01 06:46] LABS: PT 12.3 SEC (9.4-12.5)
[2018-01-01 08:00] VITALS: BP 150/82
--- NOTE | 2018-01-01 08:59 | PN- Resident CRCU ---
Dandre LEE,[facility] 01/01/18 0858: Subjective HPI/CRCU Issues: 1. Hypotension-multifactorial 2. Adrenal insufficiency 3. Near syncope with concerns for cardiac arrhythmia 24 Hour Events: Patient appears comfortable in bed this morning. He has not ambulated yet and denies repeat episode of lightheadedness. He however complains of swelling his left knee which is chronic and has apparently improved while on Alps. Objective Vital Signs & I&O Last 8 Hrs of Vitals and I&O: Vital Signs Date Time Temp Pulse Resp B/P B/P Pulse O2 O2 Flow FiO2 Mean Ox Delivery Rate 01/01 1444 73 153/81 01/01 1200 95 Room Air 01/01 0800 97.2 75 22 150/82 96 Room Air 01/01 0800 96 Room Air 01/01 0400 Room Air 01/01 0000 94 Room Air 12/31 2300 98.1 60 14 181/87 96 12/31 2000 94 Room Air 12/31 1600 94 Room Air 12/31 1600 98.7 60 20 130/76 94 Room Air Intake & Output 01/01 1600 01/01 0800 01/01 0000 Intake Total 540 1588 Output Total 1500 1100 Balance -960 488 Intake, IV 140 868 Intake, Oral 400 720 Output, Urine 1500 1100 Exam General Appearance: well developed/nourished, no apparent distress, alert, awake Head: normal appearance, Bruise over left forehead Ears, Nose, Throat: normal pharynx, normal ENT inspection Neck: normal inspection, supple, full range of motion Respiratory: normal breath sounds, chest non-tender, no respiratory distress, lungs clear Cardiovascular: regular rate/rhythm, ejection systolic murmur present, S1 and S2 normal Gastrointestinal: normal bowel sounds, soft, non-tender, no organomegaly Extremities: normal inspection, left knee swollen compared to right and reported as chronic by the patient, secondary to osteoarthritis Cranial Nerves: normal hearing, normal speech, PERRL Skin: intact Sepsis Peripheral Pulse Location: Dorsalis Pedis Sepsis Peripheral Pulse Exam: Normal Current Medications: Current Medications Sig/Jared Start time Last Medication Dose Route Stop Time Status Admin Acetaminophen 650 MG Q6P PRN 12/31 0115 AC 12/31 PO 0833 Albuterol Sulfate 2 PUF Q4P PRN 12/31 1415 AC INH Cilostazol 100 MG BID 12/31 1000 AC 01/01 PO 1009 Finasteride 5 MG DAILY 12/31 1000 AC 01/01 PO 1008 Gabapentin 300 MG TID 12/31 1000 AC 01/01 PO 1530 Heparin Sodium 5,000 UNIT Q8 12/31 0600 AC 01/01 (Porcine) SC 1444 Hydrocortisone 25 MG BID 01/01 2200 AC Sodium Succinate IV Hydrocortisone 50 MG BID 12/31 0845 DC 01/01 Sodium Succinate IV 1009 Lorazepam 1 MG TID 12/31 1600 AC 01/01 PO 1530 Metoprolol Tartrate 25 MG BID 01/01 1245 AC 01/01 PO 1444 Morphine Sulfate 15 MG BID 12/31 1200 AC 01/01 PO 1008 Multivitamins 1 TAB DAILY 12/31 1000 AC 01/01 Therapeutic PO 1008 Oxycodone/ 1 TAB Q6P PRN 12/31 1215 AC 01/01 Acetaminophen PO 1040 Sodium Chloride 1,000 ML Q10H 12/31 1245 DC 12/31 IV 01/01 0844 2211 Venlafaxine HCl 225 MG 0800 12/31 0800 AC 01/01 PO 0815 Impression/Plan Impression/Problem List Impression: Assessment: Mr Madrigal is a 67 year old man with a PMHx of class 3 obesity, chronic respiratory failure, COPD on 5L, MOIRA on 3L O2 CPAP, HTN, LVOT, CKD, BPH, chronic pain on opiates, RLS, CKD and BPH came in with a chief concern of a presyncopal episode after exertion. No LOC, no seizures. No prodromal symptoms. He reported a few episodes of large volume- diarrhea the day prior to presntation. He has a history of reported frequent orhtostatic symptoms. He was resuscitated with 5 L of normal saline and found to have adrenal insufficiency with low a.m. cortisol levels. Low Plan 1. Hypotension-multifactorial likely due to poor by mouth intake and adrenal insufficiency * Orthostatic vital signs this morning remain positive * IV fluids have been discontinued * Will give compression stockings * Endocrinology consult and input appreciated * Reduce IV hydrocortisone 25 mg twice a day * Recheck orthostats in the AM * Monitor fluid input/output closely * Blood cultures negative so far, urine culture sample was contaminated, urine; rapid flu test was negative * Continue holding losartan 2. Dizziness-Rule out ACS * Serial EKG, troponins negative for ACS * However this morning patient had an 11 beat run of V. tach * Serum Potassium, calcium and magnesium were all normal this morning * He does have a history of HOCM * Will restart his home medication metoprolol at a reduced dose of 25 mg twice a day * Follow-up Echocardiogram * Follow cardiology recommendations 3. MANJIT on CKD * Creatinine improved from 1.6 on admission to 1.0 this morning * Monitor BEP closely 4. COPD previously on 3 L of home O2 and MOIRA * [facility] evaluation for nebulizer therapy * Oxygen by nasal canula to keep O2 >92% * Consider nocturnal CPAP if patient desaturates at night 5. Hypertension * Hold antihypertensives- losartan 6. Chronic pain * Hold Butrans patch * CTPMP was checked for patient and his home prescription of Oxycodone 10 mg Q 8 hrs was noted * Continue Percocet 1 tab every 6 hours when necessary and OxyContin 15 mg twice a day 7. Depression and Anxiety * Continue lorazepam 1 mg PO BID PRN for anxiety * Continue venlafaxine Continue home medications for neuropathy gabapentin, hold flomax for BPH on account of hypotension. Continue finasteride for BPH. Continue cilostazol for claudication Diet: regular diet DVT prophylaxis: ALPS and SC heparin Code status: Full code Problem List: 1. Hypotension 2. Weakness 3. Fall 4. Hypertension 5. Anxiety Pain Ratin Pain Location: Back, left knee Tomorrow's Labs & Rationales: CBC BEP for hypertension and renal insufficiency Plan DVT/Prophylaxis: mechanical, pharmacological Apergis Bronwyn LEE 01/01/18 1240: Attending MD Review Statement Attending Sign Off Attending Cosign Statement: I have: examined this patient, reviewed [facility] EMR data, discussd w/resident/PA/ TIMBER CUTTER, agreed w/resident/PA/TIMBER CUTTER. Other Findings: 67M PMH chronic respiratory failure, COPD on 3 L of home O2 (non-compliant), MOIRA not compliant with CPAP, chronic pain on opiate medication, restless leg syndrome, hypertension, CKD and BPH admitted overnight with weakness and fall, no LOC or head strike, found to be hypotensive in ED requiring 5L NS with blood pressure improving, found to have morning cortisol level 2.2. Patient is awake and alert and has no complaitns today. Physical exam is normal. 1. Adrenal insufficiency 2. Hypotension 3. Near syncope Plan - Downgrade to general medicine floor - Continue hydrocortisone per endocrine - Echocardiogram - Hold anti-hypertensives - Cardiology and endocrine consults - DVT PPx
--- NOTE | 2018-01-01 10:46 | PN- Endocrinology ---
Assessment/Plan Assessment: 67-year-old man with a past medical history of morbid obesity, COPD on 3 L, MOIRA not compliant with CPAP, chronic pain on opiate medication, restless leg syndrome, hypertension, CKD and BPH. presented with feeling dizzy and fall. In addition, he had diarrhea the day before. His po intake has been poor. In hospital, his BP has been borderline low despite he has received several liters of saline. Am cortisol was 2.2. Stress dose steroid of hydrocortisone 50 mg iv every 12 hours was initiated. His BP has been better since then. Adrenal insufficinecy most likely due to chronica pain medication uses. Plan: 1. decreasing hydrocortisone to 25 mg every 12 hours today; 2. continue monitor vital signs. 3. will evaluate his pituitary function after steroid is discontinued. will follow. Subjective Subjective: He feels better. Objective Last 24 Hrs of Vital Signs/I&O Vital Signs Date Time Temp Pulse Resp B/P B/P Pulse O2 O2 Flow FiO2 Mean Ox Delivery Rate 01/01 08 97.2 75 22 150/82 96 Room Air 01/01 0800 96 Room Air 01/01 0400 Room Air 01/01 0000 94 Room Air 12/31 2300 98.1 60 14 181/87 96 12/31 2000 94 Room Air 12/31 1600 94 Room Air 12/31 1600 98.7 60 20 130/76 94 Room Air 12/31 1359 Room Air 12/31 1200 94 Room Air Intake & Output 01/01 1600 01/01 0800 01/01 0000 Intake Total 540 1588 Output Total 1500 1100 Balance -960 488 Intake, IV 140 868 Intake, Oral 400 720 Output, Urine 1500 1100 Results Pertinent Lab/[place] Results: Laboratory Tests 01/01 0455 Chemistry Sodium (137 - 145 mmol/L) 141 Potassium (3.5 - 5.1 mmol/L) 4.3 Chloride (98 - 107 mmol/L) 107 Carbon Dioxide (22 - 30 mmol/L) 28 Anion Gap (5 - 16) 6 BUN (9 - 20 mg/dL) 17 Creatinine (0.7 - 1.2 mg/dL) 1.0 Estimated GFR (>60 ml/min) > 60 Glucose (65 - 99 mg/dL) 127 H Calcium (8.4 - 10.2 mg/dL) 8.6 Phosphorus (2.5 - 4.5 mg/dL) 3.0 Magnesium (1.6 - 2.3 mg/dL) 2.0 Total Bilirubin (0.2 - 1.3 mg/dL) 0.4 AST (17 - 59 U/L) 13 L ALT (21 - 72 U/L) 22 Albumin (3.5 - 5.0 g/dL) 2.9 L Coagulation PT (9.4 - 12.5 SEC) 12.3 INR (0.90 - 1.17) 1.17 Hematology CBC w Diff NO MAN DIFF REQ WBC (4.8 - 10.8 /CUMM) 4.3 L RBC (4.70 - 6.10 /CUMM) 4.41 L Hgb (14.0 - 18.0 G/DL) 12.6 L Hct (42 - 52 %) 37.9 L MCV (80.0 - 94.0 FL) 86.0 MCH (27.0 - 31.0 PG) 28.6 MCHC (33.0 - 37.0 G/DL) 33.3 RDW (11.5 - 14.5 %) 13.5 Plt Count (130 - 400 /CUMM) 137 MPV (7.4 - 10.4 FL) 8.7 Gran % (42.2 - 75.2 %) 85.4 H Lymphocytes % (20.5 - 51.1 %) 11.9 L Monocytes % (1.7 - 9.3 %) 2.4 Eosinophils % (0 - 5 %) 0.1 Basophils % (0.0 - 2.0 %) 0.2 Absolute Granulocytes (1.4 - 6.5 /CUMM) 3.7 Absolute Lymphocytes (1.2 - 3.4 /CUMM) 0.5 L Absolute Monocytes (0.10 - 0.60 /CUMM) 0.1 Absolute Eosinophils (0.0 - 0.7 /CUMM) 0 Absolute Basophils (0.0 - 0.2 /CUMM) 0
[2018-01-01 16:00] VITALS: BP 162/74
[2018-01-01 18:34] VITALS: BP 168/90
--- NOTE | 2018-01-01 18:39 | PN- Cardiology ---
Subjective Subjective: Admitting feeling well earlier, but now complaining of some left lower quadrant discomfort. Denies any chest discomfort, palpitations, shortness of breath, lightheadedness, dizziness, etc. Objective Vital Signs and I&Os Vital Signs Date Time Temp Pulse Resp B/P B/P Pulse O2 O2 Flow FiO2 Mean Ox Delivery Rate 01/01 1834 99.4 94 18 168/90 94 Room Air 01/01 1444 73 153/81 01/01 1200 95 Room Air 01/01 0800 97.2 75 22 150/82 96 Room Air 01/01 0800 96 Room Air 01/01 0400 Room Air 01/01 0000 94 Room Air 12/31 2300 98.1 60 14 181/87 96 12/31 2000 94 Room Air Intake & Output 01/01 1600 01/01 0800 01/01 0000 12/31 1600 12/31 0800 12/31 0000 Intake Total 408 282 5418 1310 888 Output Total 1250 1500 6808 488 9822 500 Balance -470 -960 488 710 -692 -500 Intake, IV 140 868 710 888 Intake, Oral 780 400 720 600 Number 0 Bowel Movements Output, Urine 1250 1500 5310 290 4755 500 Patient 299 lb Weight Weight Bed scale Measurement Method Physical Exam: Well-developed, overweight male in no acute distress. Vital signs: See above. HEENT: Normocephalic, laceration to left forehead region, EOMI, slightly dry mucous membranes. Neck: No JVD, no bruits. Lungs: Decreased breath sounds bilaterally, otherwise clear. Heart: S1, S2 with grade 2/6 systolic ejection type murmur best heard at the base. No gallop or rub. Excellent abdomen: Soft, nontender, positive bowel sounds. Extremities: No edema. Current Medications: Current Medications Sig/Jared Start time Last Medication Dose Route Stop Time Status Admin Acetaminophen 650 MG Q6P PRN 12/31 0115 AC 12/31 PO 0833 Al Hydroxide/Mg 30 ML Q4-6 PRN PRN 01/01 1815 AC 01/01 Hydroxide PO 1806 Albuterol Sulfate 2 PUF Q4P PRN 12/31 1415 AC INH Cilostazol 100 MG BID 12/31 1000 AC 01/01 PO 1009 Finasteride 5 MG DAILY 12/31 1000 AC 01/01 PO 1008 Gabapentin 300 MG TID 12/31 1000 AC 01/01 PO 1530 Heparin Sodium 5,000 UNIT Q8 12/31 0600 AC 01/01 (Porcine) SC 1444 Hydrocortisone 25 MG BID 01/01 2200 AC Sodium Succinate IV Hydrocortisone 50 MG BID 12/31 0845 DC 01/01 Sodium Succinate IV 1009 Lorazepam 1 MG TID 12/31 1600 AC 01/01 PO 1530 Metoprolol Tartrate 25 MG BID 01/01 1245 AC 01/01 PO 1444 Morphine Sulfate 15 MG BID 12/31 1200 AC 01/01 PO 1008 Multivitamins 1 TAB DAILY 12/31 1000 AC 01/01 Therapeutic PO 1008 Omeprazole 20 MG DAILY AC PRN 01/01 1815 AC PO Oxycodone/ 1 TAB Q6P PRN 12/31 1215 AC 01/01 Acetaminophen PO 1709 Sodium Chloride 1,000 ML Q10H 12/31 1245 DC 12/31 IV 01/01 0844 2211 Venlafaxine HCl 225 MG 0800 12/31 0800 AC 01/01 PO 0815 Results Last 48 Hrs of Labs/Mics: Laboratory Tests 01/01/18 0455: Anion Gap 6, Estimated GFR > 60, Glucose 127 H, Calcium 8.6, Phosphorus 3.0, Magnesium 2.0, Total Bilirubin 0.4, AST 13 L, ALT 22, Albumin 2.9 L, PT 12.3, INR 1.17, CBC w Diff NO MAN DIFF REQ, RBC 4.41 L, MCV 86.0, MCH 28.6, MCHC 33.3 , RDW 13.5, MPV 8.7, Gran % 85.4 H, Lymphocytes % 11.9 L, Monocytes % 2.4, Eosinophils % 0.1, Basophils % 0.2, Absolute Granulocytes 3.7, Absolute Lymphocytes 0.5 L, Absolute Monocytes 0.1, Absolute Eosinophils 0, Absolute Basophils 0 12/31/17512: Troponin I 0.02, Cortisol AM Sample 2.2 L 12/31/17 05: Anion Gap 4 L, Estimated GFR 55 L, Glucose 70, Calcium 8.0 L, Phosphorus 3.9, Magnesium 2.1, Total Bilirubin 0.6, AST 11 L, ALT 24, Albumin 2.6 L, TSH &T3 & Free T4 Intrp 1.120, CBC w Diff NO MAN DIFF REQ, RBC 3.98 L, MCV 84.6, MCH 28.7 , MCHC 33.9, RDW 13.8, MPV 8.3, Gran % 65.9, Lymphocytes % 23.2, Monocytes % 7.3 , Eosinophils % 3.0, Basophils % 0.6, Absolute Granulocytes 3.1, Absolute Lymphocytes 1.1 L, Absolute Monocytes 0.3, Absolute Eosinophils 0.1, Absolute Basophils 0 12/31/17 0014: Cortisol PM Sample 6.8 12/31/17 0014: Anion Gap 3 L, Estimated GFR 51 L, BUN/Creatinine Ratio 15.7, Lactic Acid 0.7, Troponin I 0.01 Microbiology 12/31 248 UPPER RESP: Surveillance Culture - COMP 12/31 248 GI: Surveillance Culture - COMP 12/31 202 NASOPHARYN: Influenza Virus A & B Rapid Smear - COMP Assessment/Plan Assessment/Plan [id number] w/ hx morbid obesity, fmr heavy tobacco use, COPD w/o home O2 compliance, MOIRA w/o CPAP compliance, RLS, HTN, BPH, CKD, conduction disease ( LPFB, RBBB), and moderate to severe LVH w/ LVOT gradient who presented following a syncopal episode that was likely on the basis of relative intravascular depletion in the setting of HOCM, however, also has evidence of conduction disease and may have had the syncopal episode on that basis. While beta blockade is indicated for his HOCM, it may be exacerbating his conduction disease. If we discover evidence of higher grade heart block, he could potentially be well served with implantation of a permanent pacemaker. This would allow us to not only improve his outflow tract gradient by safely slowing his heart rate, but would also allow us to program a degree of dyssynchrony which would also decrease the outflow tract gradient. Fortunately, he has markedly improved following volume resuscitation and would continue with this for the short-term. NSVT earlier, off beta areli therapy, which we have subsequently restarted without further ectopy. Hemodynamically stable and can be transferred to telemetry from a cardiac standpoint. Echocardiogram pending. Continue DVT prophylaxis. Continue telemetry? Not applicable (In ICU.)
--- NOTE | 2018-01-01 19:06 | Transfer of Care Summary ---
Hospital Course Course Hospital Course: Reason for ICU admission: Hypotension with hypovolemic shock History of presenting illness: Mr Madrigal is a 67 year old man with a PMHx of class 3 obesity, chronic respiratory failure, COPD on 5L, MOIRA on 3L O2 CPAP, HTN, LVOT, CKD, BPH, chronic pain on opiates, RLS, CKD and BPH came in with a chief concern of a presyncopal episode after exertion. No LOC, no seizures. No prodromal symptoms. He reported a few episodes of large volume- diarrhea the day prior to presntation. He has a history of reported frequent orhtostatic symptoms. He was hypotensive in the ER with a blood pressure of 86/50 mm hg on presentation. Interval events in the ICU: He was resuscitated with 5 L of normal saline and found to have adrenal insufficiency with low a.m. cortisol levels and started on hydrocortisone. Mechanical ventilation: No NIPPV: No Antibiotics plan: None Catheters/ Lines plan: Peripheral lines only. Central line has been removed Assessment/Plan: Things to be followed up in the floor: 1. Hypotension with hypovolemic shock-multifactorial likely due to poor by mouth intake and adrenal insufficiency from opiate medications * Orthostatic vital signs this morning remain positive * Will give compression stockings * Follow Endocrinology reporting consultant recommendations * Continue IV hydrocortisone 25 mg twice a day * Recheck orthostats in the AM * Monitor fluid input/output closely * Follow final blood cultures result * Continue holding losartan 2. Dizziness-Rule out ACS * Patient had an 11 beat run of V. tach this morning * He does have a history of HOCM * Home medication metoprolol restarted at a reduced dose of 25 mg twice a day * Follow-up Echocardiogram * Follow cardiology recommendations 3. MANJIT on CKD * Creatinine improved from 1.6 on admission to 1.0 this morning * Monitor BEP closely 4. COPD previously on 3 L of home O2 and MOIRA * [facility] evaluation for nebulizer therapy * Oxygen by nasal canula to keep O2 >92% * Consider nocturnal CPAP if patient desaturates at night 5. Hypertension history * Hold antihypertensives- losartan 6. Chronic pain * Hold Butrans patch * CTPMP was checked for patient and his home prescription of Oxycodone 10 mg Q 8 hrs was noted * Continue Percocet 1 tab every 6 hours when necessary and OxyContin 15 mg twice a day 7. Depression and Anxiety * Continue lorazepam 1 mg PO BID PRN for anxiety * Continue venlafaxine Continue home medications for neuropathy gabapentin, hold flomax for BPH on account of hypotension. Continue finasteride for BPH. Continue cilostazol for claudication Nutrition: Regular diet DVT prophylaxis: SC heparin and ALPS with compression stockings for positive orthostatics Code status: Full code
[2018-01-01 22:16] VITALS: BP 156/88
--- NOTE | 2018-01-02 07:18 | PN- Housestaff ---
Iveth LEE,Dane 01/02/18 0716: Subjective Follow-up For: ADRENAL INSUFFICIENCY, HYPOTENSION Complaints: no complaints Tele-Events Since Last Visit: nsr, hr 67-86, first deg av block with pr 0.22-0.24 overnight. Subjective: I followed up and examined the patient today. I confronted the history with him. He is resting comfortably in bed, doesn't appear to be in distress, and does not offer any complaints. He did mention that he had mild abdominal pain after he ate his food last night, which now has resolved on its own. He doesn't complain of any dizziness, palpitation, chest pain, shortness of breath, or any other discomfort. He was wondering if the Shultz catheter could be taken out today. Review of Systems Constitutional: Reports: no symptoms. Objective Last 24 Hrs of Vital Signs/I&O Vital Signs Date Time Temp Pulse Resp B/P B/P Pulse O2 O2 Flow FiO2 Mean Ox Delivery Rate 01/02 0000 94 Room Air Room Air 01/01 2216 156/88 01/01 2205 156/88 01/01 2145 98.3 101 22 93 Room Air 01/01 1834 99.4 94 18 168/90 94 Room Air 01/01 1600 98.1 74 24 162/74 96 Room Air 01/01 1600 96 Room Air 01/01 1444 73 153/81 01/01 1200 95 Room Air 01/01 0800 97.2 75 22 150/82 96 Room Air 01/01 0800 96 Room Air Intake & Output 01/02 0800 01/02 0000 01/01 1600 Intake Total 100 160.5 780 Output Total 079 667 6934 Balance -350 -514.5 -470 Intake, IV 10.5 Intake, Oral 100 150 780 Output, Urine 725 371 3795 Physical Exam General Appearance: Alert, Oriented X3, Cooperative, No Acute Distress Other Physical Findings: Head: normal appearance, Bruise over left forehead Ears, Nose, Throat: normal pharynx, normal ENT inspection Neck: normal inspection, supple, full range of motion Respiratory: normal breath sounds, chest non-tender, no respiratory distress, lungs clear Cardiovascular: regular rate/rhythm, ejection systolic murmur present, S1 and S2 normal otherwise Gastrointestinal: normal bowel sounds, soft, non-tender : Shultz cath on. Extremities: normal inspection, left knee swollen compared to right and reported as chronic by the patient, likely secondary to osteoarthritis Cranial Nerves: normal hearing, normal speech, PERRL, grossly intact Skin: intact Psych: normal mood and affect, no signs of delusions/hallucinations. Current Medications: Current Medications Sig/Jared Start time Last Medication Dose Route Stop Time Status Admin Acetaminophen 650 MG Q6P PRN 12/31 0115 AC 12/31 PO 0833 Al Hydroxide/Mg 30 ML Q4-6 PRN PRN 01/01 1815 AC 01/01 Hydroxide PO 1806 Al Hydroxide/Mg 30 ML .STK-MED ONE 01/01 1803 DC Hydroxide PO 01/01 1804 Albuterol Sulfate 2 PUF Q4P PRN 12/31 1415 AC INH Cilostazol 100 MG BID 12/31 1000 AC 01/01 PO 2205 Finasteride 5 MG DAILY 12/31 1000 AC 01/01 PO 1008 Gabapentin 300 MG TID 12/31 1000 AC 01/01 PO 2205 Heparin Sodium 5,000 UNIT Q8 12/31 0600 AC 01/02 (Porcine) SC 0512 Hydrocortisone 25 MG BID 01/01 2200 AC 01/01 Sodium Succinate IV 2205 Hydrocortisone 50 MG BID 12/31 0845 DC 01/01 Sodium Succinate IV 1009 Lorazepam 1 MG TID 12/31 1600 AC 01/01 PO 2204 Metoprolol Tartrate 25 MG BID 01/01 1245 AC 01/01 PO 2205 Morphine Sulfate 15 MG BID 12/31 1200 AC 01/01 PO 2205 Multivitamins 1 TAB DAILY 12/31 1000 AC 01/01 Therapeutic PO 1008 Omeprazole 20 MG DAILY AC PRN 01/01 1815 AC PO Oxycodone/ 1 TAB Q6P PRN 12/31 1215 AC 01/02 Acetaminophen PO 0237 Venlafaxine HCl 225 MG 0800 12/31 0800 AC 01/01 PO 0815 Last 24 Hrs of Lab/[place] Results Last 24 Hrs of Labs/Mics: Laboratory Tests 01/02/18 0640: Sodium Pending, Potassium Pending, Chloride Pending, Carbon Dioxide Pending, Anion Gap Pending, BUN Pending, Creatinine Pending, BUN/Creatinine Ratio Pending , CBC w Diff Pending, WBC Pending, RBC Pending, Hgb Pending, Hct Pending, MCV Pending, MCH Pending, MCHC Pending, RDW Pending, Plt Count Pending, MPV Pending Assessment/Plan Assessment: Mr Madrigal is a 67 year old man with a PMHx of class 3 obesity, chronic respiratory failure, COPD on 5L, MOIRA on 3L O2 CPAP, HTN, LVOT, CKD, BPH, chronic pain on opiates, RLS, CKD and BPH came in with a chief concern of a presyncopal episode after exertion. No LOC, no seizures. No prodromal symptoms. He reported a few episodes of large volume- diarrhea the day prior to presntation. He has a history of reported frequent orhtostatic symptoms. He was initially admitted in the ICU for the management of hypotension, and responded well to fluid resuscitation 5 L, did not require any central lines or pressor support, and was later found to have partial abdominal insufficiency, to be verified. Once his vitals were stable, he was transferred to the telemetry unit for the management of following issues: 1. Hypotension-multifactorial likely due to poor by mouth intake and adrenal insufficiency * Orthostatic vital signs this morning remain positive * Continue compression stockings * Follow Endocrinology investigations consultant recommendations * IV hydrocortisone 25 mg twice a day was started yesterday but held by development specialist this morning to check pituitary homne levels. We will watch his blood pressure closely given that he is off steroids right now. * Recheck orthostats in the AM * Monitor fluid input/output closely * Follow final Blood cultures result * Continue holding losartan 2. Dizziness-Rule out ACS * Patient had an 11 beat run of V. tach last morning * He does have a history of HOCM * Home medication metoprolol restarted at a reduced dose of 25 mg twice a day * Follow-up Echocardiogram * Follow cardiology recommendations 3. MANJIT on CKD * Creatinine improved from 1.6 on admission to 1.1 this morning * Monitor BEP closely 4. COPD previously on 3 L of home O2 and MOIRA * [facility] evaluation for nebulizer therapy * Oxygen by nasal canula to keep O2 >92% * Consider nocturnal CPAP if patient desaturates at night 5. Hypertension * Hold antihypertensives- losartan 6. Chronic pain * Hold Butrans patch * CTPMP was checked for patient and his home prescription of Oxycodone 10 mg Q 8 hrs was noted * Continue Percocet 1 tab every 6 hours when necessary and OxyContin 15 mg twice a day 7. Depression and Anxiety * Continue lorazepam 1 mg PO BID PRN for anxiety * Continue venlafaxine Continue home medications for neuropathy gabapentin, hold flomax for BPH on account of hypotension. Continue finasteride for BPH. Continue cilostazol for claudication. Nutrition: Regular diet DVT prophylaxis: SC heparin and ALPS with compression stockings for positive orthostatics Code status: Full code Problem List: 1. Fall 2. Adrenal insufficiency Pain Ratin Pain Location: - Pain Goal: Pain 4 or less Pain Plan: prn Tomorrow's Labs & Rationales: BEP and pituitary hormones Kaity Hanson MD 01/02/18 1401: Attending MD Review Statement Attending Statement Attending MD Statement: examined this patient, discuss w/resident/PA/EMERGENCY VEHICLE DRIVER, agreed w/resident/PA/EMERGENCY VEHICLE DRIVER, reviewed EMR data (avail), discussed with nursing, discussed with case mgmt Attending Assessment/Plan: 67-year-old male transferred from the ICU after treatment for acute adrenal insufficiency with hypovolemia and a shock state. Right now as per endocrine we have stopped all parenteral hydrocortisone and we are following up on all of his testing to test his pituitary- adrenal access. We'll take out his Shultz, give him a voiding trial, continue his beta areli low dose, ambulate him and follow closely.
[2018-01-02 07:21] VITALS: BP 150/88
[2018-01-02 08:13] LABS: ABSOLUTE BASOPHIL COUNT 0 /CUMM (0.0-0.2); ABSOLUTE EOSINOPHIL COUNT 0 /CUMM (0.0-0.7); ABSOLUTE GRANULOCYTE CT 6.4 /CUMM (1.4-6.5); ABSOLUTE LYMPH COUNT 1.3 /CUMM (1.2-3.4); ABSOLUTE MONOCYTE COUNT 0.4 /CUMM (0.10-0.60); BASOPHIL % 0.3 % (0.0-2.0); EOSINOPHIL % 0.3 % (0-5); GRANULOCYTE % 78.3 % (42.2-75.2); MEAN CORPUSCULAR HGB 28.9 PG (27.0-31.0); MEAN CORPUSCULAR HGB CONC 33.6 G/DL (33.0-37.0); MEAN PLATELET VOLUME 8.9 FL (7.4-10.4); PLATELET COUNT 179 /CUMM (130-400); RBC DISTRIBUTION WIDTH 13.7 % (11.5-14.5); RED BLOOD CELL CT 4.53 /CUMM (4.70-6.10)
[2018-01-02 08:33] LABS: WHITE BLOOD CELL COUNT 8.1 /CUMM (4.8-10.8)
--- NOTE | 2018-01-02 09:49 | ECHOCARDIOGRAM REPORT ---
GABBY SERRANO Age: 67 : 1950 Gender: M Exam Date: 01/01/2018 09:06 Exam Location: [facility] Ht (in): 77 Wt (lb): 330 BSA: 2.90 BP: 181 / 87 Ordering Physician: Leonides Amos MD Referring Physician: Mauricio Gustafson MD Technologist: Meeta Parnell [facility] Room Number: 107 Indications: LIGHTHEADEDNESS Rhythm: Sinus Technical Quality: Fair FINDINGS Left Ventricle Normal size left ventricle. Severe concentric left ventricular hypertrophy. No obvious regional wall motion abnormalities. Hyperdynamic left ventricular systolic function. Left ventricular ejection fraction is estimated at 70%. Abnormal relaxation filling pattern of the left ventricle for age (stage 1 diastolic dysfunction). Mildly increased resting left ventricular outflow tract velocity (2.0 m/s). Right Ventricle Normal right ventricular size and function. Right Atrium Normal right atrial size. Left Atrium Mild left atrial dilatation. Mitral Valve Structurally normal mitral valve. Trace mitral regurgitation. Aortic Valve Trileaflet aortic valve. Minimal aortic sclerosis. No hemodynamically significant aortic stenosis. No aortic regurgitation. Tricuspid Valve Structurally normal tricuspid valve. Trace tricuspid regurgitation. No evidence of pulmonary hypertension. Right ventricular systolic pressure estimated to be within the normal range at 20 mmHg. Pulmonic Valve Pulmonic valve not well visualized, grossly normal. Trace pulmonic regurgitation. Pericardium No pericardial effusion. Great Vessels Upper normal size aortic root. Mildly dilated proximal ascending aorta (tube). CONCLUSIONS Normal size left ventricle. Severe concentric left ventricular hypertrophy. Hyperdynamic left ventricular systolic function. Left ventricular ejection fraction is estimated at 70%. Abnormal relaxation filling pattern of the left ventricle for age (stage 1 diastolic dysfunction). Mildly increased resting left ventricular outflow tract velocity (2.0 m/s). Normal right ventricular size and function. Normal right atrial size. Mild left atrial dilatation. Trace mitral regurgitation. Trace tricuspid regurgitation. No evidence of pulmonary hypertension. Trace pulmonic regurgitation. Mildly dilated proximal ascending aorta (tube). Mauricio Gustafson M.D. (Electronically Signed) Final Date: 02 January 2018 09:48 MEASUREMENTS (Male / Female) Normal Values 2D ECHO LV Diastolic Diameter PLAX 4.3 cm 4.2 - 5.9 / 3.9 - 5.3 cm LV Systolic Diameter PLAX 2.5 cm 2.1 - 4.0 cm LV Fractional Shortening PLAX 41.9 % 25 - 46 % LV Ejection Fraction 2D Teich 73.1 % IVS Diastolic Thickness 2.1 cm LVPW Diastolic Thickness 1.8 cm LV Relative Wall Thickness 0.9 RV Internal Dim ED PLAX 3.4 cm 1.9 - 3.8 cm LVOT Diameter 2.4 cm Aortic Root Diameter 3.5 cm LA Systolic Diameter LX 5.0 cm 3.0 - 4.0 / 2.7 - 3.8 cm LA Volume 56.0 cm 18 - 58 / 22 - 52 cm Ascending Aorta Diameter 4.1 cm DOPPLER AV Peak Velocity 212.0 cm/s AV Peak Gradient 18.0 mmHg AV Mean Velocity 164.0 cm/s AV Mean Gradient 12.0 mmHg AV Velocity Time Integral 42.6 cm LVOT Peak Velocity 202.0 cm/s LVOT Peak Gradient 16.3 mmHg LVOT Mean Velocity 149.0 cm/s LVOT Mean Gradient 10.0 mmHg LVOT Velocity Time Integral 48.0 cm LVOT Stroke Volume 217.1 cm AV Area Cont Eq vti 5.1 cm AV Area Cont Eq pk 4.3 cm MV Peak Velocity 115.0 cm/s MV Peak Gradient 5.3 mmHg MV Mean Velocity 63.3 cm/s MV Mean Gradient 2.0 mmHg Mitral E Point Velocity 55.3 cm/s Mitral A Point Velocity 79.0 cm/s Mitral E to A Ratio 0.7 MV PHT Velocity 66.9 cm/s MV Deceleration [place] 245.0 cm/s MV Pressure Half Time 81.9 ms MV Area PHT 2.7 cm MV Deceleration Time 121.0 ms TR Peak Velocity 254.0 cm/s TR Peak Gradient 25.8 mmHg Right Atrial Pressure 5.0 mmHg Pulmonary Artery Systolic Pressu 30.8 mmHg Right Ventricular Systolic Press 30.8 mmHg PV Peak Velocity 207.0 cm/s PV Peak Gradient 17.1 mmHg PV Mean Velocity 132.0 cm/s PV Mean Gradient 8.0 mmHg PV Velocity Time Integral 33.9 cm LV E' Lateral Velocity 14.9 cm/s Mitral E to LV E' Lateral Ratio 3.7 LV E' Septal Velocity 5.3 cm/s Mitral E to LV E' Septal Ratio 10.3
--- NOTE | 2018-01-02 12:02 | PN- Endocrinology ---
Assessment/Plan Assessment: 67-year-old man with a past medical history of morbid obesity, COPD on 3 L, MOIRA not compliant with CPAP, chronic pain on opiate medication, restless leg syndrome, hypertension, CKD and BPH. presented with feeling dizzy and fall. In addition, he had diarrhea the day before. His po intake has been poor. In hospital, his BP has been borderline low despite he has received several liters of saline. Am cortisol was 2.2. Stress dose steroid of hydrocortisone 50 mg iv every 12 hours was initiated. His BP has been better since then. Adrenal insufficinecy most likely due to chronica pain medication uses. Hydrocortisone was decreased to 25 mg iv twice a day. He continues doing well and was transfered to [facility]. Plan: 1. dicontinue Hydrocortisone today; 2. repeat pituitary hormones tomorrow am-- am cortisol, ACTH, testosterone, FSH, LH, prolactin, TSH, free T4 and TT3. will follow. Subjective Subjective: He feels well this morning. Objective Last 24 Hrs of Vital Signs/I&O Vital Signs Date Time Temp Pulse Resp B/P B/P Pulse O2 O2 Flow FiO2 Mean Ox Delivery Rate 01/02 0911 76 150/88 01/02 0800 Room Air 01/02 0721 99.0 78 20 150/88 94 Room Air 01/02 0000 94 Room Air Room Air 01/01 2216 156/88 01/01 2205 156/88 01/01 2145 98.3 101 22 93 Room Air 01/01 1834 99.4 94 18 168/90 94 Room Air 01/01 1600 98.1 74 24 162/74 96 Room Air 01/01 1600 96 Room Air 01/01 1444 73 153/81 Intake & Output 01/02 1600 01/02 0800 01/02 0000 Intake Total 100 160.5 Output Total 450 675 Balance -350 -514.5 Intake, IV 10.5 Intake, Oral 100 150 Output, Urine 450 675 Results Pertinent Lab/[place] Results: Laboratory Tests 01/02 0640 Chemistry Sodium (137 - 145 mmol/L) 144 Potassium (3.5 - 5.1 mmol/L) 4.1 Chloride (98 - 107 mmol/L) 108 H Carbon Dioxide (22 - 30 mmol/L) 28 Anion Gap (5 - 16) 9 BUN (9 - 20 mg/dL) 14 Creatinine (0.7 - 1.2 mg/dL) 1.1 Estimated GFR (>60 ml/min) > 60 BUN/Creatinine Ratio (7 - 25 %) 12.7 Hematology CBC w Diff NO MAN DIFF REQ WBC (4.8 - 10.8 /CUMM) 8.1 RBC (4.70 - 6.10 /CUMM) 4.53 L Hgb (14.0 - 18.0 G/DL) 13.1 L Hct (42 - 52 %) 39.0 L MCV (80.0 - 94.0 FL) 86.0 MCH (27.0 - 31.0 PG) 28.9 MCHC (33.0 - 37.0 G/DL) 33.6 RDW (11.5 - 14.5 %) 13.7 Plt Count (130 - 400 /CUMM) 179 MPV (7.4 - 10.4 FL) 8.9 Gran % (42.2 - 75.2 %) 78.3 H Lymphocytes % (20.5 - 51.1 %) 15.6 L Monocytes % (1.7 - 9.3 %) 5.5 Eosinophils % (0 - 5 %) 0.3 Basophils % (0.0 - 2.0 %) 0.3 Absolute Granulocytes (1.4 - 6.5 /CUMM) 6.4 Absolute Lymphocytes (1.2 - 3.4 /CUMM) 1.3 Absolute Monocytes (0.10 - 0.60 /CUMM) 0.4 Absolute Eosinophils (0.0 - 0.7 /CUMM) 0 Absolute Basophils (0.0 - 0.2 /CUMM) 0
[2018-01-02 14:25] VITALS: BP 112/56
[2018-01-02 22:26] VITALS: BP 122/68
[2018-01-03 06:11] VITALS: BP 152/80
--- NOTE | 2018-01-03 08:00 | PN- Housestaff ---
Iveth LEE,[place]ane 01/03/18 0800: Subjective Follow-up For: ADRENAL INSUFFICIENCY, HYPOTENSION Complaints: no complaints Tele-Events Since Last Visit: nsr, hr <100, first deg avb Subjective: I followed up and examined the patient today. He is resting comfortably in bed, doesn't appear to be in distress, and does not offer any complaints. He said that he had mild headache but no visual disturbance, which was already getting better. He doesn't complain of any dizziness, palpitation, chest pain, shortness of breath, or any other discomfort. Review of Systems Constitutional: Reports: no symptoms. Objective Last 24 Hrs of Vital Signs/I&O Vital Signs Date Time Temp Pulse Resp B/P B/P Pulse O2 O2 Flow FiO2 Mean Ox Delivery Rate 01/03 1441 97.3 61 20 122/70 94 Room Air 01/03 0851 68 152/80 01/03 0812 Room Air 01/03 0611 152/80 01/03 0558 98.1 81 22 97 01/03 0000 Room Air 01/02 2226 97.7 63 20 122/68 96 Room Air Intake & Output 01/03 1600 01/03 0800 01/03 0000 Intake Total 800 150 150 Output Total 550 825 Balance 250 -675 150 Intake, IV 0 Intake, Oral 800 150 150 Number 1 0 Bowel Movements Output, Urine 550 825 Physical Exam General Appearance: Alert, Oriented X3, Cooperative, No Acute Distress, obese Other Physical Findings: Head: normal appearance, Bruise over left forehead Ears, Nose, Throat: normal pharynx, normal ENT inspection Neck: normal inspection, supple, full range of motion Respiratory: normal breath sounds, chest non-tender, no respiratory distress, lungs clear Cardiovascular: regular rate/rhythm, ejection systolic murmur present, S1 and S2 normal otherwise Gastrointestinal: normal bowel sounds, soft, non-tender : Shultz cath on. Extremities: normal inspection, left knee swollen compared to right and reported as chronic by the patient, likely secondary to osteoarthritis Cranial Nerves: normal hearing, normal speech, PERRL, grossly intact Skin: intact Psych: normal mood and affect, no signs of delusions/hallucinations. Current Medications: Current Medications Sig/Jared Start time Last Medication Dose Route Stop Time Status Admin Acetaminophen 650 MG Q6P PRN 12/31 0115 AC 12/31 PO 0833 Al Hydroxide/Mg 30 ML Q4-6 PRN PRN 01/01 1815 AC 01/01 Hydroxide PO 1806 Albuterol Sulfate 2 PUF Q4P PRN 12/31 1415 AC INH Cilostazol 100 MG BID 12/31 1000 AC 01/03 PO 0851 Cosyntropin 0.25 MG ONE ONE 01/03 1515 DC 01/03 IV 01/03 1516 1738 Finasteride 5 MG DAILY 12/31 1000 AC 01/03 PO 0851 Gabapentin 300 MG TID 12/31 1000 AC 01/03 PO 1743 Heparin Sodium 5,000 UNIT Q8 12/31 0600 AC 01/03 (Porcine) SC 1254 Lorazepam 1 MG TID 12/31 1600 AC 01/03 PO 1743 Metoprolol Tartrate 25 MG BID 01/01 1245 AC 01/03 PO 0851 Morphine Sulfate 15 MG BID 12/31 1200 AC 01/03 PO 0851 Multivitamins 1 TAB DAILY 12/31 1000 AC 01/03 Therapeutic PO 0851 Omeprazole 20 MG DAILY AC PRN 01/01 1815 AC PO Oxycodone/ 1 TAB Q6P PRN 12/31 1215 AC 01/03 Acetaminophen PO 1743 Polyethylene Glycol 17 GM DAILY PRN 01/02 1630 AC PO Senna/Docusate Sodium 1 TAB BID PRN 01/02 1630 AC PO Venlafaxine HCl 225 MG 0800 12/31 0800 AC 01/03 PO 0851 Last 24 Hrs of Lab/[place] Results Last 24 Hrs of Labs/Mics: Laboratory Tests 01/03/18 1920: Cortisol PM Sample 15.7 H 01/03/18 1811: Cortisol AM Sample 12.7 01/03/18 0645: Anion Gap 7, Estimated GFR > 60, BUN/Creatinine Ratio 12.5, TSH 3.060, Free T4 1.26, Total T3 1.43, Prolactin 11.5, Total Testosterone 501.0, Cortisol AM Sample 3.8 L 01/03/18 0645: ACTH Stimulation Pending Assessment/Plan Assessment: Mr Madrigal is a 67 year old man with a PMHx of class 3 obesity, chronic respiratory failure, COPD on 5L, MOIRA on 3L O2 CPAP, HTN, LVOT, CKD, BPH, chronic pain on opiates, RLS, CKD and BPH came in with a chief concern of a presyncopal episode after exertion. No LOC, no seizures. No prodromal symptoms. He reported a few episodes of large volume- diarrhea the day prior to presntation. He has a history of reported frequent orhtostatic symptoms. He was initially admitted in the ICU for the management of hypotension, and responded well to fluid resuscitation 5 L, did not require any central lines or pressor support, and was later found to have partial abdominal insufficiency, to be verified. Once his vitals were stable, he was transferred to the telemetry unit for the management of following issues: 1. Hypotension-multifactorial likely due to poor by mouth intake and adrenal insufficiency * Orthostatic vital signs this morning remain positive * Continue compression stockings * Follow Endocrinology netsuite consultant recommendations * IV hydrocortisone 25 mg twice a day given for a day in the ICU was stopped yesterday by soft work wrapper layer and examiner to check pituitary homne levels. We will watch his blood pressure closely given that he is off steroids right now. So far, his BP has not been an issue in the telemetry floor. * Pituitary hormones came back WNL except for am cortisol which was 3 (low). * Cosyntropin stin test to be done today, and accordingly, he might need low dose of steroids as supplement daily. Will follow endocrinology recs. * Monitor fluid input/output closely * Continue holding losartan 2. Dizziness-Ruled out ACS, with h/o HOCM * Patient had an 11 beat run of V. tach 2 days ago and was placed on beta areli. * He does have a history of HOCM with symptoms since he was 7 yrs old * Home medication metoprolol is continued at a reduced dose of 25 mg twice a day * Echocardiogram shoes EF 70%, with stage 1 diastolic dysfunction, severe concentric LVH, mildly increased resting LVOT, among other findings. * Follow cardiology recommendations. Plan for pacemaker as outpatient if necessary per cardiology. 3. MANJIT on CKD, improved * Creatinine improved from 1.6 on admission to 1.2 this morning * Monitor BEP closely 4. COPD previously on 3 L of home O2 and MOIRA * [facility] evaluation for nebulizer therapy * Oxygen by nasal canula to keep O2 >92% * Consider nocturnal CPAP if patient desaturates at night 5. Hypertension * Hold antihypertensives- losartan * Continuing BB at reduced dose 6. Chronic pain * Hold Butrans patch * CTPMP was checked for patient and his home prescription of Oxycodone 10 mg Q 8 hrs was noted * Continue Percocet 1 tab every 6 hours when necessary and OxyContin 15 mg twice a day 7. Depression and Anxiety * Continue lorazepam 1 mg PO BID PRN for anxiety * Continue venlafaxine Continue home medications for neuropathy gabapentin, hold flomax for BPH on account of hypotension- probably will resume it tomorrow. Continue finasteride for BPH. Continue cilostazol for claudication. Depending on soft work wrapper layer and examiner's recs, if his vitals remain stable, will plan to discharge him tomorrow. Home with PT. Nutrition: Regular diet DVT prophylaxis: SC heparin and ALPS with compression stockings for positive orthostatics Code status: Full code Problem List: 1. Adrenal insufficiency 2. Hypovolemia Pain Ratin Pain Location: head (now no pain) Pain Goal: Pain 4 or less Pain Plan: prn Tomorrow's Labs & Rationales: - Valentin LEE,Kaity 01/03/18 1451: Attending MD Review Statement Attending Statement Attending MD Statement: examined this patient, discuss w/resident/PA/DIRECTOR FACILITIES MAINTENANCE, agreed w/resident/PA/DIRECTOR FACILITIES MAINTENANCE, reviewed EMR data (avail), discussed with nursing, reviewed images Attending Assessment/Plan: Appreciate endocrinology follow-up. It appears from repeat pituitary hormone testing the patient is profoundly cortisol deficient. Will need to speak to endocrine about questionable need for ACTH stim test as recommended by her and need to start hydrocortisone. 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 We've restarted his beta areli and a watching his heart rate and pressure closely. Will talk to endocrine about discharge planning with oral mineralocorticoids in the next 24- 48 hours.
--- NOTE | 2018-01-03 09:56 | PN- Endocrinology ---
Assessment/Plan Assessment: 67-year-old man with a past medical history of morbid obesity, COPD on 3 L, MOIRA not compliant with CPAP, chronic pain on opiate medication, restless leg syndrome, hypertension, CKD and BPH. presented with feeling dizzy and fall. In addition, he had diarrhea the day before. His po intake has been poor. In hospital, his BP has been borderline low despite he has received several liters of saline. Am cortisol was 2.2. Stress dose steroid of hydrocortisone 50 mg iv every 12 hours was initiated. His BP has been better since then. Adrenal insufficinecy most likely due to chronica pain medication uses. Hydrocortisone was discontinued on 01/02/2018. Repeat pituitary hormones-- am cortisol 3.8; ACTH is pending; Prolactin 11.5; TSH 3.06, free T4 1.26 and TT3 1.43; total testosterone 501. Plan: recommend ACTH stimulation test to evaluate adrenal function; follow ACTH level; will follow and will restart patient on hydrocortisone as it is indicated. Subjective Subjective: He feels okay this morning. Objective Last 24 Hrs of Vital Signs/I&O Vital Signs Date Time Temp Pulse Resp B/P B/P Pulse O2 O2 Flow FiO2 Mean Ox Delivery Rate 01/03 0851 68 152/80 01/03 0812 Room Air 01/03 0611 152/80 01/03 0558 98.1 81 22 97 01/03 0000 Room Air 01/02 2226 97.7 63 20 122/68 96 Room Air 01/02 1541 Room Air 01/02 1425 98.1 59 20 112/56 94 Room Air Intake & Output 01/03 1600 01/03 0800 01/03 0000 Intake Total 150 150 Output Total 825 Balance -675 150 Intake, Oral 150 150 Number 0 Bowel Movements Output, Urine 825 Results Pertinent Lab/[place] Results: Laboratory Tests 01/03 01/03 0645 0645 Chemistry Sodium (137 - 145 mmol/L) 144 Potassium (3.5 - 5.1 mmol/L) 4.1 Chloride (98 - 107 mmol/L) 106 Carbon Dioxide (22 - 30 mmol/L) 32 H Anion Gap (5 - 16) 7 BUN (9 - 20 mg/dL) 15 Creatinine (0.7 - 1.2 mg/dL) 1.2 Estimated GFR (>60 ml/min) > 60 BUN/Creatinine Ratio (7 - 25 %) 12.5 TSH (0.270 - 4.200 uIU/mL) 3.060 Free T4 (0.78 - 2.44 ng/dL) 1.26 Total T3 (0.97 - 1.69 ng/mL) 1.43 Prolactin (3.7 - 17.9 ng/mL) 11.5 Total Testosterone (71.8 - 623 ng/dL) 501.0 Cortisol AM Sample (4.46 - 22.7 ug/dL) 3.8 L ACTH Stimulation Pending
[2018-01-03 14:41] VITALS: BP 122/70
[2018-01-03] MEDS ORDERED: SENNA PLUS TAB1 EACH PO (22:18)
[2018-01-03] MEDS ORDERED: MIRALAX119 GM PO (22:18)
[2018-01-03] MEDS ORDERED: OMEPRAZOLE20 M2 PO (22:18)
[2018-01-03] MEDS ORDERED: METOPROLOL TART25 M1 PO (22:19)
--- NOTE | 2018-01-03 22:25 | Patient Discharge Instructions ---
Discharge Instructions General Discharge Information You were seen/treated for: Low blood pressure, partial adrenal hormone deficiency or ADRENAL INSUFFICIENCY, hypovolemia and hypertrophic cardiomyopathy Watch for these problems: Severe lightheadedness, fainting Special Instructions: 1. Please follow up with payroll supervisor, your back tender fourdrinier, and your PCP within 1 week after discharge 2. Please return to emergency if symptoms worsen. Diet Continue normal diet: Yes Recommended Diet: Heart Healthy Activity Full Activity/No Limits: No Activity Self Limited: Yes Acute Coronary Syndrome Inclusion Criteria At DC or during hospital stay patient has or had the following: ACS DIAGNOSIS No Discharge Core Measures Meds if any: Prescribed or Continued at Discharge Meds if any: NOT Prescribed or Continued at Discharge Congestive Heart Failure Inclusion Criteria At DC or during hospital stay patient has or had the following: CHF DIAGNOSIS No Discharge Core Measures Meds if any: Prescribed or Continued at Discharge Meds if any: NOT Prescribed or Continued at Discharge Cerebrovascular accident Inclusion Criteria At DC or during hospital stay patient has or had the following: CVA/TIA Diagnosis No Discharge Core Measures Meds if any: Prescribed or Continued at Discharge Meds if any: NOT Prescribed or Continued at Discharge Venous thromboembolism Inclusion Criteria VTE Diagnosis No VTE Type NONE VTE Confirmed by (Test) NONE Discharge Core Measures - Per Current guidelines, there needs to be overlap - treatment for the first 5 days of Warfarin therapy. - If discharged on Warfarin prior to 5 days of - overlap therapy, the patient will need to be - assessed for post discharge needs including - *Post discharge parental anticoagulation - *Warfarin and/or parental anticoagulation education - *Follow up date to check INR post discharge At least 5 days overlap therapy as Inpatient No Meds if any: Prescribed or Continued at Discharge Note: Overlap Therapy is Warfarin and Anticoagulant Meds if any: NOT Prescribed or Continued at Discharge
[2018-01-03 22:46] VITALS: BP 130/74
[2018-01-04 07:00] VITALS: BP 152/82
--- NOTE | 2018-01-04 07:17 | PN- Housestaff ---
Dandre LEE,[facility] 01/04/18 0717: Subjective Follow-up For: ADRENAL INSUFFICIENCY, HYPOTENSION Complaints: Dizziness Tele-Events Since Last Visit: Sinus rhythm. Heart rate 61-63 bpm. 1 PVC Subjective: Patient seen resting comfortably in bed. He stated that he had an episode of dizziness this morning while he was laying down associated with a headache. He denied chest pains, shortness of breath or palpitations. He is concerned about his pain medications particularly his butrans patch being stopped. Review of Systems Constitutional: Denies: chills, fever, weakness. EENTM: Denies: nasal congestion. Cardiovascular: Denies: chest pain, orthopena, palpitations, peripheral edema, syncope. Respiratory: Denies: cough, short of breath, stridor. Gastrointestinal: Denies: abdominal pain, constipation, nausea, vomiting. Objective Last 24 Hrs of Vital Signs/I&O Vital Signs Date Time Temp Pulse Resp B/P B/P Pulse O2 O2 Flow FiO2 Mean Ox Delivery Rate 01/04 0759 70 152/82 01/04 0700 98.0 70 20 152/82 95 Room Air 01/03 2311 70 11/76 01/03 2246 99.0 65 20 130/74 93 Room Air 01/03 1441 97.3 61 20 122/70 94 Room Air Intake & Output 01/04 1600 01/04 0800 01/04 0000 Intake Total 120 420 Output Total 600 950 Balance -480 -530 Intake, IV 300 Intake, Oral 120 120 Output, Urine 600 950 Physical Exam General Appearance: Alert, Oriented X3, Cooperative, No Acute Distress Skin: No Rashes Skin Temp/Moisture Exam: Warm/Dry Sepsis Skin Exam (color): Normal for Ethnicity HEENT: Atraumatic, PERRLA, EOMI, Mucous Membr. moist/pink Neck: Supple, No JVD, No thryomegaly Lymphatic: Cervical nl Cardiovascular: Regular Rate, Normal S1, Normal S2, No Murmurs Lungs: Clear to Auscultation, Normal Air Movement Abdomen: Normal Bowel Sounds, Soft, No Tenderness, No Hepatospenomegaly, No Masses Neurological: Normal Speech, Strength at 5/5 X4 Ext, Normal Tone, Cranial Nerves 3-12 NL Extremities: No Edema, Normal Pulses Current Medications: Current Medications Sig/Jared Start time Last Medication Dose Route Stop Time Status Admin Acetaminophen 650 MG Q6P PRN 12/31 0115 AC 12/31 PO 0833 Al Hydroxide/Mg 30 ML Q4-6 PRN PRN 01/01 1815 AC 01/01 Hydroxide PO 1806 Albuterol Sulfate 2 PUF Q4P PRN 12/31 1415 AC INH Cilostazol 100 MG BID 12/31 1000 AC 01/04 PO 0800 Cosyntropin 0.25 MG ONE ONE 01/03 1515 DC 01/03 IV 01/03 1516 1738 Finasteride 5 MG DAILY 12/31 1000 AC 01/04 PO 0759 Gabapentin 300 MG TID 12/31 1000 AC 01/04 PO 0759 Heparin Sodium 5,000 UNIT Q8 12/31 0600 AC 01/04 (Porcine) SC 1259 Hydrocortisone 5 MG 1600 01/04 1600 AC PO Hydrocortisone 15 MG 8AM 01/04 0845 AC 01/04 PO 1118 Lorazepam 1 MG TID 12/31 1600 AC 01/04 PO 0800 Metoprolol Tartrate 37.5 MG BID 01/04 2200 AC PO Metoprolol Tartrate 25 MG BID 01/01 1245 DC 01/04 PO 0759 Morphine Sulfate 15 MG BID 12/31 1200 AC 01/04 PO 0800 Multivitamins 1 TAB DAILY 12/31 1000 AC 01/04 Therapeutic PO 0759 Omeprazole 20 MG DAILY AC PRN 01/01 1815 AC PO Oxycodone/ 1 TAB Q6P PRN 12/31 1215 AC 01/04 Acetaminophen PO 1208 Polyethylene Glycol 17 GM DAILY PRN 01/02 1630 AC PO Senna/Docusate Sodium 1 TAB BID PRN 01/02 1630 AC PO Venlafaxine HCl 225 MG 0800 12/31 0800 AC 01/04 PO 0759 Last 24 Hrs of Lab/[place] Results Last 24 Hrs of Labs/Mics: Laboratory Tests 01/03/18 1920: Cortisol PM Sample 15.7 H 01/03/18 1811: Cortisol AM Sample 12.7 Assessment/Plan Assessment: Mr Madrigal is a 67 year old man with a PMHx of class 3 obesity, chronic respiratory failure, COPD on 5L, MOIRA on 3L O2 CPAP, HTN, LVOT, CKD, BPH, chronic pain on opiates, RLS, CKD and BPH came in with a chief concern of a presyncopal episode after exertion. No LOC, no seizures. No prodromal symptoms. He reported a few episodes of large volume- diarrhea the day prior to presntation. He has a history of reported frequent orhtostatic symptoms. He was initially admitted in the ICU for the management of hypotension, and responded well to fluid resuscitation 5 L, did not require any central lines or pressor support, and was later found to have partial abdominal insufficiency, to be verified. Once his vitals were stable, he was transferred to the telemetry unit for the management of following issues: 1. Hypotension with hypovolemic shock-multifactorial likely due to poor by mouth intake and adrenal insufficiency * Will repeat Orthostatic vital signs this morning * Continue compression stockings * Follow Endocrinology strategy planning consultant recommendations * He had a positive cosyntropin stimulation test yesterday and has been started on by mouth hydrocortisone 50 mg a.m. and 5 mg p.m. * We'll monitor his blood pressure upon ambulation today and see if his dizziness returns. * Pituitary hormones came back WNL except for am cortisol which was 3 (low) * We'll discuss with cardiology regarding increasing his metoprolol dose which is currently at 25 mg twice a day (his home medication was 50 mg 2times a day) * Monitor fluid input/output closely * Continue holding losartan 2. Dizziness-Ruled out ACS, with h/o HOCM * Patient had an 11 beat run of V. tach earlier on during this admission and was placed on beta areli. * He does have a history of HOCM with symptoms since he was 7 yrs old * We'll discuss with cardiology regarding increasing his metoprolol dose * Echocardiogram shoes EF 70%, with stage 1 diastolic dysfunction, severe concentric LVH, mildly increased resting LVOT, among other findings. * Follow cardiology recommendations. Plan for pacemaker as outpatient if necessary per cardiology. 3. MANJIT on CKD, improved * Creatinine improved from 1.6 on admission to 1.2 yesterday * Monitor BEP closely 4. COPD previously on 3 L of home O2 and MOIRA * [facility] evaluation for nebulizer therapy * Oxygen by nasal canula to keep O2 >92% * Consider nocturnal CPAP if patient desaturates at night 5. Hypertension * Hold antihypertensives- losartan * Continuing metoprolol at reduced dose of 25 mg twice a day pending cardiology input 6. Chronic pain * Patient complained of pain Continue to Hold Butrans patch * CTP was checked for patient and his home prescription of Oxycodone 10 mg Q 8 hrs was noted * Continue Percocet 1 tab every 6 hours when necessary and OxyContin 15 mg twice a day 7. Depression and Anxiety * Continue lorazepam 1 mg PO BID PRN for anxiety * Continue venlafaxine Continue home medications for neuropathy gabapentin, hold flomax for BPH on account of hypotension- probably will resume it tomorrow. Continue finasteride for BPH. Continue cilostazol for claudication. Depending on director of promotions's recs, if his vitals remain stable, will plan to discharge him tomorrow. Home with PT. Nutrition: Regular diet DVT prophylaxis: SC heparin and ALPS with compression stockings for positive orthostatics Code status: Full code Problem List: 1. Hypovolemia 2. Hypotension 3. Adrenal insufficiency Pain Ratin Pain Location: Back Pain Goal: Pain 4 or less Pain Plan: MS Contin, percocet Tomorrow's Labs & Rationales: None neeced DVT/Prophylaxis: pharmacological Kaity Hanson MD 01/04/18 1101: Attending MD Review Statement Attending Statement Attending MD Statement: examined this patient, discuss w/resident/PA/AD OPERATIONS ASSOCIATE, agreed w/resident/PA/AD OPERATIONS ASSOCIATE, reviewed EMR data (avail), discussed with nursing, discussed with case mgmt, reviewed images Attending Assessment/Plan: Patient feels okay when he is lying down but when he gets up he feels dizzy. I explained at length the results of the cortisol stim test and the fact that doctor shaniqua has now started him on hydrocortisone and he'll get his first dose today. I also spoke to Dr. Gustafson about the supine hypertension issue especially in view of the HOCM. We are going to increase his beta areli to 37.5 twice a day and watch his heart rate and blood pressure closely. Will also need to check orthostatics and ambulate him after he gets his dose of hydrocortisone and if stable then anticipate discharge in the next 24-48 hours.
--- NOTE | 2018-01-04 13:36 | PN- Endocrinology ---
Assessment/Plan Assessment: 67-year-old man with a past medical history of morbid obesity, COPD on 3 L, MOIRA not compliant with CPAP, chronic pain on opiate medication, restless leg syndrome, hypertension, CKD and BPH. presented with feeling dizzy and fall. In addition, he had diarrhea the day before. His po intake has been poor. In hospital, his BP has been borderline low despite he has received several liters of saline. Am cortisol was 2.2. Stress dose steroid of hydrocortisone 50 mg iv every 12 hours was initiated. His BP has been better since then. Adrenal insufficinecy most likely due to chronica pain medication uses. Hydrocortisone was discontinued on 01/02/2018. Repeat pituitary hormones-- am cortisol 3.8; ACTH is pending; Prolactin 11.5; TSH 3.06, free T4 1.26 and TT3 1.43; total testosterone 501. ACTH stimulation test was done and cortisol at 30 mins was 12.7 and cortisol at 60 mins was 15.7. Plan: 1. restart hydrocortisone 15 mg at 8 am and 5 mg at 4 pm; 2. f/u ACTH level and then the further evaluation will be determined accordingly. will follow. Subjective Subjective: He has no special complaints this morning. Objective Last 24 Hrs of Vital Signs/I&O Vital Signs Date Time Temp Pulse Resp B/P B/P Pulse O2 O2 Flow FiO2 Mean Ox Delivery Rate 01/04 0759 70 152/82 01/04 0700 98.0 70 20 152/82 95 Room Air 01/03 2311 70 11/76 01/03 2246 99.0 65 20 130/74 93 Room Air 01/03 1441 97.3 61 20 122/70 94 Room Air Intake & Output 01/04 1600 01/04 0800 01/04 0000 Intake Total 120 420 Output Total 600 950 Balance -480 -530 Intake, IV 300 Intake, Oral 120 120 Output, Urine 600 950 Results Pertinent Lab/[place] Results: Laboratory Tests 01/03 01/03 1920 1811 Chemistry Cortisol AM Sample (4.46 - 22.7 ug/dL) 12.7 Cortisol PM Sample (1.7 - 14.1) 15.7 H
[2018-01-04 14:05] VITALS: BP 134/78
[2018-01-04] MEDS ORDERED: FLOMAX0.4 M1 PO (15:03)
[2018-01-04] MEDS ORDERED: HYDROCORTISONE5 M1 PO (15:13)
[2018-01-04] MEDS ORDERED: METOPROLOL TA37.5 MG PO (15:13)
[2018-01-04] MEDS ORDERED: MS CONTIN15 M3 PO (15:13)
[2018-01-04] MEDS ORDERED: PERCOCET 5-3251 EACH PO (15:13)
[2018-01-04 22:35] VITALS: BP 132/78
--- NOTE | 2018-01-04 22:38 | Discharge Summary ---
Visit Information Visit Dates Admission Date: 12/30/17 Discharge Date: 01/05/18 Hospital Course Course Attending Physician: Valentin LEE,Kaity Orozco Primary Care Physician: Huong Oliva APRN Consulting Request: 1 Consulting Specialty: Endocrinology Consulting Physician: Dr. Barker Reason for Consult: Hypotension and adrenal insufficiency Consulting Request: 2 Consulting Specialty: Cardiology Consulting Physician: Dr. Gustafson Reason for Consult: Near syncope, SVT in patient with [facility] Hospital Course: Mr Madrigal is a 67 year old man with a past medical history of obesity, chronic respiratory failure, COPD formerly on home oxygen, obstructive sleep apnea on 3L O2 and CPAP, hypertension, hypertrophic obstructive cardiomyopathy, CKD, BPH, chronic pain on opiates, and restless legs syndrome. He presented with a chief concern of a presyncopal episode. He had been having episodes of large volume diarrhea on the day before presentation with poor oral intake. On the day of presentation, while he was in his primary care providers office, he felt dizzy after walking a few steps and almost fell. On presentation in the ER, he was hypotensive with blood pressure of 86/50 mmhg. Physical exam at presentation was as follows: General Appearance Alert, Oriented X3, Cooperative, No Acute Distress Skin No Rashes Skin Temp/Moisture Exam: Cool/Dry Sepsis Skin Exam (color): Normal for Ethnicity HEENT Atraumatic, PERRLA, EOMI, Dry mucus membranes Neck Supple, No JVD, No thryomegaly, Right IJ central line in situ Lymphatic Cervical nl Cardiovascular Regular Rate, Normal S1, Normal S2, No Murmurs Lungs Clear to Auscultation, Normal Air Movement Abdomen Normal Bowel Sounds, Soft, No Tenderness, No Hepatospenomegaly, No Masses Neurological Normal Speech, Normal Tone, Cranial Nerves 3-12 NL Extremities No Clubbing, No Cyanosis, No Edema He was resuscitated with 5 L of normal saline and was found to have low random cordisol levels. He was then reviewed by embedded engineer, Dr. Barker and a cosyntropin stimulation test was positive for adrenal insufficiency. This was thought to be partial adrenal insufficiency due to his chronic opiate use for his back pain. His butrans patch was discontinued as this medication has a known side-effect of adrenal insufficiency. His home oxycodone medication was changed to MS contin twice a day and percocet as needed. He was started on hydrocortisone 15 mg in the AM and 5 mg in the evening and his blood pressure improved. He was also reviewed by straw hat brim raiser operator Dr. Gustafson. His serial EKG's andtroponins were negative for an acute coronary syndrome. His echocardiogram done showed severe concentric ventricular hypertrophy, and hyperdynamic EF of 70 %. He had a run of nonsustained ventricular tachycardia and his medications were carefully restarted and adjusted. His losartan was stopped and he was discharged on a lower dose of 37.5 mg BID of metoprolol. He received nebulizer treatments for his COPD, but did not require oxygen on admission and stated he had not needed oxygen for his COPD for some years. He was also continued on his home medications for depression and anxiety. His blood pressure was within acceptable limits and his dizziness and orthostatic blood pressure resolved prior to discharge. Allergies: Coded Allergies: Penicillins (Severe, TONGUE SWELLING 02/25/17) Disposition Summary Disposition Principal Diagnosis: 1. Hypotension with hypovolemic shock-likely due to poor by mouth intake and adrenal insufficiency from opiate medications 2. Dizziness 3. Adrenal insufficiency Additional Diagnosis: 4. MANJIT on CKD 5. COPD previously on 3 L of home O2 and MOIRA 6. Hypertension history 7. Chronic pain 8. Depression and Anxiety Discharge Disposition: home or self care Discharge Instructions General Discharge Information Code Status: Full Code Patient's Diet: Regular diet Patient's Activity: Self-limited activity Follow-Up Instructions/Appts: 1. Please follow up with embedded engineer, your straw hat brim raiser operator, and your PCP within 1 week after discharge 2. Please return to emergency if symptoms worsen. 3. Follow up with your pain doctor in [facility] as we have adjusted your pain medications due to side-effects. Medications at Discharge Discharge Medications: Stop taking the following medications: Tamsulosin HCl (Flomax) 0.4 MG CAP.ER.24H ORAL TWICE DAILY Metoprolol Tartrate (Metoprolol Tartrate) 50 MG TABLET ORAL TWICE DAILY Days = 30 Losartan Potassium (Losartan Potassium) 50 MG TABLET ORAL DAILY Days = 30 Buprenorphine (Butrans) 20 MCG/HOUR PATCH.TDWK On the skin EVERY TUESDAY Continue taking these medications: Venlafaxine HCl (Venlafaxine HCl ER) 225 MG TAB.ER.24 1 Tablet ORAL DAILY Comments: Last Taken: 01/05/18 Time: 08 Gabapentin (Neurontin) 300 MG CAPSULE 1 Capsule ORAL THREE TIMES DAILY Comments: Last Taken: 01/05/18 Time: 840 Multivitamin (Multiple Vitamins) 1 EACH TABLET 1 Tablet ORAL DAILY Comments: Last Taken: 01/05/18 Time: 840 Cilostazol (Cilostazol) 100 MG TABLET 1 Tablet ORAL TWICE DAILY Comments: Last Taken 01/05/18 Time: 840 Finasteride (Finasteride) 5 MG TABLET 1 Tablet ORAL DAILY Qty = 30 Comments: Last Taken: 01/05/18 Time: 840 LORazepam (Ativan) 1 MG TAB 1 Tablet ORAL TWICE DAILY Qty = 4 Comments: Last Taken: 01/05/18 Time: 840 Albuterol Sulfate (Proventil Hfa) 90 MCG HFA.AER.AD 2 Puff Inhale through mouth As Directed as needed for RESP. Comments: NOT GIVEN IN HOSPITAL Start taking the following new medications: Polyethylene Glycol 3350 (Miralax) 17 GRAM/DOSE POWDER 17 Gram ORAL DAILY as needed for CONSTIPATION Qty = 30 No Refills Instructions: . Comments: NOT GIVEN IN HOSPITAL Sennosides/Docusate Sodium (Senna Plus Tablet) 8.6 MG-50 MG TABLET 1 Tablet ORAL TWICE DAILY as needed for CONSTIPATION Qty = 30 Refills = 1 Instructions: . Comments: NOT GIVEN IN HOSPITAL Omeprazole (Omeprazole) 20 MG CAPSULE.DR 20 Milligram ORAL DAILY BEFORE BREAKFAST as needed for GERD, ON STEROIDS Qty = 60 Refills = 1 Instructions: . Comments: NOT GIVEN IN HOSPITAL Tamsulosin HCl (Flomax) 0.4 MG CAP.ER.24H 1 Capsule ORAL AT BEDTIME Qty = 30 No Refills Instructions: . Comments: NOT GIVEN IN HOSPITAL Metoprolol Tartrate (Metoprolol Tartrate) 37.5 MG TABLET 1 Tablet ORAL TWICE DAILY Qty = 60 No Refills Instructions: . Comments: Last Taken: 01/05/18 Time: 840 Morphine Sulfate (Ms Contin) 15 MG TABLET.ER 1 Tablet ORAL TWICE DAILY Qty = 20 No Refills Instructions: . Comments: Last Taken: 01/05/18 Time: 840 Oxycodone HCl/Acetaminophen (Percocet 5-325 MG Tablet) 5 MG-325 MG TABLET 1 Tablet ORAL EVERY 6 HOURS NEEDED as needed for BACK PAIN Qty = 20 No Refills Instructions: . Comments: Last Taken: 01/05/18 Time: 840 Hydrocortisone (Hydrocortisone) 5 MG TABLET 0 ORAL As Directed Qty = 120 No Refills Instructions: TAKE 3 TABLETS IN THE MORNING AT 8 AM AND TAKE 1 TABLET IN THE AT 4 PM Comments: Last Taken: 01/05/18 Time:. 840. Copies To: Janay LEE,Mauricio Culp; Huong Oliva APRN; Mj LEE,Maria Eugenia; Sae LEE,Mauricio Orozco
--- NOTE | 2018-01-05 07:15 | PN- Housestaff ---
Dandre LEE,[facility] 01/05/18 0714: Subjective Follow-up For: Adrenal insufficiency, hypotension, dizziness Complaints: dizziness Tele-Events Since Last Visit: Sinus bradycardia heart rate 55-69 bpm. PVCs Subjective: Patient seen resting comfortably in bed. He stated that he had an episode of dizziness this morning while he was laying down associated with a headache. However, He did not not have any dizziness when he ambulated yesterday and also did not have any on ambulation this morning. He denied chest pains, shortness of breath or palpitations. He is agreeable to being discharged today. Review of Systems Constitutional: Denies: chills, fever. Cardiovascular: Denies: chest pain, edema, palpitations, syncope. Respiratory: Denies: cough, short of breath, sputum production. Gastrointestinal: Denies: abdominal pain, constipation, diarrhea, nausea, vomiting. Musculoskeletal: Reports: back pain, joint pain. Skin: Denies: dryness, jaundice. Objective Last 24 Hrs of Vital Signs/I&O Vital Signs Date Time Temp Pulse Resp B/P B/P Pulse O2 O2 Flow FiO2 Mean Ox Delivery Rate 01/05 0841 59 132/78 01/05 0645 59 12 93 Room Air 01/04 2235 98.2 80 16 132/78 92 Room Air 01/04 2125 174/72 Intake & Output 01/05 1600 01/05 0800 01/05 0000 Intake Total 320 450 Output Total 500 325 Balance -180 125 Intake, Oral 320 450 Output, Urine 500 325 Physical Exam General Appearance: Alert, Oriented X3, Cooperative, No Acute Distress Skin: No Rashes Skin Temp/Moisture Exam: Warm/Dry Sepsis Skin Exam (color): Normal for Ethnicity HEENT: Atraumatic, PERRLA, EOMI, Mucous Membr. moist/pink Neck: Supple, No JVD, No thryomegaly Lymphatic: Cervical nl Cardiovascular: Regular Rate, Normal S1, Normal S2, No Murmurs Lungs: Clear to Auscultation, Normal Air Movement Abdomen: Normal Bowel Sounds, Soft, No Tenderness, No Hepatospenomegaly, No Masses Neurological: Normal Speech, Strength at 5/5 X4 Ext, Normal Tone, Cranial Nerves 3-12 NL Extremities: No Edema, Normal Pulses Current Medications: Current Medications Sig/Jared Start time Last Medication Dose Route Stop Time Status Admin Acetaminophen 650 MG Q6P PRN 12/31 0115 DCD 12/31 PO 0833 Al Hydroxide/Mg 30 ML Q4-6 PRN PRN 01/01 1815 DCD 01/01 Hydroxide PO 1806 Albuterol Sulfate 2 PUF Q4P PRN 12/31 1415 DCD INH Cilostazol 100 MG BID 12/31 1000 DCD 01/05 PO 0841 Finasteride 5 MG DAILY 12/31 1000 DCD 01/05 PO 0841 Gabapentin 300 MG TID 12/31 1000 DCD 01/05 PO 0841 Heparin Sodium 5,000 UNIT Q8 12/31 0600 DCD 01/05 (Porcine) SC 0604 Hydrocortisone 5 MG 1600 01/04 1600 DCD 01/04 PO 1628 Hydrocortisone 15 MG 8AM 01/04 0845 DCD 01/05 PO 0841 Lorazepam 1 MG TID 12/31 1600 DCD 01/05 PO 0841 Metoprolol Tartrate 37.5 MG BID 01/04 2200 DCD 01/05 PO 0841 Morphine Sulfate 15 MG BID 12/31 1200 DCD 01/05 PO 0841 Multivitamins 1 TAB DAILY 12/31 1000 DCD 01/05 Therapeutic PO 0841 Omeprazole 20 MG DAILY AC PRN 01/01 1815 DCD PO Oxycodone/ 1 TAB Q6P PRN 12/31 1215 DCD 01/05 Acetaminophen PO 0842 Patient Medication 1 ED ONE ONE 01/05 1145 DC Teaching ED 01/05 1146 Patient Medication 1 ED ONE 01/05 0000 NR Teaching ED 01/05 2359 Polyethylene Glycol 17 GM DAILY PRN 01/02 1630 DCD PO Senna/Docusate Sodium 1 TAB BID PRN 01/02 1630 DCD PO Venlafaxine HCl 225 MG 0800 12/31 0800 DCD 01/05 PO 0841 Assessment/Plan Assessment: Mr Madrigal is a 67 year old man with a PMHx of class 3 obesity, chronic respiratory failure, COPD on 5L, MORIA on 3L O2 CPAP, HTN, LVOT, CKD, BPH, chronic pain on opiates, RLS, CKD and BPH came in with a chief concern of a presyncopal episode after exertion. No LOC, no seizures. No prodromal symptoms. He reported a few episodes of large volume- diarrhea the day prior to presntation. He has a history of reported frequent orhtostatic symptoms. He was initially admitted in the ICU for the management of hypotension, and responded well to fluid resuscitation 5 L, and did not require any pressor support, and was later found to have partial adrenal insufficiency. Once his vitals were stable, he was transferred to the telemetry unit for the management of following issues: 1. Hypotension with hypovolemic shock-multifactorial likely due to poor by mouth intake and adrenal insufficiency * Repeat Orthostatic vital signs were negative * Continue compression stockings * Endocrinology technology sales consultant recommendations * He had a positive cosyntropin stimulation test and has been started on by mouth hydrocortisone 15 mg a.m. and 5 mg p.m. * He no longer had dizziness on ambulation * His blood pressure is within acceptable limits and he can be discharged to follow up with golf course starter * Discontinue losartan on discharge 2. Dizziness-Ruled out ACS, with h/o HOCM * Patient had an 11 beat run of V. tach earlier on during this admission and was started on his metoprolol at a lower dose of 37.5 mg BID * He does have a history of HOCM with symptoms since he was 7 yrs old * We'll discuss with cardiology regarding increasing his metoprolol dose * Echocardiogram shoes EF 70%, with stage 1 diastolic dysfunction, severe concentric LVH, mildly increased resting LVOT, among other findings. * He was counselled to follow up with cardiology as an outpatient. Plan for pacemaker as outpatient if necessary per cardiology. 3. MANJIT on CKD, improved * Creatinine improved from 1.6 on admission to 1.2 4. COPD previously on 3 L of home O2 and MOIRA * [facility] evaluation for nebulizer therapy * Oxygen by nasal canula to keep O2 >92% * Consider nocturnal CPAP if patient desaturates at night 5. Hypertension * Hold antihypertensives- losartan * Continuing metoprolol at reduced dose of 37.5 mg twice a day 6. Chronic pain * Discontinue Butrans patch on discharge * CTPMP was checked for patient and his home prescription of Oxycodone 10 mg Q 8 hrs was noted * Continue Percocet 1 tab every 6 hours when necessary and OxyContin 15 mg twice a day on discharge and follow up with patient's pain doctor at [facility] for refills 7. Depression and Anxiety * Continue lorazepam 1 mg PO BID PRN for anxiety * Continue venlafaxine Continue home medications for neuropathy gabapentin, flomax for BPH has been reduced to once daily at bedtime on account of hypotension. Continue finasteride for BPH. Continue cilostazol for claudication. Home with PT. Nutrition: Regular diet DVT prophylaxis: SC heparin and ALPS with compression stockings for positive orthostatics Code status: Full code Problem List: 1. Dizziness 2. Hypertension 3. Anxiety 4. DVT prophylaxis Pain Ratin Pain Location: None Pain Goal: Remain pain free Pain Plan: Oxycontin and percocet Tomorrow's Labs & Rationales: None needed DVT/Prophylaxis: mechanical Consulting Request: Consulting Specialty: Endocrinology Consulting Physician: Dr. Barker Reason for Consult: Hypotension and adrenal insufficiency Discharge Plan Discharge Disposition: home Kaity Hanson MD 01/05/18 1337: Attending MD Review Statement Attending Statement Attending MD Statement: examined this patient, discuss w/resident/PA/BIOLOGICAL SCIENCE TECHNICIAN, agreed w/resident/PA/BIOLOGICAL SCIENCE TECHNICIAN, reviewed EMR data (avail), discussed with nursing, discussed with case mgmt, reviewed images Attending Assessment/Plan: Patient did well with PT yesterday he is also no longer orthostatic. The plan is that he leave on the hydrocortisone as recommended by endocrinology with close outpatient endocrine follow-up and likely pituitary MRI. We spoke to him at length about the opiates causing the adrenal insufficiency specifically the Butrans patch and we substituted that with MS Contin and Percocet. We have given him a 7-10 day supply and he'll need to follow-up with his PCP for the same. We are also continuing his beta areli for his HOCM with close outpatient follow-up with Dr. Gustafson and the importance of compliance was stressed to the patient.
[2018-01-05 08:41] VITALS: BP 132/78
[2018-01-05] MEDS ORDERED: METOPROLOL TA37.5 MG PO (09:08)
[2018-01-05] MEDS ORDERED: PERCOCET 5-3251 EACH PO (09:08)
[2018-01-05] MEDS ORDERED: SENNA PLUS TAB1 EACH PO (09:08)
[2018-01-05] MEDS ORDERED: MS CONTIN15 M3 PO (09:08)
[2018-01-05] MEDS ORDERED: OMEPRAZOLE20 M2 PO (09:08)
[2018-01-05] MEDS ORDERED: FLOMAX0.4 M1 PO (09:08)
[2018-01-05] MEDS ORDERED: MIRALAX119 GM PO (09:08)
--- NOTE | 2018-01-05 10:40 | PN- Endocrinology ---
Assessment/Plan Assessment: 67-year-old man with a past medical history of morbid obesity, COPD on 3 L, MOIRA not compliant with CPAP, chronic pain on opiate medication, restless leg syndrome, hypertension, CKD and BPH. presented with feeling dizzy and fall. In addition, he had diarrhea the day before. His po intake has been poor. In hospital, his BP has been borderline low despite he has received several liters of saline. Am cortisol was 2.2. Stress dose steroid of hydrocortisone 50 mg iv every 12 hours was initiated. His BP has been better since then. Adrenal insufficinecy most likely due to chronica pain medication uses. Hydrocortisone was discontinued on 01/02/2018. Repeat pituitary hormones-- am cortisol 3.8; ACTH 18; Prolactin 11.5; TSH 3.06, free T4 1.26 and TT3 1.43; total testosterone 501. ACTH stimulation test was done and cortisol at 30 mins was 12.7 and cortisol at 60 mins was 15.7---suboptimal. He was restarted on Hydrocortisone 15 mg at 8 ama nd 5 mg at 4 pm. As per patient, he has been feeling better. Plan: contiue the current hydrocortisone replacement; f/u in office after discharge; will arrange pituitary MRI as outpatient. Plan has been discussed with patient. Subjective Subjective: He feels better. Objective Last 24 Hrs of Vital Signs/I&O Vital Signs Date Time Temp Pulse Resp B/P B/P Pulse O2 O2 Flow FiO2 Mean Ox Delivery Rate 01/05 0841 59 132/78 01/05 0645 59 12 93 Room Air 01/04 2235 98.2 80 16 132/78 92 Room Air 01/04 2125 174/72 01/04 1405 99.4 65 20 134/78 94 Room Air Intake & Output 01/05 1600 01/05 0800 01/05 0000 Intake Total 320 450 Output Total 500 325 Balance -180 125 Intake, Oral 320 450 Output, Urine 500 325
== END 2018-01-05 13:30 | disposition home health service (06) | DRG 643 ==
LOC: ERH 14:38 → 1NO 22:14 → ERHI 22:14 → ENRESERV 23:20 → CANRESERV 23:20 → ENRESERV 12-31 01:55 → CRI 12-31 02:36 → ENTRNSPT 01-01 17:14 → EDTRNSPTSTS 01-01 17:56 → 1NO 01-01 18:10 → CMPTRNSPT 01-01 18:18 → 1NO 01-03 11:42 → ENPENDDIS 01-05 09:11 → ENTRNSPT 01-05 13:11 → EDTRNSPTSTS 01-05 13:19 → EDTRNSPT 01-05 13:19 → 1NO 01-05 13:30 → CMPTRNSPT 01-05 13:53
PROVIDERS: Internal Medicine; Internal Medicine Infectious Disease; Physician Assistant
DX: E27.3 Drug-induced adrenocortical insufficiency (principal); R57.1 Hypovolemic shock; N17.9 Acute kidney failure, unspecified; J96.10 Chronic respiratory failure, unspecified whether with hypoxia or hypercapnia; I50.32 Chronic diastolic (congestive) heart failure; I47.1 Supraventricular tachycardia; I11.0 Hypertensive heart disease with heart failure; I95.2 Hypotension due to drugs; Z99.81 Dependence on supplemental oxygen; E66.01 Morbid (severe) obesity due to excess calories; Z68.35 Body mass index [BMI] 35.0-35.9, adult; J44.9 Chronic obstructive pulmonary disease, unspecified; G25.81 Restless legs syndrome; T40.605A Adverse effect of unspecified narcotics, initial encounter; Y92.009 Unspecified place in unspecified non-institutional (private) residence as the place of occurrence of the external cause; M19.90 Unspecified osteoarthritis, unspecified site; T38.0X5A Adverse effect of glucocorticoids and synthetic analogues, initial encounter; E27.40 Unspecified adrenocortical insufficiency; G47.33 Obstructive sleep apnea (adult) (pediatric); F32.9 Major depressive disorder, single episode, unspecified; F41.9 Anxiety disorder, unspecified
CPT/HCPCS: 1NSP; CCU; ERO; 36415; 36592; 71045; 74176; 80307; 81001; 82436; 84403; 87040; 87086; 87804; 87804-59; 93005; 93010; 93306; 97110-GO; 97116-GO; 97161-GP; 97530-GO; 99291; J0834; J1644; J1720

== ENCOUNTER 2018-01-09 14:57 | Observation (INO) | payer OTHER, MEDICARE ==
[~2018-01-09] VITALS: Ht 182.9 cm; Wt 158.8 kg
[~2018-01-09 14:57] MED LIST changes: +HYDROCORTISONE5 M1 PO; +METOPROLOL TA37.5 MG PO; +METOPROLOL TART25 M1 PO; +MIRALAX119 GM PO; +MS CONTIN15 M3 PO; +OMEPRAZOLE20 M2 PO; +SENNA PLUS TAB1 EACH PO
--- NOTE | 2018-01-09 15:00 | ED SYNCOPE COMPLAINT ---
See Addendum History of Present Illness General Chief Complaint: Syncope and Near-Syncope Stated Complaint: BIBA FOR SYNCOPE Source: patient Exam Limitations: no limitations Vital Signs & Intake/Output Vital Signs & Intake/Output Vital Signs Date Time Temp Pulse Resp B/P B/P Pulse O2 O2 Flow FiO2 Mean Ox Delivery Rate 01/10 0633 97.9 76 18 126/68 95 Room Air 01/10 0108 97.8 94 16 136/88 94 Room Air 01/09 2053 Room Air Room Air 01/09 2041 98.5 84 18 106/67 96 Room Air Room Air 01/09 1742 98.2 92 18 94/68 97 Room Air Room Air 01/09 1505 99.0 90 18 92/70 94 Room Air ED Intake and Output 01/10 0000 01/09 1200 Intake Total 1000 Output Total Balance 1000 Intake, IV 1000 Patient 350 lb Weight Weight Standing Scale Measurement Method Allergies Coded Allergies: Penicillins (Severe, TONGUE SWELLING 02/25/17) Reconcile Medications Albuterol Sulfate (Proventil Hfa) 90 MCG HFA.AER.AD 2 PUF INH AD PRN RESP. ( Reported) Cilostazol 100 MG TABLET 1 TAB PO BID INTERMITTENT CLAUDICATION (Reported) Finasteride 5 MG TABLET 1 TAB PO DAILY bph Gabapentin (Neurontin) 300 MG CAPSULE 1 CAP PO TID NERVE PAIN (Reported) Hydrocortisone (Cortef) 5 MG TABLET 3 TAB PO DAILY HORMONE DEFICIENCY ( Reported) Hydrocortisone (Cortef) 5 MG TABLET 1 TAB PO 1600 HORMONE DEF (Reported) LORazepam (Ativan) 1 MG TAB 1 TAB PO BID anxiety Metoprolol Tartrate 37.5 MG TABLET 1 TAB PO BID blood pressure and heart . Morphine Sulfate (Ms Contin) 15 MG TABLET.ER 1 TAB PO BID BACK PAIN . Multivitamin (Multiple Vitamins) 1 EACH TABLET 1 TAB PO DAILY SUPPLEMENT ( Reported) Omeprazole 20 MG CAPSULE.DR 20 MG PO DAILY AC PRN GERD, ON STEROIDS . Oxycodone HCl/Acetaminophen (Percocet 5-325 MG Tablet) 5 MG-325 MG TABLET 1 TAB PO Q6-PRN PRN BACK PAIN . Polyethylene Glycol 3350 (Miralax) 17 GRAM/DOSE POWDER 17 GM PO DAILY PRN CONSTIPATION . Sennosides/Docusate Sodium (Senna Plus Tablet) 8.6 MG-50 MG TABLET 1 TAB PO BID PRN CONSTIPATION . Tamsulosin HCl (Flomax) 0.4 MG CAP.ER.24H 1 CAP PO AT BEDTIME BPH . Venlafaxine HCl (Venlafaxine HCl ER) 225 MG TAB.ER.24 1 TAB PO DAILY MENTAL HEALTH (Reported) Triage Nurses Notes Reviewed? yes Precipitating Factors: lightheadedness HPI: 67-year-old male comes into the emergency room feeling profoundly weak dizzy lightheaded and unsteady on his feet. Patient was recently discharged from [facility] this past . He reports that he's been having some intermittent chest pain at home. He gets very dizzy and lightheaded when he tries to walk and ambulate and felt so very much today. Patient came in by ambulance. Denies any fever or vomiting. (Aquiles Perry) Past History Travel History Traveled to [facility] past 21 day No Medical History Any Pertinent Medical History? see below for history Neurological: NONE EENT: NONE Cardiovascular: hypertension Respiratory: COPD, CHRONIC HYPOXIA RESPIRATORY FAILURE Gastrointestinal: NONE Hepatic: NONE Renal: benign prost hyperplasia, CKD Musculoskeletal: RESTLESS LEG SYNDROME Psychiatric: anxiety Endocrine: NONE Blood Disorders: NONE Cancer(s): NONE REIMBURSEMENT MANAGER/Reproductive: NONE Other Medical Hx: OBESITY History of MRSA: No History of VRE: No History of CDIFF: No Surgical History Surgical History: varicocoele Psychosocial History Who do you live with Patient/Self Services at Home None What is your primary language Russian Family History Family History, If Any: SISTER (esophageal cancer). BROTHER (esophageal and colon cancer). FATHER (hypertension, ?esophageal aneurysm). Hx Contributory? No (Aquiles Perry) Review of Systems Review of Systems Constitutional: Reports: see HPI. EENTM: Reports: no symptoms. Respiratory: Reports: no symptoms. Cardiovascular: Reports: see HPI. GI: Reports: no symptoms. Genitourinary: Reports: no symptoms. Musculoskeletal: Reports: no symptoms. Skin: Reports: no symptoms. Neurological/Psychological: Reports: no symptoms. All Other Systems: Reviewed and Negative (Aquiles Perry) Physical Exam Physical Exam General Appearance: alert, awake, mild distress Head: atraumatic, normal appearance Eyes: Bilateral: normal appearance, EOMI. Ears, Nose, Throat: normal ENT inspection, hearing grossly normal Neck: normal inspection Respiratory: no respiratory distress Cardiovascular: regular rate/rhythm Gastrointestinal: soft Back: normal inspection Extremities: normal inspection Cranial Nerves: normal hearing, normal speech Skin: intact, normal color Core Measures ACS in differential dx? Yes CVA/TIA Diagnosis: No Sepsis Present: No Sepsis Focused Exam Completed? No (Aquiles Perry) Progress Differential Diagnosis: AMI, aortic dissection, aortic valve, drug induced syncope, orthostatic syncope, other valvular disease, pulmonary embolus, sick sinus syndrome, vasodepressor syncope Plan of Care: Orders Procedure Date/time Status Heart Healthy Diet 01/10 B Active BASIC METABOLIC PANEL 01/09 2238 Complete PT Evaluate & Treat 01/09 1918 Active PT Evaluate & Treat 01/09 191 Active CASE MANAGEMENT CONSULT 01/[address] in observation 01/09 173 Active Patient Data 01/09 1731 Active Vital Signs 01/09 173 Active Code Status 01/09 1731 Active Intake & Output 01/09 1547 Active Telemetry/Senior Business Objects Developer 01/09 1459 Active TROPONIN LEVEL 01/09 1459 Complete COMPREHENSIVE METABOLIC PANEL 01/09 1459 Complete CBC WITHOUT DIFFERENTIAL 01/09 1459 Complete EKG 01/09 1459 Active Laboratory Tests 01/10/18 0554: Anion Gap 7, Estimated GFR 43 L, BUN/Creatinine Ratio 20.0, Glucose 74, Calcium 8.3 L 01/09/18 1526: Anion Gap 10, Estimated GFR 36 L, BUN/Creatinine Ratio 18.4, Glucose 135 H, Calcium 9.2, Total Bilirubin 1.0, AST 20, ALT 23, Alkaline Phosphatase 56, Troponin I 0.01, Total Protein 6.3, Albumin 4.0, Globulin 2.3, Albumin/Globulin Ratio 1.7, CBC w Diff NO MAN DIFF REQ, RBC 4.90, MCV 85.3, MCH 28.7, MCHC 33.7, RDW 13.9, MPV 8.7, Gran % 71.5, Lymphocytes % 19.9 L, Monocytes % 7.2, Eosinophils % 1.0, Basophils % 0.4, Absolute Granulocytes 5.2, Absolute Lymphocytes 1.4, Absolute Monocytes 0.5, Absolute Eosinophils 0.1, Absolute Basophils 0 Diagnostic Imaging: Viewed by Me: Radiology Read. Discussed w/RAD: Radiology Read. Radiology Impression: PATIENT: GABBY SERRANO PRESENT AGE: 67 PATIENT ACCOUNT NO: [id number] : 50 LOCATION: [facility] ORDERING PHYSICIAN: Aquiles BOLAÑOS SERVICE DATE: 01/09/180205 EXAM TYPE: RAD - XRY-PORTABLE CHEST XRAY EXAMINATION: XR PORTABLE CHEST CLINICAL INFORMATION: Syncope COMPARISON: 12/30/2017 TECHNIQUE: Portable frontal view of the chest was obtained. FINDINGS: Linear opacities of atelectasis or scarring in the left lung base. No pulmonary edema, consolidation or pleural effusion. Cardiac silhouette is normal in size. The hilar contours are normal. Lungs are hypoinflated and right diaphragm elevated. The transverse colon is interposed between the anterior right diaphragm and liver. No pneumoperitoneum. IMPRESSION: No acute findings in the chest compared to 12/30/2017. DICTATED BY: Rob Thomas MD DATE/TIME DICTATED:01/09/181556 CONCRETE FOREMAN:SHARIF DATE/TIME TRANSCRIBED:01/09/181556 CONFIDENTIAL, DO NOT COPY WITHOUT APPROPRIATE AUTHORIZATION. <Electronically signed in Other Vendor System> SIGNED BY: Rob Thomas MD 01/09/18 1604 Hand-Off Endorsed To: Jack Gutierrez DO Endorsed Time: 1720 Pending: other (ED OBSERVATION) Comments: 01/09/2018 5:46:35 PM Case management spoke with Dr. Juarez. They feel the patient would be appropriate for her ED observation as opposed inpatient observation. Patient signout to Dr. Gutierrez. (Moshe BOLAÑOS,Aquiles) Diagnostic Imaging: Viewed by Me: Ultrasound. Discussed w/RAD: Ultrasound. Radiology Impression: PATIENT: GABBY SERRANO PRESENT AGE: 67 PATIENT ACCOUNT NO: [id number] : 50 LOCATION: [facility] ORDERING PHYSICIAN: Aquiles BOLAÑOS SERVICE DATE: 01/09/18172 EXAM TYPE: US - US -RENAL/KIDNEY EXAMINATION: US RETROPERITONEAL COMPLETE (RENAL) CLINICAL INFORMATION: Acute kidney injury.. COMPARISON: Ultrasound kidney 04/28/2017. CT abdomen pelvis 03/12/2017 TECHNIQUE: Real-time imaging of the kidneys and bladder. FINDINGS: RIGHT KIDNEY: 11.6 x 5.4 x 5 cm (SAG x AP x TRV). The kidney is normal in size, contour, and echogenicity. Anechoic cyst in the upper pole right kidney measuring 2.9 cm. Renal cortical thickness is normal. No calculi or focal parenchymal lesions. No hydronephrosis. LEFT KIDNEY: 10.7 x 6.7 x 4.6 cm ( SAG x AP x TRV). The kidney is normal in size, contour, and echogenicity. Renal cortical thickness is normal. No calculi or focal parenchymal lesions. No hydronephrosis. BLADDER: Well-distended and normal. Bilateral ureteral jets are demonstrated. Prevoid bladder volume is 92 mL. Bladder nearly empty on post void. IMPRESSION: No acute abnormality ultrasound of kidneys.. DICTATED BY: Roman Best MD DATE/TIME DICTATED:01/09/181813 CONCRETE FOREMAN:SHARIF DATE/TIME TRANSCRIBED:01/09/181813 CONFIDENTIAL, DO NOT COPY WITHOUT APPROPRIATE AUTHORIZATION. <Electronically signed in Other Vendor System> SIGNED BY: Roman Best MD 01/09/181820 Hand-Off Endorsed To: Jack Gutierrez DO Endorsed Time: 0700 Pending: other (Ann LEE,Kt Judd) Departure Departure Disposition: STILL A PATIENT Condition: Stable Referrals: Huong Oliva APRN (PCP/Family) Departure Forms: Customer Survey General Discharge Information (Aquiles Perry) Observation Note Spoke With: Jack Gutierrez DO Physician Advisor Notified: JACK GUTIERREZ DO Place Patient In: ED Observation Rationale for Observation: My rational for observation is as follows [the patient needs observation for IV fluids, repeat creatinine, renal ultrasound]. Patient will be signed out to Dr. Juarez at 7 PM (Jack Gutierrez DO) Departure Clinical Impression Primary Impression: Orthostatic hypotension Secondary Impressions: MANJIT (acute kidney injury), Dehydration PA/COUNTER HAND Co-Sign Statement Statement: ED Attending supervision documentation- [] I saw and evaluated the patient. I have also reviewed all the pertinent lab results and diagnostic results. I agree with the findings and the plan of care as documented in the PA's/COUNTER HAND's documentation. [x] I have reviewed the ED Record and agree with the PA's/COUNTER HAND's documentation. [] Additions or exceptions (if any) to the PAs/COUNTER HAND's note and plan are summarized below: [] (Ann LEE,Kt Judd) ED Attending Observation Initial Observation Note: I have seen and personally examined GABBY SERRANO on 01/09/18 at 1734. I agree with the current emergency department documentation. The disposition (admission or discharge) is uncertain at this time, he needs a period of observation for the following reason(s): [The patient is being placed in observation for reevaluation of his creatinine and response to IV fluids.] The ED Nurse caring for this patient has been personally informed as to what the patient is being observed for. (Jack Gutierrez DO) Initial Observation Note: . Observation Re-Evaluation: I have reevaluated GABBY SERRANO on 01/10/18 at 0657. The physical findings that support the continued need to observe this patient include .pt rested comfortably all night.... cr decreased from 1.9 to 1.6... pt merits PT/case management evaluation. pt signed out to dr. gutierrez. (Ann LEE,Kt Judd)
[2018-01-09] MEDS ORDERED: CORTEF5 M1 PO ×2 (15:48→15:49)
[2018-01-09 15:56] LABS: ABSOLUTE BASOPHIL COUNT 0 /CUMM (0.0-0.2); ABSOLUTE EOSINOPHIL COUNT 0.1 /CUMM (0.0-0.7); ABSOLUTE GRANULOCYTE CT 5.2 /CUMM (1.4-6.5); ABSOLUTE LYMPH COUNT 1.4 /CUMM (1.2-3.4); ABSOLUTE MONOCYTE COUNT 0.5 /CUMM (0.10-0.60); BASOPHIL % 0.4 % (0.0-2.0); GRANULOCYTE % 71.5 % (42.2-75.2); HEMATOCRIT 41.8 % (42-52); MEAN CORPUSCULAR HGB 28.7 PG (27.0-31.0); MEAN CORPUSCULAR HGB CONC 33.7 G/DL (33.0-37.0); MEAN CORPUSCULAR VOLUME 85.3 FL (80.0-94.0); MEAN PLATELET VOLUME 8.7 FL (7.4-10.4); PLATELET COUNT 199 /CUMM (130-400); RBC DISTRIBUTION WIDTH 13.9 % (11.5-14.5); WHITE BLOOD CELL COUNT 7.3 /CUMM (4.8-10.8)
--- NOTE | 2018-01-09 16:04 | RADIOLOGY REPORT ---
EXAMINATION: XR PORTABLE CHEST CLINICAL INFORMATION: Syncope COMPARISON: 12/30/2017 TECHNIQUE: Portable frontal view of the chest was obtained. FINDINGS: Linear opacities of atelectasis or scarring in the left lung base. No pulmonary edema, consolidation or pleural effusion. Cardiac silhouette is normal in size. The hilar contours are normal. Lungs are hypoinflated and right diaphragm elevated. The transverse colon is interposed between the anterior right diaphragm and liver. No pneumoperitoneum. IMPRESSION: No acute findings in the chest compared to 12/30/2017.
--- NOTE | 2018-01-09 18:21 | ULTRASOUND REPORT ---
EXAMINATION: US RETROPERITONEAL COMPLETE (RENAL) CLINICAL INFORMATION: Acute kidney injury.. COMPARISON: Ultrasound kidney 04/28/2017. CT abdomen pelvis 03/12/2017 TECHNIQUE: Real-time imaging of the kidneys and bladder. FINDINGS: RIGHT KIDNEY: 11.6 x 5.4 x 5 cm (SAG x AP x TRV). The kidney is normal in size, contour, and echogenicity. Anechoic cyst in the upper pole right kidney measuring 2.9 cm. Renal cortical thickness is normal. No calculi or focal parenchymal lesions. No hydronephrosis. LEFT KIDNEY: 10.7 x 6.7 x 4.6 cm (SAG x AP x TRV). The kidney is normal in size, contour, and echogenicity. Renal cortical thickness is normal. No calculi or focal parenchymal lesions. No hydronephrosis. BLADDER: Well-distended and normal. Bilateral ureteral jets are demonstrated. Prevoid bladder volume is 92 mL. Bladder nearly empty on post void. IMPRESSION: No acute abnormality ultrasound of kidneys..
[2018-01-11 14:56] VITALS: BP 110/60
== END 2018-01-11 15:47 ==
LOC: ERH 14:57 → ERHI 17:31
PROVIDERS: Physician Assistant Medical
DX: I95.1 Orthostatic hypotension (principal); N17.9 Acute kidney failure, unspecified; E86.0 Dehydration; I12.9 Hypertensive chronic kidney disease with stage 1 through stage 4 chronic kidney disease, or unspecified chronic kidney disease; N18.9 Chronic kidney disease, unspecified; J44.9 Chronic obstructive pulmonary disease, unspecified; J96.11 Chronic respiratory failure with hypoxia; N40.0 Benign prostatic hyperplasia without lower urinary tract symptoms; G25.81 Restless legs syndrome; F41.9 Anxiety disorder, unspecified
CPT/HCPCS: 71045; 76775; 93005; 93010; 97112-GP; 97116-GP; 97161-GP; G0378; G8978-GP; G8979-GP; J3490